=== PATIENT | male | born 1935 | race Hispanic/Latino ===

== ENCOUNTER 2024-07-11 14:23 | Emergency (ER) | payer OTHER ==
--- OUTSIDE RECORDS SUMMARY | 2024-07-11 14:28 | XMS REPORT | Continuity of Care Document ---
Author Name Unknown Address [address] [facility] [address] [place] [address] Organization [facility] [place] Address [address] [facility] [address] [place] [address] Care Team Providers Care Manager Testing Name Role Phone Jefe Dixon Attending Clinician Unavailable Garett Maynard Attending Clinician Abdulkadir Beltran Attending Clinician Unavailable Michel Steve Attending Clinician Unavailable Garett Maynard Admitting Clinician Abdulkadir Beltran Admitting Clinician Unavailable Miguel Brown APN Admitting Clinician Kane llanos Payers Payer Name Policy Type Policy Number Effective Date Expirati on Date Source [facility] MCR Dual Complete (HMO-POS D-SNP) 111 [id number] 2023 00:00:00 [facility] Problems Condition Name Condition Details Condition Category Status Onset Date Resolution Date Last Treatment Date Treating Clinician Comments Source Essential hypertensi on Essential (primary) hypertensi on Problem [facility] [id number] Chronic GERD Problem [facility] 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 Type 2 diabetes mellitus with hyperglyce olesya, without long-term current use of insulin Problem [facility] [id number] Hearing difficulty of both ears Problem [facility] [id number] Mild episode of recurrent major depressive disorder Problem [facility] [id number] Primary insomnia Problem [facility] [id number] Urinary incontinen ce, unspecifie d type Problem [facility] [id number] 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, unspecifie d pathologic al fracture presence Problem [facility] [id number] Other chronic pain Problem [facility] Allergies, Adverse Reactions, Alerts Allergy Name Allergy Type Status Severity Reaction(s) Onset Date Inactive Date Treating Clinician Comments Source penicill in DA Active RASH 2021-05 00:00: 00 [facility] Active 10-25 00:00: 00 [facility] pen[facility] in DA Active RASH 10-25 00:00: 00 [facility] [id number] Drug allergy Active Unknown [facility] Social History Social Habit Start Date Stop Date Quantity Comments Source History of Tobacco Use [facility] Sex Assigned At [facility] Smoking Status Start Date Stop Date Source Never Smoker [facility] Former Smoker 2024-04-10 00:00:00 2024-04-10 00:00:00 [facility] Medications Ordered Medication Name Filled Medication Name Start Date Stop Date Current Medication? Ordering Clinician Indication Dosage Frequency Signature (SIG) Comments Components Source Ketoconazol e 2 % Ketoconazol e 2 % 2023-05 00:00: 00 No 1{appli cation} QD Ketoconazo le 2 % Ciprofloxac in HCl 500 MG Ciprofloxac in HCl 500 MG 2023-05 00:00: 00 No 1{table t} QD Ciprofloxa jillian HCl 500 MG DULoxetine HCl 30 MG DULoxetine HCl 30 MG 2023-05 1 00:00: 00 No 1{capsu le} QD DULoxetine HCl 30 MG traZODone HCl 150 MG traZODone HCl 150 MG 01-16 00:00: 00 No 1{table t_at_be dtime} QD traZODone HCl 150 MG Triamcinolo ne Acetonide Triamcinolo ne Acetonide No Triamcinol one Acetonide Alendronate Sodium 70 MG Alendronate Sodium 70 MG No Alendronat e Sodium 70 MG Aspirin 81 81 MG Aspirin 81 81 MG No 1{table t} QD Aspirin 81 81 MG Tamsulosin HCl 0.4 MG Tamsulosin HCl 0.4 MG No 1{capsu le} QD Tamsulosin HCl 0.4 MG Losartan Potassium 25 MG Losartan Potassium 25 MG No 1{table t} QD Losartan Potassium 25 MG Famotidine 20 MG Famotidine 20 MG No 1{table t_at_be dtime_a s_neede d} QD Famotidine 20 MG Farxiga 10mg Farxiga 10mg No 1{table t} QD Farxiga 10mg Atorvastati n Calcium 80 MG Atorvastati n Calcium 80 MG No 1{table t} QD Atorvastat in Calcium 80 MG Vital Signs Vital Name Observation Time Observation Value Comments S ource height 2024-06-26 15:15:00 61 [in_i] Commo n [facility] weight 2024-06-26 15:15:00 157.0 [lb_av] Co mmon [facility] temperature 2024-06-26 15:15:00 98.6 [degF] Com mon [facility] bmi 2024-06-26 15:15:00 29.66 kg/m2 Comm on [facility] oximetry 2024-06-26 15:15:00 95 % Commo n [facility] respiratory rate 2024-06-26 15:15:00 16 /min Common [facility] blood pressure systolic 2024-06-26 15:15:00 113 mm[Hg] Common [facility] blood pressure diastolic 2024-06-26 15:15:00 75 mm[Hg] [facility] height 2024-04-10 14:40:00 61 [in_i] Commo n [facility] weight 2024-04-10 14:40:00 155.2 [lb_av] Co mmon [facility] temperature 2024-04-10 14:40:00 97.3 [degF] Com [facility] bmi 2024-04-10 14:40:00 29.32 kg/m2 Comm on [facility] oximetry 2024-04-10 14:40:00 95 % Commo n [facility] respiratory rate 2024-04-10 14:40:00 16 /min [facility] blood pressure systolic 2024-04-10 14:40:00 118 mm[Hg] Common [facility] blood pressure diastolic 2024-04-10 14:40:00 75 mm[Hg] Common [facility] height 2024-03-15 16:00:00 61 [in_i] Commo n [facility] weight 2024-03-15 16:00:00 158.6 [lb_av] Co on [facility] temperature 2024-03-15 16:00:00 98.1 [degF] Com [facility] bmi 2024-03-15 16:00:00 29.96 kg/m2 Comm on [facility] oximetry 2024-03-15 16:00:00 97 % Commo n [facility] respiratory rate 2024-03-15 16:00:00 16 /min Common [facility] blood pressure systolic 2024-03-15 16:00:00 116 mm[Hg] [facility] blood pressure diastolic 2024-03-15 16:00:00 62 mm[Hg] Common [facility] height 2024-03-06 13:00:00 61 [in_i] Commo n [facility] weight 2024-03-06 13:00:00 159.2 [lb_av] Co mmon [facility] temperature 2024-03-06 13:00:00 97.7 [degF] Com [facility] bmi 2024-03-06 13:00:00 30.08 kg/m2 Comm on [facility] oximetry 2024-03-06 13:00:00 97 % Commo n [facility] respiratory rate 2024-03-06 13:00:00 16 /min Common [facility] blood pressure systolic 2024-03-06 13:00:00 136 mm[Hg] Common [facility] blood pressure diastolic 2024-03-06 13:00:00 80 mm[Hg] Common [facility] height 2024-02-20 08:40:00 61 [in_i] Commo n [facility] weight 2024-02-20 08:40:00 154.8 [lb_av] Co mmon [facility] temperature 2024-02-20 08:40:00 97.2 [degF] Com [facility] bmi 2024-02-20 08:40:00 29.25 kg/m2 Comm on [facility] oximetry 2024-02-20 08:40:00 94 % Commo n [facility] respiratory rate 2024-02-20 08:40:00 16 /min Common [facility] blood pressure systolic 2024-02-20 08:40:00 137 mm[Hg] Common [facility] blood pressure diastolic 2024-02-20 08:40:00 85 mm[Hg] [facility] height 2024-02-02 14:40:00 61 [in_i] Commo n [facility] weight 2024-02-02 14:40:00 154.0 [lb_av] Co mmon [facility] temperature 2024-02-02 14:40:00 98.2 [degF] Com [facility] bmi 2024-02-02 14:40:00 29.09 kg/m2 Comm on [facility] oximetry 2024-02-02 14:40:00 96 % Commo n [facility] respiratory rate 2024-02-02 14:40:00 16 /min Common [facility] blood pressure systolic 2024-02-02 14:40:00 87 mm[Hg] Common [facility]iri [facility] blood pressure diastolic 2024-02-02 14:40:00 64 mm[Hg] Common [facility] height 2024-01-17 08:20:00 61 [in_i] Commo n [facility] weight 2024-01-17 08:20:00 156.6 [facility]24-[facility]-17 08:20:00 98.0 [degF] Com [facility] bmi 2024-01-17 08:20:00 29.59 kg/m2 Comm on [facility] oximetry 2024-01-17 08:20:00 96 % Commo n [facility] respiratory rate 2024-01-17 08:20:00 16 /min [facility] blood pressure systolic 2024-01-17 08:20:00 132 mm[Hg] [facility] blood pressure diastolic 2024-01-17 08:20:00 70 mm[Hg] Common [facility] height 2023-12-26 15:40:00 61 [in_i] Commo n [facility] weight 2023-12-26 15:40:00 153.4 [lb_av] Co [facility] temperature 2023-12-26 15:40:00 98.2 [degF] Com [facility] bmi 2023-12-26 15:40:00 28.98 kg/m2 Comm on [facility] oximetry 2023-12-26 15:40:00 96 % Commo n [facility] respiratory rate 2023-12-26 15:40:00 16 /min Common [facility] blood pressure systolic 2023-12-26 15:40:00 114 mm[Hg] Common [facility] blood pressure diastolic 2023-12-26 15:40:00 75 mm[Hg] Common [facility] height 2023-12-01 15:00:00 61 [in_i] Commo n [facility] weight 2023-12-01 15:00:00 185.4 [lb_av] Co mmon [facility] temperature 2023-12-01 15:00:00 97.7 [degF] Com mon [facility] bmi 2023-12-01 15:00:00 35.03 kg/m2 Comm on [facility] oximetry 2023-12-01 15:00:00 98 % Commo n [facility] respiratory rate 2023-12-01 15:00:00 16 /min [facility] blood pressure systolic 2023-12-01 15:00:00 118 mm[Hg] [facility] blood pressure diastolic 2023-12-01 15:00:00 64 mm[Hg] [facility] Procedures Procedure Date / Time Performed Performing Clinicia n Source [id number] 2022-04-20 00:00:00 [facility] [id number] 2022-04-20 00:00:00 [facility] Encounters Start Date/Time End Date/Time Encounter Type Admission Type Attending Clinicians Care Facility Care Department Encounter ID Source 2024-06-26 15:10:01 Outpatient Jefe Dixon [facility] [id number] [facility] 2024-06-22 11:46:01 Outpatient Jefe Dixon [facility] [id number] [facility] 2024-04-10 15:11:00 Outpatient Jefe Dixon [facility] [id number] [facility] 2024-02-01 07:18:00 Outpatient Jefe Dixon [facility] [id number] [facility] 2024-01-30 09:14:01 Outpatient Jefe Dixon [facility] [id number] [facility] 2023-12-22 09:18:01 Outpatient Jefe Dixon [facility] [id number] [facility] 2023-12-01 14:18:01 Outpatient Jefe Dixon [facility] [id number] [facility] 2024-06-26 00:00:00 2024-06-26 00:00:00 OFFICE VISIT ESTAB PT LEVEL 4 [facility] ST[facility] [id number] [facility] 2024-06-18 00:00:00 2024-06-18 00:00:00 (TEL) STLMLC STLMLC [id number] [facility] 2024-06-01 00:00:00 2024-06-01 00:00:00 (TEL) [facility]LMLC STLMLC [id number] [facility] 2024-04-24 00:00:00 2024-04-24 00:00:00 (TEL) [facility]LMLC STLMLC [id number] [facility] 2024-04-17 00:00:00 2024-04-17 00:00:00 (TEL) STLMLC STLMLC [id number] [facility] 2024-04-17 00:00:00 2024-04-17 00:00:00 (TEL) STLMLC STLMLC [id number] [facility] 2024-04-10 00:00:00 2024-04-10 00:00:00 OFFICE VISIT ESTAB PT LEVEL 4 [facility]MLC STLMLC [id number] [facility] 2024-03-15 00:00:00 2024-03-15 00:00:00 OFFICE VISIT ESTAB PT LEVEL 3 [facility]ML[facility] STLMLC [id number] [facility] 2024-03-13 00:00:00 2024-03-13 00:00:00 (TEL) STLMLC STLMLC [id number] [facility] 2024-03-13 00:00:00 2024-03-13 00:00:00 (TEL) STLMLC STLMLC [id number] [facility] 2024-03-13 00:00:00 2024-03-13 00:00:00 (TEL) STLMLC STLMLC [id number] [facility] 2024-03-06 00:00:00 2024-03-06 00:00:00 OFFICE VISIT ESTAB PT LEVEL 4 [facility]MLC STLMLC [id number] [facility] 2024-03-06 00:00:00 2024-03-06 00:00:00 (TEL) STLMLC STLMLC [id number] [facility] 2024-02-29 00:00:00 2024-02-29 00:00:00 (TEL) STLMLC STLMLC [id number] [facility] 2024-02-20 00:00:00 2024-02-20 00:00:00 OFFICE VISIT ESTAB PT LEVEL 3 [facility]C STLMLC [id number] [facility] 2024-02-17 00:00:00 2024-02-17 00:00:00 (TEL) STLMLC STLMLC [id number] [facility] 2024-02-02 00:00:00 2024-02-02 00:00:00 OFFICE VISIT ESTAB PT LEVEL 4 [facility] STL[facility]C [id number] [facility] 2024-01-30 00:00:00 2024-01-30 00:00:00 (TEL) STLMLC STLMLC [id number] [facility] 2024-01-17 00:00:00 2024-01-17 00:00:00 OFFICE VISIT ESTAB PT LEVEL 3 [facility]C STLMLC [id number] [facility] 2024-01-04 00:00:00 2024-01-04 00:00:00 (TEL) STLMLC STLMLC [id number] [facility] 2023-12-26 00:00:00 2023-12-26 00:00:00 OFFICE VISIT ESTAB PT LEVEL 4 [facility]C STLMLC [id number] [facility] 2023-12-26 00:00:00 2023-12-26 00:00:00 (TEL) STLMLC STLMLC [id number] [facility] 2023-12-12 00:00:00 2023-12-12 00:00:00 (TEL) STLMLC STLMLC [id number] [facility] 2023-12-01 00:00:00 2023-12-01 00:00:00 OFFICE VISIT NEW PT LEVEL 4 [facility]LMLC STLMLC [id number] [facility] 2022-04-19 20:31:00 2022-04-30 13:00:00 Inpatient Garett Calderón HC[facility] REHA [id number] [facility] 2022-04-18 01:52:00 2022-04-19 18:27:00 Inpatient EM Abdulkadir Gamboa HC[facility] INTM.01 [id number] [facility] 2022-03-28 21:39:00 2022-03-29 00:29:00 Emergency EM Michel Steve [facility] ER [id number] [facility] Results Test Description Test Time Test Comments Results Result Co mments Source URINALYSIS AUTO W/O SCOPE ([id number])2024-03-15 00:00:00* Test Item Value Reference Range Interpretation Comme nts CULTURE, URINE (test code = 630-4) SPECIMEN NUMBER: [id number] - US ABDOMEN [id number] 09:51:00 [facility] : 1935 Sex: MFAX: Miguel Brown [phone] [place]: [facility] St: [facility] FAX: Quincy Davey DO FAX: Garett Maynard [facility] [place] [facility] 1935 Age/S: 87/M [address] [facility] Unit #: [id number] Loc: [address] [address] Phys: Garett Maynard DO Acct: [id number] Dis Date: Status: ADM IN PHONE #: [phone] Exam Date: 04/30/2022 08 FAX #: [phone] Reason: RIGHT UPPER QUADRANT PAIN EXAMS: CPT CODE: [id number] US ABDOMEN COMPLETE 50707 Location H 31 ABDOMINAL ULTRASOUND COMPLETE : HISTORY: RIGHT UPPER QUADRANT PAIN COMPARISON:CT abdomen and pelvis dated 03/02/2019 TECHNIQUE: Static, grayscale and color Doppler images of the solid abdominal organs were obtained. FINDINGS: The liver demonstrates minimally coarse echotexture. It measures approximately 12.3 cm in length. There appears to be a circumscribed mass in the mid right lobe measuring 2.4 x 1.8 x 2.3 cm. Minimal prominence at the intrahepatic biliary dilatation. Portal vein demonstrates hepatopedal flow.Patient is status post cholecystectomy. No gross biliary dilatation. CBD measures 4 mm diameter. The pancreas is obscured due to bowel gas. The spleen measures 7.8 cm. The right kidney measures 9.8 x 5.5 x 5.7 cm and the left kidney measures 10.1 x 5.3 x 4.3 cm. Kidneys are mildly echogenic Cortical thickness is within normal limits and approximately 1.5 cm bilaterally. No hydronephrosis bilaterally. Exophytic left renal inferior pole cyst measures 2 x 1.5 x 1.4 cm, corresponding to prior CT findings, no follow-up needed. The visible portions of the aorta and inferior vena cava appear unremarkable. IMPRESSION: 1. There appears focal circumscribed mass in the mid right lobe of liver, 2.4 cm. Dedicated liver protocol CT with/without contrast (or contrast MRI) is recommended. 2. Status post cholecystectomy. Mild intrahepatic biliary dilatation is nonspecific. CBD is nondilated at 4 mm. Correlate for normal PAGE 1 Signed Report (CONTINUED) FAX: Miguel Brown [phone] [place]: [facility] St: ADM FAX: Quincy Davey DO FAX: Garett Maynard [facility] 1935 Age/S: 87/M [address] [facility] Unit #: [id number] Loc: [place] [address] Phys: Garett Maynard DO Acct: [id number] Dis Date: Status: ADM IN PHONE #: [phone] Exam Date: 04/30/2022815 FAX #: [phone] Reason: RIGHT UPPER QUADRANT PAIN EXAMS: CPT CODE: [id number] US ABDOMEN COMPLETE 12448 (Continued) bilirubin levels. at 0951 Reported and signed by: Ling Paz M.D. CC: Miguel Brown; Quincy Davey DO; Garett Saini Technologist: Cristy Rivas RDMS Trnscrd Date/Time/By: 04/30/2022 (82) : By: [email or web address] Orig Print D/T: S: 04/30/2022 (0926) PAGE 2 Signed [id number] 06:53:00* Test Item Value Reference Range Interpretation Comme nts GLUBED (test code = GLUBED) 97 mg/dL 70-105 N Performed by cer 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 [facility]2022-12-29 21:05:00* Test Item Value Reference Range Interpretation Comme nts GLUBED (test code = GLUBED) 114 mg/dL 70-105 H Performed by cer 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 [facility]2022-12-29 15:50:00* Test Item Value Reference Range Interpretation Comme nts GLUBED (test code = GLUBED) 115 mg/dL 70-105 H Performed by cer 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 [facility]2022-12-29 11:13:00* Test Item Value Reference Range Interpretation Comme nts GLUBED (test code = GLUBED) 109 mg/dL 70-105 H Performed by cer 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 [facility]2022-12-29 06:08:00* Test Item Value Reference Range Interpretation Comme nts GLUBED (test code = GLUBED) 94 mg/dL 70-105 N Performed by cer 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 [facility]2022-12-28 21:35:00* Test Item Value Reference Range Interpretation Comme nts GLUBED (test code = GLUBED) 100 mg/dL 70-105 N Performed by cer 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 [facility]2022-12-28 17:00:00* Test Item Value Reference Range Interpretation Comme nts GLUBED (test code = GLUBED) 133 mg/dL 70-105 H Performed by cer 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 [facility]2022-12-28 11:00:00* Test Item Value Reference Range Interpretation Comme nts GLUBED (test code = GLUBED) 124 mg/dL 70-105 H Performed by cer 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 [facility]2022-12-28 07:31:00* Test Item Value Reference Range Interpretation Comme nts GLUBED (test code = GLUBED) 112 mg/dL 70-105 H Performed by cer 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 [facility]2022-12-27 21:28:00* Test Item Value Reference Range Interpretation Comme nts GLUBED (test code = GLUBED) 108 mg/dL 70-105 H Performed by cer 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 [facility]2022-12-27 16:47:00* Test Item Value Reference Range Interpretation Comme nts GLUBED (test code = GLUBED) 136 mg/dL 70-105 H Performed by cer 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 [facility]2022-12-27 11:00:00* Test Item Value Reference Range Interpretation Comme nts GLUBED (test code = GLUBED) 135 mg/dL 70-105 H Performed by cer 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 [facility]2022-12-27 06:06:00* Test Item Value Reference Range Interpretation Comme nts GLUBED (test code = GLUBED) 112 mg/dL 70-105 H Performed by cer 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 [facility]2022-12-26 21:12:00* Test Item Value Reference Range Interpretation Comme nts GLUBED (test code = GLUBED) 174 mg/dL 70-105 H Performed by cer 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 [facility]2022-12-26 16:55:00* Test Item Value Reference Range Interpretation Comme nts GLUBED (test code = GLUBED) 149 mg/dL 70-105 H Performed by cer 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 [facility]2022-12-26 12:31:00* Test Item Value Reference Range Interpretation Comme nts GLUBED (test code = GLUBED) 170 mg/dL 70-105 H Performed by cer 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 [facility] CBC W/AUTO [id number] 08:03:00* Test Item Value Reference Range Interpretation Comme nts WHITE BLOOD CELL (test code = WBC) 7.5 X10(3) 4.5-11.0 N RED BLOOD CELL (test code = RBC) 3.63 X10(6) 4.3-5.9 L HEMOGLOBIN (test code = HGB) 11.1 g/dL 13.5-18.0 L HEMATOCRIT (test code = HCT) 33.4 % 42.0-52.0 L MEAN CELL VOLUME (test code = MCV) 92.0 fl 78-100 N MEAN CELL HGB (test code = MCH) 30.6 pg 26.0-34.0 N MEAN CELL HGB CONCETRATION (test code = MCHC) 33.2 g/dl 30.0-37.0 N RED CELL DISTRIBUTION WIDTH (test code = RDW) 14.0 % 11.5-14.5 N PLATELET COUNT (test code = PLT) 225 X10(3) 150-350 N MEAN PLATELET VOLUME (test c ode = MPV) 9.2 fl 8.7-11.4 N NEUTROPHIL % (test code = NT%) 64.9 % 36.0-66.0 N IMMATURE GRANULOCYTE % (test code = IG%) 0.4 % 0.0-2.0 N LYMPHOCYTE % (test code = LY%) 15.0 % 16.0-50.0 L MONOCYTE % (test code = MO%) 15.0 % 0.0-13.0 H EOSINOPHIL % (test code = EO%) 4.2 % 0.0-4.5 N BASOPHIL % (test code = BA%) 0.5 % 0.0-1.5 N NUCLEATED RBC % (test code = NRBC%) 0.0 % 0-0.2 N NEUTROPHIL # (test code = NT#) 4.88 X10(3) 1.70-7.70 N IMMATURE GRANULOCYTE # (test code = IG#) 0.03 X10(3)uL 0.00-0.03 N LYMPHOCYTE # (test code = LY#) 1.13 X10(3) 0.70-4.00 N MONOCYTE # (test code = MO#) 1.13 X10(3) 0.00-0.89 H EOSINOPHIL # (test code = EO#) 0.32 X10(3) 0.00-0.60 N BASOPHIL # (test code = BA#) 0.04 X10(3) 0.00-0.20 N NUCLEATED RBC # (test code = NRBC#) 0.00 K/mm3 0.0-0.1 N BASIC METABOLIC [id number] 07:40:00* Test Item Value Reference Range Interpretation Comme nts SODIUM (test code = NA) 134 mmol/L 136-145 L POTASSIUM (test code = K) 4.0 mmol/L 3.5-5.1 N CHLORIDE (test code = CL) 103 mmol/L 98-107 N CARBON DIOXIDE (test code = CO2) 26 mmol/L 21-32 N GLUCOSE (test code = GLU) 111 mg/dL 70-100 H BLOOD UREA NITROGEN (test code = BUN) 36 mg/dL 7-18 H GLOMERULAR FILTRATION RATE (test code = GFR) > 60.00 See_Comment Reporting unit s: mL/min/1.73m\S\2 (Modified MDRD formula)REFERENCE RANGE: > or = 60 ml/min/1.73M2IF PATIENT IS -NOR[place]GI[place], MULTIPLY REPORTED RESULT BY1.21.The Glomerular Filtration Rate is a calculated parameterbased on serum Creatinine, patient age and sex. GFR valuesless than 60 mL/min/1.73 square meters are indicative ofChronic Kidney Disease. Values less than 15 mL/min/1.73square meters indicate Kidney failure. The calculation forGFR is based on the CKD-EPI (2020) calculation. This formulais race indifferent and is the recommended formula for GFRby the National Kidney Foundation for Adults.The GFR will not calculate if the sex is unknown or if thepatient's age is <18 years. [Automated message] The system which generated this result transmitted reference range: >=60. The reference range was not used to interpret this result as normal/abnormal. CREATININE (test code = CREAT) 0.97 mg/dL 0.67-1.17 N CALCIUM (test code = CA) 8.9 mg/dL 8.5-10.1 N [id number] 06:44:00* Test Item Value Reference Range Interpretation Comme nts GLUBED (test code = GLUBED) 102 mg/dL 70-105 N Performed by cer 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 [facility] [id number] 20:59:00* Test Item Value Reference Range Interpretation Comme nts GLUBED (test code = GLUBED) 108 mg/dL 70-105 H Performed by cer 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 [facility] [id number] 16:56:00* Test Item Value Reference Range Interpretation Comme nts GLUBED (test code = GLUBED) 101 mg/dL 70-105 N Performed by cer 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 [facility] [id number] 11:13:00* Test Item Value Reference Range Interpretation Comme nts GLUBED (test code = GLUBED) 134 mg/dL 70-105 H Performed by cer 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 [facility] COVID 19 Asymptomatic IH [id number] 11:06:00* Test Item Value Reference Range Interpretation Comments COVID 19 Asymptomatic IH AG (test code = COVNONPUIAG) Presumed Negative NEGATIVE NINA COVID-19 Results are for the identification of VPKH-SiL-7lesafublsfff protein antigen. Antigen is generallydetectable in upper respiratory specimens during the acutephase of infection. Positive results indicate the presenceof viral antigens, but clinical correlation with patienthistory and other diagnostic information is necessary todetermine infection status. Negative results should be treated as presumptive andconfirmed with a molecular assay, if necessary for patientmanagement. Negative results do not rule out COVID-19 andshould not be used as the sole basis for treatment orpatient management decisions, including infection controldecisions. Negative results should be considered in thecontext of a patient's recent exposures, history and thepresence of clinical signs and symptoms consistent withCOVID-19. The Nina SARS Antigen ELISE is only for use under the Foodand Drug Administration's Emergency Use Authorization. [id number] 06:17:00* Test Item Value Reference Range Interpretation Comme nts GLUBED (test code = GLUBED) 119 mg/dL 70-105 H Performed by cer 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 [facility] [id number] 20:23:00* Test Item Value Reference Range Interpretation Comme nts GLUBED (test code = GLUBED) 143 mg/dL 70-105 H Performed by cer 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 [facility] [id number] 16:40:00* Test Item Value Reference Range Interpretation Comme nts GLUBED (test code = GLUBED) 84 mg/dL 70-105 N Performed by cer 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 [facility]2022-12-24 11:15:00* Test Item Value Reference Range Interpretation Comme nts GLUBED (test code = GLUBED) 162 mg/dL 70-105 H Performed by cer 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 [facility]2022-12-24 06:19:00* Test Item Value Reference Range Interpretation Comme nts GLUBED (test code = GLUBED) 104 mg/dL 70-105 N Performed by cer 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 [facility]2022-12-23 20:42:00* Test Item Value Reference Range Interpretation Comme nts GLUBED (test code = GLUBED) 128 mg/dL 70-105 H Performed by cer 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 [facility]2022-12-23 16:43:00* Test Item Value Reference Range Interpretation Comme nts GLUBED (test code = GLUBED) 137 mg/dL 70-105 H Performed by cer 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 [facility]2022-12-23 12:02:00* Test Item Value Reference Range Interpretation Comme nts GLUBED (test code = GLUBED) 99 mg/dL 70-105 N Performed by cer 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 [facility] BASIC METABOLIC [id number] 06:18:00* Test Item Value Reference Range Interpretation Comme nts SODIUM (test code = NA) 131 mmol/L 136-145 L POTASSIUM (test code = K) 4.1 mmol/L 3.5-5.1 N CHLORIDE (test code = CL) 100 mmol/L 98-107 N CARBON DIOXIDE (test code = CO2) 25 mmol/L 21-32 N GLUCOSE (test code = GLU) 91 mg/dL 70-100 N BLOOD UREA NITROGEN (test code = BUN) 9 mg/dL 7-18 N GLOMERULAR FILTRATION RATE (test code = GFR) > 60.00 See_Comment Reporting unit s: mL/min/1.73m\S\2 (Modified MDRD formula)REFERENCE RANGE: > or = 60 ml/min/1.73M2IF PATIENT IS -NORWEGI[place], MULTIPLY REPORTED RESULT BY1.21.The Glomerular Filtration Rate is a calculated parameterbased on serum Creatinine, patient age and sex. GFR valuesless than 60 mL/min/1.73 square meters are indicative ofChronic Kidney Disease. Values less than 15 mL/min/1.73square meters indicate Kidney failure. The calculation forGFR is based on the CKD-EPI (2021) calculation. This formulais race indifferent and is the recommended formula for GFRby the National Kidney Foundation for Adults.The GFR will not calculate if the sex is unknown or if thepatient's age is <18 years. [Automated message] The system which generated this result transmitted reference range: >=60. The reference range was not used to interpret this result as normal/abnormal. CREATININE (test code = CREAT) 0.79 mg/dL 0.67-1.17 N CALCIUM (test code = CA) 8.6 mg/dL 8.5-10.1 N COMPREHENSIVE METABOLIC [id number] 06:59:00* Test Item Value Reference Range Interpretation Comme nts SODIUM (test code = NA) 128 mmol/L 136-145 L POTASSIUM (test code = K) 3.8 mmol/L 3.5-5.1 N CHLORIDE (test code = CL) 96 mmol/L 98-107 L CARBON DIOXIDE (test code = CO2) 25 mmol/L 21-32 N GLUCOSE (test code = GLU) 91 mg/dL 70-100 N BLOOD UREA NITROGEN (test code = BUN) 9 mg/dL 7-18 N GLOMERULAR FILTRATION RATE (test code = GFR) > 60.00 See_Comment Reporting unit s: mL/min/1.73m\S\2 (Modified MDRD formula)REFERENCE RANGE: > or = 60 ml/min/1.73M2IF PATIENT IS -NOR[place]GI[place], MULTIPLY REPORTED RESULT BY1.21.The Glomerular Filtration Rate is a calculated parameterbased on serum Creatinine, patient age and sex. GFR valuesless than 60 mL/min/1.73 square meters are indicative ofChronic Kidney Disease. Values less than 15 mL/min/1.73square meters indicate Kidney failure. The calculation forGFR is based on the CKD-EPI (2021) calculation. This formulais race indifferent and is the recommended formula for GFRby the National Kidney Foundation for Adults.The GFR will not calculate if the sex is unknown or if thepatient's age is <18 years. [Automated message] The system which generated this result transmitted reference range: >=60. The reference range was not used to interpret this result as normal/abnormal. CREATININE (test code = CREAT) 0.77 mg/dL 0.67-1.17 TOTAL PROTEIN (test code = PROT) 6.4 g/dl 6.4-8.2 N ALBUMIN (test code = ALB) 3.2 g/dl 3.4-5.0 L CALCIUM (test code = CA) 8.4 mg/dL 8.5-10.1 L BILIRUBIN TOTAL (test code = BILT) 0.8 mg/dl 0.2-1.0 N SGOT/AST (test code = AST) 24 U/L 15-37 N SGPT/ALT (test code = ALT) 25 U/L 12-78 N ALKALINE PHOSPHATASE TOTAL (test code = ALKP) 51 U/L 50-136 N CBC W/AUTO [id number] 06:19:00* Test Item Value Reference Range Interpretation Comme nts WHITE BLOOD CELL (test code = WBC) 6.5 X10(3) 4.5-11.0 N RED BLOOD CELL (test code = RBC) 4.06 X10(6) 4.3-5.9 L HEMOGLOBIN (test code = HGB) 12.5 g/dL 13.5-18.0 L HEMATOCRIT (test code = HCT) 36.5 % 42.0-52.0 L MEAN CELL VOLUME (test code = MCV) 89.9 fl 78-100 N MEAN CELL HGB (test code = MCH) 30.8 pg 26.0-34.0 N MEAN CELL HGB CONCETRATION (test code = MCHC) 34.2 g/dl 30.0-37.0 N RED CELL DISTRIBUTION WIDTH (test code = RDW) 13.2 % 11.5-14.5 N PLATELET COUNT (test code = PLT) 226 X10(3) 150-350 N MEAN PLATELET VOLUME (test c ode = MPV) 9.1 fl 8.7-11.4 N NEUTROPHIL % (test code = NT%) 64.2 % 36.0-66.0 N IMMATURE GRANULOCYTE % (test code = IG%) 0.3 % 0.0-2.0 N LYMPHOCYTE % (test code = LY%) 17.8 % 16.0-50.0 N MONOCYTE % (test code = MO%) 14.3 % 0.0-13.0 H EOSINOPHIL % (test code = EO%) 2.9 % 0.0-4.5 N BASOPHIL % (test code = BA%) 0.5 % 0.0-1.5 N NUCLEATED RBC % (test code = NRBC%) 0.0 % 0-0.2 N NEUTROPHIL # (test code = NT#) 4.14 X10(3) 1.70-7.70 N IMMATURE GRANULOCYTE # (test code = IG#) 0.02 X10(3)uL 0.00-0.03 N LYMPHOCYTE # (test code = LY#) 1.15 X10(3) 0.70-4.00 N MONOCYTE # (test code = MO#) 0.92 X10(3) 0.00-0.89 H EOSINOPHIL # (test code = EO#) 0.19 X10(3) 0.00-0.60 N BASOPHIL # (test code = BA#) 0.03 X10(3) 0.00-0.20 N NUCLEATED RBC # (test code = NRBC#) 0.00 K/mm3 0.0-0.1 N [id number] 16:36:00* Test Item Value Reference Range Interpretation Comme nts GLUBED (test code = GLUBED) 122 mg/dL 70-105 H Performed by cer 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 [facility] BASIC METABOLIC [id number] 13:34:00* Test Item Value Reference Range Interpretation Comme nts SODIUM (test code = NA) 128 mmol/L 136-145 L POTASSIUM (test code = K) 3.9 mmol/L 3.5-5.1 N CHLORIDE (test code = CL) 97 mmol/L 98-107 L CARBON DIOXIDE (test code = CO2) 25 mmol/L 21-32 N GLUCOSE (test code = GLU) 121 mg/dL 70-100 H BLOOD UREA NITROGEN (test code = BUN) 7 mg/dL 7-18 N GLOMERULAR FILTRATION RATE (test code = GFR) > 60.00 See_Comment Reporting unit s: mL/min/1.73m\S\2 (Modified MDRD formula)REFERENCE RANGE: > or = 60 ml/min/1.73M2IF PATIENT IS -NOR[place]GI[place], MULTIPLY REPORTED RESULT BY1.21.The Glomerular Filtration Rate is a calculated parameterbased on serum Creatinine, patient age and sex. GFR valuesless than 60 mL/min/1.73 square meters are indicative ofChronic Kidney Disease. Values less than 15 mL/min/1.73square meters indicate Kidney failure. The calculation forGFR is based on the CKD-EPI (202) calculation. This formulais race indifferent and is the recommended formula for GFRby the National Kidney Foundation for Adults.The GFR will not calculate if the sex is unknown or if thepatient's age is <18 years. [Automated message] The system which generated this result transmitted reference range: >=60. The reference range was not used to interpret this result as normal/abnormal. CREATININE (test code = CREAT) 1.02 mg/dL 0.67-1.17 CALCIUM (test code = CA) 7.9 mg/dL 8.5-10.1 L [id number] 13:34:00* Test Item Value Reference Range Interpretation Comme nts MAGNESIUM (test code = MAG) 1.3 mg/dL 1.8-2.4 L CBC W/AUTO [id number] 13:15:00* Test Item Value Reference Range Interpretation Comme nts WHITE BLOOD CELL (test code = WBC) 5.2 X10(3) 4.5-11.0 N RED BLOOD CELL (test code = RBC) 3.79 X10(6) 4.3-5.9 L HEMOGLOBIN (test code = HGB) 11.4 g/dL 13.5-18.0 L HEMATOCRIT (test code = HCT) 34.8 % 42.0-52.0 L MEAN CELL VOLUME (test code = MCV) 91.8 fl 78-100 N MEAN CELL HGB (test code = MCH) 30.1 pg 26.0-34.0 N MEAN CELL HGB CONCETRATION (test code = MCHC) 32.8 g/dl 30.0-37.0 N RED CELL DISTRIBUTION WIDTH (test code = RDW) 13.4 % 11.5-14.5 N PLATELET COUNT (test code = PLT) 187 X10(3) 150-350 N MEAN PLATELET VOLUME (test c ode = MPV) 8.9 fl 8.7-11.4 N NEUTROPHIL % (test code = NT%) 75.1 % 36.0-66.0 H IMMATURE GRANULOCYTE % (test code = IG%) 0.2 % 0.0-2.0 N LYMPHOCYTE % (test code = LY%) 13.5 % 16.0-50.0 L MONOCYTE % (test code = MO%) 8.9 % 0.0-13.0 N EOSINOPHIL % (test code = EO%) 1.9 % 0.0-4.5 N BASOPHIL % (test code = BA%) 0.4 % 0.0-1.5 N NUCLEATED RBC % (test code = NRBC%) 0.0 % 0-0.2 N NEUTROPHIL # (test code = NT#) 3.89 X10(3) 1.70-7.70 N IMMATURE GRANULOCYTE # (test code = IG#) 0.01 X10(3)uL 0.00-0.03 N LYMPHOCYTE # (test code = LY#) 0.70 X10(3) 0.70-4.00 N MONOCYTE # (test code = MO#) 0.46 X10(3) 0.00-0.89 N EOSINOPHIL # (test code = EO#) 0.10 X10(3) 0.00-0.60 N BASOPHIL # (test code = BA#) 0.02 X10(3) 0.00-0.20 N NUCLEATED RBC # (test code = NRBC#) 0.00 K/mm3 0.0-0.1 N [id number] 12:16:00* Test Item Value Reference Range Interpretation Comme nts GLUBED (test code = GLUBED) 123 mg/dL 70-105 H Performed by cer 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 [facility] [id number] 06:20:00* Test Item Value Reference Range Interpretation Comme nts GLUBED (test code = GLUBED) 83 mg/dL 70-105 N Performed by cer 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 [facility] UR SODIUM [id number] 21:03:00* Test Item Value Reference Range Interpretation Comme nts UR SODIUM RANDOM (test code = JULIANA) 73 meq/L UR OSMOLALITY [id number] 21:03:00* Test Item Value Reference Range Interpretation Comme nts UR OSMOLALITY RANDOM (test c ode = OSMOU) 362 MOS/KG 500-800 L [id number] 20:12:00* Test Item Value Reference Range Interpretation Comme nts GLUBED (test code = GLUBED) 93 mg/dL 70-105 N Performed by cer 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 [facility] [id number] 19:07:00* Test Item Value Reference Range Interpretation Comme nts SODIUM (test code = NA) 126 mmol/L 136-145 L [id number] 16:09:00* Test Item Value Reference Range Interpretation Comme nts GLUBED (test code = GLUBED) 127 mg/dL 70-105 H Performed by cer 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 [facility] [id number] 15:14:00* Test Item Value Reference Range Interpretation Comme nts SODIUM (test code = NA) 124 mmol/L 136-145 L [id number] 12:18:00* Test Item Value Reference Range Interpretation Comme nts SODIUM (test code = NA) 125 mmol/L 136-145 L [id number] 11:32:00* Test Item Value Reference Range Interpretation Comme nts GLUBED (test code = GLUBED) 116 mg/dL 70-105 H Performed by cer 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 [facility] OSMOLALITY [id number] 09:53:00* Test Item Value Reference Range Interpretation Comme nts OSMOLALITY SERUM (test code = OSMO) 259 MOS/KG 275-295 L [id number] 06:21:00* Test Item Value Reference Range Interpretation Comme nts GLUBED (test code = GLUBED) 125 mg/dL 70-105 H Performed by cer 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 [facility] BASIC METABOLIC [id number] 05:48:00* Test Item Value Reference Range Interpretation Comme nts SODIUM (test code = NA) 123 mmol/L 136-145 L POTASSIUM (test code = K) 4.0 mmol/L 3.5-5.1 N CHLORIDE (test code = CL) 90 mmol/L 98-107 L CARBON DIOXIDE (test code = CO2) 24 mmol/L 21-32 N GLUCOSE (test code = GLU) 112 mg/dL 70-100 H BLOOD UREA NITROGEN (test code = BUN) 9 mg/dL 7-18 N GLOMERULAR FILTRATION RATE (test code = GFR) > 60.00 See_Comment Reporting unit s: mL/min/1.73m\S\2 (Modified MDRD formula)REFERENCE RANGE: > or = 60 ml/min/1.73M2IF PATIENT IS -NORWEGI[place], MULTIPLY REPORTED RESULT BY1.21.The Glomerular Filtration Rate is a calculated parameterbased on serum Creatinine, patient age and sex. GFR valuesless than 60 mL/min/1.73 square meters are indicative ofChronic Kidney Disease. Values less than 15 mL/min/1.73square meters indicate Kidney failure. The calculation forGFR is based on the CKD-EPI (2020) calculation. This formulais race indifferent and is the recommended formula for GFRby the National Kidney Foundation for Adults.The GFR will not calculate if the sex is unknown or if thepatient's age is <18 years. [Automated message] The system which generated this result transmitted reference range: >=60. The reference range was not used to interpret this result as normal/abnormal. CREATININE (test code = CREAT) 0.81 mg/dL 0.67-1.17 N CALCIUM (test code = CA) 8.9 mg/dL 8.5-10.1 N COMPREHENSIVE METABOLIC [id number] 05:48:00* Test Item Value Reference Range Interpretation Comme nts TOTAL PROTEIN (test code = PROT) 7.0 g/dl 6.4-8.2 N ALBUMIN (test code = ALB) 3.7 g/dl 3.4-5.0 N BILIRUBIN TOTAL (test code = BILT) 1.8 mg/dl 0.2-1.0 H SGOT/AST (test code = AST) 26 U/L 15-37 N SGPT/ALT (test code = ALT) 26 U/L 12-78 N ALKALINE PHOSPHATASE TOTAL ( test code = ALKP) 55 U/L 50-136 N URINALYSIS W REFLEX [id number] 02:38:00* Test Item Value Reference Range Interpretation Comme nts UA COLOR (test code = COLU) LT YELLOW YELLOW UA APPEARANCE (test code = APPU) CLEAR CLEAR UA GLUCOSE DIPSTICK (test co de = DGLUU) NORMAL mg/dl NORMAL UA BILIRUBIN DIPSTICK (test code = BILU) NEGATIVE mg/dl NEGATIVE UA KETONE DIPSTICK (test cod e = KETU) NEGATIVE mg/dl NEGATIVE UA SPECIFIC GRAVITY (test co de = SGU) 1.008 1.001-1.035 N UA BLOOD DIPSTICK (test code = MELISA) NEGATIVE /UL NEGATIVE UA PH DIPSTICK (test code = TRENT) 7.0 4.6-8.0 UA PROTEIN DIPSTICK (test co de = PROU) NEGATIVE mg/dl NEGATIVE UA UROBILINIOGEN DIPSTICK (test code = URO) NORMAL mg/dl NORMAL UA NITRITE DIPSTICK (test co de = KATIE) NEGATIVE NEGATIVE UA LEUKOCYTE ESTERASE DIPSTI CK (test code = LEUU) NEGATIVE /UL NEGATIVE UA COMMENT (test code = COMU) CLN CATCH UA WBC (test code = WBCU) 0-2 #/hpf 0-5 UA RBC (test code = RBCU) 3-5 #/hpf 0-5 BASIC METABOLIC [id number] 01:23:00* Test Item Value Reference Range Interpretation Comme nts SODIUM (test code = NA) 122 mmol/L 136-145 L POTASSIUM (test code = K) 3.8 mmol/L 3.5-5.1 N CHLORIDE (test code = CL) 89 mmol/L 98-107 L CARBON DIOXIDE (test code = CO2) 24 mmol/L 21-32 N GLUCOSE (test code = GLU) 106 mg/dL 70-100 H BLOOD UREA NITROGEN (test code = BUN) 10 mg/dL 7-18 N GLOMERULAR FILTRATION RATE (test code = GFR) > 60.00 See_Comment Reporting unit s: mL/min/1.73m\S\2 (Modified MDRD formula)REFERENCE RANGE: > or = 60 ml/min/1.73M2IF PATIENT IS -NORWEGI[place], MULTIPLY REPORTED RESULT BY1.21.The Glomerular Filtration Rate is a calculated parameterbased on serum Creatinine, patient age and sex. GFR valuesless than 60 mL/min/1.73 square meters are indicative ofChronic Kidney Disease. Values less than 15 mL/min/1.73square meters indicate Kidney failure. The calculation forGFR is based on the CKD-EPI (2020) calculation. This formulais race indifferent and is the recommended formula for GFRby the National Kidney Foundation for Adults.The GFR will not calculate if the sex is unknown or if thepatient's age is <18 years. [Automated message] The system which generated this result transmitted reference range: >=60. The reference range was not used to interpret this result as normal/abnormal. CREATININE (test code = CREAT) 0.85 mg/dL 0.67-1.17 N CALCIUM (test code = CA) 8.2 mg/dL 8.5-10.1 L - CT HEAD/BRAIN W/O [id number] 01:16:00 [facility] : 1935 Sex: [facility] 1935 Age/S: 87 / M [address] Unit #: [id number] Loc: [place], [place] [address] Phys: Bertrand Rick DO Acct: [id number] Dis Date: Status: REG ER PHONE #: [phone] Exam Date: 04/18/202257 FAX #: [phone] Reason: headache, hypertension EXAMS: CPT CODE: [id number] CT HEAD/BRAIN W/O CONT [id number] Exam: CT head without contrast. Location: H 12 History: headache, hypertension Technique: Unenhanced spiral slices were taken from the base of the skull, through the vertex. One or more of the following dose reduction techniques were used: Automated exposure control, adjustment of the mA and/or kV according to patient size, and/or utilization of iterative reconstruction technique. Findings: No acute intracranial abnormality is identified. Prominence of the gyri and sulci is consistent with mild, diffuse cerebral atrophy. Periventricular ischemic white matter changes are present along with scattered microinfarcts in the periventricular and subcortical deep white matter. The brain parenchyma and the CSF spaces are otherwise unremarkable. No mass, midline shift, hemorrhage, edema or hydrocephalus is seen. The visualized paranasal sinuses are clear. The mastoid air cells are well pneumatized. The bony calvariumis intact. Impression: 1. No acute intracranial abnormality. 2. Atrophy. 3. Atherosclerotic microva scular disease. 4. Otherwise unremarkable exam. at 0116 Reported and signed by: TOMMY DAUGHERTY M.D. CC: Bertrand Brown Technologist:Senthil Martin RT(R) CT CTDI: 36.96 DLP: 715.42 Trnscb Date/Time: 04/18/2022 (0116) [email or web address] Orig Print D/T: S: 04/18/2022 (011) PAGE 1 Signed ReportCBC W/AUTO [id number] 00:54:00* Test Item Value Reference Range Interpretation Comme nts WHITE BLOOD CELL (test code = WBC) 4.7 X10(3) 4.5-11.0 N RED BLOOD CELL (test code = RBC) 3.59 X10(6) 4.3-5.9 L HEMOGLOBIN (test code = HGB) 10.9 g/dL 13.5-18.0 L HEMATOCRIT (test code = HCT) 32.4 % 42.0-52.0 L MEAN CELL VOLUME (test code = MCV) 90.3 fl 78-100 N MEAN CELL HGB (test code = MCH) 30.4 pg 26.0-34.0 N MEAN CELL HGB CONCETRATION (test code = MCHC) 33.6 g/dl 30.0-37.0 N RED CELL DISTRIBUTION WIDTH (test code = RDW) 12.8 % 11.5-14.5 N PLATELET COUNT (test code = PLT) 183 X10(3) 150-350 N MEAN PLATELET VOLUME (test c ode = MPV) 8.6 fl 8.7-11.4 L NEUTROPHIL % (test code = NT%) 68.8 % 36.0-66.0 H IMMATURE GRANULOCYTE % (test code = IG%) 0.2 % 0.0-2.0 N LYMPHOCYTE % (test code = LY%) 17.1 % 16.0-50.0 N MONOCYTE % (test code = MO%) 11.8 % 0.0-13.0 N EOSINOPHIL % (test code = EO%) 1.7 % 0.0-4.5 N BASOPHIL % (test code = BA%) 0.4 % 0.0-1.5 N NUCLEATED RBC % (test code = NRBC%) 0.0 % 0-0.2 N NEUTROPHIL # (test code = NT#) 3.26 X10(3) 1.70-7.70 N IMMATURE GRANULOCYTE # (test code = IG#) 0.01 X10(3)uL 0.00-0.03 N LYMPHOCYTE # (test code = LY#) 0.81 X10(3) 0.70-4.00 N MONOCYTE # (test code = MO#) 0.56 X10(3) 0.00-0.89 N EOSINOPHIL # (test code = EO#) 0.08 X10(3) 0.00-0.60 N BASOPHIL # (test code = BA#) 0.02 X10(3) 0.00-0.20 N NUCLEATED RBC # (test code = NRBC#) 0.00 K/mm3 0.0-0.1 N COMPREHENSIVE METABOLIC [id number] 22:44:00* Test Item Value Reference Range Interpretation Comme nts SODIUM (test code = NA) 122 mmol/L 136-145 L POTASSIUM (test code = K) 4.2 mmol/L 3.5-5.1 N CHLORIDE (test code = CL) 90 mmol/L 98-107 L CARBON DIOXIDE (test code = CO2) 24 mmol/L 21-32 N GLUCOSE (test code = GLU) 153 mg/dL 70-100 H BLOOD UREA NITROGEN (test code = BUN) 17 mg/dL 7-18 N GLOMERULAR FILTRATION RATE (test code = GFR) 49.25 See_Comment L Reporting unit s: mL/min/1.73m\S\2 (Modified MDRD formula)REFERENCE RANGE: > or = 60 ml/min/1.73M2IF PATIENT IS -NOR[place]GI[place], MULTIPLY REPORTED RESULT BY1.21.The Glomerular Filtration Rate is a calculated parameterbased on serum Creatinine, patient age and sex. GFR valuesless than 60 mL/min/1.73 square meters are indicative ofChronic Kidney Disease. Values less than 15 mL/min/1.73square meters indicate Kidney failure. The calculation forGFR is based on the CKD-EPI (2020) calculation. This formulais race indifferent and is the recommended formula for GFRby the National Kidney Foundation for Adults.The GFR will not calculate if the sex is unknown or if thepatient's age is <18 years. [Automated message] The system which generated this result transmitted reference range: >=60. The reference range was not used to interpret this result as normal/abnormal. CREATININE (test code = CREAT) 1.40 mg/dL 0.67-1.17 H TOTAL PROTEIN (test code = PROT) 6.9 g/dl 6.4-8.2 N ALBUMIN (test code = ALB) 3.6 g/dl 3.4-5.0 N CALCIUM (test code = CA) 8.6 mg/dL 8.5-10.1 N BILIRUBIN TOTAL (test code = BILT) 1.9 mg/dl 0.2-1.0 H SGOT/AST (test code = AST) 30 U/L 15-37 N SGPT/ALT (test code = ALT) 27 U/L 12-78 N ALKALINE PHOSPHATASE TOTAL (test code = ALKP) 68 U/L 50-136 N CBC W/AUTO [id number] 22:22:00* Test Item Value Reference Range Interpretation Comme nts WHITE BLOOD CELL (test code = WBC) 6.5 X10(3) 4.5-11.0 N RED BLOOD CELL (test code = RBC) 3.96 X10(6) 4.3-5.9 L HEMOGLOBIN (test code = HGB) 11.6 g/dL 13.5-18.0 L HEMATOCRIT (test code = HCT) 35.1 % 42.0-52.0 L MEAN CELL VOLUME (test code = MCV) 88.6 fl 78-100 N MEAN CELL HGB (test code = MCH) 29.3 pg 26.0-34.0 N MEAN CELL HGB CONCETRATION (test code = MCHC) 33.0 g/dl 30.0-37.0 N RED CELL DISTRIBUTION WIDTH (test code = RDW) 13.1 % 11.5-14.5 N PLATELET COUNT (test code = PLT) 176 X10(3) 150-350 N MEAN PLATELET VOLUME (test c ode = MPV) 9.4 fl 8.7-11.4 N NEUTROPHIL % (test code = NT%) 72.9 % 36.0-66.0 H IMMATURE GRANULOCYTE % (test code = IG%) 0.3 % 0.0-2.0 N LYMPHOCYTE % (test code = LY%) 13.3 % 16.0-50.0 L MONOCYTE % (test code = MO%) 12.1 % 0.0-13.0 N EOSINOPHIL % (test code = EO%) 0.9 % 0.0-4.5 N BASOPHIL % (test code = BA%) 0.5 % 0.0-1.5 N NUCLEATED RBC % (test code = NRBC%) 0.0 % 0-0.2 N NEUTROPHIL # (test code = NT#) 4.75 X10(3) 1.70-7.70 N IMMATURE GRANULOCYTE # (test code = IG#) 0.02 X10(3)uL 0.00-0.03 N LYMPHOCYTE # (test code = LY#) 0.87 X10(3) 0.70-4.00 N MONOCYTE # (test code = MO#) 0.79 X10(3) 0.00-0.89 N EOSINOPHIL # (test code = EO#) 0.06 X10(3) 0.00-0.60 N BASOPHIL # (test code = BA#) 0.03 X10(3) 0.00-0.20 N NUCLEATED RBC # (test code = NRBC#) 0.00 K/mm3 0.0-0.1 N - CT CHEST [id number] 18:55:00Name: ADRYAN MCWILLIAMS [facility] : 1935 Age/S: 83 / M [address] [facility] Unit #: [id number] Loc: [place], [place] [address] Phys: Juan David Suh MD Acct: [id number] Dis Date: Status: REG ER PHONE #: [phone] Exam Date: 03/02/2019 1831 FAX #: [phone] Reason:FALL EXAMS: CPT CODE: [id number] CT CHEST W/CONTRAST 17725 Site ID: [id number] EXAMINATION: - CT ABD PELVIS W/CONT, - CT CHEST W/CONTRAST. Technique: Axial images with coronal and sagittal reconstructions are performed of the chest, abdomen and pelvis with intravenous contrast. 100 ml of Isovue-300 was administered intravenously. One or more of the following radiation dose reduction techniques was used:automated exposure control, adjustment of mA and/or KV according to patient size, and/or utilization of iterative reconstruction technique. HISTORY: FALL. COMPARISON: None. FINDINGS: CT chest: The thoracic aorta is normal in caliber and enhancement. There is no mediastinal hematoma. No mediastinal mass or lymphadenopathy. The heart size is of the upper limits of normal. Coronary artery prominent calcifications are seen. No pericardial or pleural effusion. No hilar, mediastinal or axillary lymphadenopathy. The lungs demonstrate no significant consolidation or contusion. No pneumothorax. Minimal groundglass opacities in the dependent areas, probably represents mild atelectasis. The osseous structures appear grossly unremarkable. CT abdomen and pelvis: The liver demonstrates lobulated contour suggestive of chronic liver disease or cirrhosis. There is no ascites. Cholecystectomy clips are seen. The spleen is not enlarged. The pancreas and adrenal glands appear unremarkable. The kidneys demonstrate symmetric enhancement. There is no hydronephrosis. Hypodense lesion in the lower pole of the right kidney measuring 1.6 cm is favored to be a cyst. When compared to study from 2017, althoughdifficult to see without contrast this lesion appears PAGE 1 Signed Report (CONTINUED) [facility] 1935 Age/S: 83 / M [address] [facility] Unit #: [id number] Loc: [place] [address] Phys: Juan David Suh MD Acct: [id number] Dis Date: Status: REG ER PHONE #: [phone] Exam Date: 03/02/2019 1831 FAX #: [phone] Reason: FALL EXAMS: CPT CODE: [id number] CT CHEST W/CONTRAST 22742 (Continued) to be present at that time. There is an exo phytic cyst from the lower pole of the left kidney stable from the previous exam, measuring 2 cm. The abdominal aorta is normal in caliber. No para-aortic significantly enlarged lymph node is seen. The appendix is normal. There is diverticulosis. No diverticulitis. No bowel obstruction. No significant free fluid or fluid collection in the abdomen or pelvis is seen. No hemorrhage. The urinary bladder appears unremarkable. The osseous structures appears grossly unremarkable. IMPRESSION: CT chest:No intrathoracic injury. CT has pelvis: 1. Suggestion of chronic liver disease or cirrhosis. 2. Nosolid organ injury or hematoma in the abdomen or pelvis. Electronically Signed by Adan Narvaez 03/02/2019 at 1855 Reported and signed by: Adan Chen MD CC: Juan David Suh MD; Miguel Brown Technologist:Saul Acuna RT (R) CT (R) CTDI: 9.33 DLP: 671.16 Trnscb Date/Time: 03/02/2019 (1854) tMARYLIN Orig Print D/T: S: 03/02/2019 (1858) PAGE 2 Signed Report- CT ABD PELVIS [id number] 18:55:00[facility] 1935 Age/S: 83 / M [address] Unit #: [id number] Loc: [place] [address] Phys: Juan David Suh MD Acct: [id number] DisDate: Status: REG ER PHONE #: [phone] Exam Date: 03/02/2019 183 FAX #: [phone] Reason: FALL EXAMS: CPT CODE: [id number] CT ABD PELVIS W/CONT 25434 Site ID: [id number] EXAMINATION: - CT ABD PELVIS W/CONT, - CT CHEST W/CONTRAST. Technique: Axial images with coronal and sagittal reconstructions are performed of the chest, abdomen and pelvis with intravenous contrast. 100 ml of Isovue-300 was administered intravenously. One or more of the following radiation dose reduction techniques was used:automated exposure control, adjustment of mA and/or KV according to patient size, and/or utilization of iterative reconstruction technique. HISTORY: FALL. COMPARISON: None. FINDINGS: CT chest: The thoracic aorta is normal in caliber and enhancement. There is no mediastinal hematoma. No mediastinalmass or lymphadenopathy. The heart size is of the upper limits of normal. Coronary artery prominentcalcifications are seen. No pericardial or pleural effusion. No hilar, mediastinal or axillary lymphadenopathy. The lungs demonstrate no significant consolidation or contusion. No pneumothorax. Minimal groundglass opacities in the dependent areas, probably represents mild atelectasis. The osseous structures appear grossly unremarkable. CT abdomen and pelvis: The liver demonstrates lobulated contour suggestive of chronic liver disease or cirrhosis. There is no ascites. Cholecystectomy clips are seen. The spleen is not enlarged. The pancreas and adrenal glands appear unremarkable. The kidneys demonstrate symmetric enhancement. There is no hydronephrosis. Hypodense lesion in the lower pole of the right kidney measuring 1.6 cm is favored to be a cyst. When compared to study from 2017, although difficult to see without contrast this lesion appears PAGE 1 Signed Report (CONTINUED) [facility] 1935 Age/S: 83 / M [address] [facility] Unit #: [id number] Loc: [place], [place] [address] Phys: Juan David uSh MD Acct: [id number] Dis Date: Status: REG ER PHONE #: [phone] Exam Date: 03/02/2019 183 FAX #: [phone] Reason: FALL EXAMS:CPT CODE: [id number] CT ABD PELVIS W/CONT 53790 (Continued) to be present at that time. There is an e xophytic cyst from the lower pole of the left kidney stable from the previous exam, measuring 2 cm. The abdominal aorta is normal in caliber. No para-aortic significantly enlarged lymph node is seen. The appendix is normal. There is diverticulosis. No diverticulitis. No bowel obstruction. No significant free fluid or fluid collection in the abdomen or pelvis is seen. No hemorrhage. The urinary bladder appears unremarkable. The osseous structures appears grossly unremarkable. IMPRESSION: CT chest: No intrathoracic injury. CT has pelvis: 1. Suggestion of chronic liver disease or cirrhosis. 2.No solid organ injury or hematoma in the abdomen or pelvis. at 1855 Reported and signed by: Adan Chen MD CC: Juan David Suh MD; Miguel Brown Technologist:Saul Acuna RT (R) CT (R) CTDI: 9.33 DLP: 671.16 Trnscb Date/Time: 03/02/2019 (1854) t.[email or web address] Orig Print D/T: S: 03/02/2019 (1858) PAGE 2 Signed Report- CT C-SPINE W/O [id number] 18:43:00[facility] 1935 Age/S: 83 / M [address] Unit #: [id number] Loc: [place] [address] Phys: Juan David Suh MD Acct: [id number] Dis Date: Status: REG ER PHONE #: [phone] Exam Date: 03/02/2019 183 FAX #: [phone] Reason:FALL EXAMS: CPT CODE: [id number] CT C-SPINE W/O CONT 00513 Site ID: [id number] EXAMINATION: - CT HEAD/BRAIN W/O CONT, - CT C-SPINE W/O CONT. TECHNIQUE: Noncontrast axial images of the brain and cervical spine with coronal and sagittal reconstructions were obtained. One or more of the following radiation dose reduction techniques was used: automated exposure control, adjustment of mA and/or KV according to patient size, and/or utilization of iterative reconstruction technique. HISTORY: headache. FINDINGS: CT HEAD: There is no intracranial hemorrhage, edema or mass effect. The brain parenchyma demonstrates periventricular and deep white matter hypodensities compatible with chronic microvascular ischemic changes. In the scalp, there is a dnxul-zv-hamamkcu sized right parietal hematoma with maximum t hickness of 1 cm.. No hydrocephalus. There is opacification of the right mastoid air cells. The right middle air cavity is clear. 1.5 cm mucous retention cyst in the left maxillary sinus is seen. CT cervical spine: The alignment of the posterior spinal line satisfactory. The vertebral body heights are preserved. There is significant disc height loss at C5/6 and C6/7 level. There are prominent degenerative changes and multiple levels of the facet joints. The alignment of the lateral masses of C1 and C2 and atlantooccipital joints is satisfactory. No fracture is identified. IMPRESSION: CT HEAD: 1. No intracranial hemorrhage. PAGE 1 Signed Report (CONTINUED) Name: [facility] : 1935 Age/S: 83 / M [address] [place] [address] Road Unit #: [id number] Loc: [place], [place] [address] Phys: Juan David Suh MD Acct: [id number] Dis Date: Status: REG ER PHONE #: [phone] Exam Date: 03/02/2019 183 FAX #: [phone] Reason: FALL EXAMS: CPT CODE: [id number] CT C-SPINE W/O CONT 18418 (Continued) 2. Small to moderate right parietal scalp hematoma. 3. Opacification of the right mastoid air cells may relate to mastoiditis.. CT cervical spine: Advanced degenerative changes. No fracture seen. at 1843 R eported and signed by: Adan Chen MD CC: Juan David Suh MD; Miguel Brown Technologist:Saul Acuna RT (R) CT (R) CTDI: 8.10 DLP: 187.80 Trnscb Date/Time: 03/02/2019 (184) [email or web address] Orig Print D/T: S: 03/02/2019 (1845) PAGE 2 Signed Report- CT HEAD/BRAIN W/O [id number] 18:43:00Name: ADRYAN MCWILLIAMS [facility] : 1935 Age/S: 83 / M [address] [place] [address] Unit #: [id number] Loc: [place], [place] [address] Phys: Juan David Suh MD Acct: [id number] DisDate: Status: REG ER PHONE #: [phone] Exam Date: 03/02/2019 183 FAX #: [phone] Reason: headache EXAMS: CPT CODE: [id number] CT HEAD/BRAIN W/O CONT 48624 Site ID: [id number] EXAMINATION: - CT HEAD/BRAIN W/O CONT, - CT C-SPINE W/O CONT. TECHNIQUE: Noncontrast axial images of the brain and cervical spine with coronal and sagittal reconstructions were obtained. One or more of the following radiation dose reduction techniques was used: automated exposure control, adjustment of mA and/or KV according to patient size, and/or utilization of iterative reconstruction technique. HISTORY: headache.FINDINGS: CT HEAD: There is no intracranial hemorrhage, edema or mass effect. The brain parenchyma demonstrates periventricular and deep white matter hypodensities compatible with chronic microvascular ischemic changes. In the scalp, there is a ighaa-vh-cetxpmku sized right parietal hematoma with ma ximum thickness of 1 cm.. No hydrocephalus. There is opacification of the right mastoid air cells. The right middle air cavity is clear. 1.5 cm mucous retention cyst in the left maxillary sinus is seen. CT cervical spine: The alignment of the posterior spinal line satisfactory. The vertebral body heights are preserved. There is significant disc height loss at C5/6 and C6/7 level. There are prominent degenerative changes and multiple levels of the facet joints. The alignment of the lateral masses of C1 and C2 and atlantooccipital joints is satisfactory. No fracture is identified. IMPRESSION: CT HEAD: 1. No intracranial hemorrhage. PAGE 1 Signed Report (CONTINUED) [facility] 1935 Age/S: 83 / M [address] [facility] Unit #: [id number] Loc: [place] [address] Phys: Juan David Suh MD Acct: [id number] Dis Date: Status: REG ER PHONE #: [phone] Exam Date: 03/02/2019 1831 FAX #: [phone] Reason: headache EXAMS: CPT CODE: [id number] CT HEAD/BRAIN W/O CONT 56715 (Continued) 2. Small to moderate right parietal scalp hematoma. 3. Opacification of the right mastoid air cells may relate to mastoiditis.. CT cervical spine: Advanced degenerative changes. No fracture seen. at 1843 Reported and signed by: Adan Chen MD CC: Juan David Suh MD; Miguel Brown Technologist:Saul Acuna RT (R) CT (R) CTDI: 37.69 DLP: 603.09 Trnalb Date/Time: 03/02/2019 (1843) Radha Orig Print D/T: S: 03/02/2019 (3592) PAGE 2 Signed ReportBASI METABOLIC [id number] 18:31:00* Test Item Value Reference Range Interpretation Comme nts SODIUM (test code = NA) 132 mmol/L 136-145 L POTASSIUM (test code = K) 4.6 mmol/L 3.5-5.1 N CHLORIDE (test code = CL) 97 mmol/L 98-107 L CARBON DIOXIDE (test code = CO2) 27 mmol/L 21-32 N GLUCOSE (test code = GLU) 170 mg/dL 70-100 H BLOOD UREA NITROGEN (test code = BUN) 22 mg/dL 7-18 H GLOMERULAR FILTRATION RATE (test code = GFR) > 60.00 >=60 Reporting units: mL/min/1.73m\S\2 (Modified MDRD formula)REFERENCE RANGE: > or = 60 ml/min/1.73M2IF PATIENT IS -NORWEGI[place], MULTIPLY REPORTED RESULT BY1.21. CREATININE (test code = CREAT) 1.10 mg/dL 0.67-1.17 N CALCIUM (test code = CA) 9.1 mg/dL 8.5-10.1 N LIVER [id number] 18:31:00* Test Item Value Reference Range Interpretation Comme nts TOTAL PROTEIN (test code = PROT) 6.7 g/dl 6.4-8.2 N ALBUMIN (test code = ALB) 3.4 g/dl 3.4-5.0 N BILIRUBIN TOTAL (test code = BILT) 1.0 mg/dl 0.2-1.0 N BILIRUBIN DIRECT (test code = BILD) 0.40 mg/dl 0.0-0.4 N SGOT/AST (test code = AST) 19 U/L 15-37 N SGPT/ALT (test code = ALT) 19 U/L 12-78 N ALKALINE PHOSPHATASE TOTAL ( test code = ALKP) 84 U/L 50-136 N [id number] 18:31:00* Test Item Value Reference Range Interpretation Comme nts TROPONIN-I (test code = TROPI) <0.015 ng/ml 0.00-0.045 N GUIDELINES: 0.08 - 0.09 Indeterminate0.10 Risk Stratification Limit: Suggest sequential testing0.60 - 1.50 AMI cutoff: Myocardial Injury by WHO criteria BASIC METABOLIC [id number] 18:30:00* Test Item Value Reference Range Interpretation Comme nts SODIUM (test code = NA) 132 mmol/L 136-145 L POTASSIUM (test code = K) 4.6 mmol/L 3.5-5.1 N CHLORIDE (test code = CL) 97 mmol/L 98-107 L CARBON DIOXIDE (test code = CO2) 27 mmol/L 21-32 N GLUCOSE (test code = GLU) 170 mg/dL 70-100 H BLOOD UREA NITROGEN (test code = BUN) 22 mg/dL 7-18 H GLOMERULAR FILTRATION RATE (test code = GFR) > 60.00 >=60 Reporting units: mL/min/1.73m\S\2 (Modified MDRD formula)REFERENCE RANGE: > or = 60 ml/min/1.73M2IF PATIENT IS -NORWEGI[place], MULTIPLY REPORTED RESULT BY1.21. CREATININE (test code = CREAT) 1.10 mg/dL 0.67-1.17 N CALCIUM (test code = CA) 9.1 mg/dL 8.5-10.1 N LIVER [id number] 18:30:00* Test Item Value Reference Range Interpretation Comme nts TOTAL PROTEIN (test code = PROT) 6.7 g/dl 6.4-8.2 N ALBUMIN (test code = ALB) 3.4 g/dl 3.4-5.0 N BILIRUBIN TOTAL (test code = BILT) 1.0 mg/dl 0.2-1.0 N BILIRUBIN DIRECT (test code = BILD) 0.40 mg/dl 0.0-0.4 N SGOT/AST (test code = AST) 19 U/L 15-37 N SGPT/ALT (test code = ALT) 19 U/L 12-78 N ALKALINE PHOSPHATASE TOTAL ( test code = ALKP) 84 U/L 50-136 N [id number] 18:30:00* Test Item Value Reference Range Interpretation Comme nts TROPONIN-I (test code = TROPI) ng/ml 0.00-0.045 BASIC METABOLIC [id number] 18:25:00* Test Item Value Reference Range Interpretation Comme nts SODIUM (test code = NA) 132 mmol/L 136-145 L POTASSIUM (test code = K) 4.6 mmol/L 3.5-5.1 N CHLORIDE (test code = CL) 97 mmol/L 98-107 L CARBON DIOXIDE (test code = CO2) 27 mmol/L 21-32 N GLUCOSE (test code = GLU) 170 mg/dL 70-100 H BLOOD UREA NITROGEN (test co de = BUN) 22 mg/dL 7-18 H GLOMERULAR FILTRATION RATE ( test code = GFR) >=60 CREATININE (test code = CREAT) mg/dL 0.67-1.17 CALCIUM (test code = CA) 9.1 mg/dL 8.5-10.1 N LIVER [id number] 18:25:00* Test Item Value Reference Range Interpretation Comme nts TOTAL PROTEIN (test code = PROT) g/dl 6.4-8.2 ALBUMIN (test code = ALB) 3.4 g/dl 3.4-5.0 N BILIRUBIN TOTAL (test code = BILT) mg/dl 0.2-1.0 BILIRUBIN DIRECT (test code = BILD) mg/dl 0.0-0.4 SGOT/AST (test code = AST) U/L 15-37 SGPT/ALT (test code = ALT) U/L 12-78 ALKALINE PHOSPHATASE TOTAL ( test code = ALKP) U/L 50-136 [id number] 18:25:00* Test Item Value Reference Range Interpretation Comme nts TROPONIN-I (test code = TROPI) ng/ml 0.00-0.045 PROTHROMBIN [id number] 18:25:00* Test Item Value Reference Range Interpretation Comments PROTHROMBIN TIME PATIENT (test code = PTP) 11.5 SECONDS 8.7-12.1 N THERAPEUTIC LEVE L: 1.5 TO 1.9 TIMES NORMAL RANGE INTERNATIONAL NORMAL RATIO (test code = INR) 1.1 Recommended Ther apeutic PT Ratios For Oral AnticoagulantTherapy. CONDITION INT'L NORMALIZED PT RATIO Prophylaxis of venous thrombosis 2.0 - 3.0in high risk medical or surgicalpatients, treatment of venousthrombosis, prevention of embolism. Prevention of recurrent embolism, 2.5 - 3.5or treatment of patients with mechanicalprosthetic heart valves. THROMBOPLASTIN TIME [id number] 18:25:00* Test Item Value Reference Range Interpretation Comme nts THROMBOPLASTIN TIME PARTIAL (test code = PTT) 28.2 seconds 22.8-34.4 N CBC W/AUTO [id number] 18:14:00* Test Item Value Reference Range Interpretation Comme nts WHITE BLOOD CELL (test code = WBC) 7.9 X10(3) 4.5-11.0 N RED BLOOD CELL (test code = RBC) 3.64 X10(6) 4.3-5.9 L HEMOGLOBIN (test code = HGB) 10.9 g/dL 13.5-18.0 L HEMATOCRIT (test code = HCT) 33.6 % 42.0-52.0 L MEAN CELL VOLUME (test code = MCV) 92.3 fl 78-100 N MEAN CELL HGB (test code = MCH) 29.9 pg 26.0-34.0 N MEAN CELL HGB CONCETRATION (test code = MCHC) 32.4 g/dl 30.0-37.0 N RED CELL DISTRIBUTION WIDTH (test code = RDW) 14.0 % 11.5-14.5 N PLATELET COUNT (test code = PLT) 196 X10(3) 150-350 N MEAN PLATELET VOLUME (test c ode = MPV) 9.1 fl 8.7-11.4 N NEUTROPHIL % (test code = NT%) 76.8 % 36.0-66.0 H IMMATURE GRANULOCYTE % (test code = IG%) 0.4 % 0.0-2.0 N LYMPHOCYTE % (test code = LY%) 10.5 % 16-50 L MONOCYTE % (test code = MO%) 9.6 % 0.0-13.0 N EOSINOPHIL % (test code = EO%) 2.4 % 0.0-4.5 N BASOPHIL % (test code = BA%) 0.3 % 0.0-1.5 N NUCLEATED RBC % (test code = NRBC%) 0.0 % 0-0.2 N NEUTROPHIL # (test code = NT#) 6.1 X10(3) 1.7-7.7 N IMMATURE GRANULOCYTE # (test code = IG#) 0.03 X10(3)uL 0.00-0.03 N LYMPHOCYTE # (test code = LY#) 0.8 X10(3) 0.7-4.0 N MONOCYTE # (test code = MO#) 0.8 X10(3) 0.0-0.89 N EOSINOPHIL # (test code = EO#) 0.2 X10(3) 0.0-0.6 N BASOPHIL # (test code = BA#) 0.0 X10(3) 0.0-0.2 N NUCLEATED RBC # (test code = NRBC#) 0.00 K/mm3 0.0-0.1 N Notes Date/Time Note Provider Source 2022-04-30 13:37:00 [facility] ([facility]) Hospitalist Discharge Summary REPORT#:[id number] REPORT STATUS: Signed DATE:04/30/22 TIME: 1336 PATIENT: ADRYAN MCWILLIAMS UNIT #: [id number] ROOM/BED: [address] : [birth year] AGE: 87 SEX: M ATTEND: Garett Maynard DO ADM AUTHOR: Garett Maynard DO * ALL edits or amendments must be made on the electronic/computer document * General Information Date of admission: Observation Start Date: Date of admission: 04/19/22 Discharge date: 04/30/22 Admission diagnosis: -Debility age-related -Hypertension essential -Chronic hypovolemic hyponatremia -progressive muscle weakness -H/o CAD -BPH -insomnia -Depression -Abnormal LFTs. Discharge diagnosis: -Debility age-related -Hypertension essential -Chronic hypovolemic hyponatremia -Progressive muscle weakness -H/o CAD -BPH -Insomnia -Depression -Abnormal LFTs. -Cough could be related to JERAMY inhibitor -History of gastritis Hospital course: Patient is an 87-year-old male patient past medical history of CAD with stents, hypertension, hyperlipidemia, BPH, insomnia, depression recently admitted to [facility] for failure to thrive and headache. Patient was found to have hypertensive urgency chronic hyponatremia he was treated with IV hydration with moderate improvement. Patient discharged to inpatient rehab for physical therapy and further rehab. Patient has done well with physical therapy and rehab treatment. Patient does suffer from chronic insomnia but has improved on hydroxyzine and Ambien at night. Patient has been complaining of right upper quadrant abdominal pain and ultrasound imaging was done showing liver mass. Findings were discussed with the patient and recommended CT imaging to further evaluate. Patient states if CT can be done today prior to his discharge he will will agree however if this will not be done then patient would like to follow-up with his primary care physician for further evaluation of liver mass. All questions answered at bedside. Patient states he understands and agrees with the plan. Patient will be discharged home with home health. Consultants: physiatry Pt. condition on discharge: improved Allergies: Allergies: penicillin (Coded, Severe, RASH, 03/28/22) Free Text DxA P Notes Free text DxA P notes: Assessment -Debility age-related -Hypertension essential -Chronic hypovolemic hyponatremia -Progressive muscle weakness -H/o CAD -BPH -Insomnia -Depression -Abnormal LFTs. -Cough could be related to JERAMY inhibitor -History of gastritis Plan: -Continue physical therapy per rehab recommendations -Continue amlodipine 10 mg, and losartan 50 mg. -tamsulosin 0.4 mg p.o. daily -Insulin sliding scale and Accu-Cheks -Continue po Protonix daily -Increase Ambien back up to 10 mg as needed at bedtime. Continue hydroxyzine at bedtime. -Continue appropriate home medications -Cardiac diet -Monitor vital signs -Tylenol p.o. as needed, Zofran IV as needed, labetalol IV as needed -Monitor labs as needed -Per nursing patient has been complaining of right upper quadrant abdominal pain. I will order abdominal ultrasound to further evaluate. Med Rec Med Rec Discharge meds: Stop taking the following medications: CETIRIZINE (CETIRIZINE) 10 MG TAB 10 MILLIGRAM ORAL DAILY. ENOXAPARIN (LOVENOX) 40 MG/0.4 ML DISP.SYRIN 40 MILLIGRAM DAILY. hydrOXYzine HCL (ATARAX) 25 MG TAB 25 MILLIGRAM ORAL BEDTIME. as needed for INDICATION:INSOMNIA HALOPERIDOL (HALDOL) 5 MG TAB 5 MILLIGRAM ORAL BEDTIME. as needed for INDICATION:AGITATION DEXTROSE 50%-WATER (DEXTROSE 50%-WATER) 50 % SYRINGE 25 MILLILITERS INTRAVENOUS DIRECTED. as needed for HYPOGLYCEMIA PROTOCOL INSULIN LISPRO (HumaLOG) 100 UNIT/ML VIAL SUBCUTANEOUS hydrOXYzine HCL (ATARAX) 10 MG TAB 10 MILLIGRAM ORAL EVERY FOUR HOURS. Continue taking these medications: hydrOXYzine HCL (ATARAX) 25 MG TAB 25 MILLIGRAM ORAL AT BEDTIME NEEDED. as needed for INSOMNIA ATORVASTATIN (LIPITOR) 40 MG TAB 40 MILLIGRAM ORAL BEDTIME. CLOPIDOGREL (PLAVIX) 75 MG TAB 75 MILLIGRAM ORAL DAILY. LOSARTAN (COZAAR) 50 MG TAB 50 MILLIGRAM ORAL DAILY. ISOSORBIDE MONONITRATE SR (IMDUR) 30 MG TAB.SR.24H 30 MILLIGRAM ORAL DAILY. CETIRIZINE (CETIRIZINE) 10 MG TAB 10 MILLIGRAM ORAL DAILY. diphenhydrAMINE (BENADRYL) 25 MG CAP 25 MILLIGRAM ORAL AT BEDTIME NEEDED. as needed for INSOMNIA TAMSULOSIN ER (FLOMAX) 0.4 MG CAP.SR.24H 0.4 MILLIGRAM ORAL DAILY. metFORMIN (GLUCOPHAGE) 1,000 MG TAB 1,000 MILLIGRAM ORAL TWICE DAILY. Instructions: TAKE WITH MEALS ACETAMINOPHEN (TYLENOL) 325 MG TAB 650 MILLIGRAM ORAL EVERY 8 HR NEEDED. as needed for PAIN SCALE 1-3 MIRTAZAPINE (REMERON) 15 MG TAB 15 MILLIGRAM ORAL BEDTIME. Start taking the following new medications: ZOLPIDEM (AMBIEN) 5 MG TAB 10 MILLIGRAM ORAL AT BEDTIME NEEDED. as needed for INSOMNIA Qty = [address] (PROTONIX) 40 MG TAB.DR 40 MILLIGRAM ORAL BEDTIME. Qty = 30 No Refills Objective VS/I O Last Documented: Result Date Time Pulse Ox 95 04/30 930 B/P 123/71 04/30 930 B/P Mean 88.3 04/30 930 Pulse 92 04/30 930 Resp 12 04/30 930 Temp 97.9 04/30 521 FiO2 21 04/27 0558 O2 Delivery Room air 04/27 05 O2 Flow Rate 2 04/23 1114 24 hour I O ending at 0700: 04/30 0700 04/29 1900 Intake Total 200 Output Total Balance 200 Intake, Oral 200 Number 0 Incontinent Voids Number Voids 2 General appearance: alert, awake, no acute distress, conversational, no respiratory distress Cardiovascular: normal capillary refill, normal heart sounds, regular rate rhythm Respiratory: decreased breath sounds, aerating well, symmetric expansion Abdomen: non-tender, normal bowel sounds Extremities: moves all, no clubbing, no cyanosis, no edema Musculoskeletal: normal inspection Neuro/PHLEBOTOMY COORDINATOR: alert, oriented X 3, normal speech Skin: intact Psychiatry: normal affect, normal mood Results Findings/Data: Laboratory Tests: 04/30 04/29 04/29 0652 2103 1548 Chemistry POC Glucose (70 - 105 mg/dL) 97 114 H 115 H Radiology data: Recent Impressions: ULTRASOUND - US ABDOMEN COMPLETE 04/30 0816 Report Impression - Status: SIGNED Entered: 04/30/2022 0970 IMPRESSION: 1. There appears focal circumscribed mass in the mid right lobe of liver, 2.[address] liver protocol CT with/without contrast (or contrast MRI) is recommended. 2. Status post cholecystectomy. Mild intrahepatic biliary dilatation is nonspecific. CBD is nondilated at 4 mm. Correlate for normal bilirubin levels. Impression By: Rick Paz M.D. Discharge Instructions PCP PCP follow-up: PCP: Miguel Brown APN Discharge to: Home Health [facility] Additional Discharge Routines: PCP Follow-Up Diet: Diabetic Activity: As Tolerated Follow-up Appointments PCP follow-up: PCP: Miguel Brown APN PCP follow up timeframe: In 5 days Quality: Discharge Current Medications Current medication review: I attest that the foregoing medication list in the medical record is true, accurate, and complete to the best of my knowledge. at 1342 RPT #:[id number] END OF REPORT [facility] 2022-04-29 13:05:00 [facility] ([facility]) Hospitalist Progress Note REPORT#:[id number] REPORT STATUS: Signed DATE:04/29/22 TIME: 1305 PATIENT: ADRYAN MCWILLIAMS UNIT #: [id number] ROOM/BED: [address] : [birth year] AGE: 87 SEX: M ATTEND: Garett Maynard DO ADM AUTHOR: Garett Maynard DO * ALL edits or amendments must be made on the electronic/computer document * Subjective Chief complaint: Follow-up in patient with generalized weakness and debility Free Text Subj Notes Free Text Subj Notes: Seen and examined at bedside. Patient complains of his Ambien being changed to a lower dose. Patient requesting to continue with his dose of 10 mg at bedtime of Ambien. He denies of any other new complaints. Objective General VS/I O: Vital Signs: Date Time Temp Pulse Resp B/P B/P Pulse O2 O2 Flow FiO2 Mean Ox Delivery Rate 04/29 1120 98.2 75 17 127/71 89.3 95 04/29 0612 97.9 70 18 128/78 94.8 94 04/28 2111 97.3 76 18 123/70 87.7 94 04/28 1522 97.9 82 18 105/65 78.3 95 24 hour I O ending at 0700: 04/29 0700 04/28 1900 Intake Total 1200 Output Total 400 Balance -400 1200 Intake, Oral 1200 Number 0 1 Bowel Movements Number 0 0 Incontinent Voids Number Voids 2 3 Output, Urine 400 PATIENT WEIGHT: Weight (lb): 165 Weight (oz): 5.55 Weight (kg): 75.000 Medications: Active Meds + DC'd Last 24 Hrs Zolpidem Tartrate (AMBIEN) 10 MG BEDTIME PRN PRN PO Zolpidem Tartrate (AMBIEN) 5 MG BEDTIME PRN PRN PO (DC) Pantoprazole (PROTONIX) 40 MG BEDTIME PO Losartan Potassium (COZAAR) 50 MG DAILY PO Zolpidem Tartrate (AMBIEN) 10 MG BEDTIME PRN PRN PO (DC) Metformin HCl (GLUCOPHAGE) 500 MG BID MEALS PO Insulin Human Lispro (Humalog) SLIDING SCALE AC HS SUBQ Tamsulosin HCl (FLOMAX) 0.4 MG DAILY PO Dextrose/Water (DEXTROSE 50% SYRINGE) 25 ML ASDIR PRN IV (CKD) Glucagon (GLUCAGON) 1 MG ASDIR PRN IM Amlodipine Besylate (NORVASC) 10 MG DAILY PO Acetaminophen (TYLENOL ES) 500 MG Q6H PRN PRN PO Hydralazine HCl (APRESOLINE) 10 MG Q4H PRN PRN IV Atorvastatin Calcium (LIPITOR) 40 MG BEDTIME PO Hydroxyzine HCl (ATARAX) 25 MG BEDTIME PO Clopidogrel Bisulfate (CLOPIDOGREL BISULFATE) 75 MG DAILY PO Isosorbide Mononitrate (IMDUR) 30 MG DAILY PO Loratadine (CLARITIN) 10 MG DAILY PO Physical Exam General appearance: alert, awake Cardiovascular: normal capillary refill, normal heart sounds, regular rate rhythm Respiratory: decreased breath sounds, aerating well, symmetric expansion Abdomen: non-tender, normal bowel sounds Extremities: moves all, no clubbing, no cyanosis, no edema Musculoskeletal: normal inspection Neuro/PHLEBOTOMY COORDINATOR: alert, oriented X 3, normal speech Skin: intact Psychiatry: normal affect, normal mood Results Findings/Data: Laboratory Tests 04/29 04/29 04/28 04/28 1111 0607 2133 0189 Chemistry POC Glucose (70 - 105 mg/dL) 109 H 94 100 133 H Diagnosis, Assessment Plan Free Text DxA P Notes Free text DxA P notes: Assessment -Debility age-related -Hypertension essential -Chronic hypovolemic hyponatremia -Progressive muscle weakness -H/o CAD -BPH -Insomnia -Depression -Abnormal LFTs. -Cough could be related to JERAMY inhibitor -History of gastritis Plan: -Continue physical therapy per rehab recommendations -Continue amlodipine 10 mg, and losartan 50 mg. -tamsulosin 0.4 mg p.o. daily -Insulin sliding scale and Accu-Cheks -Continue po Protonix daily -Increase Ambien back up to 10 mg as needed at bedtime. Continue hydroxyzine at bedtime. -Continue appropriate home medications -Cardiac diet -Monitor vital signs -Tylenol p.o. as needed, Zofran IV as needed, labetalol IV as needed -Monitor labs as needed -Per nursing patient has been complaining of right upper quadrant abdominal pain. I will order abdominal ultrasound to further evaluate. at 1311 [facility] #:[id number] END OF REPORT [facility] 2022-04-28 15:24:00 [facility] ([facility]) Rehab Team Conference REPORT#:[id number] REPORT STATUS: Signed DATE:04/28/22 TIME: 1524 PATIENT: ADRYAN MCWILLIAMS UNIT #: [id number] ROOM/BED: [address] : [birth year] AGE: 87 SEX: M ATTEND: Garett Maynard DO ADM AUTHOR: Sveta Womack MD * ALL edits or amendments must be made on the electronic/computer document * Rehabilitation Team Conference Weekly Team Conference Team conf information: Date of conference: 04/28/22 Conference type: Interim Conference scribe: Jamie Durán, PT INTERDISCIPLINARY TEAM MEETING PARTICIPANTS: TITLE NAME MD EMANUEL Dietz RN PT Jamie Durán, PT OT Miguel Brown, OT CM/SW Chayito Gutierrez CM [facility]EN[facility] Margaret Leonardo, OT Staff (8) Russel Brown REHDR Staff (9) Lela Sevilla RN OTHER NAME CREDENTIALS 1 2 FUNCTIONAL CHANGE: TYPE ADMISSION TOTAL INTERIM TOTAL CHANGE Self care 24 41 17 Transfer 19 37 18 Mobility 14 33 19 Wheelchair distance: 150FT Mobility description: PATIENT AMBULATING 150FT AT SV C USE OF FWW. PATIENT WITH GOOD DOTTIE NOTED. PATIENT IS ALSO AMBULATING SHORT DISTANCES WITHOUT USE OF AD. PATIENT INDEPENDENT FOR SHORT DISTANCES WTIH USE OF FWW. PATIENT WAS ABLE TO ASCEND/DESCEND 6-STEPS AT SV C USE OF B RAILS. GOOD SEQUENCING NOTED THROUGHOUT ST. BOWEL AND BLADDER STATUS: Bowel continence admission rating: Bladder continence admission rating: Always continent Bowel and bladder team conference update: PATIENT IS BOWEL AND BLADDER CONTINENT. INTERDISCIPLINARY TEAM UPDATES: JAHAIRA team conference update: PATIENT IS CURRENTLY INDEPENDENT AND REQUIRES FOR STANDBY ASSIST. PATIENT USES WALKER WHEN AMBULATING AND IS ABLE TO DO THINGS ON HIS OWN LIKE CHANGE HIS DIAPER AND PUT ON HIS PANTS WITH MINIMAL TO NO ASSISTANCE. PT team conference update: PATIENT IS CURRENTLY MOD I FOR BED MOBILITY AND TRANSFERS WITH USE OF FWW. PATIENT ABLE TO AMBULATE 50FT AT MOD I AND 150 FT AT SV. PATIENT PROPELLING W/C 150FT AT SV HE REQUIRES VC FOR TURNING. PATIENT ABLE TO ASCEND/DESCEND 6-STEPS AT SV C USE OF B RAILS. NO VC REQUIRED FOR ST. OT team conference update: Patient improved overall and has MET 5/6 of his OT goals with the exception of bathing. Patient is performing his transfers independently using his RW and shower chair. Pt will require a bedside commode for home for safety post discharge. Bathing task requires setup A to retrieving bathing items. Pt will have a caregiver to assist him with bathing task. Barriers include: decreased endurance and lives alone. Plan is to have patient return home alone, but will have provider care assistance. ST team conference update: Patient was evaluated for ST services on this date. Speech, language, cognitive, and swallowing skills were all judged to be WFL. ST services not warranted at this time. CM or SW team conference update: New admit, being assessed for home needs post discharge. In process of getting together with nephstacy Banda to discuss where patient will be going post Rehab Other discipline update 1: Other discipline update 2: Other discipline update 3: REHAB DC GOALS: Patient's identified discharge goal: 1 Patient would like to be able to walk again and return to dancing. Eating discharge goal: Independent (6) Shower/bathe self discharge goal: Independent (6) Upper body dressing discharge goal: Independent (6) Lower body dressing discharge goal: Independent (6) Chair/bed to chair transfer discharge goal: Independent (6) Transfer on/off toilet or commode discharge goal: Supervise/touch asst (4) Walking 50 feet with two turns discharge goal: Supervise/touch asst (4) Walking 150 feet discharge goal: Supervise/touch asst (4) Four steps discharge goal: Supervise/touch asst (4) Twelve steps discharge goal: Med cond/safety concern [place] 150 feet discharge goal: Independent (6) Goal 1 - Bowel function: CONTINENT OF BOWEL FUNCTION CONTINENT OF BOWEL FUNCTION CONTINENT OF BOWEL FUNCTION Goal 2 - Bladder function: CONTINENT OF BLADDER FUNCTION Nursing goal 3: PT WILL REMAIN FALL FREE. Nursing goal 4: PT WILL VERBALIZE INCREASED SAFETY AWARNESS. Nursing goal 5: DISCHARGE PLANNING: Barriers to discharge: Fall risk, Endurance, HYPONATREMIA/MALNUTRITION Strategies for D/C barriers: Fall recovery training, Home evaluation, DIETARY CONSULT, Generate script for BSC Estimated length of stay in days: 18 Anticipated discharge date: 04/30/22 Discharge date adjustment comment: IDT DISCUSSED D/C DATE AND PATIENT HAS MET ALL OF HIS GOALS. PATIENT BEING D/C 04/30/22. Identified financial and/or community resource needs: Family/Caregiver training days: Patient and family will be educated on the use of the gait belt to lower the patient to the floor in the event of LOB to prevent fall or injury. [place] day (DATE): 04/29/22 Expected discharge destination: Home Anticipated services upon discharge: Anticipated discharge equipment: Glasses, RW/Front wheeled walker, MANUAL W/C, Bedside commode Impairment group: debility NOTE Document ONLY ONE Impairment Group Etiologic diagnosis: Impairment group: Debility Etiologic diagnosis: Progressive muscle weakness Review of comorbidities: Reviewed MD Review/Recommendations Attestation: This interdisciplinary team conference was led by me and I concur with all decisions made during the team conference and revisions to the individualized overall plan of care. IRF cont stay criteria Patient continues to require occupational therapy, and physical therapy and any additional therapy services mentioned in team conference note with 24-hour nursing care and internal medicine management for multiple comorbidities and remains a good candidate for rehabilitation. at 1524 RPT #:[id number] END OF REPORT [facility] 2022-04-28 14:16:00 [facility] ([facility]) Hospitalist Progress Note REPORT#:[id number] REPORT STATUS: Signed DATE:04/28/22 TIME: 1416 PATIENT: ADRYAN MCWILLIAMS UNIT #: [id number] ROOM/BED: [address] : [birth year] AGE: 87 SEX: M ATTEND: Garett Maynard DO ADM AUTHOR: Garett Maynard DO * ALL edits or amendments must be made on the electronic/computer document * Subjective Chief complaint: Follow-up in patient with generalized weakness and debility Free Text Subj Notes Free Text Subj Notes: Seen and examined at bedside. Patient denies any new complaints. As per nursing, patient was drowsy throughout most of the morning after taking hydroxyzine and Ambien last night. No other acute events. Objective General VS/I O: Vital Signs: Date Time Temp Pulse Resp B/P B/P Pulse O2 O2 Flow FiO2 Mean Ox Delivery Rate 04/28 1036 70 126/76 92.2 97 04/28 1014 97.5 69 18 107/70 82.6 95 04/28 0603 98.1 73 16 110/69 82.4 92 04/27 2153 97.9 71 16 111/69 82.7 96 04/27 1800 98.4 18 116/68 84 95 24 hour I O ending at 0700: 04/28 0700 04/27 1900 Intake Total 250 Output Total Balance 250 Intake, Oral 250 Number 2 Bowel Movements Number 0 Incontinent Voids Number Voids 3 PATIENT WEIGHT: Weight (lb): 165 Weight (oz): 5.55 Weight (kg): 75.000 Medications: Active Meds + DC'd Last 24 Hrs Zolpidem Tartrate (AMBIEN) 5 MG BEDTIME PRN PRN PO (UNV) Pantoprazole (PROTONIX) 40 MG BEDTIME PO Losartan Potassium (COZAAR) 50 MG DAILY PO Zolpidem Tartrate (AMBIEN) 10 MG BEDTIME PRN PRN PO (DCr) Metformin HCl (GLUCOPHAGE) 500 MG BID MEALS PO Insulin Human Lispro (Humalog) SLIDING SCALE AC HS SUBQ Tamsulosin HCl (FLOMAX) 0.4 MG DAILY PO Dextrose/Water (DEXTROSE 50% SYRINGE) 25 ML ASDIR PRN IV (CKD) Glucagon (GLUCAGON) 1 MG ASDIR PRN IM Amlodipine Besylate (NORVASC) 10 MG DAILY PO Acetaminophen (TYLENOL ES) 500 MG Q6H PRN PRN PO Hydralazine HCl (APRESOLINE) 10 MG Q4H PRN PRN IV Atorvastatin Calcium (LIPITOR) 40 MG BEDTIME PO Hydroxyzine HCl (ATARAX) 25 MG BEDTIME PO Clopidogrel Bisulfate (CLOPIDOGREL BISULFATE) 75 MG DAILY PO Isosorbide Mononitrate (IMDUR) 30 MG DAILY PO Loratadine (CLARITIN) 10 MG DAILY PO Sodium Chloride (SODIUM CHLORIDE 0.9% 1000ml) 1,000 ML .[id number] IV (DC) Physical Exam General appearance: alert, awake, no acute distress, conversational, no respiratory distress Cardiovascular: normal capillary refill, normal heart sounds, regular rate rhythm Respiratory: decreased breath sounds, aerating well, symmetric expansion Abdomen: non-tender, normal bowel sounds Extremities: moves all, no clubbing, no cyanosis, no edema Musculoskeletal: normal inspection Neuro/PHLEBOTOMY COORDINATOR: alert, oriented X 3, normal speech Skin: intact Psychiatry: normal affect, normal mood Results Findings/Data: Laboratory Tests 04/28 04/28 04/27 04/27 1058 0730 2126 1646 Chemistry POC Glucose (70 - 105 mg/dL) 124 H 112 H 108 H 136 H Diagnosis, Assessment Plan Free Text DxA P Notes Free text DxA P notes: Assessment -Debility age-related -Hypertension essential -Chronic hypovolemic hyponatremia -progressive muscle weakness -H/o CAD -BPH -insomnia -Depression -Abnormal LFTs. -Cough could be related to JERAMY inhibitor -History of gastritis Plan: -Continue physical therapy per rehab recommendations -Continue amlodipine 10 mg, and losartan 50 mg. -tamsulosin 0.4 mg p.o. daily -Insulin sliding scale and Accu-Cheks -Continue po Protonix daily -Decrease Ambien to 5 mg as needed at bedtime. Continue hydroxyzine at bedtime -Continue appropriate home medications -Cardiac diet -Monitor vital signs -Tylenol p.o. as needed, Zofran IV as needed, labetalol IV as needed -Monitor labs as needed at 1418 RPT #:[id number] END OF REPORT [facility] 2022-04-28 13:15:00 [facility] ([facility]) Rehab Progress Note REPORT#:[id number] REPORT STATUS: Signed DATE:04/28/22 TIME: 1315 PATIENT: ADRYAN MCWILLIAMS UNIT #: [id number] ROOM/BED: [address] : [birth year] AGE: 87 SEX: M ATTEND: Garett Maynard DO ADM AUTHOR: Sveta Womack MD * ALL edits or amendments must be made on the electronic/computer document * Subjective Chief complaint: Difficulty with ambulation and decreased p.o. intake History of present illness: 87-year-old gentleman who is [place]raini-speaking status post acute hospitalization for malnutrition and failure to thrive and headache and hypertensive urgency with chronic hyponatremia. Has also had depression in the past and uncontrolled blood pressure and decreased p.o. intake and required IV fluids during hospitalization of normal saline at 75 cc an hour and was being monitored regularly for hyponatremia. He had no episodes of confusion but and is willing to participate in rehabilitation therapy. Patient reports: Yes: able to ambulate, ambulate with assistance, ambulate with therapy, comfortable. No: complaints (smiling today in his chair), mild pain. Nursing reports: Yes: tolerating diet. No: complaints, new events overnight, confusion, pain, shortness of breath. Review of Systems Free Text ROS Notes Free Text ROS Notes: ROS Constitutional: Reports: fatigue, generalized weakness, malaise. Denies: chills, fever, lethargy, recent wt loss. Skin: Denies: abrasion, bruising, contusion, diaphoresis, ecchymosis, itching, laceration, rash, swelling. Allergy/Immun: Denies: allergic reaction, anaphylaxis, hives, itching, rhinorrhea, sneezing. Eyes: Denies: redness, discharge, visual loss/blurred, itching, diplopia, eye pain, photophobia, swelling. ENT: Denies: ear drainage, ear ringing, earache, hearing loss, mouth pain, nasal congestion, nose bleeding, sinus problem, throat swelling, tongue pain, tongue swelling, toothache, voice change. Reported sore throat previously since last being. Currently feeling well. Respiratory: Reports: DUMONT, pneumonia-much improved no dyspnea and exertion in the last 24- hours. Denies: hemoptysis, non productive cough, parox nocturnal dyspnea, pleurisy, pleuritic pain, wheezing. Per HPI. Has some shortness of air with ambulation but uses oxygen currently. Cardiovascular: Reports: edema (lower extremities). Denies: chest pain, DUMONT (dyspnea on exertion), orthopnea, palpitations, parox nocturnal dyspnea. GI: Denies: abdominal pain, anorexia, constipation, diarrhea, dysphagia, GERD, hematemesis, hematochezia, hiatal hernia, melena, nausea, rectal pain, vomiting. Reported some gastric reflux -feleing of stomach feeling not good occassionally but no pain-says he has hisory of gastritis. : Denies: dysuria. Musculoskeletal: Reports: extremity swelling (lower extremities). Denies: arthritis, extremity pain, joint pain, joint swelling, lumbar pain, myalgias, neck pain, thoracic pain. Heme: Denies: adenopathy, bleeding, bruising, petechiae. Neuro: Reports: gait problem, weakness. Denies: bladder dysfunction, bowel dysfunction , change in LOC, confusion, dizziness, focal weakness, headache, lightheaded, numbness, seizure, slurred speech, syncope. Psych: Denies: agitation, anxiety, auditory hallucination, change in mental status, confusion, delusional, depression, homicidal ideation, hostile, insomnia, stress , suicidal ideation, visual hallucination. All systems rev neg: except as marked Bahraini translation used. Objective General VS: Vital Signs: Date Time Temp Pulse Resp B/P B/P Pulse O2 O2 Flow FiO2 Mean Ox Delivery Rate 04/28 1036 70 126/76 92.2 97 04/28 1014 36.4 69 18 107/70 82.6 95 04/28 0603 36.7 73 16 110/69 82.4 92 04/27 2153 36.6 71 16 111/69 82.7 96 04/27 1800 36.9 18 116/68 84 95 PATIENT WEIGHT: Weight (lb): 165 Weight (oz): 5.55 Weight (kg): 75.000 Medications: Active Meds + DC'd Last 24 Hrs Pantoprazole (PROTONIX) 40 MG BEDTIME PO Losartan Potassium (COZAAR) 50 MG DAILY PO Zolpidem Tartrate (AMBIEN) 10 MG BEDTIME PRN PRN PO Metformin HCl (GLUCOPHAGE) 500 MG BID MEALS PO Insulin Human Lispro (Humalog) SLIDING SCALE AC HS SUBQ Tamsulosin HCl (FLOMAX) 0.4 MG DAILY PO Dextrose/Water (DEXTROSE 50% SYRINGE) 25 ML ASDIR PRN IV (CKD) Glucagon (GLUCAGON) 1 MG ASDIR PRN IM Amlodipine Besylate (NORVASC) 10 MG DAILY PO Acetaminophen (TYLENOL ES) 500 MG Q6H PRN PRN PO Hydralazine HCl (APRESOLINE) 10 MG Q4H PRN PRN IV Atorvastatin Calcium (LIPITOR) 40 MG BEDTIME PO Hydroxyzine HCl (ATARAX) 25 MG BEDTIME PO Clopidogrel Bisulfate (CLOPIDOGREL BISULFATE) 75 MG DAILY PO Isosorbide Mononitrate (IMDUR) 30 MG DAILY PO Loratadine (CLARITIN) 10 MG DAILY PO Sodium Chloride (SODIUM CHLORIDE 0.9% 1000ml) 1,000 ML .[id number] IV (DC) Dietitian nutrition assessment The data set between the solid lines has been imported from the dietitian's assessment. BMI Calculated: 26.7 Nutrition related diagnosis: Nutrition diagnosis details: Nutrition problem: Decreased oral intake Nutrition etiology: related to decreased ability, to consume adequate nutrition Nutrition signs and symptoms: wt loss 2-13 lbs, MST 2,, PO intake 50-75%. Nutrition prescription: Recs: 1.) Provide 1 Glucerna Shake - BID w/ meals each provides 220 kcals, 10 gm protein Dietitian name: Joanie Castorena, DIET Assessment completed: 04/27/22 Nutrition provider diagnosis: mild malnutrition Review of dietitian's assessment: reviewed and agree Functional Progress Functional progress: The data set between the solid lines has been imported from multidisciplinary team documentation. __ FUNCTIONAL ACTIVITY ADMISSION STATUS INTERIM STATUS Toilet hygiene Partial/moderate (3) Independent (6) Toilet transfer Partial/moderate (3) Independent (6) Eating Setup or cleanup (5) Independent (6) Shower/bathing Partial/moderate (3) Setup or cleanup (5) Dressing upper body Supervision/touch (4) Independent (6) Dressing lower body Partial/moderate (3) Independent (6) Transfer to/from bed to chair Partial/moderate (3) Independent (6) Wheel 50ft w/ 2 turns Partial/moderate (3) Supervision/touch (4) Wheel 150 ft Not attempted (88) Supervision/touch (4) Walk 50 ft w/ 2 turns Partial/moderate (3) Independent (6) Walk 150 ft Not attempted (88) Supervision/touch (4) Four steps Supervision/touch (4) __ Functional Assessment/Exam Mental Status: Normal: Affect:, Attention Span:, Concentration:. Speech: normal Sensory: Normal: Light Touch:. Gait: stable with a walker. ambualtes without assistance. Physical Exam General appearance: alert, awake, oriented (person,place and day), no acute distress, pleasant, conversational, no respiratory distress Psych: alert Neck: no JVD Cardiovascular: S1/S2 Respiratory: aerating well Abdomen: bowel sounds present, non-distended, non-tender to palpation, normal bowel sounds, soft, non-tender Skin: dry, intact Musculoskeletal - general: Musculoskeletal - general: LLE strength (4/5), LUE strength (4/5), RLE strength (4/5), RUE strength (4/5) Neuro/PHLEBOTOMY COORDINATOR: alert, normal speech, no sensory deficits Results Findings/Data: Laboratory Tests: 04/28 04/28 04/27 04/27 1058 0730 2126 1646 Chemistry POC Glucose (70 - 105 mg/dL) 124 H 112 H 108 H 136 H Results: labs reviewed, vital signs reviewed Diagnosis, Assessment Plan Problem List/A P: 1. Anemia 2. Hypertensive urgency 3. Generalized weakness 4. Hyponatremia 5. Malnutrition 6. Abnormality of gait and mobility Free Text A P: 87-year-old gentleman who is Bahraini-speaking status post acute hospitalization for malnutrition and failure to thrive and headache and hypertensive urgency with chronic hyponatremia. Now achieving blood pressure control but still has hyponatremia and receiving normal saline IV intravenously per medicine's care. Smiling today and speaking in [place]raini and verbalize he is interested in continuing rehabilitation therapy. With the goal of achieving independence in ambulation and we discussed the need to use a walker and fall risk and to call for help at all times. He is on nasal cannula 2 L and says he uses oxygen at home occasionally. Has continued to increase p.o. intake and now is no longer malnourished. Continues to do well in rehabilitation and feel he has achieved his independence in ambulation and self-care and has home care at home. Problem list: 1 failure to thrive and malnutrition: Resolved Plan for intensive physical and occupational therapy to achieve gait and mobility initial plan will be with assistance and will assess ability to transfer by herself or with assistance. May be at increased risk for hypotension since he has been so debilitated so we will monitor closely during therapy for hypotension and lightheadedness. Appreciate nutritional input: Recs: 1.) Provide 1 Glucerna Shake - BID w/ meals each provides 220 kcals, 10 gm protein Diet modified with nursing and admitting physician's permission. 2. Gait instability: Stable gait Will focus on helping achieve gait stability using a walker during daily physical therapy and Occupational Therapy sessions to achieve as much independence as possible. Continue to improve gait 3. Hyponatremia: Resolved Currently under medical management and status posttreatment and this should not affect rehabilitation. Plan to follow-up outpatient with primary care . Currently receiving normal saline intravenously and medicine monitoring sodium level appropriately and this is a continuation of inpatient. Continue to be able to participate in physical therapy and Appreciate medicine's following and normal saline was discontinued secondary to sodium level being at acceptable level per medicine. Continues to participate in therapy and ambulating in the hallway with a walker with minimal supervision. Educated to call nursing when needing to walk or get out of bed in [place]i. 4. Generalized weakness: Resolved Needing intensive gradual physical therapy and Occupational Therapy to achieve as much independence as possible. Now able to ambulate independently with a walker and stable. 5. Hypertension without fluctuation: Will monitor hypertension but able to participate in physical and occupational therapy. Medicine to follow and adjust antihypertensives as needed. Blood pressure no longer uncontrolled but will monitor during therapy. 6. Intractable headaches Currently well controlled with medicine. Currently has no headache is receiving infusion therapy with normal saline and increasing p.o. intake of food. Continues to be able to participate in rehabilitative therapy. Has no headaches. 7. Decreased p.o. intake: Resolved Followed by medicine and will encourage hydration. Able to ambulate and this should not affect patient rehabilitative care. Continues to increase p.o. intake now that he is eating in the dining room and therapy continues to encourage p.o. intake and nursing continues to encourage p.o.. Fall risk: Discussed fall prevention with nursing staff and patient and discussed always needing help when ambulation in acute rehab and to always call for help and discussed with nurse not to leave unattended in the wheelchair. And to set bed alarm as needed. And call ma within. #8 depression: No symptoms No sadness and no feelings of harming himself and appreciate medicine management. #9 Coronary artery disease: No chest pain Appreciate medicine's management and currently has no chest pain and able to participate in therapy. #10 Sore thorat and cough:pharyngitis: Covid testing negative. No cough noted today or sore thorat complaints. Appreciate Medical Management. Able to ambualte with PT/OT and stable with a walker. No longer has sore throat. #11 gastritis: Resolved Appreciate medicine's management and starting Protonix. Patient is participating physical therapy and Occupational Therapy and able to tolerate p.o. intake and has improved gait and strength. Gastritis is not affecting his ability to participate in therapy. No complaints and feeling better. DVT prophylaxis per medicine. CODE STATUS full code. Estimated discharge date 04.30.2022 once medically cleared. Plan discussed with: patient, admitting physician, interdisc care team Time spent: Time spent on patient care (minutes): 45 Rehab attestation: Face to face exam completed. Treatment plan discussed with patient. Meets continued stay criteria. Agree with interdisciplinary treatment plan. at 1524 RPT #:[id number] END OF REPORT [facility] 2022-04-27 15:18:00 [facility] ([facility]) Rehab Progress Note REPORT#:[id number] REPORT STATUS: Signed DATE:04/27/22 TIME: 1518 PATIENT: ADRYAN MCWILLIAMS UNIT #: [id number] ROOM/BED: [address] : [birth year] AGE: 87 SEX: M ATTEND: Garett Maynard DO ADM AUTHOR: Sveta Womack MD * ALL edits or amendments must be made on the electronic/computer document * Subjective Chief complaint: Difficulty with ambulation and decreased p.o. intake History of present illness: 87-year-old gentleman who is [place]raini-speaking status post acute hospitalization for malnutrition and failure to thrive and headache and hypertensive urgency with chronic hyponatremia. Has also had depression in the past and uncontrolled blood pressure and decreased p.o. intake and required IV fluids during hospitalization of normal saline at 75 cc an hour and was being monitored regularly for hyponatremia. He had no episodes of confusion but and is willing to participate in rehabilitation therapy. Patient reports: Yes: able to ambulate, ambulate with assistance, ambulate with therapy, comfortable. No: mild pain. Nursing reports: Yes: shortness of breath. No: complaints, new events overnight, confusion, constipation, pain, tolerating diet. Comments: Reports some gastric discomfort and a history of gastritis in the past but no chest pain or weakness or loss of consciousness or vomiting or nausea. Review of Systems Free Text ROS Notes Free Text ROS Notes: ROS Constitutional: Reports: fatigue, generalized weakness, malaise. Denies: chills, fever, lethargy, recent wt loss. Skin: Denies: abrasion, bruising, contusion, diaphoresis, ecchymosis, itching, laceration, rash, swelling. Allergy/Immun: Denies: allergic reaction, anaphylaxis, hives, itching, rhinorrhea, sneezing. Eyes: Denies: redness, discharge, visual loss/blurred, itching, diplopia, eye pain, photophobia, swelling. ENT: Denies: ear drainage, ear ringing, earache, hearing loss, mouth pain, nasal congestion, nose bleeding, sinus problem, throat swelling, tongue pain, tongue swelling, toothache, voice change. Reported sore throat previously since last being. Currently feeling well. Respiratory: Reports: DUMONT, pneumonia-much improved no dyspnea and exertion in the last 24- hours. Denies: hemoptysis, non productive cough, parox nocturnal dyspnea, pleurisy, pleuritic pain, wheezing. Per HPI. Has some shortness of air with ambulation but uses oxygen currently. Cardiovascular: Reports: edema (lower extremities). Denies: chest pain, DUMONT (dyspnea on exertion), orthopnea, palpitations, parox nocturnal dyspnea. GI: Denies: abdominal pain, anorexia, constipation, diarrhea, dysphagia, GERD, hematemesis, hematochezia, hiatal hernia, melena, nausea, rectal pain, vomiting. Reported some gastric reflux -feleing of stomach feeling not good occassionally but no pain-says he has hisory of gastritis. : Denies: dysuria. Musculoskeletal: Reports: extremity swelling (lower extremities). Denies: arthritis, extremity pain, joint pain, joint swelling, lumbar pain, myalgias, neck pain, thoracic pain. Heme: Denies: adenopathy, bleeding, bruising, petechiae. Neuro: Reports: gait problem, weakness. Denies: bladder dysfunction, bowel dysfunction , change in LOC, confusion, dizziness, focal weakness, headache, lightheaded, numbness, seizure, slurred speech, syncope. Psych: Denies: agitation, anxiety, auditory hallucination, change in mental status, confusion, delusional, depression, homicidal ideation, hostile, insomnia, stress , suicidal ideation, visual hallucination. All systems rev neg: except as marked [place]raini translation used. Objective General VS: Vital Signs: Date Time Temp Pulse Resp B/P B/P Pulse O2 O2 Flow FiO2 Mean Ox Delivery Rate 04/27 0922 36.8 72 17 114/67 82.7 95 04/27 0558 36.6 84 16 112/70 84 95 Room air 21 04/26 1940 36.7 89 22 113/66 81.7 96 04/26 1715 36.5 76 18 118/70 86.1 94 PATIENT WEIGHT: Weight (lb): 165 Weight (oz): 5.55 Weight (kg): 75.000 Medications: Active Meds + DC'd Last 24 Hrs Pantoprazole (PROTONIX) 40 MG BEDTIME PO Losartan Potassium (COZAAR) 50 MG DAILY PO Zolpidem Tartrate (AMBIEN) 10 MG BEDTIME PRN PRN PO Metformin HCl (GLUCOPHAGE) 500 MG BID MEALS PO Insulin Human Lispro (Humalog) SLIDING SCALE AC HS SUBQ Tamsulosin HCl (FLOMAX) 0.4 MG DAILY PO Dextrose/Water (DEXTROSE 50% SYRINGE) 25 ML ASDIR PRN IV (CKD) Glucagon (GLUCAGON) 1 MG ASDIR PRN IM Zolpidem Tartrate (AMBIEN) 10 MG BEDTIME PRN PRN PO (DC) Amlodipine Besylate (NORVASC) 10 MG DAILY PO Acetaminophen (TYLENOL ES) 500 MG Q6H PRN PRN PO Hydralazine HCl (APRESOLINE) 10 MG Q4H PRN PRN IV Atorvastatin Calcium (LIPITOR) 40 MG BEDTIME PO Hydroxyzine HCl (ATARAX) 25 MG BEDTIME PO Clopidogrel Bisulfate (CLOPIDOGREL BISULFATE) 75 MG DAILY PO Isosorbide Mononitrate (IMDUR) 30 MG DAILY PO Loratadine (CLARITIN) 10 MG DAILY PO Sodium Chloride (SODIUM CHLORIDE 0.9% 1000ml) 1,000 ML .[id number] IV Dietitian nutrition assessment The data set between the solid lines has been imported from the dietitian's assessment. BMI Calculated: 26.7 Nutrition related diagnosis: Nutrition diagnosis details: Nutrition problem: Decreased oral intake Nutrition etiology: related to decreased ability, to consume adequate nutrition Nutrition signs and symptoms: wt loss 2-13 lbs, MST 2,, PO intake 50-75%. Nutrition prescription: Recs: 1.) Provide 1 Glucerna Shake - BID w/ meals each provides 220 kcals, 10 gm protein Dietitian name: Joanie Castorena, DIET Assessment completed: 04/27/22 Nutrition provider diagnosis: decrease PO intake. Review of dietitian's assessment: reviewed and agree Functional Progress Functional progress: The data set between the solid lines has been imported from multidisciplinary team documentation. __ FUNCTIONAL ACTIVITY ADMISSION STATUS INTERIM STATUS Toilet hygiene Partial/moderate (3) Supervision/touch (4) Toilet transfer Partial/moderate (3) Supervision/touch (4) Eating Setup or cleanup (5) Independent (6) Shower/bathing Partial/moderate (3) Setup or cleanup (5) Dressing upper body Supervision/touch (4) Independent (6) Dressing lower body Partial/moderate (3) Independent (6) Transfer to/from bed to chair Partial/moderate (3) Partial/moderate (3) Wheel 50ft w/ 2 turns Partial/moderate (3) Partial/moderate (3) Wheel 150 ft Not attempted (88) Not attempted (88) Walk 50 ft w/ 2 turns Partial/moderate (3) Partial/moderate (3) Walk 150 ft Not attempted (88) Not attempted (88) Four steps Pt refused (7) __ Functional Assessment/Exam Mental Status: Normal: Affect:, Attention Span:, Concentration:. Speech: normal Sensory: Normal: Light Touch:. Gait: stable with walker. Physical Exam General appearance: alert, awake, oriented (person,place and day) Psych: alert Neck: no JVD Cardiovascular: S1/S2 Respiratory: aerating well Abdomen: bowel sounds present, non-distended, non-tender to palpation, normal bowel sounds, soft, non-tender Skin: dry, intact Musculoskeletal - general: Musculoskeletal - general: LLE strength (4/5), LUE strength (4/5), RLE strength (4/5), RUE strength (4/5) Neuro/PHLEBOTOMY COORDINATOR: alert, normal speech, no sensory deficits Results Findings/Data: Laboratory Tests: 04/27 04/27 04/26 04/26 1059 0604 2111 1653 Chemistry POC Glucose (70 - 105 mg/dL) 135 H 112 H 174 H 149 H Results: labs reviewed, vital signs reviewed Diagnosis, Assessment Plan Problem List/A P: 1. Anemia 2. Hypertensive urgency 3. Generalized weakness 4. Hyponatremia 5. Malnutrition 6. Abnormality of gait and mobility Free Text A P: 87-year-old gentleman who is Bahraini-speaking status post acute hospitalization for malnutrition and failure to thrive and headache and hypertensive urgency with chronic hyponatremia. Now achieving blood pressure control but still has hyponatremia and receiving normal saline IV intravenously per medicine's care. Smiling today and speaking in [place]i and verbalize he is interested in continuing rehabilitation therapy. With the goal of achieving independence in ambulation and we discussed the need to use a walker and fall risk and to call for help at all times. He is on nasal cannula 2 L and says he uses oxygen at home occasionally. He is also interested in education from nutritional therapy as he is severely malnourished. Problem list: 1 failure to thrive and malnutrition Plan for intensive physical and occupational therapy to achieve gait and mobility initial plan will be with assistance and will assess ability to transfer by herself or with assistance. May be at increased risk for hypotension since he has been so debilitated so we will monitor closely during therapy for hypotension and lightheadedness. Appreciate nutritional input: Recs: 1.) Provide 1 Glucerna Shake - BID w/ meals each provides 220 kcals, 10 gm protein Diet modified with nursing and admitting physician's permission. 2. Gait instability Will focus on helping achieve gait stability using a walker during daily physical therapy and Occupational Therapy sessions to achieve as much independence as possible. Continue to improve gait 3. Hyponatremia Currently under medical management and status posttreatment and this should not affect rehabilitation. Plan to follow-up outpatient with primary care . Currently receiving normal saline intravenously and medicine monitoring sodium level appropriately and this is a continuation of inpatient. Continue to be able to participate in physical therapy and Appreciate medicine's following and normal saline was discontinued secondary to sodium level being at acceptable level per medicine. Continues to participate in therapy and ambulating in the hallway with a walker with minimal supervision. Educated to call nursing when needing to walk or get out of bed in [place]i. 4. Generalized weakness: Needing intensive gradual physical therapy and Occupational Therapy to achieve as much independence as possible. 5. Hypertension without fluctuation: Will monitor hypertension but able to participate in physical and occupational therapy. Medicine to follow and adjust antihypertensives as needed. Blood pressure no longer uncontrolled but will monitor during therapy. 6. Intractable headaches Currently well controlled with medicine. Currently has no headache is receiving infusion therapy with normal saline and increasing p.o. intake of food. Continues to be able to participate in rehabilitative therapy. 7. Decreased p.o. intake: Followed by medicine and will encourage hydration. Able to ambulate and this should not affect patient rehabilitative care. Continues to increase p.o. intake now that he is eating in the dining room and therapy continues to encourage p.o. intake and nursing continues to encourage p.o.. Fall risk: Discussed fall prevention with nursing staff and patient and discussed always needing help when ambulation in acute rehab and to always call for help and discussed with nurse not to leave unattended in the wheelchair. And to set bed alarm as needed. And call ma within. #8 depression: No sadness and no feelings of harming himself and appreciate medicine management. #9 Coronary artery disease: Appreciate medicine's management and currently has no chest pain and able to participate in therapy. #10 Sore thorat and cough:pharyngitis: Covid testing negative. No cough noted today or sore thorat complaints. Appreciate Medical Management. Able to ambualte with PT/OT and stable with a walker. No longer has sore throat. #11 gastritis: Appreciate medicine's management and starting Protonix. Patient is participating physical therapy and Occupational Therapy and able to tolerate p.o. intake and has improved gait and strength. Gastritis is not affecting his ability to participate in therapy. DVT prophylaxis per medicine. CODE STATUS full code. Estimated discharge date 05/07/2022 once medically cleared. Code status: full code Plan discussed with: spouse/partner, admitting physician, nurse, interdisc care team Time spent: Time spent on patient care (minutes): 45 Rehab attestation: Face to face exam completed. Treatment plan discussed with patient. Meets continued stay criteria. Agree with interdisciplinary treatment plan. at 1526 RPT #:[id number] END OF REPORT [facility] 2022-04-27 13:35:00 [facility] ([facility]) Hospitalist Progress Note REPORT#:[id number] REPORT STATUS: Signed DATE:04/27/22 TIME: 1335 PATIENT: ADRYAN MCWILLIAMS UNIT #: [id number] ROOM/BED: [address] : [birth year] AGE: 87 SEX: M ATTEND: Garett Maynard DO ADM AUTHOR: Garett Maynard DO * ALL edits or amendments must be made on the electronic/computer document * Subjective Chief complaint: DEBILITY Free Text Subj Notes Free Text Subj Notes: Seen and examinedin PT gym. Patient complains of epigastric discomfort and acid reflux. Patient states this is chronic due to his gastritis and history of ulcers. He takes something at home but could not recall name of medication. He denies any other new complaints. No acute events over night. Objective General VS/I O: Vital Signs: Date Time Temp Pulse Resp B/P B/P Pulse O2 O2 Flow FiO2 Mean Ox Delivery Rate 04/27 0922 98.2 72 17 114/67 82.7 95 04/27 0558 97.9 84 16 112/70 84 95 Room air 21 04/26 1940 98.1 89 22 113/66 81.7 96 04/26 1715 97.7 76 18 118/70 86.1 94 24 hour I O ending at 0700: 04/27 0700 04/26 1900 Intake Total 350 650 Output Total Balance 350 650 Intake, Oral 350 650 Number 1 Bowel Movements Number 0 0 Incontinent Voids Number Voids 2 1 PATIENT WEIGHT: Weight (lb): 165 Weight (oz): 5.55 Weight (kg): 75.000 Medications: Active Meds + DC'd Last 24 Hrs Pantoprazole (PROTONIX) 40 MG BEDTIME PO (UNV) Losartan Potassium (COZAAR) 50 MG DAILY PO Zolpidem Tartrate (AMBIEN) 10 MG BEDTIME PRN PRN PO Metformin HCl (GLUCOPHAGE) 500 MG BID MEALS PO Insulin Human Lispro (Humalog) SLIDING SCALE AC HS SUBQ Tamsulosin HCl (FLOMAX) 0.4 MG DAILY PO Dextrose/Water (DEXTROSE 50% SYRINGE) 25 ML ASDIR PRN IV (CKD) Glucagon (GLUCAGON) 1 MG ASDIR PRN IM Zolpidem Tartrate (AMBIEN) 10 MG BEDTIME PRN PRN PO (DC) Amlodipine Besylate (NORVASC) 10 MG DAILY PO Acetaminophen (TYLENOL ES) 500 MG Q6H PRN PRN PO Hydralazine HCl (APRESOLINE) 10 MG Q4H PRN PRN IV Atorvastatin Calcium (LIPITOR) 40 MG BEDTIME PO Hydroxyzine HCl (ATARAX) 25 MG BEDTIME PO Clopidogrel Bisulfate (CLOPIDOGREL BISULFATE) 75 MG DAILY PO Isosorbide Mononitrate (IMDUR) 30 MG DAILY PO Loratadine (CLARITIN) 10 MG DAILY PO Sodium Chloride (SODIUM CHLORIDE 0.9% 1000ml) 1,000 ML .[id number] IV Physical Exam General appearance: alert, awake, oriented Cardiovascular: normal capillary refill, normal heart sounds, regular rate rhythm Respiratory: decreased breath sounds, aerating well, symmetric expansion Abdomen: non-tender, normal bowel sounds Extremities: moves all, no clubbing, no cyanosis, no edema Musculoskeletal: normal inspection Neuro/PHLEBOTOMY COORDINATOR: alert, oriented X 3, normal speech Skin: intact Psychiatry: normal affect, normal mood Results Findings/Data: Laboratory Tests 04/27 04/27 04/26 04/26 1059 0604 2111 1653 Chemistry POC Glucose (70 - 105 mg/dL) 135 H 112 H 174 H 149 H Diagnosis, Assessment Plan Free Text DxA P Notes Free text DxA P notes: Assessment -Debility age-related -Hypertension essential -Chronic hypovolemic hyponatremia -progressive muscle weakness -H/o CAD -BPH -insomnia -Depression -Abnormal LFTs. -Cough could be related to JERAMY inhibitor -History of gastritis Plan: -Physical therapy per rehab recommendations -Continue amlodipine 10 mg, and losartan 50 mg. -tamsulosin 0.4 mg p.o. daily -Insulin sliding scale and Accu-Cheks -start po Protonix daily -Continue ambien and hydroxyzine at bedtime -Continue appropriate home medications -Cardiac diet -Monitor vital signs -Tylenol p.o. as needed, Zofran IV as needed, labetalol IV as needed -Monitor labs as needed at 1340 RPT #:[id number] END OF REPORT [facility] 2022-04-26 11:20:00 [facility] ([facility]) Hospitalist Progress Note REPORT#:[id number] REPORT STATUS: Signed DATE:04/26/22 TIME: 1120 PATIENT: ADRYAN MCWILLIAMS UNIT #: [id number] [facility] [birth year][facility][birth year] AGE: 87 SEX: M ATTEND: Raad Murray MD ADM AUTHOR: Raad Murray MD * ALL edits or amendments must be made on the electronic/computer document * Subjective Chief complaint: DEBILITY Free Text Subj Notes Free Text Subj Notes: Patient continue with cough denies shortness of breath, nausea or vomiting. He also mentioned that sore throat has improved. COVID-19 negative Objective General VS/I O: Vital Signs: Date Time Temp Pulse Resp B/P B/P Pulse O2 O2 Flow FiO2 Mean Ox Delivery Rate 04/26 0550 36.6 69 18 121/71 87.4 95 04/25 2117 36.7 73 16 104/63 76.6 95 04/25 1558 36.7 71 17 113/68 82.7 96 24 hour I O ending at 0700: 04/26 0700 04/25 1900 Intake Total 1150 Output Total 300 Balance -300 1150 Intake, Oral 1150 Number 1 Bowel Movements Number 0 0 Incontinent Voids Number Voids 2 2 Output, Urine 300 PATIENT WEIGHT: Weight (lb): 165 Weight (oz): 5.55 Weight (kg): 75.000 Medications: Active Meds + DC'd Last 24 Hrs Metformin HCl (GLUCOPHAGE) 500 MG BID MEALS PO Insulin Human Lispro (Humalog) SLIDING SCALE AC HS SUBQ Tamsulosin HCl (FLOMAX) 0.4 MG DAILY PO Dextrose/Water (DEXTROSE 50% SYRINGE) 25 ML ASDIR PRN IV (CKD) Glucagon (GLUCAGON) 1 MG ASDIR PRN IM Zolpidem Tartrate (AMBIEN) 10 MG BEDTIME PRN PRN PO Lisinopril (PRINIVIL) 20 MG DAILY PO Amlodipine Besylate (NORVASC) 10 MG DAILY PO Acetaminophen (TYLENOL ES) 500 MG Q6H PRN PRN PO Hydralazine HCl (APRESOLINE) 10 MG Q4H PRN PRN IV Atorvastatin Calcium (LIPITOR) 40 MG BEDTIME PO Hydroxyzine HCl (ATARAX) 25 MG BEDTIME PO Clopidogrel Bisulfate (CLOPIDOGREL BISULFATE) 75 MG DAILY PO Isosorbide Mononitrate (IMDUR) 30 MG DAILY PO Loratadine (CLARITIN) 10 MG DAILY PO Sodium Chloride (SODIUM CHLORIDE 0.9% 1000ml) 1,000 ML .[id number] IV Physical Exam General appearance: alert, awake, no acute distress Cardiovascular: normal capillary refill, normal heart sounds, regular rate rhythm Respiratory: decreased breath sounds, aerating well, symmetric expansion Abdomen: non-tender, normal bowel sounds Extremities: moves all, no clubbing, no cyanosis, no edema Musculoskeletal: normal inspection Neuro/PHLEBOTOMY COORDINATOR: alert, oriented X 3, normal speech Skin: intact Results Findings/Data: Laboratory Tests 04/26 04/26 04/25 04/25 0642 0641 2057 1654 Chemistry Sodium (136 - 145 mmol/L) 134 L Potassium (3.5 - 5.1 mmol/L) 4.0 Chloride (98 - 107 mmol/L) 103 Carbon Dioxide (21 - 32 mmol/L) 26 BUN (7 - 18 mg/dL) 36 H Creatinine (0.67 - 1.17 mg/dL) 0.97 Estimated GFR (MDRD) (>=60) > 60.00 Glucose (70 - 100 mg/dL) 111 H POC Glucose (70 - 105 mg/dL) 102 108 H 101 Calcium (8.5 - 10.1 mg/dL) 8.9 Laboratory Tests 04/26 0641 Hematology WBC (4.5 - 11.0 X10(3)) 7.5 RBC (4.3 - 5.9 X10(6)) 3.63 L Hgb (13.5 - 18.0 g/dL) 11.1 L Hct (42.0 - 52.0 %) 33.4 L MCV (78 - 100 fl) 92.0 MCH (26.0 - 34.0 pg) 30.6 MCHC (30.0 - 37.0 g/dl) 33.2 RDW (11.5 - 14.5 %) 14.0 Plt Count (150 - 350 X10(3)) 225 MPV (8.7 - 11.4 fl) 9.2 Neut % (Auto) (36.0 - 66.0 %) 64.9 Lymph % (Auto) (16.0 - 50.0 %) 15.0 L [place] % (Auto) (0.0 - 13.0 %) 15.0 H Eos % (Auto) (0.0 - 4.5 %) 4.2 Baso % (Auto) (0.0 - 1.5 %) 0.5 Immature Gran # (Auto) (0.00 - 0.03 X10(3)uL) 0.03 Absolute Neuts (auto) (1.70 - 7.70 X10(3)) 4.88 Absolute Lymphs (auto) (0.70 - 4.00 X10(3)) 1.13 Absolute Monos (auto) (0.00 - 0.89 X10(3)) 1.13 H Absolute Eos (auto) (0.00 - 0.60 X10(3)) 0.32 Absolute Basos (auto) (0.00 - 0.20 X10(3)) 0.04 Absolute Nucleated RBC (0.0 - 0.1 K/mm3) 0.00 Immature Gran % (0.0 - 2.0 %) 0.4 Nucleated RBC % (0 - 0.2 %) 0.0 Diagnosis, Assessment Plan Free Text DxA P Notes Free text DxA P notes: Assessment -Debility age-related -Hypertension essential -Chronic hypovolemic hyponatremia -progressive muscle weakness -H/o CAD -BPH -insomnia -Depression -Abnormal LFTs. -Cough could be related to JERAMY inhibitor. Switch to losartan Plan: -Physical therapy per rehab recommendations -amlodipine 10 mg, dc lisinopril, start losartan. -tamsulosin 0.4 mg p.o. daily -Insulin sliding scale and Accu-Cheks -Continue appropriate home medications -Cardiac diet -Monitor vital signs -Tylenol p.o. as needed, Zofran IV as needed, labetalol IV as needed at 1122 RPT #:[id number] END OF REPORT [facility] 2022-04-26 08:36:00 [facility] ([facility]) Rehab Progress Note REPORT#:[id number] REPORT STATUS: Signed DATE:04/26/22 TIME: 835 PATIENT: ADRYAN MCWILLIAMS UNIT #: [id number] ROOM/BED: [address] : [birth year] AGE: 87 SEX: M ATTEND: Raad Murray MD ADM AUTHOR: Sveta Womack MD * ALL edits or amendments must be made on the electronic/computer document * Subjective Chief complaint: Difficulty with ambulation and decreased p.o. intake History of present illness: 87-year-old gentleman who is [place]i-speaking status post acute hospitalization for malnutrition and failure to thrive and headache and hypertensive urgency with chronic hyponatremia. Has also had depression in the past and uncontrolled blood pressure and decreased p.o. intake and required IV fluids during hospitalization of normal saline at 75 cc an hour and was being monitored regularly for hyponatremia. He had no episodes of confusion but and is willing to participate in rehabilitation therapy. He states that he does not oxygen at home. Patient reports: Yes: able to ambulate, ambulate with assistance, ambulate with therapy, comfortable. No: complaints, mild pain, shortness of breath. Nursing reports: No: complaints, new events overnight, confusion, pain, shortness of breath. Comments: Has no cough this morning and does not verbalize any pain. Review of Systems Free Text ROS Notes Free Text ROS Notes: Free Text ROS Notes: ROS Constitutional: Reports: fatigue, generalized weakness, malaise. Denies: chills, fever, lethargy, recent wt loss. Skin: Denies: abrasion, bruising, contusion, diaphoresis, ecchymosis, itching, laceration, rash, swelling. Allergy/Immun: Denies: allergic reaction, anaphylaxis, hives, itching, rhinorrhea, sneezing. Eyes: Denies: redness, discharge, visual loss/blurred, itching, diplopia, eye pain, photophobia, swelling. ENT: Denies: ear drainage, ear ringing, earache, hearing loss, mouth pain, nasal congestion, nose bleeding, sinus problem, throat swelling, tongue pain, tongue swelling, toothache, voice change. Reported sore throat previously since last being. Currently feeling well. Respiratory: Reports: DUMONT, pneumonia-much improved no dyspnea and exertion in the last 24- hours. Denies: hemoptysis, non productive cough, parox nocturnal dyspnea, pleurisy, pleuritic pain, wheezing. Per HPI. Has some shortness of air with ambulation but uses oxygen currently. Cardiovascular: Reports: edema (lower extremities). Denies: chest pain, DUMONT (dyspnea on exertion), orthopnea, palpitations, parox nocturnal dyspnea. GI: Denies: abdominal pain, anorexia, constipation, diarrhea, dysphagia, GERD, hematemesis, hematochezia, hiatal hernia, melena, nausea, rectal pain, vomiting. : Denies: dysuria. Musculoskeletal: Reports: extremity swelling (lower extremities). Denies: arthritis, extremity pain, joint pain, joint swelling, lumbar pain, myalgias, neck pain, thoracic pain. Heme: Denies: adenopathy, bleeding, bruising, petechiae. Neuro: Reports: gait problem, weakness. Denies: bladder dysfunction, bowel dysfunction , change in LOC, confusion, dizziness, focal weakness, headache, lightheaded, numbness, seizure, slurred speech, syncope. Psych: Denies: agitation, anxiety, auditory hallucination, change in mental status, confusion, delusional, depression, homicidal ideation, hostile, insomnia, stress , suicidal ideation, visual hallucination. All systems rev neg: except as marked [place]i translation used. Objective General VS: Vital Signs: Date Time Temp Pulse Resp B/P B/P Pulse O2 O2 Flow FiO2 Mean Ox Delivery Rate 04/26 0550 36.6 69 18 121/71 87.4 95 04/25 2117 36.7 73 16 104/63 76.6 95 04/25 1558 36.7 71 17 113/68 82.7 96 04/25 1047 36.8 68 17 134/77 95.8 97 04/25 0905 37.1 81 17 127/76 92.9 96 PATIENT WEIGHT: Weight (lb): 165 Weight (oz): 5.55 Weight (kg): 75.000 Medications: Active Meds + DC'd Last 24 Hrs Metformin HCl (GLUCOPHAGE) 500 MG BID MEALS PO Insulin Human Lispro (Humalog) SLIDING SCALE AC HS SUBQ Tamsulosin HCl (FLOMAX) 0.4 MG DAILY PO Dextrose/Water (DEXTROSE 50% SYRINGE) 25 ML ASDIR PRN IV (CKD) Glucagon (GLUCAGON) 1 MG ASDIR PRN IM Zolpidem Tartrate (AMBIEN) 10 MG BEDTIME PRN PRN PO Lisinopril (PRINIVIL) 20 MG DAILY PO Amlodipine Besylate (NORVASC) 10 MG DAILY PO Acetaminophen (TYLENOL ES) 500 MG Q6H PRN PRN PO Hydralazine HCl (APRESOLINE) 10 MG Q4H PRN PRN IV Atorvastatin Calcium (LIPITOR) 40 MG BEDTIME PO Hydroxyzine HCl (ATARAX) 25 MG BEDTIME PO Clopidogrel Bisulfate (CLOPIDOGREL BISULFATE) 75 MG DAILY PO Isosorbide Mononitrate (IMDUR) 30 MG DAILY PO Loratadine (CLARITIN) 10 MG DAILY PO Sodium Chloride (SODIUM CHLORIDE 0.9% 1000ml) 1,000 ML .[id number] IV Dietitian nutrition assessment The data set between the solid lines has been imported from the dietitian's assessment. BMI Calculated: 26.7 Nutrition related diagnosis: Nutrition diagnosis details: Nutrition problem: Decreased oral intake Nutrition etiology: related to decreased ability, to consume adequate nutrition Nutrition signs and symptoms: wt loss 2-13 lbs, MST 2,, PO intake 50-75%. Nutrition prescription: Recs: 1.) Provide 1 Glucerna Shake - BID w/ meals each provides 220 kcals, 10 gm protein Dietitian name: John Bassett, DIET Assessment completed: 04/20/22 Nutrition provider diagnosis: mild malnutrition Review of dietitian's assessment: reviewed and agree Functional Progress Functional progress: The data set between the solid lines has been imported from multidisciplinary team documentation. __ FUNCTIONAL ACTIVITY ADMISSION STATUS INTERIM STATUS Toilet hygiene Partial/moderate (3) Supervision/touch (4) Toilet transfer Partial/moderate (3) Supervision/touch (4) Eating Setup or cleanup (5) Independent (6) Shower/bathing Partial/moderate (3) Dressing upper body Supervision/touch (4) Partial/moderate (3) Dressing lower body Partial/moderate (3) Supervision/touch (4) Transfer to/from bed to chair Partial/moderate (3) Partial/moderate (3) Wheel 50ft w/ 2 turns Partial/moderate (3) Partial/moderate (3) Wheel 150 ft Not attempted (88) Not attempted (88) Walk 50 ft w/ 2 turns Partial/moderate (3) Partial/moderate (3) Walk 150 ft Not attempted (88) Not attempted (88) Four steps Pt refused (7) __ Functional Assessment/Exam Mental Status: Normal: Affect:, Attention Span:, Concentration:. Physical Exam General appearance: alert, awake, oriented (place and name and staff), no acute distress, pleasant, conversational, no respiratory distress Psych: alert Neck: no JVD Skin: dry, intact Musculoskeletal - general: Musculoskeletal - general: LLE strength (4/5), LUE strength (4/5), RLE strength (4/5), RUE strength (4/5) Neuro/PHLEBOTOMY COORDINATOR: alert, normal speech, no sensory deficits Results Findings/Data: Laboratory Tests: 04/26 04/26 04/25 04/25 04/25 0642 0641 2057 1654 1111 Chemistry Sodium (136 - 145 mmol/L) 134 L Potassium (3.5 - 5.1 mmol/L) 4.0 Chloride (98 - 107 mmol/L) 103 Carbon Dioxide (21 - 32 mmol/L) 26 BUN (7 - 18 mg/dL) 36 H Creatinine (0.67 - 1.17 mg/dL) 0.97 Estimated GFR (MDRD) (>=60) > 60.00 Glucose (70 - 100 mg/dL) 111 H POC Glucose (70 - 105 mg/dL) 102 108 H 101 134 H Calcium (8.5 - 10.1 mg/dL) 8.9 Hematology WBC (4.5 - 11.0 X10(3)) 7.5 RBC (4.3 - 5.9 X10(6)) 3.63 L Hgb (13.5 - 18.0 g/dL) 11.1 L Hct (42.0 - 52.0 %) 33.4 L MCV (78 - 100 fl) 92.0 MCH (26.0 - 34.0 pg) 30.6 MCHC (30.0 - 37.0 g/dl) 33.2 RDW (11.5 - 14.5 %) 14.0 Plt Count (150 - 350 X10(3)) 225 MPV (8.7 - 11.4 fl) 9.2 Neut % (Auto) (36.0 - 66.0 %) 64.9 Lymph % (Auto) (16.0 - 50.0 %) 15.0 L [place] % (Auto) (0.0 - 13.0 %) 15.0 H Eos % (Auto) (0.0 - 4.5 %) 4.2 Baso % (Auto) (0.0 - 1.5 %) 0.5 Immature Gran # (Auto) (0.00 - 0.03 0.03 X10(3)uL) Absolute Neuts (auto) (1.70 - 7.70 4.88 X10(3)) Absolute Lymphs (auto) (0.70 - 4.00 1.13 X10(3)) Absolute Monos (auto) (0.00 - 0.89 1.13 H X10(3)) Absolute Eos (auto) (0.00 - 0.60 X10(3)) 0.32 Absolute Basos (auto) (0.00 - 0.20 0.04 X10(3)) Absolute Nucleated RBC (0.0 - 0.1 K/mm3) 0.00 Immature Gran % (0.0 - 2.0 %) 0.4 Nucleated RBC % (0 - 0.2 %) 0.0 04/25 0925 Serology SARS-CoV-2 Ag (Rapid) (NEGATIVE) Presumed Negative Results: labs reviewed, vital signs reviewed Objective Comments Objective comments: SARS COVID-19 test negative. Diagnosis, Assessment Plan Problem List/A P: 1. Anemia 2. Hypertensive urgency 3. Generalized weakness 4. Hyponatremia 5. Malnutrition 6. Abnormality of gait and mobility Free Text A P: 87-year-old gentleman who is Bahraini-speaking status post acute hospitalization for malnutrition and failure to thrive and headache and hypertensive urgency with chronic hyponatremia. Now achieving blood pressure control but still has hyponatremia and receiving normal saline IV intravenously per medicine's care. Smiling today and speaking in [place]i and verbalize he is interested in continuing rehabilitation therapy. With the goal of achieving independence in ambulation and we discussed the need to use a walker and fall risk and to call for help at all times. He is on nasal cannula 2 L and says he uses oxygen at home occasionally. He is also interested in education from nutritional therapy as he is severely malnourished. Problem list: 1 failure to thrive and malnutrition Plan for intensive physical and occupational therapy to achieve gait and mobility initial plan will be with assistance and will assess ability to transfer by herself or with assistance. May be at increased risk for hypotension since he has been so debilitated so we will monitor closely during therapy for hypotension and lightheadedness. Appreciate nutritional input: Recs: 1.) Provide 1 Glucerna Shake - BID w/ meals each provides 220 kcals, 10 gm protein Diet modified with nursing and admitting physician's permission. 2. Gait instability Will focus on helping achieve gait stability using a walker during daily physical therapy and Occupational Therapy sessions to achieve as much independence as possible. Continue to improve gait 3. Hyponatremia Currently under medical management and status posttreatment and this should not affect rehabilitation. Plan to follow-up outpatient with primary care . Currently receiving normal saline intravenously and medicine monitoring sodium level appropriately and this is a continuation of inpatient. Continue to be able to participate in physical therapy and Appreciate medicine's following and normal saline was discontinued secondary to sodium level being at acceptable level per medicine. Continues to participate in therapy and ambulating in the hallway with a walker with minimal supervision. Educated to call nursing when needing to walk or get out of bed in [place]i. 4. Generalized weakness: Needing intensive gradual physical therapy and Occupational Therapy to achieve as much independence as possible. 5. Hypertension without fluctuation: Will monitor hypertension but able to participate in physical and occupational therapy. Medicine to follow and adjust antihypertensives as needed. Blood pressure no longer uncontrolled but will monitor during therapy. 6. Intractable headaches Currently well controlled with medicine. Currently has no headache is receiving infusion therapy with normal saline and increasing p.o. intake of food. Continues to be able to participate in rehabilitative therapy. 7. Decreased p.o. intake: Followed by medicine and will encourage hydration. Able to ambulate and this should not affect patient rehabilitative care. Continues to increase p.o. intake now that he is eating in the dining room and therapy continues to encourage p.o. intake and nursing continues to encourage p.o.. Fall risk: Discussed fall prevention with nursing staff and patient and discussed always needing help when ambulation in acute rehab and to always call for help and discussed with nurse not to leave unattended in the wheelchair. And to set bed alarm as needed. And call ma within. #8 depression: No sadness and no feelings of harming himself and appreciate medicine management. #9 Coronary artery disease: Appreciate medicine's management and currently has no chest pain and able to participate in therapy. #10 Sore thorat and cough:pharyngitis: Covid testing negative. No cough noted today or sore thorat complaints. Appreciate Medical Management. Able to ambualte with PT/OT and stable with a walker. DVT prophylaxis per medicine. CODE STATUS full code. Estimated discharge date 05/07/2022 once medically cleared. Code status: full code Plan discussed with: patient, admitting physician, nurse, interdisc care team Time spent: Time spent on patient care (minutes): 40 Rehab attestation: Face to face exam completed. Treatment plan discussed with patient. Meets continued stay criteria. Agree with interdisciplinary treatment plan. at 0859 RPT #:[id number] END OF REPORT [facility] 2022-04-25 08:48:00 [facility] ([facility]) Hospitalist Progress Note REPORT#:[id number] REPORT STATUS: Signed DATE:04/25/22 TIME: 0848 PATIENT: ADRYAN MCWILLIAMS UNIT #: [id number] ROOM/BED: [address] : [birth year] AGE: 87 SEX: M ATTEND: Raad Murray MD ADM AUTHOR: Raad Murray MD * ALL edits or amendments must be made on the electronic/computer document * Subjective Chief complaint: DEBILITY Free Text Subj Notes Free Text Subj Notes: Patient complaining of sore throat and nonproductive cough. Objective General VS/I O: Vital Signs: Date Time Temp Pulse Resp B/P B/P Pulse O2 O2 Flow FiO2 Mean Ox Delivery Rate 04/25 0616 36.7 65 18 129/73 91.4 95 04/24 2142 36.7 77 18 120/71 87.6 96 04/24 0947 36.6 78 17 131/76 94.5 97 24 hour I O ending at 0700: 04/25 0700 04/24 1900 Intake Total 630 Output Total 500 Balance 630 -500 Intake, Oral 530 Intake, Oral 100 Supplement Number 1 Bowel Movements Number 0 0 Incontinent Voids Number Voids 4 2 Output, Urine 500 PATIENT WEIGHT: Weight (lb): 165 Weight (oz): 5.55 Weight (kg): 75.000 Medications: Active Meds + DC'd Last 24 Hrs Metformin HCl (GLUCOPHAGE) 500 MG BID MEALS PO Insulin Human Lispro (Humalog) SLIDING SCALE AC HS SUBQ Tamsulosin HCl (FLOMAX) 0.4 MG DAILY PO Dextrose/Water (DEXTROSE 50% SYRINGE) 25 ML ASDIR PRN IV (CKD) Glucagon (GLUCAGON) 1 MG ASDIR PRN IM Zolpidem Tartrate (AMBIEN) 10 MG BEDTIME PRN PRN PO Lisinopril (PRINIVIL) 20 MG DAILY PO Amlodipine Besylate (NORVASC) 10 MG DAILY PO Acetaminophen (TYLENOL ES) 500 MG Q6H PRN PRN PO Hydralazine HCl (APRESOLINE) 10 MG Q4H PRN PRN IV Atorvastatin Calcium (LIPITOR) 40 MG BEDTIME PO Hydroxyzine HCl (ATARAX) 25 MG BEDTIME PO Clopidogrel Bisulfate (CLOPIDOGREL BISULFATE) 75 MG DAILY PO Isosorbide Mononitrate (IMDUR) 30 MG DAILY PO Loratadine (CLARITIN) 10 MG DAILY PO Sodium Chloride (SODIUM CHLORIDE 0.9% 1000ml) 1,000 ML .[id number] IV Physical Exam General appearance: alert, awake, oriented Cardiovascular: normal capillary refill, normal heart sounds, regular rate rhythm Respiratory: decreased breath sounds, aerating well, symmetric expansion Abdomen: non-tender, normal bowel sounds Extremities: moves all, no clubbing, no cyanosis, no edema Musculoskeletal: normal inspection Neuro/PHLEBOTOMY COORDINATOR: alert, oriented X 3, normal speech Skin: intact Results Findings/Data: Laboratory Tests 04/2516 2020 1638 1113 Chemistry POC Glucose (70 - 105 mg/dL) 119 H 143 H 84 162 H Diagnosis, Assessment Plan Free Text DxA P Notes Free text DxA P notes: Assessment -Debility age-related -Hypertension essential -Chronic hypovolemic hyponatremia -progressive muscle weakness -H/o CAD -BPH -insomnia -Depression -Abnormal LFTs. Plan: -Check for COVID-19, low likelihood -Physical therapy per rehab recommendations -amlodipine 10 mg and lisinopril 20 mg daily. -tamsulosin 0.4 mg p.o. daily -Insulin sliding scale and Accu-Cheks -Continue appropriate home medications -Cardiac diet -Monitor vital signs -Tylenol p.o. as needed, Zofran IV as needed, labetalol IV as needed at 0849 RPT #:[id number] END OF REPORT [facility] 2022-04-24 08:23:00 [facility] ([facility]) Hospitalist Progress Note REPORT#:[id number] REPORT STATUS: Signed DATE:04/24/22 TIME: 822 PATIENT: ADRYAN MCWILLIAMS UNIT #: [id number] ROOM/BED: [address] : [birth year] AGE: 87 SEX: M ATTEND: Raad Murray MD ADM AUTHOR: Raad Murray MD * ALL edits or amendments must be made on the electronic/computer document * Subjective Chief complaint: DEBILITY Free Text Subj Notes Free Text Subj Notes: No new events overnight, patient in good spirits. Objective General VS/I O: Vital Signs: Date Time Temp Pulse Resp B/P B/P Pulse O2 O2 Flow FiO2 Mean Ox Delivery Rate 04/24 0613 36.6 67 18 129/70 89.5 96 04/23 2058 36.8 65 18 111/65 80.3 96 04/23 1750 36.8 86 17 109/71 83.7 96 04/23 1114 Nasal 2 cannula 04/23 1016 36.7 68 17 146/77 100.0 99 24 hour I O ending at 0700: 04/24 0700 04/23 1900 Intake Total 950 Output Total 500 Balance 450 Intake, Oral 950 Number 0 Incontinent Voids Number Voids 4 Output, Urine 500 PATIENT WEIGHT: Weight (lb): 165 Weight (oz): 5.55 Weight (kg): 75.000 Medications: Active Meds + DC'd Last 24 Hrs Insulin Human Lispro (Humalog) SLIDING SCALE AC HS SUBQ Tamsulosin HCl (FLOMAX) 0.4 MG DAILY PO Dextrose/Water (DEXTROSE 50% SYRINGE) 25 ML ASDIR PRN IV (CKD) Glucagon (GLUCAGON) 1 MG ASDIR PRN IM Zolpidem Tartrate (AMBIEN) 10 MG BEDTIME PRN PRN PO Lisinopril (PRINIVIL) 20 MG DAILY PO Amlodipine Besylate (NORVASC) 10 MG DAILY PO Acetaminophen (TYLENOL ES) 500 MG Q6H PRN PRN PO Hydralazine HCl (APRESOLINE) 10 MG Q4H PRN PRN IV Atorvastatin Calcium (LIPITOR) 40 MG BEDTIME PO Hydroxyzine HCl (ATARAX) 25 MG BEDTIME PO Clopidogrel Bisulfate (CLOPIDOGREL BISULFATE) 75 MG DAILY PO Isosorbide Mononitrate (IMDUR) 30 MG DAILY PO Loratadine (CLARITIN) 10 MG DAILY PO Sodium Chloride (SODIUM CHLORIDE 0.9% 1000ml) 1,000 ML .[id number] IV Physical Exam Cardiovascular: normal capillary refill, normal heart sounds, regular rate rhythm Respiratory: decreased breath sounds, aerating well, symmetric expansion Abdomen: non-tender, normal bowel sounds Extremities: moves all, no clubbing, no cyanosis, no edema Musculoskeletal: normal inspection Neuro/PHLEBOTOMY COORDINATOR: alert, oriented X 3, normal speech Skin: intact Diagnosis, Assessment Plan Free Text DxA P Notes Free text DxA P notes: Assessment -Debility age-related -Hypertension essential -Chronic hypovolemic hyponatremia -progressive muscle weakness -H/o CAD -BPH -insomnia -Depression -Abnormal LFTs. Plan: -Physical therapy per rehab recommendations -amlodipine 10 mg and lisinopril 20 mg daily. -tamsulosin 0.4 mg p.o. daily -Insulin sliding scale and Accu-Cheks -Continue appropriate home medications -Cardiac diet -Monitor vital signs -Tylenol p.o. as needed, Zofran IV as needed, labetalol IV as needed at 0823 RPT #:[id number] END OF REPORT [facility] 2022-04-23 12:50:00 [facility] ([facility]) Rehab Progress Note REPORT#:[id number] REPORT STATUS: Signed DATE:04/23/22 TIME: 1250 PATIENT: ADRYAN MCWILLIAMS UNIT #: [id number] ROOM/BED: [address] : [birth year] AGE: 87 SEX: M ATTEND: Raad Murray MD ADM AUTHOR: Sveta Womack MD * ALL edits or amendments must be made on the electronic/computer document * Subjective Chief complaint: Difficulty with ambulation and decreased p.o. intake History of present illness: 87-year-old gentleman who is [place]raini-speaking status post acute hospitalization for malnutrition and failure to thrive and headache and hypertensive urgency with chronic hyponatremia. Has also had depression in the past and uncontrolled blood pressure and decreased p.o. intake and required IV fluids during hospitalization of normal saline at 75 cc an hour and was being monitored regularly for hyponatremia. He had no episodes of confusion but and is willing to participate in rehabilitation therapy. He states that he does not oxygen at home. Patient reports: Yes: able to ambulate, ambulate with assistance, ambulate with therapy, comfortable. No: complaints, mild pain, shortness of breath. Nursing reports: No: complaints, new events overnight, confusion, pain, shortness of breath. Review of Systems Free Text ROS Notes Free Text ROS Notes: Free Text ROS Notes: ROS Constitutional: Reports: fatigue, generalized weakness, malaise. Denies: chills, fever, lethargy, recent wt loss. Skin: Denies: abrasion, bruising, contusion, diaphoresis, ecchymosis, itching, laceration, rash, swelling. Allergy/Immun: Denies: allergic reaction, anaphylaxis, hives, itching, rhinorrhea, sneezing. Eyes: Denies: redness, discharge, visual loss/blurred, itching, diplopia, eye pain, photophobia, swelling. ENT: Denies: ear drainage, ear ringing, earache, hearing loss, mouth pain, nasal congestion, nose bleeding, sinus problem, sore throat, throat pain, throat swelling, tongue pain, tongue swelling, toothache, voice change. Respiratory: Reports: DUMONT, pneumonia. Denies: hemoptysis, non productive cough, parox nocturnal dyspnea, pleurisy, pleuritic pain, wheezing. Per HPI. Has some shortness of air with ambulation but uses oxygen currently. Cardiovascular: Reports: edema (lower extremities). Denies: chest pain, DUMONT (dyspnea on exertion), orthopnea, palpitations, parox nocturnal dyspnea. GI: Denies: abdominal pain, anorexia, constipation, diarrhea, dysphagia, GERD, hematemesis, hematochezia, hiatal hernia, melena, nausea, rectal pain, vomiting. : Denies: dysuria. Musculoskeletal: Reports: extremity swelling (lower extremities). Denies: arthritis, extremity pain, joint pain, joint swelling, lumbar pain, myalgias, neck pain, thoracic pain. Heme: Denies: adenopathy, bleeding, bruising, petechiae. Neuro: Reports: gait problem, weakness. Denies: bladder dysfunction, bowel dysfunction , change in LOC, confusion, dizziness, focal weakness, headache, lightheaded, numbness, seizure, slurred speech, syncope. Psych: Denies: agitation, anxiety, auditory hallucination, change in mental status, confusion, delusional, depression, homicidal ideation, hostile, insomnia, stress , suicidal ideation, visual hallucination. All systems rev neg: except as marked Objective General VS: Vital Signs: Date Time Temp Pulse Resp B/P B/P Pulse O2 O2 Flow FiO2 Mean Ox Delivery Rate 04/23 1114 Nasal 2 cannula 04/23 1016 36.7 68 17 146/77 100.0 99 04/23 0426 36.6 60 18 159/77 104 95 Room air 04/22 1925 36.9 61 18 122/73 89.7 96 PATIENT WEIGHT: Weight (lb): 165 Weight (oz): 5.55 Weight (kg): 75.000 Medications: Active Meds + DC'd Last 24 Hrs Insulin Human Lispro (Humalog) SLIDING SCALE AC HS SUBQ Tamsulosin HCl (FLOMAX) 0.4 MG DAILY PO Dextrose/Water (DEXTROSE 50% SYRINGE) 25 ML ASDIR PRN IV (CKD) Glucagon (GLUCAGON) 1 MG ASDIR PRN IM Zolpidem Tartrate (AMBIEN) 10 MG BEDTIME PRN PRN PO Lisinopril (PRINIVIL) 20 MG DAILY PO Amlodipine Besylate (NORVASC) 10 MG DAILY PO Acetaminophen (TYLENOL ES) 500 MG Q6H PRN PRN PO Hydralazine HCl (APRESOLINE) 10 MG Q4H PRN PRN IV Atorvastatin Calcium (LIPITOR) 40 MG BEDTIME PO Hydroxyzine HCl (ATARAX) 25 MG BEDTIME PO Clopidogrel Bisulfate (CLOPIDOGREL BISULFATE) 75 MG DAILY PO Isosorbide Mononitrate (IMDUR) 30 MG DAILY PO Loratadine (CLARITIN) 10 MG DAILY PO Sodium Chloride (SODIUM CHLORIDE 0.9% 1000ml) 1,000 ML .[id number] IV Dietitian nutrition assessment The data set between the solid lines has been imported from the dietitian's assessment. BMI Calculated: 26.7 Nutrition related diagnosis: Nutrition diagnosis details: Nutrition problem: Decreased oral intake Nutrition etiology: related to decreased ability, to consume adequate nutrition Nutrition signs and symptoms: wt loss 2-13 lbs, MST 2,, PO intake 50-75%. Nutrition prescription: Recs: 1.) Provide 1 Glucerna Shake - BID w/ meals each provides 220 kcals, 10 gm protein Dietitian name: John Bassett, DIET Assessment completed: 04/20/22 Nutrition provider diagnosis: mild malnutrition Review of dietitian's assessment: reviewed and agree Functional Progress Functional progress: The data set between the solid lines has been imported from multidisciplinary team documentation. __ FUNCTIONAL ACTIVITY ADMISSION STATUS INTERIM STATUS Toilet hygiene Partial/moderate (3) Toilet transfer Partial/moderate (3) Eating Setup or cleanup (5) Shower/bathing Partial/moderate (3) Dressing upper body Supervision/touch (4) Partial/moderate (3) Dressing lower body Partial/moderate (3) Supervision/touch (4) Transfer to/from bed to chair Partial/moderate (3) Partial/moderate (3) Wheel 50ft w/ 2 turns Partial/moderate (3) Partial/moderate (3) Wheel 150 ft Not attempted (88) Not attempted (88) Walk 50 ft w/ 2 turns Partial/moderate (3) Partial/moderate (3) Walk 150 ft Not attempted (88) Not attempted (88) Four steps Pt refused (7) __ Functional Assessment/Exam Mental Status: Normal: Affect:, Attention Span:, Concentration:. Physical Exam General appearance: alert, awake, no acute distress, pleasant, conversational, no respiratory distress Psych: alert Neck: no JVD Skin: dry, intact Musculoskeletal - general: Musculoskeletal - general: LLE strength (4/5), LUE strength (4/5), RLE strength (4/5), RUE strength (4/5) Neuro/PHLEBOTOMY COORDINATOR: alert, normal speech, no sensory deficits Diagnosis, Assessment Plan Problem List/A P: 1. Anemia 2. Hypertensive urgency 3. Generalized weakness 4. Hyponatremia 5. Malnutrition 6. Abnormality of gait and mobility Free Text A P: 87-year-old gentleman who is [place]raini-speaking status post acute hospitalization for malnutrition and failure to thrive and headache and hypertensive urgency with chronic hyponatremia. Now achieving blood pressure control but still has hyponatremia and receiving normal saline IV intravenously per medicine's care. Smiling today and speaking in [place] and verbalize he is interested in continuing rehabilitation therapy. With the goal of achieving independence in ambulation and we discussed the need to use a walker and fall risk and to call for help at all times. He is on nasal cannula 2 L and says he uses oxygen at home occasionally. He is also interested in education from nutritional therapy as he is severely malnourished. Problem list: 1 failure to thrive and malnutrition Plan for intensive physical and occupational therapy to achieve gait and mobility initial plan will be with assistance and will assess ability to transfer by herself or with assistance. May be at increased risk for hypotension since he has been so debilitated so we will monitor closely during therapy for hypotension and lightheadedness. Appreciate nutritional input: Recs: 1.) Provide 1 Glucerna Shake - BID w/ meals each provides 220 kcals, 10 gm protein Diet modified with nursing and admitting physician's permission. 2. Gait instability Will focus on helping achieve gait stability using a walker during daily physical therapy and Occupational Therapy sessions to achieve as much independence as possible. Continue to improve gait 3. Hyponatremia Currently under medical management and status posttreatment and this should not affect rehabilitation. Plan to follow-up outpatient with primary care . Currently receiving normal saline intravenously and medicine monitoring sodium level appropriately and this is a continuation of inpatient. Continue to be able to participate in physical therapy and Appreciate medicine's following and normal saline was discontinued secondary to sodium level being at acceptable level per medicine. Continues to participate in therapy and ambulating in the hallway with a walker with minimal supervision. Educated to call nursing when needing to walk or get out of bed in [place]. 4. Generalized weakness: Needing intensive gradual physical therapy and Occupational Therapy to achieve as much independence as possible. 5. Hypertension without fluctuation: Will monitor hypertension but able to participate in physical and occupational therapy. Medicine to follow and adjust antihypertensives as needed. Blood pressure no longer uncontrolled but will monitor during therapy. 6. Intractable headaches Currently well controlled with medicine. Currently has no headache is receiving infusion therapy with normal saline and increasing p.o. intake of food. Continues to be able to participate in rehabilitative therapy. 7. Decreased p.o. intake: Followed by medicine and will encourage hydration. Able to ambulate and this should not affect patient rehabilitative care. Continues to increase p.o. intake now that he is eating in the dining room and therapy continues to encourage p.o. intake and nursing continues to encourage p.o.. Fall risk: Discussed fall prevention with nursing staff and patient and discussed always needing help when ambulation in acute rehab and to always call for help and discussed with nurse not to leave unattended in the wheelchair. And to set bed alarm as needed. And call ma within. Depression: No sadness and no feelings of harming himself and appreciate medicine management. Coronary artery disease: Appreciate medicine's management and currently has no chest pain and able to participate in therapy. 8. DVT prophylaxis per medicine. 9. CODE STATUS full code. Estimated discharge date 05/07/2022 once medically cleared. Code status: full code Plan discussed with: patient, admitting physician, nurse, interdisc care team Time spent: Time spent on patient care (minutes): 35 Rehab attestation: Face to face exam completed. Treatment plan discussed with patient. Meets continued stay criteria. Agree with interdisciplinary treatment plan. at 1253 RPT #:[id number] END OF REPORT [facility] 2022-04-23 09:02:00 [facility] ([facility]) Hospitalist Progress Note REPORT#:[id number] REPORT STATUS: Signed DATE:04/23/22 TIME: 901 PATIENT: ADRYAN MCWILLIAMS UNIT #: [id number] [facility] [birth year][facility][birth year][facility][birth year] AGE: 87 SEX: M ATTEND: Raad Murray MD ADM AUTHOR: Raad Murray MD * ALL edits or amendments must be made on the electronic/computer document * Subjective Chief complaint: DEBILITY Free Text Subj Notes Free Text Subj Notes: Afebrile, denies chest pain, dyspnea, lightheaded Objective General VS/I O: Vital Signs: Date Time Temp Pulse Resp B/P B/P Pulse O2 O2 Flow FiO2 Mean Ox Delivery Rate 04/23 0426 36.6 60 18 159/77 104 95 Room air 04/22 1925 36.9 61 18 122/73 89.7 96 04/22 1055 36.7 75 17 120/74 89.6 97 24 hour I O ending at 0700: 04/23 0700 04/22 1900 Intake Total 150 Output Total 1150 Balance -1150 150 Intake, Oral 150 Number 0 Incontinent Voids Number Voids 3 Output, Urine 1150 PATIENT WEIGHT: Weight (lb): 165 Weight (oz): 5.55 Weight (kg): 75.000 Medications: Active Meds + DC'd Last 24 Hrs Insulin Human Lispro (Humalog) SLIDING SCALE AC HS SUBQ (UNV) Tamsulosin HCl (FLOMAX) 0.4 MG DAILY PO (UNV) Dextrose/Water (DEXTROSE 50% SYRINGE) 25 ML ASDIR PRN IV (UNVr) Glucagon (GLUCAGON) 1 MG ASDIR PRN IM (UNV) Zolpidem Tartrate (AMBIEN) 10 MG BEDTIME PRN PRN PO Lisinopril (PRINIVIL) 20 MG DAILY PO Amlodipine Besylate (NORVASC) 10 MG DAILY PO Acetaminophen (TYLENOL ES) 500 MG Q6H PRN PRN PO Hydralazine HCl (APRESOLINE) 10 MG Q4H PRN PRN IV Atorvastatin Calcium (LIPITOR) 40 MG BEDTIME PO Hydroxyzine HCl (ATARAX) 25 MG BEDTIME PO Clopidogrel Bisulfate (CLOPIDOGREL BISULFATE) 75 MG DAILY PO Isosorbide Mononitrate (IMDUR) 30 MG DAILY PO Loratadine (CLARITIN) 10 MG DAILY PO Sodium Chloride (SODIUM CHLORIDE 0.9% 1000ml) 1,000 ML .[id number] IV Physical Exam General appearance: alert, awake, oriented Cardiovascular: normal capillary refill, normal heart sounds, regular rate rhythm Respiratory: decreased breath sounds, aerating well, symmetric expansion Abdomen: non-tender, normal bowel sounds Extremities: moves all, no clubbing, no cyanosis, no edema Musculoskeletal: normal inspection Neuro/PHLEBOTOMY COORDINATOR: alert, oriented X 3, normal speech Skin: intact Diagnosis, Assessment Plan Free Text DxA P Notes Free text DxA P notes: Assessment -Debility age-related -Hypertension essential -Chronic hypovolemic hyponatremia -progressive muscle weakness -H/o CAD -BPH -insomnia -Depression -Abnormal LFTs. Plan: -Physical therapy per rehab recommendations -amlodipine 10 mg and lisinopril 20 mg daily. -Discontinue NS -tamsulosin 0.4 mg p.o. daily -Insulin sliding scale and Accu-Cheks -Continue appropriate home medications -Cardiac diet -Monitor vital signs -Tylenol p.o. as needed, Zofran IV as needed, labetalol IV as needed at 0905 RPT #:[id number] END OF REPORT [facility] 2022-04-22 14:27:00 [facility] ([facility]) Rehab Progress Note REPORT#:[id number] REPORT STATUS: Signed DATE:04/22/22 TIME: 1427 PATIENT: ADRYAN MCWILLIAMS UNIT #: [id number] ROOM/BED: [address] : [birth year] AGE: 87 SEX: M ATTEND: Raad Murray MD ADM AUTHOR: Sveta Womack MD * ALL edits or amendments must be made on the electronic/computer document * Subjective Chief complaint: Difficulty with ambulation and decreased p.o. intake History of present illness: 87-year-old gentleman who is [place]i-speaking status post acute hospitalization for malnutrition and failure to thrive and headache and hypertensive urgency with chronic hyponatremia. Has also had depression in the past and uncontrolled blood pressure and decreased p.o. intake and required IV fluids during hospitalization of normal saline at 75 cc an hour and was being monitored regularly for hyponatremia. He had no episodes of confusion but and is willing to participate in rehabilitation therapy. He states that he does not oxygen at home. Patient reports: Yes: ambulate with assistance, ambulate with therapy, comfortable. No: complaints, able to ambulate, mild pain. Nursing reports: No: complaints, new events overnight, confusion. Comments: No new events and continues to participate in physical therapy and Occupational Therapy. Review of Systems Free Text ROS Notes Free Text ROS Notes: Free Text ROS Notes: ROS Constitutional: Reports: fatigue, generalized weakness, recent wt loss. Denies: chills, fever, lethargy, malaise. Skin: Denies: abrasion, bruising, contusion, diaphoresis, ecchymosis, itching, laceration, rash, swelling. Allergy/Immun: Denies: allergic reaction, anaphylaxis, hives, itching, rhinorrhea, sneezing. Eyes: Denies: redness, discharge, visual loss/blurred, itching, diplopia, eye pain, photophobia, swelling. ENT: Denies: ear drainage, ear ringing, earache, hearing loss, mouth pain, nasal congestion, nose bleeding, sinus problem, sore throat, throat pain, throat swelling, tongue pain, tongue swelling, toothache, voice change. Respiratory: Denies: DUMONT, hemoptysis, non productive cough, parox nocturnal dyspnea, pleurisy , pleuritic pain, pneumonia, productive cough (sputum), SOB, wheezing. Cardiovascular: Denies: chest pain, DUMONT (dyspnea on exertion), edema, orthopnea, palpitations, parox nocturnal dyspnea. GI: Reports: anorexia. Denies: abdominal pain, constipation, diarrhea, dysphagia, GERD, hematemesis, hematochezia, hiatal hernia, melena, nausea, rectal pain, vomiting. : Denies: dysuria, flank pain, frequency, hematuria, nocturia, penile discharge, penile lesion, testicular pain, testicular swelling, urgency, urinary retention. Musculoskeletal: Denies: extremity pain, extremity swelling, joint pain, joint swelling, lumbar pain, myalgias, neck pain, thoracic pain. Heme: Denies: adenopathy, bleeding, bruising, petechiae. Lymphatics: no complaints Endocrine: Reports: weight loss. Denies: cold intolerance, heat intolerance, polydipsia, polyphagia, polyuria, weight gain. Neuro: Reports: gait problem, weakness. Psych: Denies: agitation, anxiety, auditory hallucination, change in mental status, confusion, delusional, depression, homicidal ideation, hostile, insomnia, stress , suicidal ideation, visual hallucination. All systems rev neg: except as marked Objective General VS: Vital Signs: Date Time Temp Pulse Resp B/P B/P Pulse O2 O2 Flow FiO2 Mean Ox Delivery Rate 04/22 1055 36.7 75 17 120/74 89.6 97 04/22 0417 36.6 60 18 158/79 105.1 96 Room air 04/21 2026 36.7 60 18 113/68 83.2 97 Room air 04/21 1526 36.6 62 17 124/71 88.3 95 PATIENT WEIGHT: Weight (lb): 165 Weight (oz): 5.55 Weight (kg): 75.000 Medications: Active Meds + DC'd Last 24 Hrs Zolpidem Tartrate (AMBIEN) 10 MG BEDTIME PRN PRN PO Lisinopril (PRINIVIL) 20 MG DAILY PO Amlodipine Besylate (NORVASC) 10 MG DAILY PO Acetaminophen (TYLENOL ES) 500 MG Q6H PRN PRN PO Hydralazine HCl (APRESOLINE) 10 MG Q4H PRN PRN IV Atorvastatin Calcium (LIPITOR) 40 MG BEDTIME PO Hydroxyzine HCl (ATARAX) 25 MG BEDTIME PO Clopidogrel Bisulfate (CLOPIDOGREL BISULFATE) 75 MG DAILY PO Isosorbide Mononitrate (IMDUR) 30 MG DAILY PO Loratadine (CLARITIN) 10 MG DAILY PO Sodium Chloride (SODIUM CHLORIDE 0.9% 1000ml) 1,000 ML .[id number] IV Dietitian nutrition assessment The data set between the solid lines has been imported from the dietitian's assessment. BMI Calculated: 26.7 Nutrition related diagnosis: Nutrition diagnosis details: Nutrition problem: Decreased oral intake Nutrition etiology: related to decreased ability, to consume adequate nutrition Nutrition signs and symptoms: wt loss 2-13 lbs, MST 2,, PO intake 50-75%. Nutrition prescription: Recs: 1.) Provide 1 Glucerna Shake - BID w/ meals each provides 220 kcals, 10 gm protein Dietitian name: John Bassett, DIET Assessment completed: 04/20/22 Nutrition provider diagnosis: decrease po intake Review of dietitian's assessment: reviewed and agree Functional Progress Functional progress: The data set between the solid lines has been imported from multidisciplinary team documentation. __ FUNCTIONAL ACTIVITY ADMISSION STATUS INTERIM STATUS Toilet hygiene Partial/moderate (3) Toilet transfer Partial/moderate (3) Eating Setup or cleanup (5) Shower/bathing Partial/moderate (3) Dressing upper body Supervision/touch (4) Partial/moderate (3) Dressing lower body Partial/moderate (3) Supervision/touch (4) Transfer to/from bed to chair Partial/moderate (3) Partial/moderate (3) Wheel 50ft w/ 2 turns Partial/moderate (3) Partial/moderate (3) Wheel 150 ft Not attempted (88) Not attempted (88) Walk 50 ft w/ 2 turns Partial/moderate (3) Partial/moderate (3) Walk 150 ft Not attempted (88) Not attempted (88) Four steps Pt refused (7) __ Functional Assessment/Exam Mental Status: Normal: Affect:, Attention Span:, Concentration:. Sensory: Normal: Light Touch:. Physical Exam General appearance: alert, awake, oriented (place and time), pleasant, conversational, no respiratory distress Psych: alert Neck: no JVD Skin: dry, intact Musculoskeletal - general: Musculoskeletal - general: LLE strength (4/5), LUE strength (4/5), RLE strength (4/5), RUE strength (4/5) Neuro/PHLEBOTOMY COORDINATOR: alert, normal speech, no sensory deficits Diagnosis, Assessment Plan Problem List/A P: 1. Anemia 2. Hypertensive urgency 3. Generalized weakness 4. Hyponatremia 5. Malnutrition 6. Abnormality of gait and mobility Free Text A P: 87-year-old gentleman who is [place]i-speaking status post acute hospitalization for malnutrition and failure to thrive and headache and hypertensive urgency with chronic hyponatremia. Now achieving blood pressure control but still has hyponatremia and receiving normal saline IV intravenously per medicine's care. Smiling today and speaking in [place] and verbalize he is interested in continuing rehabilitation therapy. With the goal of achieving independence in ambulation and we discussed the need to use a walker and fall risk and to call for help at all times. He is on nasal cannula 2 L and says he uses oxygen at home occasionally. He is also interested in education from nutritional therapy as he is severely malnourished. Problem list: 1 failure to thrive and malnutrition Plan for intensive physical and occupational therapy to achieve gait and mobility initial plan will be with assistance and will assess ability to transfer by herself or with assistance. May be at increased risk for hypotension since he has been so debilitated so we will monitor closely during therapy for hypotension and lightheadedness. Appreciate nutritional input: Recs: 1.) Provide 1 Glucerna Shake - BID w/ meals each provides 220 kcals, 10 gm protein Diet modified with nursing and admitting physician's permission. 2. Gait instability Will focus on helping achieve gait stability using a walker during daily physical therapy and Occupational Therapy sessions to achieve as much independence as possible. Continue to improve gait 3. Hyponatremia Currently under medical management and status posttreatment and this should not affect rehabilitation. Plan to follow-up outpatient with primary care . Currently receiving normal saline intravenously and medicine monitoring sodium level appropriately and this is a continuation of inpatient. Continue to be able to participate in physical therapy and Continue to replace sodium daily and with sodium replacement and also improve nutritional status would expect better participation in therapy and increase muscle strength. 4. Generalized weakness: Needing intensive gradual physical therapy and Occupational Therapy to achieve as much independence as possible. 5. Hypertension without fluctuation: Will monitor hypertension but able to participate in physical and occupational therapy. Medicine to follow and adjust antihypertensives as needed. Blood pressure no longer uncontrolled but will monitor during therapy. 6. Intractable headaches Currently well controlled with medicine. Currently has no headache is receiving infusion therapy with normal saline and increasing p.o. intake of food. Continues to be able to participate in rehabilitative therapy. 7. Decreased p.o. intake: Followed by medicine and will encourage hydration. Able to ambulate and this should not affect patient rehabilitative care. Continues to increase p.o. intake now that he is eating in the dining room and therapy continues to encourage p.o. intake and nursing continues to encourage p.o.. Fall risk: Discussed fall prevention with nursing staff and patient and discussed always needing help when ambulation in acute rehab and to always call for help and discussed with nurse not to leave unattended in the wheelchair. And to set bed alarm as needed. And call ma within. Depression: No sadness and no feelings of harming himself and appreciate medicine management. Coronary artery disease: Appreciate medicine's management and currently has no chest pain and able to participate in therapy. 8. DVT prophylaxis per medicine. 9. CODE STATUS full code. Estimated discharge date 05/07/2022 once medically cleared. Code status: full code Plan discussed with: patient, admitting physician, nurse, interdisc care team Time spent: Time spent on patient care (minutes): 60 Rehab attestation: Face to face exam completed. Treatment plan discussed with patient. Meets continued stay criteria. Agree with interdisciplinary treatment plan. at 1434 RPT #:[id number] END OF REPORT [facility] 2022-04-22 08:54:00 [facility] ([facility]) Hospitalist Progress Note REPORT#:[id number] REPORT STATUS: Signed DATE:04/22/22 TIME: 08 PATIENT: ADRYAN MCWILLIAMS UNIT #: [id number] ROOM/BED: [address] : [birth year] AGE: 87 SEX: M ATTEND: Raad Murray MD ADM AUTHOR: Raad Murray MD * ALL edits or amendments must be made on the electronic/computer document * Subjective Chief complaint: DEBILITY Free Text Subj Notes Free Text Subj Notes: Patient sleeping comfortably, sodium improving. Objective General VS/I O: Vital Signs: Date Time Temp Pulse Resp B/P B/P Pulse O2 O2 Flow FiO2 Mean Ox Delivery Rate 04/22 0417 36.6 60 18 158/79 105.1 96 Room air 04/21 2026 36.7 60 18 113/68 83.2 97 Room air 04/21 1526 36.6 62 17 124/71 88.3 95 04/21 1113 Room air 2 04/21 1005 36.6 69 17 123/69 87.0 97 24 hour I O ending at 0700: 04/22 0700 04/21 1900 Intake Total 675.00 600 Output Total 600 500 Balance 75.00 100 Intake, IV 675.00 Intake, Oral 600 Number 1 1 Bowel Movements Number 0 0 Incontinent Voids Number Voids 4 4 Output, Urine 600 500 PATIENT WEIGHT: Weight (lb): 165 Weight (oz): 5.55 Weight (kg): 75.000 Medications: Active Meds + DC'd Last 24 Hrs Zolpidem Tartrate (AMBIEN) 10 MG BEDTIME PRN PRN PO Lisinopril (PRINIVIL) 20 MG DAILY PO Amlodipine Besylate (NORVASC) 10 MG DAILY PO Acetaminophen (TYLENOL ES) 500 MG Q6H PRN PRN PO Hydralazine HCl (APRESOLINE) 10 MG Q4H PRN PRN IV Atorvastatin Calcium (LIPITOR) 40 MG BEDTIME PO Hydroxyzine HCl (ATARAX) 25 MG BEDTIME PO Clopidogrel Bisulfate (CLOPIDOGREL BISULFATE) 75 MG DAILY PO Isosorbide Mononitrate (IMDUR) 30 MG DAILY PO Loratadine (CLARITIN) 10 MG DAILY PO Sodium Chloride (SODIUM CHLORIDE 0.9% 1000ml) 1,000 ML .[id number] IV Physical Exam General appearance: sleeping comfortably Cardiovascular: normal capillary refill, normal heart sounds, regular rate rhythm Respiratory: decreased breath sounds, aerating well, symmetric expansion Abdomen: non-tender, normal bowel sounds Extremities: moves all, no clubbing, no cyanosis, no edema Musculoskeletal: normal inspection Neuro/PHLEBOTOMY COORDINATOR: alert, oriented X 3, normal speech Skin: intact Results Findings/Data: Laboratory Tests 04/22 0549 Chemistry Sodium (136 - 145 mmol/L) 131 L Potassium (3.5 - 5.1 mmol/L) 4.1 Chloride (98 - 107 mmol/L) 100 Carbon Dioxide (21 - 32 mmol/L) 25 BUN (7 - 18 mg/dL) 9 Creatinine (0.67 - 1.17 mg/dL) 0.79 Estimated GFR (MDRD) (>=60) > 60.00 Glucose (70 - 100 mg/dL) 91 Calcium (8.5 - 10.1 mg/dL) 8.6 Diagnosis, Assessment Plan Free Text DxA P Notes Free text DxA P notes: Assessment -Debility age-related -Hypertension essential -Chronic hypovolemic hyponatremia -progressive muscle weakness -H/o CAD -BPH -insomnia -Depression -Abnormal LFTs. Plan: -Physical therapy per rehab recommendations -amlodipine 10 mg and lisinopril 20 mg daily. -Continue NS 75 cc/h -Continue appropriate home medications -Cardiac diet -Monitor vital signs -Tylenol p.o. as needed, Zofran IV as needed, labetalol IV as needed at 0855 RPT #:[id number] END OF REPORT [facility] 2022-04-21 17:42:00 [facility] ([facility]) Rehab Team Conference REPORT#:[id number] REPORT STATUS: Signed DATE:04/21/22 TIME: 1741 PATIENT: ADRYAN MCWILLIAMS UNIT #: [id number] ROOM/BED: [address] : [birth year] AGE: 87 SEX: M ATTEND: Raad Murray MD ADM AUTHOR: Sveta Womack MD * ALL edits or amendments must be made on the electronic/computer document * Rehabilitation Team Conference Weekly Team Conference Team conf information: Date of conference: 04/21/22 Conference type: Initial Conference scribe: Jamie Durán PT INTERDISCIPLINARY TEAM MEETING PARTICIPANTS: TITLE NAME MD EMANUEL Dietz RN PT Jamie Durán, PT OT Miguel Brown OT CM/MARITZA Gutierrez CM [facility] Margaret Leonardo OT Staff (8) Russel Brown REHDR Staff (9) Lela Sevilla RN OTHER NAME CREDENTIALS 1 2 FUNCTIONAL CHANGE: TYPE ADMISSION TOTAL INTERIM TOTAL CHANGE Self care 24 24 0 Transfer 19 19 0 Mobility 14 12 -2 Wheelchair distance: Mobility description: BOWEL AND BLADDER STATUS: Bowel continence admission rating: Bladder continence admission rating: Bowel and bladder team conference update: PATIENT CONTINENT OF BOWEL AND BLADDER ; PATIENT USES URINAL AT BEDSIDE. INTERDISCIPLINARY TEAM UPDATES: JAHAIRA team conference update: PATIENT CONTINUES TO PROGRESS WELL WITH THERAPY; VITALS HAVE BEEN WITHIN NORMAL LIMITS; PATIENT IS CONTINENT OF BOWEL AND BLADDER ; CONTINUES TO NEED MODERATE ASSISTANCE FOR TOILETING AND TRANSFERS; PATIENT PRESENTS WITH COGNITIVE DEFICITS PT team conference update: PATIENT IS REQUIRING PARTIAL/MODERATE A FOR BED MOBILITY. PATIENT IS REQUIRING PARTIAL/MODERATE A FOR TRANSFERS AND GT FOR UP TO 115 FT C USE OF FWW. PATIENT REFUSED TO PERFORM STAIRS. PATIENT PROPELLING W/C 80 FT AT PARTIAL/MODERATE C USE OF B UE. PATIENT NEEDS MAXIMAL ENCOURAGEMENT HE PRESENTS WITH DECREASED MOTIVATION. OT team conference update: Patient is a recent admit. Evaluated on 04/20/2022. As per evaluation results patient currently requires from Total assistance to set-up assistance to complete his ADL's. Barriers include decrease endurance, decrease balance, HUSLIA, and overall strength. Plans is to have patient return home with family (possibly to move-in with daughters). Focus therapy on family training, home safety assessment, and use of his assistance devices. ST team conference update: Patient was evaluated for ST services on this date. Speech, language, cognitive, and swallowing skills were all judged to be WFL. ST services not warranted at this time. CM or SW team conference update: New admit, being assessed for home needs post discharge Other discipline update 1: Other discipline update 2: Other discipline update 3: REHAB DC GOALS: Patient's identified discharge goal: Patient would like to be able to walk again and return to dancing. Eating discharge goal: Independent (6) Shower/bathe self discharge goal: Independent (6) Upper body dressing discharge goal: Independent (6) Lower body dressing discharge goal: Independent (6) Chair/bed to chair transfer discharge goal: Independent (6) Transfer on/off toilet or commode discharge goal: Supervise/touch asst (4) Walking 50 feet with two turns discharge goal: Supervise/touch asst (4) Walking 150 feet discharge goal: Supervise/touch asst (4) Four steps discharge goal: Supervise/touch asst (4) Twelve steps discharge goal: Med cond/safety concern [place] 150 feet discharge goal: Independent (6) Goal 1 - Bowel function: CONTINENT OF BOWEL FUNCTION Goal 2 - Bladder function: CONTINENT OF BLADDER FUNCTION Nursing goal 3: Nursing goal 4: Nursing goal 5: DISCHARGE PLANNING: Barriers to discharge: Fall risk, Endurance, HYPONATREMIA/MALNUTRITION Strategies for D/C barriers: Fall recovery training, Home evaluation, DIETARY CONSULT Estimated length of stay in days: 18 Anticipated discharge date: 05/07/22 Discharge date adjustment comment: Identified financial and/or community resource needs: Family/Caregiver training days: Patient and family will be educated on the use of the gait belt to lower the patient to the floor in the event of LOB to prevent fall or injury. [place] day (DATE): 05/06/22 Expected discharge destination: Home Anticipated services upon discharge: Anticipated discharge equipment: Glasses, RW/Front wheeled walker, MANUAL W/C Impairment group: debility NOTE Document ONLY ONE Impairment Group Etiologic diagnosis: Impairment group: Debility Etiologic diagnosis: Progressive muscle weakness Review of comorbidities: Reviewed MD Review/Recommendations Attestation: This interdisciplinary team conference was led by me and I concur with all decisions made during the team conference and revisions to the individualized overall plan of care. IRF cont stay criteria Patient continues to require occupational therapy, and physical therapy and any additional therapy services mentioned in team conference note with 24-hour nursing care and internal medicine management for multiple comorbidities and remains a good candidate for rehabilitation. at 1742 RPT #:[id number] END OF REPORT [facility] 2022-04-21 16:51:00 [facility] ([facility]) Rehab Indiv Overall POC REPORT#:[id number] REPORT STATUS: Signed DATE:04/21/22 TIME: 1651 PATIENT: ADRYAN MCWILLIAMS UNIT #: [id number] ROOM/BED: [address] : [birth year] AGE: 87 SEX: M ATTEND: Raad Murray MD ADM AUTHOR: Sveta Womack MD * ALL edits or amendments must be made on the electronic/computer document * Individualized Overall POC HPI Impairment group: debility NOTE Document ONLY ONE Impairment Group Etiologic diagnosis: Impairment group: Debility Etiologic diagnosis: Progressive muscle weakness Medical Expected Course Expected DC destination: Expected DC destination: Home Problem List/A P: 1. Anemia 2. Hypertensive urgency 3. Generalized weakness 4. Hyponatremia 5. Malnutrition 6. Abnormality of gait and mobility Medical prognosis: good Medical prognosis details: pt motivation, endurance, cognition, D/C plan Expected course of Tx: Expected to participate in rehabilitation therapy physical therapy and Occupational Therapy and continue to do well to the point of being independent in ambulation using a walker initially and stability of transfer and reduction of fall risk. Functional Expected Course Functional expected course: The data set between the solid lines has been imported from multidisciplinary team documentation: __ ANTICIPATED SERVICES IN ACUTE INPATIENT REHAB: DISCIPLINE Physical Therapy Occupational Therapy Speech Therapy INTENSITY (minutes/day) 90 90 FREQUENCY (days/week) 5 5 DURATION (# of days) 18 18 EXPECTED FUNCTIONAL OUTCOMES: CARE Rolling left and Independent (6) right discharge goal: CARE Sitting to Independent (6) lying discharge goal: CARE Lying to sitting Independent (6) on side of bed discharge goal: CARE Sitting to Independent (6) standing discharge goal: CARE Chair/bed to Independent (6) chair transfer discharge goal: CARE Car transfer Supervise/touch asst (4) discharge goal: CARE Walking 10 Supervise/touch asst (4) feet discharge goal: CARE Walking 50 feet Supervise/touch asst (4) with two turns discharge goal: CARE Walking 150 Supervise/touch asst (4) feet discharge goal: CARE Walking 10 feet on Supervise/touch asst (4) uneven surface discharge goal: CARE 1 step (curb) Supervise/touch asst (4) discharge goal: CARE 4 steps Supervise/touch asst (4) discharge goal: CARE 12 steps Med cond/safety concern discharge goal: CARE Picking up Supervise/touch asst (4) object discharge goal: CARE [place] 50 feet Independent (6) with two turns discharge goal: CARE [place] 150 Independent (6) feet discharge goal: CARE Toileting hygiene Supervise/touch asst (4) discharge goal: CARE Transfer on/off toilet Supervise/touch asst (4) or commode discharge goal: CARE Eating discharge goal: Independent (6) CARE Oral hygiene Independent (6) discharge goal: CARE Shower/bathe Independent (6) self discharge goal: CARE Upper body Independent (6) dressing discharge goal: CARE Lower body Independent (6) dressing discharge goal: CARE Putting on/taking Independent (6) off footwear discharge goal: Bowel function goal: CONTINENT OF BOWEL FUNCTION Bladder function goal: CONTINENT OF BLADDER FUNCTION _ ELOS Attestation: Based upon the review of clinical staff recommendations of frequency, duration and intensity and individual assessment of this patient, I estimate the followin Estimated length of stay: 18 MD Review/Recommendation Attestation: Based upon my physical evaluation of the patient and input from the interdisciplinary team members I have developed this interdisciplinary overall plan of care and determined the admission to the IRF is reasonable and necessary.The IOPOC will be updated weekly and modified under my direction. Patient can be expected to actively participate in, and benefit from, an intensive rehab therapy program whose intensity is not provided in lower levels of care. Complex acute rehab needs: Custom therapy tx plan, Mgt of complex Co-morb, Med adjustment/mgmt., New medical diagnosis, New medical complication, Live alone/ prev independ, Nutritional compromise, Hospitalist consult at 1652 RPT #:[id number] END OF REPORT [facility] 2022-04-21 16:44:00 [facility] ([facility]) Rehab Progress Note REPORT#:[id number] REPORT STATUS: Signed DATE:04/21/22 TIME: 1644 PATIENT: ADRYAN MCWILLIAMS UNIT #: [id number] ROOM[facility]BED: [facility] : [birth year] AGE: 87 SEX: M ATTEND: Raad Murray MD ADM AUTHOR: Sveta Womack MD * ALL edits or amendments must be made on the electronic/computer document * Subjective Chief complaint: Difficulty with ambulation and decreased p.o. intake History of present illness: 87-year-old gentleman who is Bahraini-speaking status post acute hospitalization for malnutrition and failure to thrive and headache and hypertensive urgency with chronic hyponatremia. Has also had depression in the past and uncontrolled blood pressure and decreased p.o. intake and required IV fluids during hospitalization of normal saline at 75 cc an hour and was being monitored regularly for hyponatremia. He had no episodes of confusion but and is willing to participate in rehabilitation therapy. He states that he does not oxygen at home. Today he clarified he does not use oxygen at home. Patient reports: Yes: able to ambulate, ambulate with assistance, ambulate with therapy, comfortable. No: complaints, mild pain. Nursing reports: No: complaints, new events overnight, confusion. Comments: Able to ambulate without use of oxygen in therapy and has had no shortness of air. Review of Systems Free Text ROS Notes Free Text ROS Notes: ROS Constitutional: Reports: fatigue, generalized weakness, recent wt loss. Denies: chills, fever, lethargy, malaise. Skin: Denies: abrasion, bruising, contusion, diaphoresis, ecchymosis, itching, laceration, rash, swelling. Allergy/Immun: Denies: allergic reaction, anaphylaxis, hives, itching, rhinorrhea, sneezing. Eyes: Denies: redness, discharge, visual loss/blurred, itching, diplopia, eye pain, photophobia, swelling. ENT: Denies: ear drainage, ear ringing, earache, hearing loss, mouth pain, nasal congestion, nose bleeding, sinus problem, sore throat, throat pain, throat swelling, tongue pain, tongue swelling, toothache, voice change. Respiratory: Denies: DUMONT, hemoptysis, non productive cough, parox nocturnal dyspnea, pleurisy , pleuritic pain, pneumonia, productive cough (sputum), SOB, wheezing. Cardiovascular: Denies: chest pain, DUMONT (dyspnea on exertion), edema, orthopnea, palpitations, parox nocturnal dyspnea. GI: Reports: anorexia. Denies: abdominal pain, constipation, diarrhea, dysphagia, GERD, hematemesis, hematochezia, hiatal hernia, melena, nausea, rectal pain, vomiting. : Denies: dysuria, flank pain, frequency, hematuria, nocturia, penile discharge, penile lesion, testicular pain, testicular swelling, urgency, urinary retention. Musculoskeletal: Denies: extremity pain, extremity swelling, joint pain, joint swelling, lumbar pain, myalgias, neck pain, thoracic pain. Heme: Denies: adenopathy, bleeding, bruising, petechiae. Lymphatics: no complaints Endocrine: Reports: weight loss. Denies: cold intolerance, heat intolerance, polydipsia, polyphagia, polyuria, weight gain. Neuro: Reports: gait problem, weakness. Psych: Denies: agitation, anxiety, auditory hallucination, change in mental status, confusion, delusional, depression, homicidal ideation, hostile, insomnia, stress , suicidal ideation, visual hallucination. All systems rev neg: except as marked Objective General VS: Vital Signs: Date Time Temp Pulse Resp B/P B/P Pulse O2 O2 Flow FiO2 Mean Ox Delivery Rate 04/21 1526 36.6 62 17 124/71 88.3 95 04/21 1113 Room air 2 04/21 1005 36.6 69 17 123/69 87.0 97 04/21 0833 36.7 82 17 129/74 92.6 97 04/21 0555 36.5 61 16 169/80 109.4 97 04/20 2353 67 147/65 92.2 97 04/20 2156 36.7 62 18 174/80 111.1 97 PATIENT WEIGHT: Weight (lb): 165 Weight (oz): 5.55 Weight (kg): 75.000 Medications: Active Meds + DC'd Last 24 Hrs Lisinopril (PRINIVIL) 20 MG DAILY PO Amlodipine Besylate (NORVASC) 10 MG DAILY PO Acetaminophen (TYLENOL ES) 500 MG Q6H PRN PRN PO Hydralazine HCl (APRESOLINE) 10 MG Q4H PRN PRN IV Atorvastatin Calcium (LIPITOR) 40 MG BEDTIME PO Hydroxyzine HCl (ATARAX) 25 MG BEDTIME PO Clopidogrel Bisulfate (CLOPIDOGREL BISULFATE) 75 MG DAILY PO Isosorbide Mononitrate (IMDUR) 30 MG DAILY PO Loratadine (CLARITIN) 10 MG DAILY PO Sodium Chloride (SODIUM CHLORIDE 0.9% 1000ml) 1,000 ML .[id number] IV Dietitian nutrition assessment The data set between the solid lines has been imported from the dietitian's assessment. BMI Calculated: 26.7 Nutrition related diagnosis: Nutrition diagnosis details: Nutrition problem: Decreased oral intake Nutrition etiology: related to decreased ability, to consume adequate nutrition Nutrition signs and symptoms: wt loss 2-13 lbs, MST 2,, PO intake 50-75%. Nutrition prescription: Recs: 1.) Provide 1 Glucerna Shake - BID w/ meals each provides 220 kcals, 10 gm protein Dietitian name: John Bassett, DIET Assessment completed: 04/20/22 Nutrition provider diagnosis: mild malnutrition Review of dietitian's assessment: reviewed and agree Functional Progress Functional progress: The data set between the solid lines has been imported from multidisciplinary team documentation. __ FUNCTIONAL ACTIVITY ADMISSION STATUS INTERIM STATUS Toilet hygiene Partial/moderate (3) Toilet transfer Partial/moderate (3) Eating Setup or cleanup (5) Shower/bathing Partial/moderate (3) Dressing upper body Supervision/touch (4) Dressing lower body Partial/moderate (3) Transfer to/from bed to chair Partial/moderate (3) Partial/moderate (3) Wheel 50ft w/ 2 turns Partial/moderate (3) Partial/moderate (3) Wheel 150 ft Not attempted (88) Not attempted (88) Walk 50 ft w/ 2 turns Partial/moderate (3) Partial/moderate (3) Walk 150 ft Not attempted (88) Not attempted (88) Four steps Pt refused (7) __ Functional Assessment/Exam Mental Status: Normal: Affect:, Attention Span:. Physical Exam General appearance: alert, awake, oriented (person and place), no acute distress , pleasant, conversational, no respiratory distress Psych: alert Neck: no JVD Skin: dry, intact Musculoskeletal - general: Musculoskeletal - general: LLE strength (4/5), LUE strength (4/5), RLE strength (4/5), RUE strength (4/5) Neuro/PHLEBOTOMY COORDINATOR: alert, normal speech, no sensory deficits Results Findings/Data: Laboratory Tests: 04/21 0544 Chemistry Sodium (136 - 145 mmol/L) 128 L Potassium (3.5 - 5.1 mmol/L) 3.8 Chloride (98 - 107 mmol/L) 96 L Carbon Dioxide (21 - 32 mmol/L) 25 BUN (7 - 18 mg/dL) 9 Creatinine (0.67 - 1.17 mg/dL) 0.77 Estimated GFR (MDRD) (>=60) > 60.00 Glucose (70 - 100 mg/dL) 91 Calcium (8.5 - 10.1 mg/dL) 8.4 L Total Bilirubin (0.2 - 1.0 mg/dl) 0.8 AST (15 - 37 U/L) 24 ALT (12 - 78 U/L) 25 Alkaline Phosphatase (50 - 136 U/L) 51 Total Protein (6.4 - 8.2 g/dl) 6.4 Albumin (3.4 - 5.0 g/dl) 3.2 L Hematology WBC (4.5 - 11.0 X10(3)) 6.5 RBC (4.3 - 5.9 X10(6)) 4.06 L Hgb (13.5 - 18.0 g/dL) 12.5 L Hct (42.0 - 52.0 %) 36.5 L MCV (78 - 100 fl) 89.9 MCH (26.0 - 34.0 pg) 30.8 MCHC (30.0 - 37.0 g/dl) 34.2 RDW (11.5 - 14.5 %) 13.2 Plt Count (150 - 350 X10(3)) 226 MPV (8.7 - 11.4 fl) 9.1 Neut % (Auto) (36.0 - 66.0 %) 64.2 Lymph % (Auto) (16.0 - 50.0 %) 17.8 [place] % (Auto) (0.0 - 13.0 %) 14.3 H Eos % (Auto) (0.0 - 4.5 %) 2.9 Baso % (Auto) (0.0 - 1.5 %) 0.5 Immature Gran # (Auto) (0.00 - 0.03 X10(3)uL) 0.02 Absolute Neuts (auto) (1.70 - 7.70 X10(3)) 4.14 Absolute Lymphs (auto) (0.70 - 4.00 X10(3)) 1.15 Absolute Monos (auto) (0.00 - 0.89 X10(3)) 0.92 H Absolute Eos (auto) (0.00 - 0.60 X10(3)) 0.19 Absolute Basos (auto) (0.00 - 0.20 X10(3)) 0.03 Absolute Nucleated RBC (0.0 - 0.1 K/mm3) 0.00 Immature Gran % (0.0 - 2.0 %) 0.3 Nucleated RBC % (0 - 0.2 %) 0.0 Results: vital signs reviewed Diagnosis, Assessment Plan Problem List/A P: 1. Anemia 2. Hypertensive urgency 3. Generalized weakness 4. Hyponatremia 5. Malnutrition 6. Abnormality of gait and mobility Free Text A P: 87-year-old gentleman who is Bahraini-speaking status post acute hospitalization for malnutrition and failure to thrive and headache and hypertensive urgency with chronic hyponatremia. Now achieving blood pressure control but still has hyponatremia and receiving normal saline IV intravenously per medicine's care. Smiling today and speaking in [place]i and verbalize he is interested in continuing rehabilitation therapy. With the goal of achieving independence in ambulation and we discussed the need to use a walker and fall risk and to call for help at all times. He is on nasal cannula 2 L and says he uses oxygen at home occasionally. He is also interested in education from nutritional therapy as he is severely malnourished. Problem list: 1 failure to thrive and malnutrition Plan for intensive physical and occupational therapy to achieve gait and mobility initial plan will be with assistance and will assess ability to transfer by herself or with assistance. May be at increased risk for hypotension since he has been so debilitated so we will monitor closely during therapy for hypotension and lightheadedness. Appreciate nutritional input: Recs: 1.) Provide 1 Glucerna Shake - BID w/ meals each provides 220 kcals, 10 gm protein Diet modified with nursing and admitting physician's permission. 2. Gait instability Will focus on helping achieve gait stability using a walker during daily physical therapy and Occupational Therapy sessions to achieve as much independence as possible. Continue to improve gait 3. Hyponatremia Currently under medical management and status posttreatment and this should not affect rehabilitation. Plan to follow-up outpatient with primary care . Currently receiving normal saline intravenously and medicine monitoring sodium level appropriately and this is a continuation of inpatient. Continue to be able to participate in physical therapy and Continue to replace sodium daily and with sodium replacement and also improve nutritional status would expect better participation in therapy and increase muscle strength. 4. Generalized weakness: Needing intensive gradual physical therapy and Occupational Therapy to achieve as much independence as possible. 5. Hypertension without fluctuation: Will monitor hypertension but able to participate in physical and occupational therapy. Medicine to follow and adjust antihypertensives as needed. Blood pressure no longer uncontrolled but will monitor during therapy. 6. Intractable headaches Currently well controlled with medicine. Currently has no headache is receiving infusion therapy with normal saline and increasing p.o. intake of food. Continues to be able to participate in rehabilitative therapy. 7. Decreased p.o. intake: Followed by medicine and will encourage hydration. Able to ambulate and this should not affect patient rehabilitative care. Fall risk: Discussed fall prevention with nursing staff and patient and discussed always needing help when ambulation in acute rehab and to always call for help and discussed with nurse not to leave unattended in the wheelchair. And to set bed alarm as needed. And call ma within. Depression: No sadness and no feelings of harming himself and appreciate medicine management. Coronary artery disease: Appreciate medicine's management and currently has no chest pain and able to participate in therapy. 8. DVT prophylaxis per medicine. 9. CODE STATUS full code. Estimated discharge date 05/07/2022 once medically cleared. Code status: full code Plan discussed with: patient, admitting physician, nurse, interdisc care team Time spent: Time spent on patient care (minutes): 60 Rehab attestation: Face to face exam completed. Treatment plan discussed with patient. Meets continued stay criteria. Agree with interdisciplinary treatment plan. at 1651 RPT #:[id number] END OF REPORT [facility] 2022-04-21 08:22:00 [facility] ([facility]) Hospitalist Progress Note REPORT#:[id number] REPORT STATUS: Signed DATE:04/21/22 TIME: 821 PATIENT: ADRYAN MCWILLIAMS UNIT #: [id number] ROOM/BED: [address] : [birth year] AGE: 87 SEX: M ATTEND: Raad Murray MD ADM AUTHOR: Raad Murray MD * ALL edits or amendments must be made on the electronic/computer document * Subjective Chief complaint: DEBILITY Free Text Subj Notes Free Text Subj Notes: Patient denies chest pain, lightheadedness, shortness of breath. Blood pressure has been uncontrolled since last night Objective General VS/I O: Vital Signs: Date Time Temp Pulse Resp B/P B/P Pulse O2 O2 Flow FiO2 Mean Ox Delivery Rate 04/21 0555 36.5 61 16 169/80 109.4 97 04/20 2353 67 147/65 92.2 97 04/20 2156 36.7 62 18 174/80 111.1 97 24 hour I O ending at 0700: 04/21 0700 04/20 1900 Intake Total 900.00 750.00 Output Total 1600 Balance -700.00 750.00 Intake, IV 900.00 750.00 Number 1 Bowel Movements Number 0 0 Incontinent Voids Number Voids 6 1 Output, Urine 1600 PATIENT WEIGHT: Weight (lb): 165 Weight (oz): 5.55 Weight (kg): 75.000 Medications: Active Meds + DC'd Last 24 Hrs Lisinopril (PRINIVIL) 20 MG DAILY PO Amlodipine Besylate (NORVASC) 10 MG DAILY PO Acetaminophen (TYLENOL ES) 500 MG Q6H PRN PRN PO Hydralazine HCl (APRESOLINE) 10 MG Q4H PRN PRN IV Atorvastatin Calcium (LIPITOR) 40 MG BEDTIME PO Hydroxyzine HCl (ATARAX) 25 MG BEDTIME PO Clopidogrel Bisulfate (CLOPIDOGREL BISULFATE) 75 MG DAILY PO Isosorbide Mononitrate (IMDUR) 30 MG DAILY PO Loratadine (CLARITIN) 10 MG DAILY PO Sodium Chloride (SODIUM CHLORIDE 0.9% 1000ml) 1,000 ML .[id number] IV Physical Exam General appearance: alert, awake, oriented Cardiovascular: normal capillary refill, normal heart sounds, regular rate rhythm Respiratory: decreased breath sounds, aerating well, symmetric expansion Abdomen: non-tender, normal bowel sounds Extremities: moves all, no clubbing, no cyanosis, no edema Musculoskeletal: normal inspection Neuro/PHLEBOTOMY COORDINATOR: alert, oriented X 3, normal speech Skin: intact Results Findings/Data: Laboratory Tests 04/21 0544 Chemistry Sodium (136 - 145 mmol/L) 128 L Potassium (3.5 - 5.1 mmol/L) 3.8 Chloride (98 - 107 mmol/L) 96 L Carbon Dioxide (21 - 32 mmol/L) 25 BUN (7 - 18 mg/dL) 9 Creatinine (0.67 - 1.17 mg/dL) 0.77 Estimated GFR (MDRD) (>=60) > 60.00 Glucose (70 - 100 mg/dL) 91 Calcium (8.5 - 10.1 mg/dL) 8.4 L Total Bilirubin (0.2 - 1.0 mg/dl) 0.8 AST (15 - 37 U/L) 24 ALT (12 - 78 U/L) 25 Alkaline Phosphatase (50 - 136 U/L) 51 Total Protein (6.4 - 8.2 g/dl) 6.4 Albumin (3.4 - 5.0 g/dl) 3.2 L Laboratory Tests 04/21 0544 Hematology WBC (4.5 - 11.0 X10(3)) 6.5 RBC (4.3 - 5.9 X10(6)) 4.06 L Hgb (13.5 - 18.0 g/dL) 12.5 L Hct (42.0 - 52.0 %) 36.5 L MCV (78 - 100 fl) 89.9 MCH (26.0 - 34.0 pg) 30.8 MCHC (30.0 - 37.0 g/dl) 34.2 RDW (11.5 - 14.5 %) 13.2 Plt Count (150 - 350 X10(3)) 226 MPV (8.7 - 11.4 fl) 9.1 Neut % (Auto) (36.0 - 66.0 %) 64.2 Lymph % (Auto) (16.0 - 50.0 %) 17.8 [place] % (Auto) (0.0 - 13.0 %) 14.3 H Eos % (Auto) (0.0 - 4.5 %) 2.9 Baso % (Auto) (0.0 - 1.5 %) 0.5 Immature Gran # (Auto) (0.00 - 0.03 X10(3)uL) 0.02 Absolute Neuts (auto) (1.70 - 7.70 X10(3)) 4.14 Absolute Lymphs (auto) (0.70 - 4.00 X10(3)) 1.15 Absolute Monos (auto) (0.00 - 0.89 X10(3)) 0.92 H Absolute Eos (auto) (0.00 - 0.60 X10(3)) 0.19 Absolute Basos (auto) (0.00 - 0.20 X10(3)) 0.03 Absolute Nucleated RBC (0.0 - 0.1 K/mm3) 0.00 Immature Gran % (0.0 - 2.0 %) 0.3 Nucleated RBC % (0 - 0.2 %) 0.0 Diagnosis, Assessment Plan Free Text DxA P Notes Free text DxA P notes: Assessment -Debility age-related -Hypertension essential -Chronic hypovolemic hyponatremia -progressive muscle weakness -H/o CAD -BPH -insomnia -Depression -Abnormal LFTs. Plan: -Physical therapy per rehab recommendations -Start amlodipine 10 mg and lisinopril 20 mg daily. -Continue NS 75 cc/h, BMP in the morning. -Continue appropriate home medications -Cardiac diet -Monitor vital signs -We will get a.m. labs -Tylenol p.o. as needed, Zofran IV as needed, labetalol IV as needed at 0823 RPT #:[id number] END OF REPORT [facility] 2022-04-20 15:58:00 [facility] ([facility]) Acute Rehab Consult REPORT#:[id number] REPORT STATUS: Signed DATE:04/20/22 TIME: 1558 PATIENT: ADRYAN MCWILLIAMS UNIT #: [id number] ROOM/BED: [address] : [birth year] AGE: 87 SEX: M ATTEND: Raad Murray MD ADM AUTHOR: Sveta Womack MD * ALL edits or amendments must be made on the electronic/computer document * History of Present Illness HPI Reason for consult: evaluation of Rehab needs Chief complaint: Difficulty ambulating PCP: PCP: Miguel Brown APN Requesting clinician: admititng physician Etiologic diagnosis: Impairment group: Debility Etiologic diagnosis: Progressive muscle weakness HPI: 87-year-old gentleman who is Bahraini-speaking status post acute hospitalization for malnutrition and failure to thrive and headache and hypertensive urgency with chronic hyponatremia. Has also had depression in the past and uncontrolled blood pressure and decreased p.o. intake and required IV fluids during hospitalization of normal saline at 75 cc an hour and was being monitored regularly for hyponatremia. He had no episodes of confusion but and is willing to participate in rehabilitation therapy. He states that he has use oxygen at home. Functional Status PT evaluation: Pending OT evaluation: Pending Free Text Functional Hx (CLINICAL DIETITIAN) Functional Hx: ambulate at home with assistive devices and had home care. Precautions Weight bearing status: wt bearing as tolerated History Past medical history: Reports: Diabetes mellitus, Hypertension, Dyslipidemia. Additional medical history: CAD with stents, HTN, hyperlipidemia, BPH, insomnia, depression Additional surgical history: LHC with 2 stents Ibrahima inguinal hernia repair. Alcohol use: Denies EtOH use Drug use: Denies recreational drugs Smoking status for patients 13 years old or older: Former Smoker Date last smoked: 04/01/95 Packs per day: 1 Years smoked: 40 Pack years: 40 Allergies: Coded Allergies: penicillin (Severe, RASH 03/28/22) Review of Symptoms ROS Constitutional: Reports: fatigue, generalized weakness, recent wt loss. Denies: chills, fever, lethargy, malaise. Skin: Denies: abrasion, bruising, contusion, diaphoresis, ecchymosis, itching, laceration, rash, swelling. Allergy/Immun: Denies: allergic reaction, anaphylaxis, hives, itching, rhinorrhea, sneezing. Eyes: Denies: redness, discharge, visual loss/blurred, itching, diplopia, eye pain, photophobia, swelling. ENT: Denies: ear drainage, ear ringing, earache, hearing loss, mouth pain, nasal congestion, nose bleeding, sinus problem, sore throat, throat pain, throat swelling, tongue pain, tongue swelling, toothache, voice change. Respiratory: Denies: DUMONT, hemoptysis, non productive cough, parox nocturnal dyspnea, pleurisy , pleuritic pain, pneumonia, productive cough (sputum), SOB, wheezing. Cardiovascular: Denies: chest pain, DUMONT (dyspnea on exertion), edema, orthopnea, palpitations, parox nocturnal dyspnea. GI: Reports: anorexia. Denies: abdominal pain, constipation, diarrhea, dysphagia, GERD, hematemesis, hematochezia, hiatal hernia, melena, nausea, rectal pain, vomiting. : Denies: dysuria, flank pain, frequency, hematuria, nocturia, penile discharge, penile lesion, testicular pain, testicular swelling, urgency, urinary retention. Musculoskeletal: Denies: extremity pain, extremity swelling, joint pain, joint swelling, lumbar pain, myalgias, neck pain, thoracic pain. Heme: Denies: adenopathy, bleeding, bruising, petechiae. Lymphatics: no complaints Endocrine: Reports: weight loss. Denies: cold intolerance, heat intolerance, polydipsia, polyphagia, polyuria, weight gain. Neuro: Reports: gait problem, weakness. Psych: Denies: agitation, anxiety, auditory hallucination, change in mental status, confusion, delusional, depression, homicidal ideation, hostile, insomnia, stress , suicidal ideation, visual hallucination. All systems rev neg: except as marked Objective Functional Assessment/Exam Mental Status: Normal: Affect:, Memory-recent:, Attention Span:, Concentration:. Speech: normal Sensory: Normal: Light Touch:. Gait: ambulate with assistance Physical Exam VS: Last Documented: Result Date Time Pulse Ox 96 04/20 626 B/P 164/76 04/20 626 B/P Mean 105.5 04/20 626 Temp 36.7 04/20 626 Pulse 62 04/20 626 Resp 18 04/20 626 PATIENT WEIGHT: Weight (lb): 165 Weight (oz): 5.55 Weight (kg): 75.000 General appearance: alert, awake, oriented (person,place and self) Psych: alert Neck: no JVD Skin: dry, intact Musculoskeletal - general: Musculoskeletal - general: LLE strength (4/5), LUE strength (4/5), RLE strength (4/5), RUE strength (4/5) Neuro/PHLEBOTOMY COORDINATOR: alert, normal speech, no sensory deficits Results Results: vital signs reviewed Rehab Plan Rehab Plan Final decision for Inpt Rehab: Yes Diagnosis, Assessment Plan Problem List/A P: 1. Anemia 2. Hypertensive urgency 3. Generalized weakness 4. Hyponatremia 5. Malnutrition 6. Abnormality of gait and mobility Free Text A P: 87-year-old gentleman who is Bahraini-speaking status post acute hospitalization for malnutrition and failure to thrive and headache and hypertensive urgency with chronic hyponatremia. Now achieving blood pressure control but still has hyponatremia and receiving normal saline IV intravenously per medicine's care. Smiling today and speaking in Bahraini and verbalize he is interested in continuing rehabilitation therapy. With the goal of achieving independence in ambulation and we discussed the need to use a walker and fall risk and to call for help at all times. He is on nasal cannula 2 L and says he uses oxygen at home occasionally. He is also interested in education from nutritional therapy as he is severely malnourished. Problem list: 1 failure to thrive and malnutrition Plan for intensive physical and occupational therapy to achieve gait and mobility initial plan will be with assistance and will assess ability to transfer by herself or with assistance. May be at increased risk for hypotension since he has been so debilitated so we will monitor closely during therapy for hypotension and lightheadedness. Nutrition also consulted and recommend nutrition input. 2. Gait instability Will focus on helping achieve gait stability using a walker during daily physical therapy and Occupational Therapy sessions to achieve as much independence as possible. 3. Hyponatremia Currently under medical management and status posttreatment and this should not affect rehabilitation. Plan to follow-up outpatient with primary care . Currently receiving normal saline intravenously and medicine monitoring sodium level appropriately and this is a continuation of inpatient. Continue to be able to participate in physical therapy and 4. Generalized weakness: Needing intensive gradual physical therapy and Occupational Therapy to achieve as much independence as possible. 5. Hypertension without fluctuation: Will monitor hypertension but able to participate in physical and occupational therapy. Medicine to follow and adjust antihypertensives as needed. Blood pressure no longer uncontrolled but will monitor during therapy. 6. Intractable headaches Currently well controlled with medicine. Currently has no headache is receiving infusion therapy with normal saline and increasing p.o. intake of food. Continues to be able to participate in rehabilitative therapy. 7. Decreased p.o. intake: Followed by medicine and will encourage hydration. Able to ambulate and this should not affect patient rehabilitative care. Fall risk: Discussed fall prevention with nursing staff and patient and discussed always needing help when ambulation in acute rehab and to always call for help and discussed with nurse not to leave unattended in the wheelchair. And to set bed alarm as needed. And call ma within. Depression: No sadness and no feelings of harming himself and appreciate medicine management. Coronary artery disease: Appreciate medicine's management and currently has no chest pain and able to participate in therapy. 8. DVT prophylaxis per medicine. 9. CODE STATUS full code. Post Admission Physician Evaluation Assessment: Comparison of findings with the preadmission assessment are compatible with the post admission physician evaluation. Review of the patient's prior and current medical and functional conditions has been extensively reviewed and documented in this initial consult note, and discussed with the referring physicians, patient and family. At this time, there has been no change in the patient's current medical or functional conditions and plans to go ahead with rehab are to begin today. Patient and family verbalized understanding of the treatment plan. Patient is enthusiastic and ready to start rehabilitative therapy. Rounded with nursing staff and communicated in Bahraini. 80 minutes spent on plan of care and includes counseling and review of medical history and exam. at 1614 RPT #:[id number] [facility]38[facility]00 [facility] ([facility]) Hospitalist History Physical REPORT#:[id number] REPORT STATUS: Signed DATE:04/20/22 TIME: 937 PATIENT: ADRYAN MCWILLIAMS UNIT #: [id number] ROOM/BED: [address] : [birth year] AGE: 87 SEX: M ATTEND: Raad Murray MD ADM AUTHOR: Raad Murray MD * ALL edits or amendments must be made on the electronic/computer document * See Addendum History of Present Illness HPI Chief complaint: DEBILITY HPI: 87-year-old male patient with past medical history of CAD with stents, HTN, hyperlipidemia, BPH, insomnia, depression who was recently admitted to [facility] for failure to thrive and headache. Patient found to have hypertensive urgency with chronic hyponatremia. Patient was treated with IV hydration with moderate improvement of hyponatremia and symptoms. Patient was discharged admitted to inpatient rehab for physical therapy. Today patient mentioned that headache has resolved, denies nausea or vomiting. History Past Medical Surgical Hx Additional medical history: CAD with stents, HTN, hyperlipidemia, BPH, insomnia, depression Additional surgical history: [facility] with 2 stents Ibrahima inguinal hernia repair. Social History Alcohol use: Denies EtOH use Drug use: Denies recreational drugs Smoking status for patients 13 years old or older: Former Smoker Date last smoked: 04/01/95 Packs per day: 1 Years smoked: 40 Pack years: 40 Medication/Allergy-Vaccine Hx Allergies: Coded Allergies: penicillin (Severe, RASH 03/28/22) Review of Systems Constitutional: Denies: chills, fatigue, fever. Respiratory: Denies: DUMONT (dyspnea on exertion), SOB, wheezing. Cardiovascular: Denies: chest pain, edema, orthopnea, parox nocturnal dyspnea. GI: Denies: abdominal pain, nausea, vomiting. Musculoskeletal: Denies: myalgias. Neuro: Denies: dizziness, focal weakness, gait problem. Physical Exam VS/I O: Vital Signs Date Temp Pulse Resp B/P B/P Mean Pulse Ox FiO2 04/20 36.7-36.8 60-62 16-18 141-164/71-76 94-105.5 96-97 Last Documented: Result Date Time Pulse Ox 96 04/20 626 B/P 164/76 04/20 626 B/P Mean 105.5 04/20 626 Temp 36.7 04/20 626 Pulse 62 04/20 626 Resp 18 04/20 626 24 hour I O ending at 0700: 04/20 0700 04/19 1900 Intake Total Output Total Balance Number 0 Incontinent Voids Number Voids 5 Patient 75 kg Weight Weight Not applicable Measurement Method Patient Weight and BMI Weight (kg): 75.000 BMI: 26.7 General appearance: alert, awake, oriented Cardiovascular: normal capillary refill, normal heart sounds, regular rate rhythm Respiratory: decreased breath sounds, aerating well, symmetric expansion Abdomen: non-tender, normal bowel sounds Extremities: moves all, no clubbing, no cyanosis, no edema Musculoskeletal: normal inspection Neuro/PHLEBOTOMY COORDINATOR: alert, oriented X 3, normal speech Skin: intact Diagnosis, Assessment Plan Free Text A P: Assessment -Debility age-related -Hypertension essential -Chronic hypovolemic hyponatremia -progressive muscle weakness -H/o CAD -BPH -insomnia -Depression -Abnormal LFTs. Plan: -Physical therapy per rehab recommendations -Continue appropriate home medications -Cardiac diet -Monitor vital signs -We will get a.m. labs -Tylenol p.o. as needed, Zofran IV as needed, labetalol IV as needed at 0943 Addendum 1: 04/20/22 0943 by Raad Murray MD NS IV 75 cc/h at 0944 RPT #:[id number] END OF RE[facility] 2022-04-19 16:24:00 [facility] ([facility]) Discharge Summary REPORT#:[id number] REPORT STATUS: Signed DATE:04/19/22 TIME: 162 PATIENT: ADRYAN MCWILLIAMS UNIT #: [id number] ROOM/BED: 259-A : [birth year] AGE: 87 SEX: M ATTEND: Abdulkadir Gamboa MD ADM AUTHOR: Nidhi Choe APN * ALL edits or amendments must be made on the electronic/computer document * PCP PCP PCP: PCP: Miguel Brown APN Discharge to: rehab General Information Date of admission: Observation Start Date: Date of admission: 04/18/22 Discharge date: 04/19/22 Admission diagnosis: Hypertension urgency, HTN hx intractable headaches. hyponatremia progressive muscle weakness CM@ CAD BPH insomnia Depression severe malnutrition Discharge diagnosis: Hypertension urgency, on admit, improved HTN intractable headaches, improved hyponatremia, improved progressive muscle weakness CAD BPH insomnia Depression severe malnutrition Hospital course: This is an 87 y/o male who was brought to the ED with a CC of headaches , high blood pressure and increased weakness. states that over the past week he has noted his blood pressure slowly increasing, he has lost his appetite, is not drinking water, and he is becoming less active. he was worried when he could not get around his home without almost falling several times, he developed a severe headache and for that reason came to the ED. initial BP was 165/78, highest bp 191/79. verb 02/08 pain to head, CT head was negative for acute pathology. noted with hyponatremia, na level 122. pt admitted for further workup. patient also tells me he lives alone and is does not want to go home, he is asking to be transferred to a rehab unit so he can get more therapy. pt recieved IVF for gentle hydration. his sodium levels have improved. he hasnt had any vomiting or diarrhea. eating well. worked w/PT during hospital stay and CM consulted for acute rehab eval. pt has graciela ccepted to [facility] acute rehab and will be tx today. pt in agreement. Pt. condition on discharge: improved, stable Med Rec PCP PCP: PCP: Miguel Brown APN Objective VS/I O Last Documented: Result Date Time Pulse Ox 96 04/19 1519 B/P 121/65 04/19 1519 B/P Mean 84.0 04/19 1519 O2 Delivery Room air 04/19 151 Temp 98.8 04/19 1519 Pulse 63 04/19 1519 Resp 18 04/19 1519 O2 Flow Rate 2 04/18 0037 24 hour I O ending at 0700: 04/19 0700 04/18 1900 Intake Total Output Total 1200 600 Balance -1200 -600 Number 0 Bowel Movements Output, Urine 1200 600 PATIENT WEIGHT: Weight (lb): 165 Weight (oz): Weight (kg): 74.843 Results Findings/Data: Laboratory Tests: 04/19 04/19 04/19 04/19 04/18 1634 1305 1214 0618 2030 Chemistry Sodium (136 - 145 mmol/L) 128 L Potassium (3.5 - 5.1 mmol/L) 3.9 Chloride (98 - 107 mmol/L) 97 L Carbon Dioxide (21 - 32 mmol/L) 25 BUN (7 - 18 mg/dL) 7 Creatinine (0.67 - 1.17 mg/dL) 1.02 Estimated GFR (MDRD) (>=60) > 60.00 Glucose (70 - 100 mg/dL) 121 H POC Glucose (70 - 105 mg/dL) 122 H 123 H 83 Calcium (8.5 - 10.1 mg/dL) 7.9 L Magnesium (1.8 - 2.4 mg/dL) 1.3 L Hematology WBC (4.5 - 11.0 X10(3)) 5.2 RBC (4.3 - 5.9 X10(6)) 3.79 L Hgb (13.5 - 18.0 g/dL) 11.4 L Hct (42.0 - 52.0 %) 34.8 L MCV (78 - 100 fl) 91.8 MCH (26.0 - 34.0 pg) 30.1 MCHC (30.0 - 37.0 g/dl) 32.8 RDW (11.5 - 14.5 %) 13.4 Plt Count (150 - 350 X10(3)) 187 MPV (8.7 - 11.4 fl) 8.9 Neut % (Auto) (36.0 - 66.0 %) 75.1 H Lymph % (Auto) (16.0 - 50.0 %) 13.5 L [place] % (Auto) (0.0 - 13.0 %) 8.9 Eos % (Auto) (0.0 - 4.5 %) 1.9 Baso % (Auto) (0.0 - 1.5 %) 0.4 Immature Gran # (Auto) (0.00 - 0.03 0.01 X10(3)uL) Absolute Neuts (auto) (1.70 - 7.70 3.89 X10(3)) Absolute Lymphs (auto) (0.70 - 4.00 0.70 X10(3)) Absolute Monos (auto) (0.00 - 0.89 0.46 X10(3)) Absolute Eos (auto) (0.00 - 0.60 X10(3)) 0.10 Absolute Basos (auto) (0.00 - 0.20 0.02 X10(3)) Absolute Nucleated RBC (0.0 - 0.1 K/mm3) 0.00 Immature Gran % (0.0 - 2.0 %) 0.2 Nucleated RBC % (0 - 0.2 %) 0.0 Urines Urine Osmolality (500 - 800 MOS/KG) 362 L Ur Random Sodium (meq/L) 73 04/18 2010 Chemistry POC Glucose (70 - 105 mg/dL) 93 Results: labs reviewed, vital signs reviewed, vital signs stable, current med profile rev'd Free Text Obj Notes Free Text Obj Notes: General appearance: alert, awake, oriented, no acute distress, pleasant, conversational, mental status normal, no respiratory distress Head/Eyes: atraumatic, normal conjunctiva/sclera, normocephalic, PERRL ENT: moist mucosal membranes, normal dentition, normal ear left, normal ear right, normal nose Neck: full range of motion, supple/no meningismus, no JVD Cardiovascular: normal heart sounds, regular rate rhythm Respiratory: aerating well, clear to auscultation, symmetric expansion, no distress Abdomen: non-tender, normal bowel sounds, soft, no distention Genitourinary: no flank pain Extremities: moves all, normal range of motion, no cyanosis, no edema Musculoskeletal: normal inspection, no muscle spasm Neuro/PHLEBOTOMY COORDINATOR: alert, oriented X 3, normal speech Skin: dry, intact, normal color Psychiatry: normal affect, normal judgment/insight, normal mood Treatments Procedures Lab: Chemistry last 24 hrs: 04/19 1305 Chemistry Sodium (136 - 145 mmol/L) 128 L Potassium (3.5 - 5.1 mmol/L) 3.9 Chloride (98 - 107 mmol/L) 97 L BUN (7 - 18 mg/dL) 7 Creatinine (0.67 - 1.17 mg/dL) 1.02 Glucose (70 - 100 mg/dL) 121 H Hematology last 24 hrs: 04/19 1305 Hematology WBC (4.5 - 11.0 X10(3)) 5.2 Hgb (13.5 - 18.0 g/dL) 11.4 L Hct (42.0 - 52.0 %) 34.8 L Plt Count (150 - 350 X10(3)) 187 Neut % (Auto) (36.0 - 66.0 %) 75.1 H Imaging: Recent Impressions: CAT SCAN - CT HEAD/BRAIN W/O CONT 04/18 0058 Report Impression - Status: SIGNED Entered: 04/18/2022 0119 Impression: 1. No acute intracranial abnormality. 2. Atrophy. 3. Atherosclerotic microvascular disease. 4. Otherwise unremarkable exam. Impression By: Claribel DAUGHERTY M.D. Discharge Instructions PCP PCP: PCP: Miguel Brown APN )( Discharge to: Inpatient Rehab Facility Discharge Instructions Additional Discharge Routines: Attending Follow-Up Discharge management: greater than 30 mins at 2342 at 0933 RPT #:[id number] END OF REPORT [facility] 2022-04-19 15:59:00 [facility] ([facility]) Rehab Preadmission Screen REPORT#: REPORT STATUS: DATE:04/19/22 TIME: 1558 PATIENT: ADRYAN MCWILLIAMS UNIT #: ROOM: BED: : [birth year] AGE: 87 SEX: M ATTEND: Sveta Womack MD PROJECTED ADM AUTHOR: Sveta Womack MD REP SRV REP SRV TM: 1559 * ALL edits or amendments must be made on the electronic/computer document * IRF Preadmission Screen Information From [facility] CRS PAS documentation: The data set between the solid lines has been imported from [facility] documentation. PREADMISSION INFORMATION: DEMOGRAPHICS: Assessment date: 04/19/22 Assessment time: 1448 Patient has an Advanced Directive: No Content of advance directive/living will/plan of care: Copy of advance directive on chart: Referring physician: Shyanne GamboaHospitalist Primary care provider: Miguel Brown Consulting physician(s): Referral contact name: Peyton Santillan Referral contact number: Referring setting: [facility] Room number: 259 IMPAIRMENT GROUP: Impairment group: Debility Etiologic diagnosis: Progressive muscle weakness REVIEW OF MED CONDITIONS: Date of onset: 04/18/22 Current surgery date and type: N/A Active comorbid conditions: Hypertension urgency, Intractable headaches, Hyponatremia, Progressive muscle weakness, CAD, BPH, Insomnia, Depression, Severe malnutrition Past medical and surgical history: CAD with stents, HTN, HLD, BPH, insomnia, depression, bilateral inguinal hernia repair Had major surgery within 100 days of admission: No Risk for medical/clinical complications: Blood sugar fluctuation, BP fluctuation , Constipation, DVT, Depression, Electrolyte imbalance, Injury d/t falls, Nutritional compromise, Pain, Skin breakdown, Respiratory insufficiency Acute hospital stay summary: 87 y/o M presented to [facility] ER on with headaches, high blood pressure and increased weakness. Pt's blood pressue in ER was 165/78 and highest BP was 191/79. Pt was also found to have hyponatremia. Head CT was completed and did not demonstrate acute intracranial abnormality. Pt continues on NS at 75cc/hr and NA being monitored regularly for hyponatremia. PRN IV hydralazine for uncontrolled BP and Cozar for HTN. Lipitor for HLD. Glucophage for DM. PO fioricit for headaches. Ararax for anxiety and zoloft for depression. PLOF: Independent with ADLs and ambulating with 4PC CLOF : Mod A for bed mobility, transfers and gait DC plan: Pt plans to return home with provider assisting daily. Lives in a [facility], no steps, [place] shower with shower chair and GB. Patient is willing, motivated, and able to participate in 3 hours therapy/5 days per week PREADMIT VITALS: Date/Time 04/19/22 1519 Temp F Temp C 37.1 Pulse 63 RR 18 BP 121/65 SPO2% 96 Ht ft 5 Ht in 6 Wt lbs 165.555 BMI 26.7 SUPPORTING DIAGNOSTICS/LABS/RADIOLOGY/CARDIOLOGY: Date: 04/19/22 WBC: 5.2 HGB: 11.4 HCT: 34.8 Ca: 7.9 Na: 128 K+: 3.9 Glu: 121 M.3 BUN: 7 Creat: 1.02 Tot protein: Alb: 3.7 03/19 PTT: PT: INR: PLT: 187 Additional labs: N/A Cultures: N/A Imaging: Head CT 04/18: 1. No acute intracranial abnormality. 2. Atrophy. 3. Atherosclerotic microvascular disease. 4. Otherwise unremarkable exam. Other supporting diagnostics: N/A RESPIRATORY STATUS: Respiratory treatments: N/A O2 liters per minute: Respiratory status: Pt on room air NEUROLOGIC STATUS: Neurologic status: Alert, Oriented to person, Oriented to place, Oriented to time, Oriented to situation, Follows simple commands Patient's mood and behavior: Appropriate Hand dominance: Right BOWEL/BLADDER: Continent of bladder for developmental age: Yes Number of bladder accidents in last 48 hours: Catheter type: Insertion date: Bladder aids: Bladder comment: Continent of bowel for developmental age: Yes Number of bowel accidents in last 48 hours: Date of last BM: 04/17/22 Colostomy: Ileostomy: Bowel aids: Bowel comment: SKIN: Skin alteration: None SKIN ALTERATION 1: Type: Location: Stage: Description: SKIN ALTERATION 2: Type: Location: Stage: Description: SKIN ALTERATION 3: Type: Location: Stage: Description: SKIN ALTERATION 4: Type: Location: Stage: Description: EATING/NUTRITIONAL: Nutritional intake: PO regular food Eating compensatory strategies: Medication administration: IV, Medications whole, Subcutaneous REHAB NEEDS: Special rehabilitation needs: Hearing impaired, Preferred language Special rehabilitation precautions: Safety/fall, Diet Rehabilitation precaution detail: 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 Preferred language: tongan Diabetic diet FUNCTIONAL ASSESSMENT: FUNC. TASK PRIOR LOF CURRENT LOF EXPECTED LOF Bathing Independent Partial/moderate asst Independent U.B. Dressing Independent Supervise/touch asst Independent L.B. Dressing Independent Partial/moderate asst Independent Bed/Ch Transf. Independent Partial/moderate asst Independent Toilet Transfer Independent Partial/moderate asst Independent Stairs Independent Substantial/max asst Independent Locomotion Independent Partial/moderate asst Independent Locomotion prior device use: SBQ cane Description of prior level of locomotion: Independent with ambulation Locomotion current device: RW/FWW Locomotion current distance traveled without a rest break: 15 Description of current level of locomotion: Decreased dottie. Decreased endurance Description of expected level of locomotion: Improved gait Language and Cognition: A Ox4; followed commands. Hard of hearing Add'l functional comment: Requires encouragment. Fatigues easily. Mod A for bed mobility, transfers and gait. Prior device use: Shower chair, Grab bars Prior device use additional information: PRE-HOSPITAL: Pre-hospital services utilized: Nursing care on Mondays, Provider services Tuesday-Tue Occupation/Profession: Retired Education history: Return to work/school plan: Marital status: Hobbies/leisure activities: Enjoys watching TV Prior living situation: Home Living with: Alone Living with comment: Pt lives alone in a [place], [place] shower with shower chair. Pt has a provider 4-5 hrs Tuesday-Tuesday that assist with IADLs. ANTICIPATED DC PLAN/POST IRF: Primary support contact: Roopa Mcwilliams Relationship to patient: Son Phone number 1: [phone] Phone number 2: [phone] Caregiver availability: Days only Caregiver can provide: Supervision only Patient/caregiver goals/preferences: Pt would like to walk again and return home Expected discharge destination: Home Expected discharge physical layout: One story, Shower only, Grab bars Number of external stairs: Number of internal stairs: Railing details: Grab bars location: Grab bars in shower Barriers to discharge: Caregiver support, Cognition, Endurance, Requires encouragement Options discussed with patient: Yes Options discussed with caregiver: Patient agrees with program requirements: Yes ACTIVITY TOLERANCE: Current treatment interventions: Occupational therapy, Physical therapy Patient able to tolerate 3 hours of therapy a day: Yes Patient able to tolerate 15 hours of therapy a week: Altered therapy schedule comment: ACUTE INPATIENT REHAB PLAN: Estimated length of stay in days: 18 Anticipated services in acute inpatient rehab: Rehab nursing 22/11, evs manager, Occupational therapy, Physical therapy, Dietitian Acute hospital documents reviewed prior to admission decision: Acute History/ Physical, Consult notes, Progress notes, Lab/diagnostics, Therapy notes, Vital signs, Other ancillary notes CRS ELECTRONIC SIGNATURE: CRS #1 electronic signature: Zabrina Meléndez CRS credentials: OT Date: 04/19/22 Time: 1542 CRS #2 electronic signature: CRS credentials: Date: Time: CRS #3 electronic signature: CRS credentials: Date: Time: Provider Pre-Admit Summary Acute IP rehab admit: criteria met MD determination Based upon my evaluation and review of the supporting assessment documentation and consultation with the preadmission want ad receiver, I have determined, prior to admitting this patient, that there is reasonable expectation that at the time of admission to the IRF, the patient's medical management and rehabilitation needs require an inpatient stay and close physician involvement. Patient can be expected to actively participate in, and benefit from, and intensive rehab therapy program whose intensity is not provided in lower levels of care. Significant barriers that can only be addressed in an acute inpatient rehab program, including, but not limited to: Complex acute rehab needs: Custom therapy tx plan, Mgt of complex Co-morb, Med adjustment/mgmt., New medical diagnosis, New medical complication, Live alone/ prev independ, Nutritional compromise, Hospitalist consult at 1602 RPT #:[id number] END OF REPORT [facility] 2022-04-18 13:51:00 [facility] ([facility]) Hospitalist History Physical REPORT#:[id number] REPORT STATUS: Signed DATE:04/18/22 TIME: 1351 PATIENT: ADRYAN MCWILLIAMS UNIT #: [id number] ROOM/BED: [address] : [birth year] AGE: 87 SEX: M ATTEND: Abdulkadir Gamboa MD ADM AUTHOR: Carlyle Carter APN * ALL edits or amendments must be made on the electronic/computer document * History of Present Illness HPI Chief complaint: headachces and high blood pressure along with increased weakness PCP: PCP: Miguel Brown APN HPI: This is a87 y/o male who was brought to the ED with a CC of headaches, high blood pressure and increased weakness. states that over the past week he has noted his blood pressure slowly increasing, he has lost his appetite, is not drinking water, and he is becoming less active. he was worried when he could not get around his home without almost falling several times, he deveoped a severe headache and for that reason came to the ED. initial BP was 165/78, highest bp 191/79. verb 02/08 pain to head, CT head was negative for acute pathology. noted with hyponatremia, na level 122. pt admitted for further workup. patient also tells me he lives alone and is does not want to go home, he is asking to be transferred to a rehab unit so he can get more therapy. Informant/historian: patient History Past Medical Surgical Hx Additional medical history: CAD with stents, HTN, hyperlipidemia, BPH, insomnia, depression Additional surgical history: [facility] with 2 stents Ibrahima inguinal hernia repair. Social History Alcohol use: Denies EtOH use Drug use: Denies recreational drugs Smoking status for patients 13 years old or older: Never Smoker Medication/Allergy-Vaccine Hx Allergies: Coded Allergies: penicillin (Severe, RASH 03/28/22) Review of Systems Constitutional: Reports: fatigue, generalized weakness, recent wt loss. Denies: chills, fever. Respiratory: Reports: DUMONT (dyspnea on exertion). Denies: SOB, wheezing. Cardiovascular: Reports: UDMONT (dyspnea on exertion). Denies: chest pain, edema, orthopnea, palpitations, parox nocturnal dyspnea. GI: Reports: anorexia, dysphagia, nausea, vomiting. Neuro: Reports: gait problem, headache, weakness. Denies: change in LOC, confusion, dizziness, focal weakness, lightheaded, numbness, seizure, slurred speech, spinning sensation, syncope, unable to speak, vision change. All systems rev neg: except as noted Physical Exam VS/I O: Vital Signs Date Temp Pulse Resp B/P B/P Mean Pulse Ox FiO2 04/18 97.7-98.4 59-89 16-18 113-191/64-82 80.4-116 96-99 Last Documented: Result Date Time Pulse Ox 98 04/18 1336 B/P 113/65 04/18 1336 B/P Mean 80.7 04/18 1336 Pulse 81 04/18 1336 Resp 16 04/18 1336 Temp 98.4 04/18 1105 O2 Delivery Room air 04/18 0724 O2 Flow Rate 2 04/18 0037 24 hour I O ending at 0700: 04/18 0700 04/17 1900 Intake Total 302.50 Output Total Balance 302.50 Intake, IV 302.50 Number Voids 1 Patient 75 kg Weight Weight Standing scale Measurement Method Patient Weight and BMI Weight (kg): 75.000 BMI: 26.7 General appearance: chronically ill appearing, frail, alert, awake, oriented, no acute distress, conversational, no respiratory distress Head/Eyes: atraumatic, EOMI, normal conjunctiva/sclera, PERRL ENT: moist mucosal membranes, normal dentition Cardiovascular: normal capillary refill, normal heart sounds, regular rate rhythm Respiratory: aerating well, clear to auscultation, symmetric expansion, no distress Abdomen: non-tender, soft, no distention Extremities: decreased range of motion, moves all, normal capillary refill, Strength 3/5 Ibrahima LE's Musculoskeletal: decreased ROM, muscle wasting Neuro/PHLEBOTOMY COORDINATOR: alert, oriented X 3 Results Findings/Data: Laboratory Tests: 04/18 04/18 04/18 04/18 04/18 1151 1130 0834 0619 0453 Chemistry Sodium (136 - 145 mmol/L) 125 L 123 L Potassium (3.5 - 5.1 mmol/L) 4.0 Chloride (98 - 107 mmol/L) 90 L Carbon Dioxide (21 - 32 mmol/L) 24 BUN (7 - 18 mg/dL) 9 Creatinine (0.67 - 1.17 mg/dL) 0.81 Estimated GFR (MDRD) (>=60) > 60.00 Glucose (70 - 100 mg/dL) 112 H POC Glucose (70 - 105 mg/dL) 116 H 125 H Serum Osmolality (275 - 295 MOS/KG) 259 L Calcium (8.5 - 10.1 mg/dL) 8.9 Total Bilirubin (0.2 - 1.0 mg/dl) 1.8 H AST (15 - 37 U/L) 26 ALT (12 - 78 U/L) 26 Alkaline Phosphatase (50 - 136 U/L) 55 Total Protein (6.4 - 8.2 g/dl) 7.0 Albumin (3.4 - 5.0 g/dl) 3.7 04/18 0048 Chemistry Sodium (136 - 145 mmol/L) 122 L Potassium (3.5 - 5.1 mmol/L) 3.8 Chloride (98 - 107 mmol/L) 89 L Carbon Dioxide (21 - 32 mmol/L) 24 BUN (7 - 18 mg/dL) 10 Creatinine (0.67 - 1.17 mg/dL) 0.85 Estimated GFR (MDRD) (>=60) > 60.00 Glucose (70 - 100 mg/dL) 106 H Calcium (8.5 - 10.1 mg/dL) 8.2 L Hematology WBC (4.5 - 11.0 X10(3)) 4.7 RBC (4.3 - 5.9 X10(6)) 3.59 L Hgb (13.5 - 18.0 g/dL) 10.9 L Hct (42.0 - 52.0 %) 32.4 L MCV (78 - 100 fl) 90.3 MCH (26.0 - 34.0 pg) 30.4 MCHC (30.0 - 37.0 g/dl) 33.6 RDW (11.5 - 14.5 %) 12.8 Plt Count (150 - 350 X10(3)) 183 MPV (8.7 - 11.4 fl) 8.6 L Neut % (Auto) (36.0 - 66.0 %) 68.8 H Lymph % (Auto) (16.0 - 50.0 %) 17.1 [place] % (Auto) (0.0 - 13.0 %) 11.8 Eos % (Auto) (0.0 - 4.5 %) 1.7 Baso % (Auto) (0.0 - 1.5 %) 0.4 Immature Gran # (Auto) (0.00 - 0.03 X10(3)uL) 0.01 Absolute Neuts (auto) (1.70 - 7.70 X10(3)) 3.26 Absolute Lymphs (auto) (0.70 - 4.00 X10(3)) 0.81 Absolute Monos (auto) (0.00 - 0.89 X10(3)) 0.56 Absolute Eos (auto) (0.00 - 0.60 X10(3)) 0.08 Absolute Basos (auto) (0.00 - 0.20 X10(3)) 0.02 Absolute Nucleated RBC (0.0 - 0.1 K/mm3) 0.00 Immature Gran % (0.0 - 2.0 %) 0.2 Nucleated RBC % (0 - 0.2 %) 0.0 Toxicology Ketones (NEGATIVE mg/dl) NEGATIVE Urines Urine Color (YELLOW) LT YELLOW Urine Appearance (CLEAR) CLEAR Urine pH (4.6 - 8.0) 7.0 Ur Specific [place] (1.001 - 1.035) 1.008 Urine Protein (NEGATIVE mg/dl) NEGATIVE Urine Glucose (UA) (NORMAL mg/dl) NORMAL Urine Blood (NEGATIVE /UL) NEGATIVE Urine Nitrite (NEGATIVE) NEGATIVE Urine Bilirubin (NEGATIVE mg/dl) NEGATIVE Urine Urobilinogen (NORMAL mg/dl) NORMAL Ur Leukocyte Esterase (NEGATIVE /UL) NEGATIVE Urine RBC (0 - 5 #/hpf) 3-5 Urine WBC (0 - 5 #/hpf) 0-2 Urine Comment CLN CATCH Laboratory Tests 04/18/22 1151: [Embedded Image Not Available] 04/18/22 0453: [Embedded Image Not Available] 04/18/22 0048: [Embedded Image Not Available] Radiology data: Recent Impressions: CAT SCAN - CT HEAD/BRAIN W/O CONT 04/18 0058 Report Impression - Status: SIGNED Entered: 04/18/2022 0119 Impression: 1. No acute intracranial abnormality. 2. Atrophy. 3. Atherosclerotic microvascular disease. 4. Otherwise unremarkable exam. Impression By: Claribel DAUGHERTY M.D. Diagnosis, Assessment Plan Free Text A P: Assessment; Hypertension urgency, HTN hx intractable headaches. 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 PRN iv hydralazine for unc BP resume home BP meds, adjust asneeded rx fioricit po for headaches. pt does not want to return home, asking to go to alf for rehab. continue DM meds, monitor achs and cover with ssi PT/OT to eval Dr. Kiser, physiatry to eval. further ordres per clinical course pt seen and supervised with Dr. Gamboa at 1412 at 1728 RPT #:[id number] END OF REPORT [facility] 2022-04-18 00:51:00 [facility] ([facility]) EMERGENCY PROVIDER REPORT REPORT#:[id number] REPORT STATUS: Signed DATE:04/18/22 TIME: 005 PATIENT: ADRYAN MCWILLIAMS UNIT #: [id number] ROOM/BED: AGE: 87 SEX: M PCP PHYS: Miguel Brown APN SERVICE AUTHOR: Bertrand Rick DO * ALL edits or amendments must be made on the electronic/computer document * HPI-General Illness Free Text HPI Notes Free Text HPI Notes Patient presents to the emergency room, brought in by EMS for evaluation of headache and high blood pressure. Patient has a history of hypertension, reports being compliant with medications. He reports headache for 1 day. Reports mild nausea. No vomiting or diarrhea. No fevers or chills. No chest pain or shortness of breath. No back pain or neck pain. No numbness or tingling sensation. Ambulatory without any distress. Story by parent Never had this before/seen a doctor for this Reports history of hypertension, compliant with medication Complain of elevated blood pressure and headache for 1 day Reports nausea, no diarrhea/vomiting Denies any dizziness, numbness or tingling sensation No chest pain/palpitation No shortness of breath/dyspnea on exertion Denies domestic violence/trauma No sick contact, no travel history/known Covid exposure No neck pain or meningeal symptoms. no rash All other systems reviewed and otherwise negative PCP: None Quality: Sharp Frequency: Constant Radiation: Nonradiating Pain is 5/10 Associated symptoms: See above Onset: 1 day Worse with: none Better with: none Tried plyb-zka-xambenx meds: None Past history: Past medical history: Hypertension, dyslipidemia Past surgical history: None Review of system otherwise negative Social history:None Family history: None Drug allergies: None Physical exam: General/constant: Awake and alert, no acute distress, cooperative. MS head: Head normocephalic. No signs of basilar skull fracture. No signs of trauma. Eyes: Normal conjunctiva, anicteric, no signs of periorbital or orbital edema. No proptosis. No photophobia. Normal visual acuity. Ears/nose/throat: Moist mucous membrane. No pooling of secretions. No mastoid tenderness. No drainage from the ear. No signs of Germania's angina. Bilateral normal-appearing tympanic membrane. MS Neck: Neck is supple. No JVD. No goiter. No cervical adenopathy. no midline c- spine tenderness. Respiratory/chest: No rales, no wheezing, no rhonchi. No respiratory distress. Normal breath sounds bilaterally. Cardiovascular: Heart rate within normal limit. Regular rhythm. Good distal pulses. Good capillary refill. Abdomen/GI: Nontender with no guarding. Abdomen is soft. Not distended. No rebound, no peritoneal signs. No CVA tenderness. No palpable hernia or masses. No pulsatile masses. MS back: Normal back inspection. No CVA tenderness. No signs of trauma. No rash. No midline thoracic or lumbar spine tenderness. Extremity: Full range of motion of all extremities. Gait within normal limits. No pedal edema. Good distal pulses of all extremities. No obvious deformity. Skin: Normal skin color. No rash. Warm, dry, intact, normal turgor. No swelling. Anicteric. No bruising. Genitourinary: Exam deferred. Rectum: Exam deferred. Neurologic and mental status: AOx4. Cranial nerves II through XII intact. No focal deficit. General Confirmed Patient Yes Initial Greet Date/Time 04/18/22 0023 Presentation Chief Complaint __ Past Medical History - Adult Stated Complaint HYPERTENSION Allergies Coded Allergies: penicillin (Severe, RASH 03/28/22) Home Medications Reported Medications CARVEDILOL (COREG) 3.125 MG PO Q12H ATORVASTATIN (LIPITOR) 40 MG PO BEDTIME VALSARTAN (DIOVAN) 160 MG PO DAILY ESOMEPRAZOLE MAG DR (NexIUM) 40 MG PO DAILY amLODIPine (NORVASC) 10 MG PO BEDTIME TEMAZEPAM (RESTORIL) 30 MG PO BEDTIME PRN PRN SLEEPING PILL diphenhydrAMINE (BENADRYL) 25 MG PO BEDTIME PRN PRN ALLERGY LOPERAMIDE (IMODIUM) 2 MG PO ASDIR traZODone (DESYREL) 100 MG PO BEDTIME FUROSEMIDE (LASIX) 20 MG PO DAILY OMEGA-3 ACID ETHYL ESTERS (LOVAZA) 2 GM PO DAILY metFORMIN (GLUCOPHAGE) 1,000 MG PO BID Calculated Suicide Risk (nurs) No risk Past Medical History: Reports: Diabetes mellitus, Hypertension, Dyslipidemia. Smoking status for patients 13 years old or older: Never Smoker Physical Exam Vital Signs Vital Signs First Documented: Result Date Time Pulse Ox 99 04/18 0024 B/P 165/78 04/18 0024 B/P Mean 107 04/18 0024 O2 Delivery Room air 04/18 002 Temp 36.8 04/18 002 Pulse 64 04/18 0024 Resp 18 04/18 0024 O2 Flow Rate 2 04/187 Last Documented: Result Date Time O2 Delivery Nasal cannula 04/18 37 O2 Flow Rate 2 04/18 37 Pulse Ox 99 04/18 0024 B/P 165/78 04/18 0024 B/P Mean 107 04/18 0024 Temp 36.8 04/18 0024 Pulse 64 04/18 0024 Resp 18 04/18 0024 Review of Vital Signs Reviewed Interpretation Diagnostics Lab Results Interpretation Results Laboratory Tests 04/18/2247: [Embedded Image Not Available] Laboratory Tests: 04/18 48 Chemistry Sodium (136 - 145 mmol/L) 122 L Potassium (3.5 - 5.1 mmol/L) 3.8 Chloride (98 - 107 mmol/L) 89 L Carbon Dioxide (21 - 32 mmol/L) 24 BUN (7 - 18 mg/dL) 10 Creatinine (0.67 - 1.17 mg/dL) 0.85 Estimated GFR (MDRD) (>=60) > 60.00 Glucose (70 - 100 mg/dL) 106 H Calcium (8.5 - 10.1 mg/dL) 8.2 L Hematology WBC (4.5 - 11.0 X10(3)) 4.7 RBC (4.3 - 5.9 X10(6)) 3.59 L Hgb (13.5 - 18.0 g/dL) 10.9 L Hct (42.0 - 52.0 %) 32.4 L MCV (78 - 100 fl) 90.3 MCH (26.0 - 34.0 pg) 30.4 MCHC (30.0 - 37.0 g/dl) 33.6 RDW (11.5 - 14.5 %) 12.8 Plt Count (150 - 350 X10(3)) 183 MPV (8.7 - 11.4 fl) 8.6 L Neut % (Auto) (36.0 - 66.0 %) 68.8 H Lymph % (Auto) (16.0 - 50.0 %) 17.1 [place] % (Auto) (0.0 - 13.0 %) 11.8 Eos % (Auto) (0.0 - 4.5 %) 1.7 Baso % (Auto) (0.0 - 1.5 %) 0.4 Immature Gran # (Auto) (0.00 - 0.03 X10(3)uL) 0.01 Absolute Neuts (auto) (1.70 - 7.70 X10(3)) 3.26 Absolute Lymphs (auto) (0.70 - 4.00 X10(3)) 0.81 Absolute Monos (auto) (0.00 - 0.89 X10(3)) 0.56 Absolute Eos (auto) (0.00 - 0.60 X10(3)) 0.08 Absolute Basos (auto) (0.00 - 0.20 X10(3)) 0.02 Absolute Nucleated RBC (0.0 - 0.1 K/mm3) 0.00 Immature Gran % (0.0 - 2.0 %) 0.2 Nucleated RBC % (0 - 0.2 %) 0.0 Recent Impressions: CAT SCAN - CT HEAD/BRAIN W/O CONT 04/18 58 Report Impression - Status: SIGNED Entered: 04/18/2022 0119 Impression: 1. No acute intracranial abnormality. 2. Atrophy. 3. Atherosclerotic microvascular disease. 4. Otherwise unremarkable exam. Impression By: Claribel DAUGHERTY M.D. Lab Imaging Statement Laboratory radiographic studies reviewed and considered in the medical decision-making. ECG #1 Interpretation ECG Documented in MUSE Yes Date 04/18/22 Time 0044 Interpreted by ED physician NL ECG Interpretation Normal sinus rhythm, No acute ischemic changes, No STEMI, Normal QRS, Normal ST waves, Normal axis, Adequate tracing Rate 58 Rhythm Bradycardia Conduction/[place] AV block 1st degree Re-Evaluation MDM Re-Evaluation/Progress #1 Text/Dict Note Diagnostic studies reviewed, findings are consistent with hyponatremia. Blood pressure is improving. Patient be admitted for further evaluation and treatment. Admitting physician notified. Time of Re-Eval 0153 Re-Eval Status Improved ED Course Medication(s) Ordered Medication(s) Ordered: Cardiovascular Drugs Sig/Shin Start time Last Medication Dose Route Stop Time Status Admin Hydralazine HCl 5 MG X1ED STA 04/18 0052 DC / IV 04/18 0053 0123 Electrolytic, Caloric, And Mariangel Sig/Shin Start time Last Medication Dose Route Stop Time Status Admin Sodium Chloride 1,000 ML X1ED STA 04/18 0150 AC IV 04/18 1509 Patient Discharge Departure Vital Signs/Condition Vital Signs First Documented: Result Date Time Pulse Ox 99 04/18 0024 B/P 165/78 / 0024 B/P Mean 107 / 0024 O2 Delivery Room air 04/18 0024 Temp 36.8 04/18 0024 Pulse 64 / 0024 Resp 18 04/18 0024 O2 Flow Rate 2 04/18 0037 Last Documented: Result Date Time O2 Delivery Nasal cannula 04/18 0037 O2 Flow Rate 2 04/18 0037 Pulse Ox 99 04/18 0024 B/P 165/78 / 0024 B/P Mean 107 / 0024 Temp 36.8 / 0024 Pulse 64 / 0024 Resp 18 04/18 0024 All vital signs available at the time of this entry have been reviewed. Condition Stable, Improved Clinical Impression Clinical Impression Primary Impression: Hyponatremia Secondary Impressions: Hypertensive urgency Disposition Decision Admit Admit Physician Name Ita Espinoza MD Admit Physician Hospitalist Request Time 0153 Request Date 04/18/22 )( Admission Accepts Yes )( Accepted Time 0153 )( Accepted Date 04/18/22 Call Information will see patient, agrees with eval, agrees with plan Discharge/Care Plan Counseled Regarding Diagnosis, Lab results, Imaging studies, Need for admission Admit Note I have spoken with the patient and/or caregivers. I have explained the patient's condition, diagnoses and treatment plan based on the information available to me at this time. I have answered the patient's and/or caregiver's questions and addressed any concerns. The patient and/or caregivers have as good an understanding of the patient's diagnosis, condition and treatment plan as can be expected at this point. The patient has been stabilized within the capability of the emergency department. The patient will be transported for further care and management or will be moved to an observation or inpatient service. I have communicated with the staff or medical practitioner taking over this patient's care. at 0154 RPT #:[id number] END OF REPORT [facility] 2022-03-28 23:48:00 [facility] ([facility]) EMERGENCY PROVIDER REPORT REPORT#:[id number] REPORT STATUS: Signed DATE:03/28/22 TIME: 2347 PATIENT: ADRYAN MCWILLIAMS UNIT #: [id number] ROOM/BED: AGE: 86 SEX: M PCP PHYS: Miguel Brown APN SERVICE AUTHOR: Michel Steve Jr, MD * ALL edits or amendments must be made on the electronic/computer document * HPI-General Illness Free Text HPI Notes Free Text HPI Notes Patient has a history of hypertension hyperlipidemia presents with concern for generalized weakness intermittent for months. He declines any acute symptoms. Denies falls trauma syncope lightheadedness palpitations nausea vomiting diarrhea chest pain abdominal pain, headache, numbness, weakness, changes in vision or any other symptoms. Patient states he thought maybe his sugar was high or low but was not sure. EMS reports normal glucose. Review of Systems Constitutional Denies: Chills, Fatigue, Fever. Ears/Nose/Throat Denies: Nasal congestion, Sore throat, Throat pain. Respiratory Denies: Cough, non-productive, Cough, productive, Shortness of breath. Cardiovascular Denies: Chest pain, Dyspnea on exertion, Edema, Palpitations. GI Denies: Abdominal pain, Diarrhea, Nausea, Vomiting. Male Denies: Dysuria, Flank pain, Hematuria. Musculoskeletal Denies: Back pain, Extremity pain, Joint pain, Myalgia. Hematologic Denies: Bleeding, Bruising, Petechiae. Skin Denies: Abrasion, Diaphoresis, Itching, Jaundice, Rash. Neurologic Denies: Change LOC, Confusion, Dizziness, Focal weakness, Generalized weakness. Physical Exam General/Const General/Const Awake, Alert, No acute distress, Well appearing, Well developed , Cooperative, Not toxic appearing MS Head Head Atraumatic, Normocephalic Eyes Eyes Atraumatic, PERRL, EOMI Ears/Nose/Throat Ears/Nose/Throat Atraumatic, Airway patent, Mucous membranes moist MS Neck Neck Atraumatic, Supple, No meningismus Resp/Chest Respiratory/Chest Atraumatic, No respiratory distress, No retractions Cardiovascular Cardiovascular Heart rate NL, Cap refill not delayed, Peripheral circulation NL Abdomen/GI Abdomen/GI Atraumatic, Soft, Non-tender MS Back Back Atraumatic, Inspection NL, Full range of motion Skin Skin Atraumatic, Color NL, No rash Neurologic Neurologic Oriented X3, Speech NL, No motor deficits General Initial Greet Date/Time 03/28/222141 Presentation Chief Complaint Weakness Past Medical History - Adult Stated Complaint HEADACHE Allergies Coded Allergies: penicillin (Severe, RASH 03/28/22) Home Medications Reported Medications CARVEDILOL (COREG) 3.125 MG PO Q12H ATORVASTATIN (LIPITOR) 40 MG PO BEDTIME VALSARTAN (DIOVAN) 160 MG PO DAILY ESOMEPRAZOLE MAG DR (NexIUM) 40 MG PO DAILY amLODIPine (NORVASC) 10 MG PO BEDTIME TEMAZEPAM (RESTORIL) 30 MG PO BEDTIME PRN PRN SLEEPING PILL diphenhydrAMINE (BENADRYL) 25 MG PO BEDTIME PRN PRN ALLERGY LOPERAMIDE (IMODIUM) 2 MG PO ASDIR traZODone (DESYREL) 100 MG PO BEDTIME FUROSEMIDE (LASIX) 20 MG PO DAILY OMEGA-3 ACID ETHYL ESTERS (LOVAZA) 2 GM PO DAILY metFORMIN (GLUCOPHAGE) 1,000 MG PO BID Calculated Suicide Risk (nurs) No risk Past Medical History: Reports: Diabetes mellitus, Hypertension, Dyslipidemia. Smoking status for patients 13 years old or older: Never Smoker Physical Exam Vital Signs Vital Signs First Documented: Result Date Time Pulse Ox 100 03/28 2141 B/P 122/60 03/28 2141 B/P Mean 80 03/28 2141 O2 Delivery Room air 03/28 2141 Temp 36.7 03/28 2141 Pulse 74 03/28 2141 Resp 18 03/28 2141 Last Documented: Result Date Time Pulse Ox 100 03/29 15 B/P 121/61 03/29 15 B/P Mean 81 03/29 15 O2 Delivery Room air 03/29 15 Temp 36.9 03/29 15 Pulse 69 03/29 15 Resp 18 03/29 15 Review of Vital Signs Reviewed, Vital signs normal Interpretation Diagnostics Lab Results Interpretation Results Laboratory Tests 03/28/222201: [Embedded Image Not Available] Laboratory Tests: 03/28 2202 Chemistry Sodium (136 - 145 mmol/L) 122 L Potassium (3.5 - 5.1 mmol/L) 4.2 Chloride (98 - 107 mmol/L) 90 L Carbon Dioxide (21 - 32 mmol/L) 24 BUN (7 - 18 mg/dL) 17 Creatinine (0.67 - 1.17 mg/dL) 1.40 H Estimated GFR (MDRD) (>=60) 49.25 L Glucose (70 - 100 mg/dL) 153 H Calcium (8.5 - 10.1 mg/dL) 8.6 Total Bilirubin (0.2 - 1.0 mg/dl) 1.9 H AST (15 - 37 U/L) 30 ALT (12 - 78 U/L) 27 Alkaline Phosphatase (50 - 136 U/L) 68 Total Protein (6.4 - 8.2 g/dl) 6.9 Albumin (3.4 - 5.0 g/dl) 3.6 Hematology WBC (4.5 - 11.0 X10(3)) 6.5 RBC (4.3 - 5.9 X10(6)) 3.96 L Hgb (13.5 - 18.0 g/dL) 11.6 L Hct (42.0 - 52.0 %) 35.1 L MCV (78 - 100 fl) 88.6 MCH (26.0 - 34.0 pg) 29.3 MCHC (30.0 - 37.0 g/dl) 33.0 RDW (11.5 - 14.5 %) 13.1 Plt Count (150 - 350 X10(3)) 176 MPV (8.7 - 11.4 fl) 9.4 Neut % (Auto) (36.0 - 66.0 %) 72.9 H Lymph % (Auto) (16.0 - 50.0 %) 13.3 L [place] % (Auto) (0.0 - 13.0 %) 12.1 Eos % (Auto) (0.0 - 4.5 %) 0.9 Baso % (Auto) (0.0 - 1.5 %) 0.5 Immature Gran # (Auto) (0.00 - 0.03 X10(3)uL) 0.02 Absolute Neuts (auto) (1.70 - 7.70 X10(3)) 4.75 Absolute Lymphs (auto) (0.70 - 4.00 X10(3)) 0.87 Absolute Monos (auto) (0.00 - 0.89 X10(3)) 0.79 Absolute Eos (auto) (0.00 - 0.60 X10(3)) 0.06 Absolute Basos (auto) (0.00 - 0.20 X10(3)) 0.03 Absolute Nucleated RBC (0.0 - 0.1 K/mm3) 0.00 Immature Gran % (0.0 - 2.0 %) 0.3 Nucleated RBC % (0 - 0.2 %) 0.0 ECG #1 Interpretation ECG Documented in MUSE Yes Date 03/28/22 Time 2153 Interpreted by and reviewed by me, ED physician NL ECG Interpretation Normal rate, Normal sinus rhythm, No acute ischemic changes, No STEMI Rate 75 ECG Q-T-ST - RI Non-specific ST changes Re-Evaluation MDM Free Text MDM Notes Free Text MDM Notes Considered electrolyte disturbance versus anemia versus arrhythmia versus PELON. On arrival patient nontoxic-appearing but on exam patient has no acute cardiopulmonary normalities. Patient states he has no specific symptoms today, he states his symptoms have been present for months just feels generally weak. No focal deficits. EKG without evidence of STEMI ischemia or arrhythmia. Labs without significant disturbances. Patient provided with IV fluids. Patient is stable for discharge understands return cautions. ED Course Medication(s) Ordered Medication(s) Ordered: Electrolytic, Caloric, And Mariangel Sig/Shin Start time Last Medication Dose Route Stop Time Status Admin Sodium Chloride 1,000 ML X1ED STA 03/28 2244 DC 03/28 IV 03/28 492 2252 Patient Discharge Departure Vital Signs/Condition Vital Signs First Documented: Result Date Time Pulse Ox 100 03/28 2141 B/P 122/60 03/28 2141 B/P Mean 80 03/28 2141 O2 Delivery Room air 03/28 2141 Temp 36.7 03/28 2141 Pulse 74 03/28 2141 Resp 18 03/28 2141 Last Documented: Result Date Time Pulse Ox 100 03/29 15 B/P 121/61 03/29 15 B/P Mean 81 03/29 15 O2 Delivery Room air 03/29 15 Temp 36.9 03/29 15 Pulse 69 03/29 15 Resp 18 03/29 15 All vital signs available at the time of this entry have been reviewed. Clinical Impression Clinical Impression Primary Impression: Weakness Disposition Decision Discharge )( Discharged to Home Yes )( Time 234 )( Date 03/28/22 Discharge/Care Plan Counseled Regarding Diagnosis, Lab results, Need for follow-up, When to return to ED Additional Instructions FOLLOW UP WITH YOUR PRIMARY CARE PROVIDER, RETURN IF SYMPTOMS WORSEN. Discharge Note I have spoken with the patient and/or caregivers. I have explained the patient's condition, diagnoses and treatment plan based on the information available to me at this time. I have answered the patient's and/or caregiver's questions and addressed any concerns. The patient and/or caregivers have as good an understanding of the patient's diagnosis, condition and treatment plan as can be expected at this point. The vital signs have been stable. The patient's condition is stable and appropriate for discharge from the emergency department. The patient will pursue further outpatient evaluation with the primary care physician or other designated or consulting physician as outlined in the discharge instructions. The patient and/or caregivers are agreeable to this plan of care and follow-up instructions have been explained in detail. The patient and/or caregivers have received these instructions in written format and have expressed an understanding of the discharge instructions. The patient and/or caregivers are aware that any significant change in condition or worsening of symptoms should prompt an immediate return to this or the closest emergency department or a call to 911. at [phone] [facility] #:[id number] END OF REPORT [facility] 2019-03-02 18:04:00 [id number] [place] [id number] PATIENT NAME: ADRYAN MCWILLIAMS ADMIT DATE: 03/02/19 ACCOUNT NO: [id number] ROOM NO: AGE: 83 REPORT TYPE: ELECTROCARDIOGRAM SEX: M : [birth year] ADMITTING PHYSICIAN: ATTENDING PHYSICIAN:Jaskaran Pierre II, MD Order: [id number] Test Reason : FALL LOC Test Date/Time Stamp: TueMar 02 2019 18:04:33 Blood Pressure : / mmHG Vent. Rate : 070 BPM Atrial Rate : 070 BPM P-R Int : 180 ms QRS Dur : 090 ms QT Int : 380 ms P-R-T Axes : 048 024 048 degrees QTc Int : 410 ms Normal sinus rhythm Low voltage QRS Borderline ECG When compared with ECG of 25-OCT-2016 15:28, No significant change was found Confirmed by MD SUH ROLANDO ([id number]) on 03/04/2019 12:43:20 PM Referred By: Self Referred Confirmed by:JUAN DAVID SUH MD at 1243 PATIENT NAME: ADRYAN MCWILLIAMS [facility] 2019-03-02 17:59:00 [facility] ([facility]) EMERGENCY PROVIDER REPORT REPORT#:[id number] REPORT STATUS: Signed DATE:03/02/19 TIME: 1758 PATIENT: ADRYAN MCWILLIAMS UNIT #: [id number] ROOM/BED: AGE: 83 SEX: M PCP PHYS: Miguel Brown TECHNICIAN TELECOMM[employer]ICATION [employer]S SERVICE AUTHOR: Juan David Suh MD * ALL edits or amendments must be made on the electronic/computer document * Juan David Suh 03/02/19 1759: HPI-Trauma Minor/Fall General Confirmed Patient Yes Patient Type New patient Initial Greet Date/Time 03/02/191757 PCP Miguel Brown MD Presentation Chief Complaint Fall, Head injury, Loss of consciousness Hx Obtained From Patient Onset Occurred Sudden, Today (1000) Symptom Duration Since onset Progression since Onset Constant Caused by Fall on ground Context: Occurred at Home injury Location Head Quality Painful Severity: Onset Moderate Severity: Current Moderate Associated with Reports: Loss of consciousness. Denies: Fever, Nausea, Vomiting. Associated Other Reports left rib pain Exacerbated by Nothing Relieved by Nothing Context Immunization Status General Unknown Recent Healthcare No recent hospitalization Free Text HPI Notes Free Text HPI Notes 83 y/o male with PMHx of HTN and DM, presents to the ED via EMS d/t head injury and LOC onset today at 1000. Pt reports he fell on the ground hitting the back of his head. Pt did ASA this morning and visited PCP s/p fall and was prescribed Plavix. No other symptoms reported at this time. Portions of this section were scribed by Judi Plummer on 03/02/19 at 1857 Review of Systems ROS Statements All systems rev neg except as marked. Focused Review of Systems Constitutional Denies: Chills, Fever, Lethargy. Ears/Nose/Throat Denies: Earache bilat, Nasal congestion, Sore throat. Respiratory Denies: Cough, non-productive, Cough, productive, Shortness of breath. Musculoskeletal Denies: Back pain, Extremity pain. Skin Denies: Laceration, Rash. Neurologic Reports: Change LOC, Headache (trauma). Additional Review of Systems Cardiovascular Denies: Chest pain, Syncope. GI Denies: Abdominal pain, Diarrhea, Nausea, Vomiting. Male Denies: Dysuria, Flank pain. Hematologic Denies: Bleeding, Bruising. Free Text ROS Notes Free Text ROS Notes Reports left rib pain Portions of this section were scribed by Judi Plummer on 03/02/19 at 1759 Past Medical History - Adult Stated Complaint FALL, TRAUMA ALERT Allergies Coded Allergies: penicillin (Severe, RASH 10/25/16) Home Medications Reported Medications CARVEDILOL (COREG) 3.125 MG PO Q12H ATORVASTATIN (LIPITOR) 40 MG PO BEDTIME VALSARTAN (DIOVAN) 160 MG PO DAILY ESOMEPRAZOLE MAG DR (NexIUM) 40 MG PO DAILY amLODIPine (NORVASC) 10 MG PO BEDTIME TEMAZEPAM (RESTORIL) 30 MG PO BEDTIME PRN PRN SLEEPING PILL diphenhydrAMINE (BENADRYL) 25 MG PO BEDTIME PRN PRN ALLERGY LOPERAMIDE (IMODIUM) 2 MG PO ASDIR traZODone (DESYREL) 100 MG PO BEDTIME FUROSEMIDE (LASIX) 20 MG PO DAILY OMEGA-3 ACID ETHYL ESTERS (LOVAZA) 2 GM PO DAILY metFORMIN (GLUCOPHAGE) 1,000 MG PO BID Review of Nursing Notes Rev avail, and agree Pt reports no significant: Past surgical history, Family history, Social history Past Medical History: Reports: Diabetes mellitus, Hypertension, Dyslipidemia. Portions of this section were scribed by Judi Plummer on 03/02/19 at 1759 Physical Exam Vital Signs Review of Vital Signs Reviewed Focused PE General/Const General/Const Awake, Alert MS Head Head Normocephalic Text/Dict Notes 2 contusions to the bilateral aspect of the scalp with small abrasions Eyes Eyes Atraumatic, PERRL, EOMI Ears/Nose/Throat Ears/Nose/Throat Atraumatic, Airway patent, Mucous membranes moist, Pharynx NL MS Neck Neck Atraumatic, Supple, No meningismus, Full range of motion Resp/Chest Respiratory/Chest Breath sounds NL, Breath sounds = bilat, No respiratory distress Chest Wall/Ribs Chest tender lower L. Cardiovascular Cardiovascular Heart rate NL, Regular rhythm, Heart sounds NL, Cap refill not delayed, Peripheral circulation NL Abdomen/GI Abdomen/GI Atraumatic, Soft, Non-tender, No guarding, No rebound MS Back Back Atraumatic, Inspection NL, Non-tender Skin Skin Atraumatic, Color NL, No rash, Warm, Dry Neurologic Neurologic Oriented X3, Speech NL, No motor deficits, No sensory deficits Portions of this section were scribed by Judi Plummer on 03/02/19 at 1857 Interpretation Diagnostics Lab Results Interpretation Lab Imaging Statement Laboratory radiographic studies reviewed and considered in the medical decision-making. ECG #1 Interpretation Text/Dict Note low voltage QRS ECG Documented in MUSE Yes Date 03/02/19 Time 1804 Interpreted by ED physician NL ECG Interpretation Normal rate, Normal sinus rhythm, No acute ischemic changes, No STEMI Rate 70 Portions of this section were scribed by Judi Plummer on 03/02/19 at 1857 Re-Evaluation MDM ED Course Medication(s) Ordered Medication(s) Ordered: Diagnostic Agents Sig/Shin Start time Last Medication Dose Route Stop Time Status Admin Iopamidol 0 .STK-MED ONE 03/02 1813 DC .ROUTE Serums, Toxoids, And Vaccines Sig/Shin Start time Last Medication Dose Route Stop Time Status Admin Diphtheria/Tetanus/ 0.5 ML X1ED STA 03/02 1758 DC 03/02 Acell Pertussis IM 03/02 1759 1835 Portions of this section were scribed by Judi Plummer on 03/02/19 at 1857 Patient Discharge Departure Pt/Provider Handoff Shift Change Note This patient's care has been transferred to the incoming physician. We discussed : the patient's chief complaint; labs and imaging that have been completed and those that are still pending; procedures that have been completed and those remaining to be done; any treatment provided and the patient's response to treatment; input from consultants (if any); the remaining treatment plan. The incoming physician will follow up on all pending labs and imaging, make any necessary changes to the current impression and/or treatment plan and provide a final disposition. Handoff Note This patient's care has been transferred to and accepted by [Jaskaran Pierre MD]. We discussed: the patient's chief complaint; labs and imaging that have been completed and those that are still pending; procedures that have been completed and those remaining to be done; any treatment provided and the patient's response to treatment; any significant change in condition; input from consultants if any; the treatment plan prior to the transfer of care. The accepting physician will follow up on all pending labs and imaging and make any necessary changes to the current impression and/or treatment plan. The accepting physician is now responsible for the patient's care and final disposition. Care Transferred to Jaskaran Pierre MD Care Transferred at 1900 Discussed Complaint(s) Yes Laboratory Evaluation Done, results pending Imaging Studies Ordered, not yet done Supervising Physician Note Scribe Statement Judi Plummer, 03/02/191801, scribing for and in the presence of [Juan David Suh MD]. Signed By: Judi Plummer, 03/02/191801 Provider Scribed Statement I personally performed the services described in this documentation and reviewed the documentation that was dictated to the scribe(s) in my presence, and it accurately records my words and actions. Juan David Suh MD, 03/02/19 Portions of this section were scribed by Judi Plummer on 03/02/19 at 1857 Jaskaran Pierre 03/02/19 1932: Physical Exam Vital Signs Vital Signs First Documented: Result Date Time Pulse Ox 99 11/01 1754 B/P 124/61 03/02 1754 B/P Mean 82 03/02 1754 O2 Delivery Room air 03/02 1754 Temp 36.8 03/02 1754 Pulse 67 03/02 1754 Resp 18 03/02 1754 Last Documented: Result Date Time Pulse Ox 100 03/02 1945 B/P 133/61 03/02 1945 B/P Mean 85 03/02 1945 O2 Delivery Room air 03/02 1945 Pulse 58 03/02 1945 Resp 19 03/02 1945 Temp 36.8 03/02 1754 Interpretation Diagnostics Lab Results Interpretation Results Laboratory Tests 03/02/191804: [Embedded Image Not Available] Laboratory Tests: 03/02 1805 Chemistry Sodium (136 - 145 mmol/L) 132 L Potassium (3.5 - 5.1 mmol/L) 4.6 Chloride (98 - 107 mmol/L) 97 L Carbon Dioxide (21 - 32 mmol/L) 27 BUN (7 - 18 mg/dL) 22 H Creatinine (0.67 - 1.17 mg/dL) 1.10 Estimated GFR (MDRD) (>=60) > 60.00 Glucose (70 - 100 mg/dL) 170 H Calcium (8.5 - 10.1 mg/dL) 9.1 Total Bilirubin (0.2 - 1.0 mg/dl) 1.0 Direct Bilirubin (0.0 - 0.4 mg/dl) 0.40 AST (15 - 37 U/L) 19 ALT (12 - 78 U/L) 19 Alkaline Phosphatase (50 - 136 U/L) 84 Troponin I (0.00 - 0.045 ng/ml) <0.015 Total Protein (6.4 - 8.2 g/dl) 6.7 Albumin (3.4 - 5.0 g/dl) 3.4 Coagulation PT (8.7 - 12.1 SECONDS) 11.5 INR 1.1 APTT (22.8 - 34.4 seconds) 28.2 Hematology WBC (4.5 - 11.0 X10(3)) 7.9 RBC (4.3 - 5.9 X10(6)) 3.64 L Hgb (13.5 - 18.0 g/dL) 10.9 L Hct (42.0 - 52.0 %) 33.6 L MCV (78 - 100 fl) 92.3 MCH (26.0 - 34.0 pg) 29.9 MCHC (30.0 - 37.0 g/dl) 32.4 RDW (11.5 - 14.5 %) 14.0 Plt Count (150 - 350 X10(3)) 196 MPV (8.7 - 11.4 fl) 9.1 Neut % (Auto) (36.0 - 66.0 %) 76.8 H Lymph % (Auto) (16 - 50 %) 10.5 L [place] % (Auto) (0.0 - 13.0 %) 9.6 Eos % (Auto) (0.0 - 4.5 %) 2.4 Baso % (Auto) (0.0 - 1.5 %) 0.3 Immature Gran # (Auto) (0.00 - 0.03 X10(3)uL) 0.03 Absolute Neuts (auto) (1.7 - 7.7 X10(3)) 6.1 Absolute Lymphs (auto) (0.7 - 4.0 X10(3)) 0.8 Absolute Monos (auto) (0.0 - 0.89 X10(3)) 0.8 Absolute Eos (auto) (0.0 - 0.6 X10(3)) 0.2 Absolute Basos (auto) (0.0 - 0.2 X10(3)) 0.0 Absolute Nucleated RBC (0.0 - 0.1 K/mm3) 0.00 Immature Gran % (0.0 - 2.0 %) 0.4 Nucleated RBC % (0 - 0.2 %) 0.0 Recent Impressions: CAT SCAN - CT ABD PELVIS W/CONT 03/02 1831 Report Impression - Status: SIGNED Entered: 03/02/20191858 IMPRESSION: CT chest: No intrathoracic injury. CT has pelvis: 1. Suggestion of chronic liver disease or cirrhosis. 2. No solid organ injury or hematoma in the abdomen or pelvis. Impression By: Radha Chen MD CAT SCAN - CT CHEST W/CONTRAST 03/02 1831 Report Impression - Status: SIGNED Entered: 03/02/20191858 IMPRESSION: CT chest: No intrathoracic injury. CT has pelvis: 1. Suggestion of chronic liver disease or cirrhosis. 2. No solid organ injury or hematoma in the abdomen or pelvis. Impression By: Radha Chen MD CAT SCAN - CT C-SPINE W/O CONT 03/02 1831 Report Impression - Status: SIGNED Entered: 03/02/20191845 IMPRESSION: CT HEAD: 1. No intracranial hemorrhage. 2. Small to moderate right parietal scalp hematoma. 3. Opacification of the right mastoid air cells may relate to mastoiditis.. CT cervical spine: Advanced degenerative changes. No fracture seen. Impression By: Radha Chen MD CAT SCAN - CT HEAD/BRAIN W/O CONT 03/02 1831 Report Impression - Status: SIGNED Entered: 03/02/20191845 IMPRESSION: CT HEAD: 1. No intracranial hemorrhage. 2. Small to moderate right parietal scalp hematoma. 3. Opacification of the right mastoid air cells may relate to mastoiditis.. CT cervical spine: Advanced degenerative changes. No fracture seen. Impression By: Radha Chen MD Re-Evaluation [facility] Re-Evaluation/Progress #1 Time of Re-Eval 1931 Re-Eval Status Improved Eval Following Treatment Pt. feels better Pain Re-Evaluation Pain improved Exam Post Tx - General Alert, Appears non-toxic, Appears well, Capillary refill normal, Hydration normal Exam Post Tx - Sys Review Lungs clear, Abdomen soft, Abdomen nontender, Neurologic nonfocal, Mental status baseline Plan Post Re-Eval Plan discharge Fall/Minor Trauma MDM Note The patient presented with a complaint of a fall or minor trauma. The patient is now resting comfortably and feels better, is alert and in no distress. The patient has a normal mental status and is neurologically intact. The history, exam, diagnostic testing (if any) and current condition do not demonstrate signs of clinically significant intra-cranial, intra-thoracic, intra-abdominal, or musculoskeletal trauma. The vital signs have been stable. The patient's condition is stable and appropriate for discharge. The patient will pursue further outpatient evaluation with the primary care physician or other designated or consulting physician as indicated in the discharge instructions. Patient Discharge Departure Vital Signs/Condition Vital Signs First Documented: Result Date Time Pulse Ox 99 03/024 B/P 124/61 03/02 1754 B/P Mean 82 03/02 1754 O2 Delivery Room air 03/02 1754 Temp 36.8 03/02 1754 Pulse 67 03/02 1754 Resp 18 03/02 1754 Last Documented: Result Date Time Pulse Ox 100 03/02 1945 B/P 133/61 03/02 1945 B/P Mean 85 03/02 1945 O2 Delivery Room air 03/02 1945 Pulse 58 03/02 1945 Resp 19 03/02 1945 Temp 36.8 03/02 1754 All vital signs available at the time of this entry have been reviewed. Condition Improved, Stable Clinical Impression Clinical Impression Primary Impression: Fall Secondary Impressions: Head injury Disposition Decision Discharge )( Discharged to Home Yes )( Time 1932 )( Date 03/02/19 Discharge/Care Plan Counseled Regarding Diagnosis, Lab results, Imaging studies, Need for follow-up, When to return to ED Prescriptions Rest at home. Fall precautions. Follow-up with PCP regarding the use of temazepam to gradually lower the dose and eventually discontinue this medication as it can potentiate the risk of falls, dizziness and memory loss in the elderly. Return to this emergency department if problems arise. Discharge Note I have spoken with the patient and/or caregivers. I have explained the patient's condition, diagnoses and treatment plan based on the information available to me at this time. I have answered the patient's and/or caregiver's questions and addressed any concerns. The patient and/or caregivers have as good an understanding of the patient's diagnosis, condition and treatment plan as can be expected at this point. The vital signs have been stable. The patient's condition is stable and appropriate for discharge from the emergency department. The patient will pursue further outpatient evaluation with the primary care physician or other designated or consulting physician as outlined in the discharge instructions. The patient and/or caregivers are agreeable to this plan of care and follow-up instructions have been explained in detail. The patient and/or caregivers have received these instructions in written format and have expressed an understanding of the discharge instructions. The patient and/or caregivers are aware that any significant change in condition or worsening of symptoms should prompt an immediate return to this or the closest emergency department or a call to 911. 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 AUTHOR: Juan David Suh MD * ALL edits or amendments must be made on the electronic/computer document * Juan David Suh 03/02/191758: HPI-Trauma Minor/Fall General Confirmed Patient Yes Patient Type New patient PCP Miguel Brown MD Presentation Chief Complaint Fall, Head injury, Loss of consciousness Hx Obtained From Patient Onset Occurred Sudden, Today (1000) Symptom Duration Since onset Progression since Onset Constant Caused by Fall on ground Context: Occurred at Home injury Location Head Quality Painful Severity: Onset Moderate Severity: Current Moderate Associated with Reports: Loss of consciousness. Denies: Fever, Nausea, Vomiting. Associated Other Reports left rib pain Exacerbated by Nothing Relieved by Nothing Context Immunization Status General Unknown Recent Healthcare No recent hospitalization Free Text HPI Notes Free Text HPI Notes 83 y/o male with PMHx of HTN and DM, presents to the ED via EMS d/t head injury and LOC onset today at 1000. Pt reports he fell on the ground hitting the back of his head. Pt did ASA this morning and visited PCP s/p fall and was prescribed Plavix. No other symptoms reported at this time. Portions of this section were scribed by Judi Plummer on 03/02/19 at 1857 Review of Systems ROS Statements All systems rev neg except as marked. Focused Review of Systems Constitutional Denies: Chills, Fever, Lethargy. Ears/Nose/Throat Denies: Earache bilat, Nasal congestion, Sore throat. Respiratory Denies: Cough, non-productive, Cough, productive, Shortness of breath. Musculoskeletal Denies: Back pain, Extremity pain. Skin Denies: Laceration, Rash. Neurologic Reports: Change LOC, Headache (trauma). Additional Review of Systems Cardiovascular Denies: Chest pain, Syncope. GI Denies: Abdominal pain, Diarrhea, Nausea, Vomiting. Male Denies: Dysuria, Flank pain. Hematologic Denies: Bleeding, Bruising. Free Text ROS Notes Free Text ROS Notes Reports left rib pain Portions of this section were scribed by Judi Plummer on 03/02/19 at 1759 Past Medical History - Adult Stated Complaint FALL, TRAUMA ALERT Allergies Coded Allergies: penicillin (Severe, RASH 10/25/16) Home Medications Reported Medications CARVEDILOL (COREG) 3.125 MG PO Q12H ATORVASTATIN (LIPITOR) 40 MG PO BEDTIME VALSARTAN (DIOVAN) 160 MG PO DAILY ESOMEPRAZOLE MAG DR (NexIUM) 40 MG PO DAILY amLODIPine (NORVASC) 10 MG PO BEDTIME TEMAZEPAM (RESTORIL) 30 MG PO BEDTIME PRN PRN SLEEPING PILL diphenhydrAMINE (BENADRYL) 25 MG PO BEDTIME PRN PRN ALLERGY LOPERAMIDE (IMODIUM) 2 MG PO ASDIR traZODone (DESYREL) 100 MG PO BEDTIME FUROSEMIDE (LASIX) 20 MG PO DAILY OMEGA-3 ACID ETHYL ESTERS (LOVAZA) 2 GM PO DAILY metFORMIN (GLUCOPHAGE) 1,000 MG PO BID Review of Nursing Notes Rev avail, and agree Pt reports no significant: Past surgical history, Family history, Social history Past Medical History: Reports: Diabetes mellitus, Hypertension, Dyslipidemia. Portions of this section were scribed by Judi Plummer on 03/02/19 at 1759 Physical Exam Vital Signs Vital Signs First Documented: Result Date Time Pulse Ox 99 03/02 1754 B/P 124/61 03/02 1754 B/P Mean 82 03/02 1754 O2 Delivery Room air 03/02 1754 Temp 36.8 03/02 1754 Pulse 67 03/02 1754 Resp 18 03/02 1754 Last Documented: Result Date Time Pulse Ox 100 03/02 1945 B/P 133/61 03/02 1945 B/P Mean 85 03/02 1945 O2 Delivery Room air 03/02 1945 Pulse 58 03/02 1945 Resp 19 03/02 1945 Temp 36.8 03/02 1754 Review of Vital Signs Reviewed Focused PE General/Const General/Const Awake, Alert MS Head Head Normocephalic Text/Dict Notes 2 contusions to the bilateral aspect of the scalp with small abrasions Eyes Eyes Atraumatic, PERRL, EOMI Ears/Nose/Throat Ears/Nose/Throat Atraumatic, Airway patent, Mucous membranes moist, Pharynx NL MS Neck Neck Atraumatic, Supple, No meningismus, Full range of motion Resp/Chest Respiratory/Chest Breath sounds NL, Breath sounds = bilat, No respiratory distress Chest Wall/Ribs Chest tender lower L. Cardiovascular Cardiovascular Heart rate NL, Regular rhythm, Heart sounds NL, Cap refill not delayed, Peripheral circulation NL Abdomen/GI Abdomen/GI Atraumatic, Soft, Non-tender, No guarding, No rebound MS Back Back Atraumatic, Inspection NL, Non-tender Skin Skin Atraumatic, Color NL, No rash, Warm, Dry Neurologic Neurologic Oriented X3, Speech NL, No motor deficits, No sensory deficits Portions of this section were scribed by Judi Plummer on 03/02/19 at 1857 Interpretation Diagnostics Lab Results Interpretation Lab Imaging Statement Laboratory radiographic studies reviewed and considered in the medical decision-making. ECG #1 Interpretation Text/Dict Note low voltage QRS ECG Documented in MUSE Yes Date 03/02/19 Time 1804 Interpreted by ED physician NL ECG Interpretation Normal rate, Normal sinus rhythm, No acute ischemic changes, No STEMI Rate 70 Portions of this section were scribed by Judi Plummer on 03/02/19 at 1857 Re-Evaluation MDM ED Course Medication(s) Ordered Medication(s) Ordered: Diagnostic Agents Sig/Shin Start time Last Medication Dose Route Stop Time Status Admin Iopamidol 0 .STK-MED ONE 03/02 1813 DC .ROUTE Serums, Toxoids, And Vaccines Sig/Shin Start time Last Medication Dose Route Stop Time Status Admin Diphtheria/Tetanus/ 0.5 ML X1ED STA 03/02 1758 DC 03/02 Acell Pertussis IM 03/02 1759 1835 Portions of this section were scribed by Judi Plummer on 03/02/19 at 1857 Patient Discharge Departure Vital Signs/Condition Vital Signs First Documented: Result Date Time Pulse Ox 99 03/02 1754 B/P 124/61 03/02 1754 B/P Mean 82 03/02 1754 O2 Delivery Room air 03/02 1754 Temp 36.8 03/02 1754 Pulse 67 03/02 1754 Resp 18 03/02 1754 Last Documented: Result Date Time Pulse Ox 100 03/02 1945 B/P 133/61 03/02 1945 B/P Mean 85 03/02 1945 O2 Delivery Room air 03/02 1945 Pulse 58 03/02 1945 Resp 19 03/02 1945 Temp 36.8 03/02 1754 All vital signs available at the time of this entry have been reviewed. Pt/Provider Handoff Shift Change Note This patient's care has been transferred to the incoming physician. We discussed : the patient's chief complaint; labs and imaging that have been completed and those that are still pending; procedures that have been completed and those remaining to be done; any treatment provided and the patient's response to treatment; input from consultants (if any); the remaining treatment plan. The incoming physician will follow up on all pending labs and imaging, make any necessary changes to the current impression and/or treatment plan and provide a final disposition. Handoff Note This patient's care has been transferred to and accepted by [Jaskaran Pierre MD]. We discussed: the patient's chief complaint; labs and imaging that have been completed and those that are still pending; procedures that have been completed and those remaining to be done; any treatment provided and the patient's response to treatment; any significant change in condition; input from consultants if any; the treatment plan prior to the transfer of care. The accepting physician will follow up on all pending labs and imaging and make any necessary changes to the current impression and/or treatment plan. The accepting physician is now responsible for the patient's care and final disposition. Care Transferred to Jaskaran Pierre MD Care Transferred at 1900 Discussed Complaint(s) Yes Laboratory Evaluation Done, results pending Imaging Studies Ordered, not yet done Supervising Physician Note Scribe Statement Judi Plummer, 03/02/191801, scribing for and in the presence of [Juan David Suh MD]. Signed By: Judi Plummer, 03/02/191801 Provider Scribed Statement I personally performed the services described in this documentation and reviewed the documentation that was dictated to the scribe(s) in my presence, and it accurately records my words and actions. Juan David Suh MD, 03/02/19 Portions of this section were scribed by Judi Plummer on 03/02/19 at 1857 PierreJaskaran 03/02/19 1932: HPI-Trauma Minor/Fall General Initial Greet Date/Time 03/02/19 1758 Interpretation Diagnostics Lab Results Interpretation Results Laboratory Tests 03/02/191804: [Embedded Image Not Available] Laboratory Tests: 03/02 1805 Chemistry Sodium (136 - 145 mmol/L) 132 L Potassium (3.5 - 5.1 mmol/L) 4.6 Chloride (98 - 107 mmol/L) 97 L Carbon Dioxide (21 - 32 mmol/L) 27 BUN (7 - 18 mg/dL) 22 H Creatinine (0.67 - 1.17 mg/dL) 1.10 Estimated GFR (MDRD) (>=60) > 60.00 Glucose (70 - 100 mg/dL) 170 H Calcium (8.5 - 10.1 mg/dL) 9.1 Total Bilirubin (0.2 - 1.0 mg/dl) 1.0 Direct Bilirubin (0.0 - 0.4 mg/dl) 0.40 AST (15 - 37 U/L) 19 ALT (12 - 78 U/L) 19 Alkaline Phosphatase (50 - 136 U/L) 84 Troponin I (0.00 - 0.045 ng/ml) <0.015 Total Protein (6.4 - 8.2 g/dl) 6.7 Albumin (3.4 - 5.0 g/dl) 3.4 Coagulation PT (8.7 - 12.1 SECONDS) 11.5 INR 1.1 APTT (22.8 - 34.4 seconds) 28.2 Hematology WBC (4.5 - 11.0 X10(3)) 7.9 RBC (4.3 - 5.9 X10(6)) 3.64 L Hgb (13.5 - 18.0 g/dL) 10.9 L Hct (42.0 - 52.0 %) 33.6 L MCV (78 - 100 fl) 92.3 MCH (26.0 - 34.0 pg) 29.9 MCHC (30.0 - 37.0 g/dl) 32.4 RDW (11.5 - 14.5 %) 14.0 Plt Count (150 - 350 X10(3)) 196 MPV (8.7 - 11.4 fl) 9.1 Neut % (Auto) (36.0 - 66.0 %) 76.8 H Lymph % (Auto) (16 - 50 %) 10.5 L [place] % (Auto) (0.0 - 13.0 %) 9.6 Eos % (Auto) (0.0 - 4.5 %) 2.4 Baso % (Auto) (0.0 - 1.5 %) 0.3 Immature Gran # (Auto) (0.00 - 0.03 X10(3)uL) 0.03 Absolute Neuts (auto) (1.7 - 7.7 X10(3)) 6.1 Absolute Lymphs (auto) (0.7 - 4.0 X10(3)) 0.8 Absolute Monos (auto) (0.0 - 0.89 X10(3)) 0.8 Absolute Eos (auto) (0.0 - 0.6 X10(3)) 0.2 Absolute Basos (auto) (0.0 - 0.2 X10(3)) 0.0 Absolute Nucleated RBC (0.0 - 0.1 K/mm3) 0.00 Immature Gran % (0.0 - 2.0 %) 0.4 Nucleated RBC % (0 - 0.2 %) 0.0 Recent Impressions: CAT SCAN - CT ABD PELVIS W/CONT 03/02 1831 Report Impression - Status: SIGNED Entered: 03/02/20191858 IMPRESSION: CT chest: No intrathoracic injury. CT has pelvis: 1. Suggestion of chronic liver disease or cirrhosis. 2. No solid organ injury or hematoma in the abdomen or pelvis. Impression By: Radha Chen MD CAT SCAN - CT CHEST W/CONTRAST 03/02 1831 Report Impression - Status: SIGNED Entered: 03/02/20191858 IMPRESSION: CT chest: No intrathoracic injury. CT has pelvis: 1. Suggestion of chronic liver disease or cirrhosis. 2. No solid organ injury or hematoma in the abdomen or pelvis. Impression By: Radha Chen MD CAT SCAN - CT C-SPINE W/O CONT 03/02 1831 Report Impression - Status: SIGNED Entered: 03/02/20191845 IMPRESSION: CT HEAD: 1. No intracranial hemorrhage. 2. Small to moderate right parietal scalp hematoma. 3. Opacification of the right mastoid air cells may relate to mastoiditis.. CT cervical spine: Advanced degenerative changes. No fracture seen. Impression By: Radha Chen MD CAT SCAN - CT HEAD/BRAIN W/O CONT 03/02 1831 Report Impression - Status: SIGNED Entered: 03/02/20191845 IMPRESSION: CT HEAD: 1. No intracranial hemorrhage. 2. Small to moderate right parietal scalp hematoma. 3. Opacification of the right mastoid air cells may relate to mastoiditis.. CT cervical spine: Advanced degenerative changes. No fracture seen. Impression By: Radha Chen MD Re-Evaluation MDM Re-Evaluation/Progress #1 Text/Dict Note As per patient, he has been having episodes of dizziness on and off and has a bottle of meclizine from his PCP to take prn. He takes Temazepam at bedtime daily for insomnia. I explained to him and his relative in the room, that he will need to discussed gradually lowering the dose and eventual discontinuation with his PCP as it may cause and potentiate dizziness, falls and memory loss in the elderly. Time of Re-Eval 1931 Re-Eval Status Improved Eval Following Treatment Pt. feels better Pain Re-Evaluation Pain improved Exam Post Tx - General Alert, Appears non-toxic, Appears well, Capillary refill normal, Hydration normal Exam Post Tx - Sys Review Lungs clear, Abdomen soft, Abdomen nontender, Neurologic nonfocal, Mental status baseline Plan Post Re-Eval Plan discharge Fall/Minor Trauma MDM Note The patient presented with a complaint of a fall or minor trauma. The patient is now resting comfortably and feels better, is alert and in no distress. The patient has a normal mental status and is neurologically intact. The history, exam, diagnostic testing (if any) and current condition do not demonstrate signs of clinically significant intra-cranial, intra-thoracic, intra-abdominal, or musculoskeletal trauma. The vital signs have been stable. The patient's condition is stable and appropriate for discharge. The patient will pursue further outpatient evaluation with the primary care physician or other designated or consulting physician as indicated in the discharge instructions. Patient Discharge Departure Vital Signs/Condition Condition Improved, Stable Clinical Impression Clinical Impression Primary Impression: Fall Secondary Impressions: Dizziness, Head injury, Multiple contusions Disposition Decision Discharge )( Discharged to Home Yes )( Time 1933 )( Date 03/02/19 Discharge/Care Plan Counseled Regarding Diagnosis, Lab results, Imaging studies, Need for follow-up, When to return to ED Prescriptions Rest at home. Fall precautions. Follow-up with PCP in 48 hrs, regarding the use of temazepam to gradually lower the dose and eventually discontinue this medication as it can potentiate the risk of falls, dizziness and memory loss in the elderly. Return to this emergency department if problems arise. Discharge Note I have spoken with the patient and/or caregivers. I have explained the patient's condition, diagnoses and treatment plan based on the information available to me at this time. I have answered the patient's and/or caregiver's questions and addressed any concerns. The patient and/or caregivers have as good an understanding of the patient's diagnosis, condition and treatment plan as can be expected at this point. The vital signs have been stable. The patient's condition is stable and appropriate for discharge from the emergency department. The patient will pursue further outpatient evaluation with the primary care physician or other designated or consulting physician as outlined in the discharge instructions. The patient and/or caregivers are agreeable to this plan of care and follow-up instructions have been explained in detail. The patient and/or caregivers have received these instructions in written format and have expressed an understanding of the discharge instructions. The patient and/or caregivers are aware that any significant change in condition or worsening of symptoms should prompt an immediate return to this or the closest emergency department or a call to 911. Quality Measures BP F/U for HTN F/u with PCP/other doc, Pre-existing HTN at 2017 at [facility] #:[id number] END OF REPORT [facility]
[2024-07-11 15:11] LABS: Absolute Eosinophils 0.1 K/uL (0-0.5); Absolute Lymphocytes (CBC) 1.4 K/uL (0.7-4.9); Absolute Monocytes 0.8 K/uL (0.1-1.3); Absolute Neutrophil 4.1 K/uL (1.8-8.0); Basophils % 0.5 % (0-1.3); Eosinophils % 2.1 % (0-4.4); Hematocrit 43.7 % (39.6-49.0); Hemoglobin 14.5 g/dL (13.6-17.9); Lymphocytes % 21.8 % (15.3-44.8); MCH 30.5 pg (27.0-35.0); MCHC 33.2 g/dL (32.0-36.0); MCV 91.9 fL (80-100); MPV 7.3 fL (7.6-11.3); Monocytes % 12.2 % (3.3-12.3); Neutrophils % 63.4 % (41.7-73.7); Nucleated Red Blood Cells % 0.1 % (0-0); Platelets 195 thou/uL (152-406); RBC Red Blood Cell Count 4.76 M/uL (4.33-5.43); Red Cell Distribution Width 13.8 % (12.1-15.2)
[2024-07-11 15:28] LABS: Anion Gap 6.6 mEq/L (5.0-15.0); Potassium 4.6 mEq/L (3.5-5.1); Troponin High Sensitivity 5.5 pg/mL (<58.9)
--- NOTE | 2024-07-11 16:40 | EDPHYS ---
Physician Documentation [facility] Name: Adryan Reis Age: 89 yrs Sex: Male : 1935 Arrival Date: 07/11/2024 Time: 14:23 Bed 2 Private MD: ED Physician Mario Quiroz HPI: 07/11 15:05 This 89 yrs old Male presents to ER via Ambulatory with complaints of Chest rn Pain. 15:05 The patient or guardian reports chest pain that is located primarily in the substernal rn area. Onset: 1 week(s) ago. The pain does not radiate. Associated signs and symptoms: Pertinent positives: shortness of breath, Pertinent negatives: cough, syncope, vomiting. The chest pain is described as aching, a heaviness. Duration: The patient or guardian reports multiple episodes, that are intermittent. Modifying factors: The symptoms are alleviated by nothing. the symptoms are aggravated by nothing. Severity of pain: At its worst the pain was moderate in the emergency department the pain has improved. The patient has experienced similar episodes in the past. The patient has not recently seen a physician. Patient reports intermittent chest pain with shortness of breath for 1 week. Reports yesterday had an episode that lasted 3 hours and at rest. Has cardiac stents that was placed years ago. No fever or chills. No cough. No hemoptysis. No history of DVT or PE.. Historical: - Allergies: 14:34 PENICILLINS; ph - PSHx: 14:34 cardiac stents; ph - Immunization history:: Adult Immunizations unknown. - Infectious Disease History:: Denies. - Social history:: Smoking status: Patient denies any tobacco usage or history of. - Family history:: not pertinent. - Hospitalizations: : No recent hospitalization is reported. ROS: 15:05 Constitutional: Negative for fever, chills, and weight loss, Cardiovascular: Positive rn for chest pain Respiratory: Positive for shortness of breath Abdomen/GI: Negative for abdominal pain, nausea, vomiting, diarrhea, and constipation, MS/Extremity: Negative for injury and deformity, Skin: Negative for injury, rash, and discoloration, Neuro: Negative for headache, weakness, numbness, tingling, and seizure, Exam: 15:05 Constitutional: This is a well developed, well nourished patient who is awake, alert, rn and in no acute distress. Cardiovascular: Regular rate and rhythm. No pulse deficits. Respiratory: No increased work of breathing, no retractions or nasal flaring. Abdomen/GI: Soft, non-tender MS/ Extremity: Pulses equal, no cyanosis. Neuro: Awake and alert, GCS 15 15:27 ECG was reviewed by the Attending Physician. rn Vital Signs: 14:32 BP 130 / 81; Pulse 78; Resp 18; Temp 98; Pulse Ox 97% on R/A; ph 14:36 Weight 71.67 kg; Height 5 ft. 4 in. ; ph 15:27 BP 118 / 77; Pulse 73; Resp 18; Pulse Ox 95% on R/A; Pain 7/10; ld1 14:36 Body Mass Index 27.12 (71.67 kg, 162.56 cm) ph 15:27 Pain Scale: Adult ld1 MDM: 14:27 Medical Screening Exam initiated rn 16:38 Differential diagnosis: acute myocardial infarction, coronary artery disease rn pneumothorax, stable angina, unstable angina. HEART Score: History: Moderately Suspicious (1), ECG: Normal (0), Age: > or = 65 years (2), Risk Factors: > or = 3 Risk factors for atherosclerotic disease (2), Troponin: < or = 1 x Normal Limit (0), Total Score = 5. Data reviewed: vital signs, nurses notes, lab test result(s), EKG, radiologic studies, plain films, and as a result, I will admit patient. Consideration of Admission/Observation Patient was admitted/placed on observation. Escalation of care including admission/observation considered. Counseling: I had a detailed discussion with the patient and/or guardian regarding the historical points, exam findings, and any diagnostic results supporting the discharge/admit diagnosis, lab results, radiology results, the need for further work-up and treatment in the hospital. Refusal of service: The patient/guardian displays adequate decision making capability and despite a detailed discussion of alternatives, benefits, risks, and consequences refuses: Admission to the hospital for further work-up and treatment. ED course: Patient initially declined admission, I convinced him to stay after speaking to him and his family members on the phone. Shortly after agreeing to stay patient changed his mind, plans on going home, refuses admission and understands risk of leaving without further cardiology evaluation. Understands that we have almost ruled out acute myocardial infarction but have not completely ruled out ACS or cardiac blockages that could require intervention. 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 Return precautions given and understood.. 07/11 14:34 Order name: Basic Metabolic Panel; Complete Time: 15:33 rn 07/11 14:34 Order name: CBC with Diff; Complete Time: 15:33 rn 07/11 14:34 Order name: NT PRO-BNP; Complete Time: 15:33 rn 07/11 14:34 Order name: Troponin HS; Complete Time: 15:33 rn 07/11 14:34 Order name: XRAY Chest (1 view) rn 07/11 14:34 Order name: EKG; Complete Time: 14:35 rn 07/11 14:34 Order name: Cardiac monitoring; Complete Time: 15:18 rn 07/11 14:34 Order name: EKG - Nurse/Tech; Complete Time: 14:36 rn 07/11 14:34 Order name: IV Saline Lock; Complete Time: 15:18 rn 07/11 14:34 Order name: Labs collected and sent; Complete Time: 15:18 rn 07/11 14:34 Order name: O2 Per Protocol; Complete Time: 14:40 rn 07/11 14:34 Order name: O2 Sat Monitoring; Complete Time: 14:40 rn EC:27 Rate is 80 beats/min. Rhythm is regular. QRS is positive in lead I and negative in lead rn aVF. HI interval is prolonged. QRS interval is normal. QT interval is normal. No Q waves. T waves are Normal. No ST changes noted. Clinical impression: 1st degree heart block. Interpreted by me. Reviewed by me. Administered Medications: No medications were administered Disposition Summary: 07/11/24 16:40 Left Against Medical Advice Notes: Location: Home rn Problem: an ongoing problem rn Symptoms: have improved rn Condition: Stable rn Diagnosis - Chest pain, unspecified rn Followup: rn - With: Private Physician - When: As needed - Reason: Recheck today's complaints, Re-evaluation by your physician Discharge Instructions: - Discharge Summary Sheet rn - Nonspecific Chest Pain, Adult rn Signatures: Dispatcher [employer] Mario Pedersen MD MD rn Hall, Patricia, RN RN ph
--- NOTE | 2024-07-11 16:40 | ER ---
Nurse's Notes [facility] Name: Adryan Reis Age: 89 yrs Sex: Male : 1935 Arrival Date: 07/11/2024 Time: 14:23 Bed 2 Private MD: Diagnosis: Chest pain, unspecified Presentation: 07/11 14:32 Chief complaint: Patient states: Chest pain x 2-3 days that is intermittent, also ph reports SOB, denies cough or fever. Coronavirus screen: Vaccine status: Patient reports being unvaccinated. Ebola Screen: No symptoms or risks identified at this time. Initial Sepsis Screen: Does the patient meet any 2 criteria? No. Patient's initial sepsis screen is negative. Does the patient have a suspected source of infection? No. Patient's initial sepsis screen is negative. Risk Assessment: Do you want to hurt yourself or someone else? Patient reports no desire to harm self or others. Onset of symptoms was July 11, 2024. 14:32 Method Of Arrival: Ambulatory ph 14:32 Acuity: JUAN J 2 ph Triage Assessment: 14:35 General: Appears in no apparent distress. Behavior is calm, cooperative. Pain: ph Complains of pain in anterior aspect of left upper chest Pain radiates to anterior aspect of right upper chest. Neuro: Level of Consciousness is awake, alert, obeys commands, Oriented to person, place, time, situation. Cardiovascular: Reports chest pain, shortness of breath. Historical: - Allergies: 14:34 PENICILLINS; ph - PSHx: 14:34 cardiac stents; ph - Immunization history:: Adult Immunizations unknown. - Infectious Disease History:: Denies. - Social history:: Smoking status: Patient denies any tobacco usage or history of. - Family history:: not pertinent. - Hospitalizations: : No recent hospitalization is reported. Screenin:27 [facility] ED Fall Risk Assessment (Adult) History of falling in the last 3 months, ld1 including since admission No falls in past 3 months (0 pts) Confusion or Disorientation No (0 pts) Intoxicated or Sedated No (0 pts) Impaired Gait No (0 pts) Mobility Assist Device Used No (0 pt) Altered Elimination No (0 pt) Score/Fall Risk Level 0 - 2 = Low Risk Oriented to surroundings, Hourly rounding (assess needs \T\ fall precautionary measures) done. Abuse screen: Denies threats or abuse. Denies injuries from another. Nutritional screening: No deficits noted. Tuberculosis screening: No symptoms or risk factors identified. Assessment: 15:27 General: Appears in no apparent distress. comfortable, Behavior is calm, cooperative, ld1 appropriate for age. Pain: Complains of pain in chest Pain does not radiate. Pain currently is 8 out of 10 on a pain scale. Quality of pain is described as throbbing, Pain began 1 day ago. Is intermittent. Neuro: Level of Consciousness is awake, alert, obeys commands, Oriented to person, place, time, situation. Cardiovascular: Capillary refill < 3 seconds Patient's skin is warm and dry. Rhythm is sinus rhythm. Respiratory: Airway is patent Respiratory effort is even, unlabored. GI: Abdomen is round non-distended. : No signs and/or symptoms were reported regarding the genitourinary system. EENT: No signs and/or symptoms were reported regarding the EENT system. Derm: No signs and/or symptoms reported regarding the dermatologic system. Musculoskeletal: No signs and/or symptoms reported regarding the musculoskeletal system. Vital Signs: 14:32 BP 130 / 81; Pulse 78; Resp 18; Temp 98; Pulse Ox 97% on R/A; ph 14:36 Weight 71.67 kg; Height 5 ft. 4 in. ; ph 15:27 BP 118 / 77; Pulse 73; Resp 18; Pulse Ox 95% on R/A; Pain 7/10; ld1 14:36 Body Mass Index 27.12 (71.67 kg, 162.56 cm) ph 15:27 Pain Scale: Adult ld1 ED Course: 14:25 Patient arrived in ED. mr 14:27 Mario Quiroz MD is Attending Physician. rn 14:33 Triage completed. ph 14:34 Arm band placed on. ph 14:36 EKG done, by ED staff, reviewed by Mario Quiroz MD. ph 14:42 Ciara Sam, EMANUEL is Primary Nurse. ld1 15:07 XRAY Chest (1 view) In Process Unspecified. EDMS 15:27 Patient has correct armband on for positive identification. Placed in gown. Bed in low ld1 position. Call light in reach. Side rails up X2. equipment monitor phototypesetting on. Pulse ox on. NIBP on. Door closed. Noise minimized. Warm blanket given. 15:27 No provider procedures requiring assistance completed. Patient maintains SpO2 ld1 saturation greater than 95% on room air. 15:36 Inserted saline lock: 18 gauge forearm, using aseptic technique. Blood collected. id Flushed with 10 mL NS. Administered Medications: No medications were administered Medication: 15:27 VIS not applicable for this client. ld1 Outcome: 16:40 Patient left the ED. ld1 Signatures: Dispatcher [employer] EDMS Ava Miller, Ede Reg mr Mario Quiroz MD MD rn Enid Cerda RN RN Ciara Sam RN RN ld1 Jocy Calderon RN RN id
[2024-07-11 16:53] VITALS: TEMP 98
[2024-07-11 16:54] VITALS: BP 118/77; O2SAT 95
--- NOTE | 2024-07-11 16:54 | RAD REPORT ---
EXAMINATION: ONE VIEW CHEST XR CLINICAL INDICATION: Male, 89 years old.,CHEST PAIN TECHNIQUE: Frontal chest projection is submitted. Examination is limited by patient positioning and t echnique. COMPARISON: 03/20/2024 FINDINGS: The lungs are grossly clear although suboptimal inspiratory effort somewhat limits evaluation. No pn eumothorax or sizable effusion. The heart is normal in size. Mediastinal contours are unremarkable. IMPRESSION: No acute intrathoracic abnormalities.
--- NOTE | 2024-07-13 14:46 | EKG ---
Test Date: 2024-07-11 Test Time: 14:38:28 Emergency Response Technician: ARABELLA MEASUREMENT RESULTS: Intervals: Rate: 80 OR: 212 QRSD: 88 QT: 344 QTc: 396 [place]: P: 39 OR: 212 QRS: -40 T: 41 INTERPRETIVE STATEMENTS: Sinus rhythm with 1st degree AV block Left axis deviation Abnormal ECG Compared to ECG 03/20/2024 17:18:50 Left-axis deviation now present Sinus bradycardia no longer present Electronically Signed On 07-13-24 14:41:51 CDT by Wilber Cole
== END 2024-07-11 16:40 | disposition left against medical advice (07) ==
LOC: ER 14:23
DX: R07.9 Chest pain, unspecified (principal); R06.02 Shortness of breath; Z95.818 Presence of other cardiac implants and grafts
CPT/HCPCS: 36415; 71045; 80048; 83880; 84484; 85025; 93005; 99284

== ENCOUNTER 2025-01-17 10:38 | Inpatient (IN) | payer OTHER ==
--- OUTSIDE RECORDS SUMMARY | 2025-01-17 10:45 | XMS REPORT | Continuity of Care Document ---
Author Name Unknown Address [address] [facility] [address] [place] [address] [facility] Address [address] [facility] [address] [place] [address] Care Team Providers Care Credit Interviewer Name Role Phone PRUDENCIO DILLON Primary Care Physician UnavailPrudencio Samuel Attending Clinician Unavailable FROILAN SALCEDO Attending Clinician Unavailable Denis RAMÍREZ, Sendil K.H. Attending Clinician + [phone] Froilan Salcedo MD Attending Clinician [phone] Garett Maynard Attending Clinician Abdulkadir Beltran Attending Clinician Unavailable Michel Steve Attending Clinician Unavailable FROILAN SALCEDO Admitting Clinician Unavailable Garett Maynard Admitting Clinician Abdulkadir Beltran Admitting Clinician Unavailable Miguel Brown APN Admitting Clinician Kane llanos Payers Payer Name Policy Type Policy Number Effective Date Expirati on Date Source [facility] Dual Complete (HMO-POS D-SNP) [id number] 2023 00:00:00 [facility] DUAL COMP HMO-POS D SNP [id number] 2024 00:00:00 Problems Condition Name Condition Details Condition Category Status Onset Date Resolution Date Last Treatment Date Treating Clinician Comments Source Precordial pain Precordial pain Disease Active 08-10 00:00: 00 [facility] 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 Disease Active 08-10 00:00: 00 [facility] S/P coronary artery stent placement S/P coronary artery stent placement Disease Active 08-10 00:00: 00 [facility] Mixed hyperlipid emia Mixed hyperlipid emia Disease Active 08-10 00:00: 00 [facility] Primary hypertensi on Primary hypertensi on Disease Active 08-10 00:00: 00 [facility] [id number] Chronic GERD Problem [facility] 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, unspecifie d pathologic al fracture presence Problem [facility] [id number] Other chronic pain Problem [facility] Allergies, Adverse Reactions, Alerts Allergy Name Allergy Type Status Severity Reaction(s) Onset Date Inactive Date Treating Clinician Comments Source PENICILL IN DRUG INGREDI Active High Hives 08-10 00:00: 00 [facility] Penicill in Propensi ty to adverse reaction s Active Hives 08-10 00:00: 00 [facility] penicill in DA Active SV RASH 2021-05 00:00: 00 [facility] penicill in DA Active SV 10-25 00:00: 00 [facility] penicill in DA Active SV RASH 10-25 00:00: 00 [facility] [id number] Drug allergy Active Unknown [facility] NO KNOWN ALLERGIE S Drug Class Active [facility] Social History Social Habit Start Date Stop Date Quantity Comments Source History of tobacco use 1947-04-27 00:00:00 Cigarette Smoker [facility] Sexual orientation U [facility] Cigarettes smoked current (pack per day) - Reported 2024-08-10 00:00:00 2024-08-10 00:00:00 [facility] Cigarette pack-years 2024-08-10 00:00:00 2024-08-10 00:00:00 [facility] Tobacco use and exposure 2024-08-10 00:00:00 2024-08-10 00:00:00 Smokeless tobacco non-user [facility] History of Social function 2024-08-10 00:00:00 2024-08-10 00:00:00 [facility] Sex assigned at 1935 00:00:00 1935 00:00:00 [facility] Smoking Status Start Date Stop Date Source Unknown if ever smoked Commo n [facility] Never Smoker [facility] Ex-smoker 2024-08-10 00:00:00 2024-08-10 00:00:00 [facility] Medications Ordered Medication Name Filled Medication Name Start Date Stop Date Current Medication? Ordering Clinician Indication Dosage Frequency Signature (SIG) Comments Components Source perflutren protein-A microsphr (OPTISON) injection 3 mL 08-29 17:00: 00 08-29 16:48 :00 No [id number] 3mL 3 mL, IV Push, ONCE, 1 dose, On Tue08/29/24 at 1200, Routine [facility] aspirin 81 mg Cap 08-29 02:04: 55 Yes 81mg Take 81 mg by mouth daily before a meal. [facility] multivit-mi nerals/FA/l ycopene (MEN'S DAILY ORAL) 08-29 02:04: 55 Yes 2000mg Take 2,000 mg by mouth daily before a meal. 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 [facility] multivit-mi nerals/FA/l ycopene (MEN'S DAILY ORAL) 4-11 09:22: 13 Yes 2000mg Take 2,000 mg by mouth daily before a meal. [facility] atorvastati n 80 mg tablet 4-08 00:00: 00 Yes 80mg Take 1 tablet by mouth every morning. [facility] traZODone 150 mg tablet 3- 00:00: 00 Yes 150mg Take 1 tablet by mouth at bedtime. [facility] dapaglifloz in propanediol 10 mg tablet - 00:00: 00 Yes 10mg Take 1 tablet by mouth every morning. [facility] Blood Glucose Test - Blood Glucose Test - 3-20 00:00: 00 No QD Blood Glucose Test - DULoxetine 30 mg capsule 3-18 00:00: 00 Yes 30mg Take 1 capsule by mouth daily. [facility] losartan 25 mg tablet 3-17 00:00: 00 Yes 25mg Take 1 tablet by mouth every morning. [facility] famotidine 20 mg tablet 3-09 00:00: 00 Yes 20mg Take 1 tablet by mouth daily. [facility] tamsulosin 0.4 mg 24 hr capsule 1- 00:00: 00 Yes .4mg Take 1 capsule by mouth daily. [facility] Ketoconazol e 2 % Ketoconazol e 2 % 2023-05 00:00: 00 No 1{appli cation} QD Ketoconazo le 2 % Ciprofloxac in HCl 500 MG Ciprofloxac in HCl 500 MG 2023-05-14 00:00: 00 No 1{table t} QD Ciprofloxa jillian HCl 500 MG DULoxetine HCl 30 MG DULoxetine HCl 30 MG 2023-05 1-05 00:00: 00 No 1{capsu le} QD DULoxetine HCl 30 MG traZODone HCl 150 MG traZODone HCl 150 MG 9-17 00:00: 00 No 1{table t_at_be dtime} QD [...] s_neede d} QD Famotidine 20 MG Farxiga 10 MG Farxiga 10 MG No 1{table t} QD Farxiga 10 MG Atorvastati n Calcium 80 MG Atorvastati n Calcium 80 MG No 1{table t} QD Atorvastat in Calcium 80 MG Vital Signs Vital Name Observation Time Observation Value Comments S ource height 2024-11-15 10:30:00 61 [in_i] Commo n [facility] weight 2024-11-15 10:30:00 165.2 [lb_av] Co mmon [facility] temperature 2024-11-15 10:30:00 97.2 [degF] Com mon [facility] bmi 2024-11-15 10:30:00 31.21 kg/m2 Comm on [facility] oximetry 2024-11-15 10:30:00 98 % Commo n [facility] blood pressure systolic 2024-11-15 10:30:00 119 mm[Hg] Common [facility] blood pressure diastolic 2024-11-15 10:30:00 70 mm[Hg] [facility] Systolic blood pressure 2024-08-10 14:23:00 118 mm[Hg] [facility] Diastolic blood pressure 2024-08-10 14:23:00 81 mm[Hg] [facility] Heart rate 2024-08-10 14:23:00 89 /min [facility] Respiratory rate 2024-08-10 14:23:00 16 /min [facility] Body height 2024-08-10 14:23:00 152.4 cm [facility] Body weight 2024-08-10 14:23:00 72.984 kg [facility] BMI 2024-08-10 14:23:00 31.42 kg/m2 [facility] Oxygen saturation in Arterial blood by Pulse oximetry 2024-08-10 14:23:00 95 /min [facility] height 2024-07-19 15:00:00 61 [in_i] Commo n [facility] weight 2024-07-19 15:00:00 159.4 [facility]_av[facility] 2024-07-19 15:00:00 98.1 [degF] Com [facility] bmi 2024-07-19 15:00:00 30.12 kg/m2 Comm on [facility] oximetry 2024-07-19 15:00:00 96 % Commo n [facility] blood pressure systolic 2024-07-19 15:00:00 117 mm[Hg] Common [facility] blood pressure diastolic 2024-07-19 15:00:00 70 mm[Hg] [facility] height 2024-06-26 15:15:00 61 [in_i] Commo n [facility] weight 2024-06-26 15:15:00 157.0 [lb_av] Co mmon [facility] temperature 2024-06-26 15:15:00 98.6 [degF] Com [facility] bmi 2024-06-26 15:15:00 29.66 kg/m2 Comm on [facility] oximetry 2024-06-26 15:15:00 95 % Commo n [facility] respiratory rate 2024-06-26 15:15:00 16 /min [facility] blood pressure systolic 2024-06-26 15:15:00 113 mm[Hg] Common [facility] blood pressure diastolic 2024-06-26 15:15:00 75 mm[Hg] [facility] height 2024-04-10 14:40:00 61 [in_i] Commo n [facility] weight 2024-04-10 14:40:00 155.2 [lb_av] Co mmon [facility] temperature 2024-04-10 14:40:00 97.3 [degF] Com mon [facility] bmi 2024-04-10 14:40:00 29.32 kg/m2 Comm on [facility] oximetry 2024-04-10 14:40:00 95 % Commo n [facility] respiratory rate 2024-04-10 14:40:00 16 /min [facility] blood pressure systolic 2024-04-10 14:40:00 118 mm[Hg] [facility] blood pressure diastolic 2024-04-10 14:40:00 75 mm[Hg] [facility] height 2024-03-15 16:00:00 61 [in_i] Commo n [facility] weight 2024-03-15 16:00:00 158.6 [lb_av] Co mmon [facility] temperature 2024-03-15 16:00:00 98.1 [degF] Com mon [facility] bmi 2024-03-15 16:00:00 29.96 kg/m2 Comm on [facility] oximetry 2024-03-15 16:00:00 97 % Commo n [facility] respiratory rate 2024-03-15 16:00:00 16 /min [facility] blood pressure systolic 2024-03-15 16:00:00 116 mm[Hg] [facility] blood pressure diastolic 2024-03-15 16:00:00 62 mm[Hg] [facility] height 2024-03-06 13:00:00 61 [in_i] Commo n [facility] weight 2024-03-06 13:00:00 159.2 [lb_av] Co on [facility] temperature 2024-03-06 13:00:00 97.7 [degF] Com [facility] bmi 2024-03-06 13:00:00 30.08 kg/m2 Comm on [facility] oximetry 2024-03-06 13:00:00 97 % Commo n [facility] respiratory rate 2024-03-06 13:00:00 16 /min [facility] blood pressure systolic 2024-03-06 13:00:00 136 mm[Hg] [facility] blood pressure diastolic 2024-03-06 13:00:00 80 mm[Hg] [facility] height 2024-02-20 08:40:00 61 [in_i] Commo n [facility] weight 2024-02-20 08:40:00 154.8 [lb_av] Co [facility] temperature 2024-02-20 08:40:00 97.2 [degF] Com [facility] bmi 2024-02-20 08:40:00 29.25 kg/m2 Comm on [facility] oximetry 2024-02-20 08:40:00 94 % Commo n [facility] respiratory rate 2024-02-20 08:40:00 16 /min [facility] blood pressure systolic 2024-02-20 08:40:00 137 mm[Hg] [facility] blood pressure diastolic 2024-02-20 08:40:00 85 mm[Hg] [facility] height 2024-02-02 14:40:00 61 [in_i] Commo n [facility] weight 2024-02-02 14:40:00 154.0 [lb_av] Co mmon [facility] temperature 2024-02-02 14:40:00 98.2 [degF] Com [facility] bmi 2024-02-02 14:40:00 29.09 kg/m2 Comm on [facility] oximetry 2024-02-02 14:40:00 96 % Commo n [facility] respiratory rate 2024-02-02 14:40:00 16 /min [facility] blood pressure systolic 2024-02-02 14:40:00 87 mm[Hg] [facility] blood pressure diastolic 2024-02-02 14:40:00 64 mm[Hg] Common [facility] height 2024-01-17 08:20:00 61 [in_i] Commo n [facility] weight 2024-01-17 08:20:00 156.6 [lb_av] Co [facility] temperature 2024-01-17 08:20:00 98.0 [degF] Com [facility] bmi 2024-01-17 08:20:00 29.59 kg/m2 Comm on [facility] oximetry 2024-01-17 08:20:00 96 % Commo n [facility] respiratory rate 2024-01-17 08:20:00 16 /min [facility] blood pressure systolic 2024-01-17 08:20:00 132 mm[Hg] [facility] blood pressure diastolic 2024-01-17 08:20:00 70 mm[Hg] [facility] height 2023-12-26 15:40:00 61 [in_i] Commo n [facility] weight 2023-12-26 15:40:00 153.4 [facility]lb_av] [facility] 2023-12-26 15:40:00 98.2 [degF] Com [facility] bmi 2023-12-26 15:40:00 28.98 kg/m2 Comm on [facility] oximetry 2023-12-26 15:40:00 96 % Commo n [facility] respiratory rate 2023-12-26 15:40:00 16 /min [facility] blood pressure systolic 2023-12-26 15:40:00 114 mm[Hg] [facility] blood pressure diastolic 2023-12-26 15:40:00 75 mm[Hg] [facility] height 2023-12-01 15:00:00 61 [in_i] Commo n [facility] weight 2023-12-01 15:00:00 185.4 [lb_av] Co mmon [facility] temperature 2023-12-01 15:00:00 97.7 [degF] Com mon [facility] bmi 2023-12-01 15:00:00 35.03 kg/m2 Comm on [facility] oximetry 2023-12-01 15:00:00 98 % Commo n [facility] respiratory rate 2023-12-01 15:00:00 16 /min [facility] blood pressure systolic 2023-12-01 15:00:00 118 mm[Hg] [facility] blood pressure diastolic 2023-12-01 15:00:00 64 mm[Hg] [facility] Procedures Procedure Date / Time Performed Performing Clinician Source TRANSTHORACIC ECHO (TTE) COMPLETE W/ CONTRAST 2024-08-29 17:00:00 Salcedo [facility] MYOCARDIUM PERFUSION STRESS AND REST 2024-08-28 19:30[facility] 2024-08-28 19:30[facility]00 [facility] PERFUSION STRESS AND REST 2024-08-28 19:30:00 [facility] PERFUSION STRESS AND REST 2024-08-28 19:30:00 Froilan Salcedo [facility] [id number] 2022-04-20 00:00:00 [facility] [id number] 2022-04-20 00:00:00 [facility] Encounters Start Date/Time End Date/Time Encounter Type Admission Type Attending [facility] Care Facility Care Department Encounter ID Source 2024-06-26 15:10:01 Outpatient Prudencio Dillon STLMLC STL[facility] [id number] [facility] 2024-06-22 11:46:01 Outpatient Prudencio Dillon STLML[facility] ST[facility] [id number] [facility] 2024-04-10 15:11:00 Outpatient Prudencio Dillon STLML[facility] STL[facility] [id number] [facility] 2024-02-01 07:18:00 Outpatient Prudencio Dillon STLML[facility] ST[facility] [id number] [facility] 2024-01-30 09:14:01 Outpatient Prudencio Dillon STLMLC STLMLC [id number] [facility] 2023-12-22 09:18:01 Outpatient Prudencio Dillon STLMLC STLMLC [id number] [facility] 2023-12-01 14:18:01 Outpatient Prudencio Dillon STLMLC STLMLC [id number] [facility] 2024-12-20 00:00:00 2024-12-20 00:00:00 (TEL) STLMLC STLMLC [id number] [facility] 2024-12-19 00:00:00 2024-12-19 00:00:00 (TEL) STLMLC STLMLC [id number] [facility] 2024-11-16 00:00:00 2024-11-16 00:00:00 (TEL) STLMLC STLMLC [id number] [facility] 2024-11-15 00:00:00 2024-11-15 00:00:00 OFFICE VISIT ESTAB PT LEVEL 3 STLMLC STLMLC [id number] [facility] 2024-10-18 00:00:00 2024-10-18 00:00:00 (TEL) STLMLC STLMLC [id number] [facility] 2024-10-12 00:00:00 2024-10-12 00:00:00 OFFICE VISIT ESTAB PT LEVEL 4 STLMLC STLMLC [id number] [facility] 2024-10-08 00:00:00 2024-10-08 00:00:00 (TEL) STLMLC STLMLC [id number] [facility] 2024-10-04 00:00:00 2024-10-04 00:00:00 (TEL) STLMLC STLMLC [id number] [facility] 2024-09-07 00:00:00 2024-09-07 00:00:00 (TEL) STLMLC STLMLC [id number] [facility] 2024-08-30 00:00:00 2024-08-30 16:14:40 Telephone Kamala Barrios [place] [id number] [id number] [facility] 2024-08-29 10:45:27 2024-08-29 23:59:[address] [facility] [id number] [facility] 2024-08-29 10:45:27 2024-08-29 23:59:00 Hospital Encounter Brenda SALCEDO FROILAN [address]840[address]114 350.1.13.10 4.2.7.2.686 [id number] [facility] 2024-08-29 11:00:00 2024-08-29 11:00:00 Outpatient R FROILAN SALC[facility]O [facility] [id number] [facility] 2024-08-28 09:04:55 2024-08-28 23:59:00 Hospital Encounter Froilan Salcedo AT [facility] [id number] 350.1.13.10 4.2.7.2.686 [id number] [facility] 2024-08-28 09:04:46 2024-08-28 23:59:00 Hospital Encounter Froilan Salcedo AT [facility] [id number] 350.1.13.10 4.2.7.2.686 [id number] [facility] 2024-08-28 09:04:38 2024-08-28 23:59:00 Hospital Encounter Froilan Salcedo [facility] [id number] 350.1.13.10 4.2.7.2.686 [id number] [facility] 2024-08-28 09:04:25 2024-08-28 23:59:00 Hospital Encounter Froilan Salcedo AT [facility] [id number] 350.1.13.10 4.2.7.2.686 [id number] [facility] 2024-08-28 09:04:25 2024-08-28 23:59:00 Outpatient R FROILAN SAL[facility] [id number] [facility] 2024-08-28 09:04:25 2024-08-28 09:04:25 Outpatient R FROILAN [facility] [facility] [id number] [facility] 2024-08-23 00:00:00 2024-08-23 00:00:00 (TEL) STLMLC STLMLC [id number] [facility] 2024-08-15 00:00:00 2024-08-15 11:28:23 Telephone Froilan Salcedo [facility] [id number] 350.1.13.10 4.2.7.2.686 [id number] [facility] 2024-08-10 09:30:00 2024-08-10 10:09:12 [facility] [id number] 350.1.13.10 4.2.7.2.686 [id number] [facility] 2024-08-10 09:30:00 2024-08-10 10:09:[address] [facility] [id number] [facility] 2024-08-07 00:00:00 2024-08-07 00:00:00 (TEL) STLMLC STLMLC [id number] [facility] 2024-07-19 00:00:00 2024-07-19 00:00:00 OFFICE VISIT ESTAB PT LEVEL 4 STLMLC STLMLC [id number] [facility] 2024-07-17 00:00:00 2024-07-17 00:00:00 (TEL) STLMLC STLMLC [id number] [facility] 2024-06-26 00:00:00 2024-06-26 00:00:00 OFFICE VISIT ESTAB PT LEVEL 4 STLMLC STLMLC [id number] [facility] 2024-06-18 00:00:00 2024-06-18 00:00:00 (TEL) STLMLC STLMLC [id number] [facility] 2024-06-01 00:00:00 2024-06-01 00:00:00 (TEL) STLMLC STLMLC [id number] [facility] 2024-04-24 00:00:00 2024-04-24 00:00:00 (TEL) STLMLC STLMLC [id number] [facility] 2024-04-17 00:00:00 2024-04-17 00:00:00 (TEL) STLMLC STLMLC [id number] [facility] 2024-04-17 00:00:00 2024-04-17 00:00:00 (TEL) STLMLC STLMLC [id number] [facility] 2024-04-10 00:00:00 2024-04-10 00:00:00 OFFICE VISIT ESTAB PT LEVEL 4 STLMLC STLMLC [id number] [facility] 2024-03-15 00:00:00 2024-03-15 00:00:00 OFFICE VISIT ESTAB PT LEVEL 3 STLMLC STLMLC [id number] [facility] 2024-03-13 00:00:00 2024-03-13 00:00:00 (TEL) STLMLC STLMLC [id number] [facility] 2024-03-13 00:00:00 2024-03-13 00:00:00 (TEL) STLMLC STLMLC [id number] [facility] 2024-03-13 00:00:00 2024-03-13 00:00:00 (TEL) STLMLC STLMLC [id number] [facility] 2024-03-06 00:00:00 2024-03-06 00:00:00 OFFICE VISIT ESTAB PT LEVEL 4 STLMLC STLMLC [id number] [facility] 2024-03-06 00:00:00 2024-03-06 00:00:00 (TEL) STLMLC STLMLC [id number] [facility] 2024-02-29 00:00:00 2024-02-29 00:00:00 (TEL) STLMLC STLMLC [id number] [facility] 2024-02-20 00:00:00 2024-02-20 00:00:00 OFFICE VISIT ESTAB PT LEVEL 3 STLMLC STLMLC [id number] [facility] 2024-02-17 00:00:00 2024-02-17 00:00:00 (TEL) STLMLC STLMLC [id number] [facility] 2024-02-02 00:00:00 2024-02-02 00:00:00 OFFICE VISIT ESTAB PT LEVEL 4 STLMLC STLMLC [id number] [facility] 2024-01-30 00:00:00 2024-01-30 00:00:00 (TEL) STLMLC STLMLC [id number] [facility] 2024-01-17 00:00:00 2024-01-17 00:00:00 OFFICE VISIT ESTAB PT LEVEL 3 STLMLC STLMLC [id number] [facility] 2024-01-04 00:00:00 2024-01-04 00:00:00 (TEL) STLMLC STLMLC [id number] [facility] 2023-12-26 00:00:00 2023-12-26 00:00:00 OFFICE VISIT ESTAB PT LEVEL 4 STLMLC STLMLC [id number] [facility] 2023-12-26 00:00:00 2023-12-26 00:00:00 (TEL) STLMLC STLMLC [id number] [facility] 2023-12-12 00:00:00 2023-12-12 00:00:00 (TEL) STLMLC STLMLC [id number] [facility] 2023-12-01 00:00:00 2023-12-01 00:00:00 OFFICE VISIT NEW PT LEVEL 4 STLMLC STLMLC [id number] [facility] 2022-04-19 20:31:00 2022-04-30 13:00:00 Inpatient Garett Calderón [facility] REHA [id number] [facility] 2022-04-18 01:52:00 2022-04-19 18:27:00 Inpatient Abdulkadir Fallon HCARG INTM.01 [id number] [facility] 2022-03-28 21:39:00 2022-03-29 00:29:00 Emergency EM Michel Steve [facility] [id number] [facility] Results Test Description Test Time Test Comments Results Result Co [facility] [id number] 00:00:00* Test Item Value Reference Range Interpretation Comme nts HEMOGLOBIN A1c (test code = 4548-4) 6.1 % See_Comment H [Automated messa ge] The system which generated this result transmitted reference range: 4.2-5.6 %. The reference range was not used to interpret this result as normal/abnormal. CALC LDL CHOL (test code = 32899-1) 65 MG/DL See_Comment [Automated messa ge] The system which generated this result transmitted reference range: <100 MG/DL. The reference range was not used to interpret this result as normal/abnormal. CHOLESTEROL (test code = 2093-3) 172 MG/DL See_Comment [Automated messa ge] The system which generated this result transmitted reference range: <200 MG/DL. The reference range was not used to interpret this result as normal/abnormal. HDL CHOLESTEROL (test code = 2085-9) 95 MG/DL See_Comment [Automated messa ge] The system which generated this result transmitted reference range: >39 MG/DL. The reference range was not used to interpret this result as normal/abnormal. RISK RATIO LDL/HDL (test code = 74033-6) 0.68 RATIO See_Comment [Automated message] The system which generated this result transmitted reference range: <3.55 RATIO. The reference range was not used to interpret this result as normal/abnormal. TRIGLYCERIDES (test code = 2571-8) 41 MG/DL See_Comment [Automated messa ge] The system which generated this result transmitted reference range: <150 MG/DL. The reference range was not used to interpret this result as normal/abnormal. ALBUMIN (test code = 1751-7) 4.3 G/DL See_Comment [Automated messa ge] The system which generated this result transmitted reference range: 3.5-5.2 G/DL. The reference range was not used to interpret this result as normal/abnormal. ALKALINE PHOSPHATASE (test code = 6768-6) 72 U/L See_Comment [Automated message] The system which generated this result transmitted reference range: 40-125 U/L. The reference range was not used to interpret this result as normal/abnormal. BILIRUBIN, TOTAL (test code = 1975-2) 1.6 MG/DL See_Comment H [Automated messa ge] The system which generated this result transmitted reference range: <=1.2 MG/DL. The reference range was not used to interpret this result as normal/abnormal. BUN (test code = 3094-0) 30 MG/DL See_Comment H [Automated messa ge] The system which generated this result transmitted reference range: 8-23 MG/DL. The reference range was not used to interpret this result as normal/abnormal. CALCIUM (test code = 01898-5) 9.5 MG/DL See_Comment [Automated messa ge] The system which generated this result transmitted reference range: 8.5-10.5 MG/DL. The reference range was not used to interpret this result as normal/abnormal. CALC A/G RATIO (test code = 1759-0) 1.4 RATIO See_Comment [Automated messa ge] The system which generated this result transmitted reference range: 1.0-2.6 RATIO. The reference range was not used to interpret this result as normal/abnormal. CALC BUN/CREAT (test code = 3097-3) 27 RATIO See_Comment [Automated messa ge] The system which generated this result transmitted reference range: 6-28 RATIO. The reference range was not used to interpret this result as normal/abnormal. CALC GLOBULIN (test code = 35142-7) 3.0 G/DL See_Comment [Automated messa ge] The system which generated this result transmitted reference range: 1.9-3.7 G/DL. The reference range was not used to interpret this result as normal/abnormal. CARBON DIOXIDE (test code = 1963-8) 25 MEQ/L See_Comment [Automated messa ge] The system which generated this result transmitted reference range: 19-31 MEQ/L. The reference range was not used to interpret this result as normal/abnormal. CHLORIDE (test code = 2075-0) 98 MEQ/L See_Comment [Automated messa ge] The system which generated this result transmitted reference range: 95-107 MEQ/L. The reference range was not used to interpret this result as normal/abnormal. CREATININE (test code = 2160-0) 1.12 MG/DL See_Comment [Automated Romotivea ge] The system which generated this result transmitted reference range: 0.80-1.40 MG/DL. The reference range was not used to interpret this result as normal/abnormal. eGFR (2020 CKD-EPI) (test code = 73934-9) 63 ML/MIN/1.73 See_Comment [Automated message] The system which generated this result transmitted reference range: >60 ML/MIN/1.73. The reference range was not used to interpret this result as normal/abnormal. GLUCOSE (test code = 1558-6) 130 MG/DL See_Comment H [Automated [employer] Ryzing] The system which generated this result transmitted reference range: 70-99 MG/DL. The reference range was not used to interpret this result as normal/abnormal. POTASSIUM (test code = 2823-3) 4.9 MEQ/L See_Comment [Automated Romotivea ge] The system which generated this result transmitted reference range: 3.5-5.4 MEQ/L. The reference range was not used to interpret this result as normal/abnormal. PROTEIN, TOTAL (test code = 2885-2) 7.3 G/DL See_Comment [Automated Romotivea ge] The system which generated this result transmitted reference range: 6.1-8.3 G/DL. The reference range was not used to interpret this result as normal/abnormal. AST (test code = 1920-8) 18 U/L See_Comment [Automated Romotivea ge] The system which generated this result transmitted reference range: 9-50 U/L. The reference range was not used to interpret this result as normal/abnormal. ALT (test code = 1742-6) 13 U/L See_Comment [Automated Romotivea ge] The system which generated this result transmitted reference range: 5-50 U/L. The reference range was not used to interpret this result as normal/abnormal. SODIUM (test code = 2951-2) 135 MEQ/L See_Comment [Automated Romotivea ge] The system which generated this result transmitted reference range: 133-146 MEQ/L. The reference range was not used to interpret this result as normal/abnormal. VITAMIN D, 25 OH (test code = 1988-) 40 NG/ML SEE BELOW NG/ML URINALYSIS AUTO W/O SCOPE (48765)2024-03-15 00:00:00* Test Item Value Reference Range Interpretation Comme nts CULTURE, URINE (test code = 630-4) SPECIMEN NUMBER: [id number] - US ABDOMEN [id number] 09:51:00 [facility] MC[facility]ILLIAMSOPOLDO : 1935 Sex: MFAX: Miguel Brown [phone] [place]: [facility] St: [facility] FAX: Quincy Davey DO FAX: Garett Maynard Name: [facility] : 1935 Age/S: 87/M [address] [place] [address] Unit #: [id number] Loc: [address] [address] Phys: Garett Maynard DO Acct: [id number] Dis Date: Status: ADM IN PHONE #: [phone] Exam Date: 04/30/2022815 FAX #: [phone] Reason: RIGHT UPPER QUADRANT PAIN EXAMS: CPT CODE: [id number] US ABDOMEN COMPLETE 47798 Location H 31 ABDOMINAL ULTRASOUND COMPLETE : [...] is nonspecific. CBD is nondilated at 4 mm.Correlate for normal PAGE 1 Signed Report (CONTINUED) FAX: Miguel Brown [phone] [place]:[facility] St: [facility] FAX: Quincy Davey DO FAX: Garett Maynard Name: ADRYAN MCWILLIAMS [facility] : 1935 Age/S: 87/M [address] [facility] Unit #: [id number] Loc: [place] [address] Phys: Garett Maynard DO Acct: [id number] Dis Date: Status: ADM IN PHONE #: [phone] Exam Date: 0816 FAX #: [phone] Reason: RIGHT UPPER QUADRANT PAIN EXAMS: CPT CODE: [id number] US ABDOMEN COMPLETE 79646 (Continued) bilirubin levels. at 0951 Reported and signed by: Ling Paz M.D. CC: Miguel Brown; Quincy Davey DO; Garett Saini Technologist: Cristy Rivas RDMS Trnscrd Date/Time/By: 04/30/2022 (950) : By: [email or web address] Orig Print D/T: S: 04/30/2022 (0970) PAGE 2 Signed [id number] 06:53:00* Test Item Value Reference Range Interpretation Comme nts GLUBED (test code = GLUBED) 97 mg/dL 70-105 N Performed by cer tified whiting machine operator at [facility]2022-12-29 21:05:00* Test Item Value Reference Range Interpretation Comme nts GLUBED (test code = GLUBED) 114 mg/dL 70-105 H Performed by cer tified whiting machine operator at [facility]2022-12-29 15:50:00* Test Item Value Reference Range Interpretation Comme nts GLUBED (test code = GLUBED) 115 mg/dL 70-105 H Performed by cer tified whiting machine operator at [facility]2022-12-29 11:13:00* Test Item Value Reference Range Interpretation Comme nts GLUBED (test code = GLUBED) 109 mg/dL 70-105 H Performed by cer tified whiting machine operator at [facility]2022-12-29 06:08:00* Test Item Value Reference Range Interpretation Comme nts GLUBED (test code = GLUBED) 94 mg/dL 70-105 N Performed by cer tified whiting machine operator at [facility]2022-12-28 21:35:00* Test Item Value Reference Range Interpretation Comme nts GLUBED (test code = GLUBED) 100 mg/dL 70-105 N Performed by cer tified whiting machine operator at [facility]2022-12-28 17:00:00* Test Item Value Reference Range Interpretation Comme nts GLUBED (test code = GLUBED) 133 mg/dL 70-105 H Performed by cer tified whiting machine operator at [facility]2022-12-28 11:00:00* Test Item Value Reference Range Interpretation Comme nts GLUBED (test code = GLUBED) 124 mg/dL 70-105 H Performed by cer tified whiting machine operator at [facility]2022-12-28 07:31:00* Test Item Value Reference Range Interpretation Comme nts GLUBED (test code = GLUBED) 112 mg/dL 70-105 H Performed by cer tified whiting machine operator at [facility]2022-12-27 21:28:00* Test Item Value Reference Range Interpretation Comme nts GLUBED (test code = GLUBED) 108 mg/dL 70-105 H Performed by cer tified whiting machine operator at [facility]2022-12-27 16:47:00* Test Item Value Reference Range Interpretation Comme nts GLUBED (test code = GLUBED) 136 mg/dL 70-105 H Performed by cer tified whiting machine operator at [facility]2022-12-27 11:00:00* Test Item Value Reference Range Interpretation Comme nts GLUBED (test code = GLUBED) 135 mg/dL 70-105 H Performed by cer tified whiting machine operator at [facility]2022-12-27 06:06:00* Test Item Value Reference Range Interpretation Comme nts GLUBED (test code = GLUBED) 112 mg/dL 70-105 H Performed by cer tified whiting machine operator at [facility]2022-12-26 21:12:00* Test Item Value Reference Range Interpretation Comme nts GLUBED (test code = GLUBED) 174 mg/dL 70-105 H Performed by cer tified whiting machine operator at [facility]2022-12-26 16:55:00* Test Item Value Reference Range Interpretation Comme nts GLUBED (test code = GLUBED) 149 mg/dL 70-105 H Performed by cer tified whiting machine operator at [facility]2022-12-26 12:31:00* Test Item Value Reference Range Interpretation Comme nts GLUBED (test code = GLUBED) 170 mg/dL 70-105 H Performed by cer tified whiting machine operator at [facility] CBC W/AUTO [id number] 08:03:00* Test Item Value Reference Range Interpretation [...] NRBC#) 0.00 K/mm3 0.0-0.1 N BASIC METABOLIC [id number] 07:40:00* Test Item Value Reference Range Interpretation [...] > or = 60 ml/min/1.73M2IF PATIENT IS -PORTUGUESE, MULTIPLY REPORTED RESULT BY1.21.The Glomerular Filtration Rate [...] code = CA) 8.9 mg/dL 8.5-10.1 N [id number] 06:44:00* Test Item Value Reference Range Interpretation Comme nts GLUBED (test code = GLUBED) 102 mg/dL 70-105 N Performed by cer tified whiting machine operator at [facility] [id number] 20:59:00* Test Item Value Reference Range Interpretation Comme nts GLUBED (test code = GLUBED) 108 mg/dL 70-105 H Performed by cer tified whiting machine operator at [facility] [id number] 16:56:00* Test Item Value Reference Range Interpretation Comme nts GLUBED (test code = GLUBED) 101 mg/dL 70-105 N Performed by cer tified whiting machine operator at [facility]2022-12-25 11:13:00* Test Item Value Reference Range Interpretation Comme nts GLUBED (test code = GLUBED) 134 mg/dL 70-105 H Performed by cer tified whiting machine operator at [facility] COVID 19 Asymptomatic IH [id number] 11:06:00* Test Item Value Reference Range Interpretation Comments COVID 19 Asymptomatic IH AG (test code = COVNONPUIAG) Presumed Negative NEGATIVE NINA COVID-19 Results are for the identification of WFWN-LtC-2rnoodoboontb protein antigen. Antigen is generallydetectable in upper [...] the Foodand Drug Administration's Emergency Use Authorization. [id number] 06:17:00* Test Item Value Reference Range Interpretation Comme nts GLUBED (test code = GLUBED) 119 mg/dL 70-105 H Performed by cer tified whiting machine operator at [facility]2022-12-24 20:23:00* Test Item Value Reference Range Interpretation Comme nts GLUBED (test code = GLUBED) 143 mg/dL 70-105 H Performed by cer tified whiting machine operator at [facility]2022-12-24 16:40:00* Test Item Value Reference Range Interpretation Comme nts GLUBED (test code = GLUBED) 84 mg/dL 70-105 N Performed by cer tified whiting machine operator at [facility]2022-12-24 11:15:00* Test Item Value Reference Range Interpretation Comme nts GLUBED (test code = GLUBED) 162 mg/dL 70-105 H Performed by cer tified whiting machine operator at [facility]2022-12-24 06:19:00* Test Item Value Reference Range Interpretation Comme nts GLUBED (test code = GLUBED) 104 mg/dL 70-105 N Performed by cer tified whiting machine operator at [facility]2022-12-23 20:42:00* Test Item Value Reference Range Interpretation Comme nts GLUBED (test code = GLUBED) 128 mg/dL 70-105 H Performed by cer tified whiting machine operator at [facility]2022-12-23 16:43:00* Test Item Value Reference Range Interpretation Comme nts GLUBED (test code = GLUBED) 137 mg/dL 70-105 H Performed by cer tified whiting machine operator at [facility]2022-12-23 12:02:00* Test Item Value Reference Range Interpretation Comme nts GLUBED (test code = GLUBED) 99 mg/dL 70-105 N Performed by cer tified whiting machine operator at [facility] BASIC METABOLIC [id number] 06:18:00* Test Item Value Reference Range Interpretation [...] > or = 60 ml/min/1.73M2IF PATIENT IS -PORTUGUESE, MULTIPLY REPORTED RESULT BY1.21.The Glomerular Filtration Rate [...] CA) 8.6 mg/dL 8.5-10.1 N COMPREHENSIVE METABOLIC [id number] 06:59:00* Test Item Value Reference Range Interpretation [...] > or = 60 ml/min/1.73M2IF PATIENT IS -PORTUGUESE, MULTIPLY REPORTED RESULT BY1.21.The Glomerular Filtration Rate [...] ALKP) 51 U/L 50-136 N CBC W/AUTO [id number] 06:19:00* Test Item Value Reference Range Interpretation [...] code = NRBC#) 0.00 K/mm3 0.0-0.1 N [id number] 16:36:00* Test Item Value Reference Range Interpretation Comme nts GLUBED (test code = GLUBED) 122 mg/dL 70-105 H Performed by cer tified whiting machine operator at [facility] BASIC METABOLIC [id number] 13:34:00* Test Item Value Reference Range Interpretation [...] > or = 60 ml/min/1.73M2IF PATIENT IS -PORTUGUESE, MULTIPLY REPORTED RESULT BY1.21.The Glomerular Filtration Rate [...] code = CA) 7.9 mg/dL 8.5-10.1 L [id number] 13:34:00* Test Item Value Reference Range Interpretation Comme nts MAGNESIUM (test code = MAG) 1.3 mg/dL 1.8-2.4 L CBC W/AUTO [id number] 13:15:00* Test Item Value Reference Range Interpretation [...] code = NRBC#) 0.00 K/mm3 0.0-0.1 N [id number] 12:16:00* Test Item Value Reference Range Interpretation Comme nts GLUBED (test code = GLUBED) 123 mg/dL 70-105 H Performed by cer tified whiting machine operator at [facility] [id number] 06:20:00* Test Item Value Reference Range Interpretation Comme nts GLUBED (test code = GLUBED) 83 mg/dL 70-105 N Performed by cer tified whiting machine operator at [facility] UR SODIUM [id number] 21:03:00* Test Item Value Reference Range Interpretation Comme nts UR SODIUM RANDOM (test code = JULIANA) 73 meq/L UR OSMOLALITY [id number] 21:03:00* Test Item Value Reference Range Interpretation Comme nts UR OSMOLALITY RANDOM (test c ode = OSMOU) 362 MOS/KG 500-800 L [id number] 20:12:00* Test Item Value Reference Range Interpretation Comme nts GLUBED (test code = GLUBED) 93 mg/dL 70-105 N Performed by cer tified whiting machine operator at [facility] [id number] 19:07:00* Test Item Value Reference Range Interpretation Comme nts SODIUM (test code = NA) 126 mmol/L 136-145 L [id number] 16:09:00* Test Item Value Reference Range Interpretation Comme nts GLUBED (test code = GLUBED) 127 mg/dL 70-105 H Performed by cer Fresvii whiting machine operator at [facility] [id number] 15:14:00* Test Item Value Reference Range Interpretation Comme nts SODIUM (test code = NA) 124 mmol/L 136-145 L [id number] 12:18:00* Test Item Value Reference Range Interpretation Comme nts SODIUM (test code = NA) 125 mmol/L 136-145 L [id number] 11:32:00* Test Item Value Reference Range Interpretation Comme nts GLUBED (test code = GLUBED) 116 mg/dL 70-105 H Performed by cer tified whiting machine operator at [facility] OSMOLALITY [id number] 09:53:00* Test Item Value Reference Range Interpretation Comme nts OSMOLALITY SERUM (test code = OSMO) 259 MOS/KG 275-295 L [id number] 06:21:00* Test Item Value Reference Range Interpretation Comme nts GLUBED (test code = GLUBED) 125 mg/dL 70-105 H Performed by cer Skiin Fundementalsied whiting machine operator at [facility] BASIC METABOLIC [id number] 05:48:00* Test Item Value Reference Range Interpretation [...] > or = 60 ml/min/1.73M2IF PATIENT IS -PORTUGUESE, MULTIPLY REPORTED RESULT BY1.21.The Glomerular Filtration Rate [...] CA) 8.9 mg/dL 8.5-10.1 N COMPREHENSIVE METABOLIC [id number] 05:48:00* Test Item Value Reference Range Interpretation [...] 55 U/L 50-136 N URINALYSIS W REFLEX [id number] 02:38:00* Test Item Value Reference Range Interpretation [...] = RBCU) 3-5 #/hpf 0-5 BASIC METABOLIC [id number] 01:23:00* Test Item Value Reference Range Interpretation [...] > or = 60 ml/min/1.73M2IF PATIENT IS -PORTUGUESE, MULTIPLY REPORTED RESULT BY1.21.The Glomerular Filtration Rate [...] mg/dL 8.5-10.1 L - CT HEAD/BRAIN W/O [id number] 01:16:00 [facility] A[facility] : 1935 Sex: [facility] : 1935 Age/S: 87 / M [address] [facility] Unit #: [id number] Loc: [place], [place] [address] Phys: Nabeel Rickde DO Acct: [id number] Dis Date: Status: REG ER PHONE #: [phone] Exam Date: 04/18/20228 FAX #: [phone] Reason:headache, hypertension EXAMS: CPT CODE: [id number] CT HEAD/BRAIN W/O CONT 43125 Exam: CT head without contrast. Location: H 12 History: headache, hypertension Technique: Unenhanced spiral slices weretaken from the base of the skull, through [...] matter changes are present along with scattered microinfarctsin the periventricular and subcortical deep white matter. The brain parenchyma and the CSF spaces are otherwise unremarkable. No mass, midline shift, hemorrhage, edema or hydrocephalus is seen. The visualized paranasal sinuses are clear. The mastoid air cells are well pneumatized. The bony calvarium is intact. Impression: 1. No acute intracranial abnormality. 2. Atrophy. 3. Atherosclerotic microvascular disease. 4. Otherwise unremarkable exam. at 0116 Reported and signed by: TOMMY DAUGHERTY M.D. CC: Bertrand Brown Technologist:Senthil Martin, RT(R) CT CTDI: 36.96 DLP: 715.42 Trnscb Date/Time: 04/18/2022 (011) t.EVER.FC Orig Print D/T: S: 04/18/2022 (0119) PAGE 1 Signed ReportCBC W/AUTO [id number] 00:54:00* Test Item Value Reference Range Interpretation [...] NRBC#) 0.00 K/mm3 0.0-0.1 N COMPREHENSIVE METABOLIC [id number] 22:44:00* Test Item Value Reference Range Interpretation [...] > or = 60 ml/min/1.73M2IF PATIENT IS -PORTUGUESE, MULTIPLY REPORTED RESULT BY1.21.The Glomerular Filtration Rate [...] ALKP) 68 U/L 50-136 N CBC W/AUTO [id number] 22:22:00* Test Item Value Reference Range Interpretation [...] 0.00 K/mm3 0.0-0.1 N - CT CHEST W/[id number] 18:55:00Name: ADRYAN MCWILLIAMS [facility] : 1935 Age/S: 83 / M [address] Unit #: [id number] Loc: [place] [address] Phys: Patrice Suh MD Acct: [id number] Dis Date: Status: REG ER PHONE #: [phone] Exam Date: 03/02/2019 183 FAX #: [phone] Reason: FALL EXAMS: CPT CODE: [id number] CT CHEST W/CONTRAST 22233 Site ID: [id number] EXAMINATION: - CT ABD PELVIS W/CONT, - CT CHEST W/CONTRAST. Technique: Axial images with coronal and sagittal reconstructions areperformed of the chest, abdomen and pelvis with intravenous contrast. 100 ml of Isovue-300 was administered intravenously. One or more of the following radiation dose reduction techniques was used: automated exposure control, adjustment of mA and/or KV according to patient size, and/or utilizationof iterative reconstruction technique. HISTORY: FALL. COMPARISON: None. [...] no significant consolidation or contusion. No pneumothorax. Minimalgroundglass opacities in the dependent areas, probably represents [...] PAGE 1 Signed Report (CONTINUED) [facility] 1935 Age/S: 83 / M [address] [facility] Unit #: [id number] Loc: [place] [address] Phys: Patrice Suh MD Acct: [id number] Dis Date: Status: REG ER PHONE #: [phone] Exam Date: 03/02/2019 183 FAX #: [phone] Reason: FALL EXAMS: CPT CODE: [id number] CT CHEST W/CONTRAST 18167 (Continued) to be present at that time. There is an exop hytic cyst from the lower pole of the [...] and signed by: Adan Chen MD CC: Patrice Suh MD; Miguel Brown Technologist:Saul Acuna RT (R) CT (R) CTDI: 9.33 DLP: 671.16 Trnscb Date/Time: 03/02/2019 (1854) tWILVERTZS Orig Print D/T: S: 03/02/2019 (1858) PAGE 2 Signed Report- CT ABD PELVIS W/[id number] 18:55:00Name: ADRYAN MCWILLIAMS [facility] [place] : 1935 Age/S: 83 / M [address] [facility] Unit #: [id number] Loc: [place] [address] Phys: Patrice Suh MD Acct: [id number] DisDate: Status: REG ER PHONE #: [phone] Exam Date: 03/02/2019 183 FAX #: [phone] Reason: FALL EXAMS: CPT CODE: [id number] CT ABD PELVIS W/CONT 29088 Site ID: [id number] EXAMINATION: - CT ABD [...] cirrhosis. There is no ascites. Cholecystectomy clips areseen. The spleen is not enlarged. The pancreas and adrenal glands appear unremarkable. The kidneys demonstrate symmetric enhancement. There is no hydronephrosis. Hypodense lesion in the lower pole ofthe right kidney measuring 1.6 cm is favored to be a cyst. When compared to study from 2017, although difficult to see without contrast this lesion appears PAGE 1 Signed Report (CONTINUED) [facility] 1935 Age/S: 83 / M [address] [facility] Unit #: [id number] Loc: [place] [address] Phys: Patrice Suh MD Acct: [id number] Dis Date: Status: REG ER PHONE #: [phone] Exam Date: 03/02/2019 1831 FAX #: [phone] Reason: FALL EXAMS: CPT CODE: [id number] CT ABD PELVIS W/CONT 87887 (Continued) to be present at that time. There is an ex ophytic cyst from the lower pole of the [...] and signed by: Adan Chen MD CC: Patrice Suh MD; Moises Brown Technologist:Saul Acuna RT (R) CT (R) CTDI: 9.33 DLP: 671.16 Trnscb Date/Time: 03/02/2019 (1854) BaldoTZS Orig Print D/T: S: 03/02/2019 (0903) PAGE 2 Signed Report- CT C-SPINE W/O [id number] 18:43:00[facility] 1935 Age/S: 83 / M [address] Unit #: [id number] Loc: [place], [place] [address] Phys: Patrice Suh MD Acct: [id number] DisDate: Status: REG ER PHONE #: [phone] Exam Date: 03/02/2019 183 FAX #: [phone] Reason: FALL EXAMS: CPT CODE: [id number] CT C-SPINE W/O CONT 82131 Site ID: [id number] EXAMINATION: - CT HEAD/BRAIN W/O CONT, - CT C-SPINE W/O CONT. TECHNIQUE: Noncontrast axial images of the brain and cervical spinewith coronal and sagittal reconstructions were obtained. One [...] changes. In the scalp, there is a saylp-tc-yhtfkybz sized right parietal hematoma with maximum thickness of 1 cm.. No hydrocephalus. There [...] The alignment of the lateral masses of C1and C2 and atlantooccipital joints is satisfactory. No fracture is identified. IMPRESSION: CT HEAD: 1. No intracranial hemorrhage. PAGE 1 Signed Report (CONTINUED) Name: [facility] : 1935 Age/S: 83 / M [address] [place] [address] Road Unit #: [id number] Loc: [place] [address] Phys: Patrice Suh MD Acct: [id number] Dis Date: Status: REG ER PHONE #: [phone] Exam Date: 03/02/20191830 FAX #: [phone] Reason: FALL EXAMS: CPT CODE: [id number] CTC-SPINE W/O CONT 38068 (Continued) 2. Small to moderate right parietal scalp hematoma. 3. Opacification of the right mastoid air cells may relate to mastoiditis.. CT cervical spine: Advanced degenerative changes. No fracture seen. at 1843 Reported and signed by: Adan Chen MD CC: Patrice Suh MD; Miguel Brown Technologist:Saul Acuna RT (R) CT (R) CTDI: 8.10 DLP: 187.80 Trnscb Date/Time: 03/02/2019 (1843) [email or web address] Orig Print D/T: S: 03/02/2019 (184) PAGE 2 Signed Report- CT HEAD/BRAIN W/O [id number] 18:43:00[facility] 1935 Age/S: 83 / M [address] [place] [address] Unit #: [id number] Loc: [place] [address] Phys: Patrice Suh MD Acct: [id number] DisDate: Status: REG ER PHONE #: [phone] Exam Date: 03/02/2019 183 FAX #: [phone] Reason: headache EXAMS: CPT CODE: [id number] CT HEAD/BRAIN W/O CONT 64488 Site ID: [id number] EXAMINATION: - CT HEAD/BRAIN [...] changes. In the scalp, there is a otiyc-mu-depacddt sized right parietal hematoma with maximum thickness of 1 cm.. No hydrocephalus. There [...] facet joints. The alignment of the lateral massesof C1 and C2 and atlantooccipital joints is satisfactory. No fracture is identified. IMPRESSION: CTHEAD: 1. No intracranial hemorrhage. PAGE 1 Signed Report (CONTINUED) [facility] 1935 Age/S: 83 / M [address] [facility] Unit #: [id number] Loc: [place] [address] Phys: Patrice Suh MD Acct: [id number] Dis Date: Status: REG ER PHONE#: [phone] Exam Date: 03/02/2019 1831 FAX #: [phone] Reason: headache EXAMS: CPT CODE: [id number] CT HEAD/BRAIN W/O CONT 71207 (Continued) 2. Small to moderate right parietal scalp hematoma. 3. Opacification of the right mastoid air cells may relate to mastoiditis.. CT cervical spine: Advanced degenerative changes. No fracture seen. at 1843 Reported and signed by: Adan Chen MD CC: Patrice Suh MD; Miguel Crologist:Saul Acuna RT (R) CT (R) CTDI: 37.69 DLP: 603.09 Trnscb Date/Time: 03/02/2019 (1842) Radha Orig Print D/T: S: 03/02/2019 (1845) PAGE 2 Signed ReportBASIC METABOLIC [id number] 18:31:00* Test Item Value Reference Range Interpretation [...] > or = 60 ml/min/1.73M2IF PATIENT IS -PORTUGUESE, MULTIPLY REPORTED RESULT BY1.21. CREATININE (test code = CREAT) 1.10 mg/dL 0.67-1.17 N CALCIUM (test code = CA) 9.1 mg/dL 8.5-10.1 N LIVER [id number] 18:31:00* Test Item Value Reference Range Interpretation [...] code = ALKP) 84 U/L 50-136 N [id number] 18:31:00* Test Item Value Reference Range Interpretation Comme nts TROPONIN-I (test code = TROPI) <0.015 ng/ml 0.00-0.045 N GUIDELINES: 0.08 - 0.09 Indeterminate0.10 Risk Stratification Limit: Suggest sequential testing0.60 - 1.50 AMI cutoff: Myocardial Injury by WHO criteria BASIC METABOLIC [id number] 18:30:00* Test Item Value Reference Range Interpretation [...] > or = 60 ml/min/1.73M2IF PATIENT IS -PORTUGUESE, MULTIPLY REPORTED RESULT BY1.21. CREATININE (test code = CREAT) 1.10 mg/dL 0.67-1.17 N CALCIUM (test code = CA) 9.1 mg/dL 8.5-10.1 N LIVER [id number] 18:30:00* Test Item Value Reference Range Interpretation [...] code = ALKP) 84 U/L 50-136 N [id number] 18:30:00* Test Item Value Reference Range Interpretation Comme nts TROPONIN-I (test code = TROPI) ng/ml 0.00-0.045 BASIC METABOLIC [id number] 18:25:00* Test Item Value Reference Range Interpretation [...] = CA) 9.1 mg/dL 8.5-10.1 N LIVER [id number] 18:25:00* Test Item Value Reference Range Interpretation [...] ( test code = ALKP) U/L 50-136 [id number] 18:25:00* Test Item Value Reference Range Interpretation Comme nts TROPONIN-I (test code = TROPI) ng/ml 0.00-0.045 PROTHROMBIN [id number] 18:25:00* Test Item Value Reference Range Interpretation [...] patients with mechanicalprosthetic heart valves. THROMBOPLASTIN TIME [id number] 18:25:00* Test Item Value Reference Range Interpretation Comme nts THROMBOPLASTIN TIME PARTIAL (test code = PTT) 28.2 seconds 22.8-34.4 N CBC W/AUTO [id number] 18:14:00* Test Item Value Reference Range Interpretation [...] 0.0-0.1 N Notes Date/Time Note Provider Source 2024-08-30 16:08:54 Called to inform patient of results and recommendations as detailed below. Spoke with Patient's daughter, Laura, who verbalized understanding and requested cardiac study reports be faxed to Dr. Dillon. Echo faxed to Dr. Dillon at [phone]. Brigitte Huitron RN [facility] 2024-08-30 15:08:15 Adryan Mcwilliams is a 89 year old male Pts daughter calling back from missed call. urgent care used Please advise [facility] 2024-08-30 14:09:07 Images from the original note were not included. Attempted to call with document control coordinator to discuss results and provider recommendations. LVM with callback number. Froilan Salcedo MD P Cardiology Nurse Echo showed normal overall cardiac function. There is mild elevation in pulmonary artery pressure, no need to change any treatment as of now. Froilan Salcedo MD P Cardiology Nurse Stress test is normal. This is reassuring. Chest pain is unlikely to be due to angina. Please continue same treatment/follow up plan discussed in office visit. [facility] 2024-08-28 09:30:00 Summary: stress Adryan Mcwilliams is a 89 year old male received to Nuclear Medicine for Stress Test. Pt is AAOx4 and is in NAD. Pt identified using Name & . Pt endorses no caffeine intake for 24 hrs and being NPO at least 4 hrs. PIV placed at right arm. 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 NM Tech monitoring is larry Supervising physician donte obtained consent at 08/28/24 Time out completed 1227 Lexiscan 0.4mg/5mL injected at 1227, followed by 5mL NS flush. Pre Stress Test vitals are: BP 159/88 HR 70 Resp 20 O2 sat 100 Injection vitals are: BP 138/63 HR 79 Resp 20 O2 sat 100 Recovery vitals are: BP 130/73 HR 82 Resp 20 O2 sat 100 PIV removed, pt leaving in no obvious distress. [facility] 2024-08-15 11:28:05 Forwarded to provider for review. Brigitte Huitron RN [facility] 2024-08-15 09:32:53 Received medical record from Dr. Dillon, uploaded to chart under media for review. Latanya [facility] 2022-04-30 13:37:00 [facility]) Hospitalist Discharge Summary REPORT#:[id number] REPORT STATUS: Signed DATE:04/30/22 TIME: 1337 PATIENT: ADRYAN MCWILLIAMS UNIT #: [id number] ROOM/BED: [address] : [birth year] AGE: 87 SEX: M [...] hyperlipidemia, BPH, insomnia, depression recently admitted to [facility] for failure to thrive and [...] Resp 12 04/30 930 Temp 97.9 04/30 05 FiO2 21 04/27 0558 O2 Delivery Room air 04/27 0558 O2 Flow Rate 2 04/23 1114 24 [...] no cyanosis, no edema Musculoskeletal: normal inspection Neuro/SEC ACCOUNTANT: alert, oriented X 3, normal speech Skin: intact Psychiatry: normal affect, normal mood Results Findings/Data: Laboratory Tests: 04/30 04/29 04/29 0652 2103 1548 Chemistry POC Glucose (70 - 105 mg/dL) 97 114 H 115 H Radiology data: Recent Impressions: ULTRASOUND - US ABDOMEN COMPLETE 04/30 0816 Report Impression - Status: SIGNED Entered: 04/30/2022 0963 IMPRESSION: 1. There appears focal circumscribed mass [...] Miguel Brown APN Discharge to: Home Health [facility] of Care Additional Discharge Routines: PCP Follow-Up Diet: Diabetic Activity: As Tolerated Follow-up Appointments PCP follow-up: PCP: Miguel Brown APN PCP follow up timeframe: In 5 days Quality: Discharge Current Medications Current medication review: I attest that the foregoing medication list in the medical record is true, accurate, and complete to the best of my knowledge. at 1342 RPT #:[id number] END OF REPORT [facility] 2022-04-[facility] 13:05:00 [facility]) Hospitalist Progress Note REPORT#:[id number] REPORT STATUS: Signed DATE:04/29/22 TIME: 1305 PATIENT: ADRYAN MCWILLIAMS UNIT #: [id number] ROOM/BED: [address] : [birth year] AGE: 87 SEX: M [...] no cyanosis, no edema Musculoskeletal: normal inspection Neuro/SEC ACCOUNTANT: alert, oriented X 3, normal speech Skin: intact Psychiatry: normal affect, normal mood Results Findings/Data: Laboratory Tests 04/29 04/29 04/28 04/28 1111 0607 8893 5569 Chemistry POC Glucose (70 - 105 mg/dL) [...] abdominal ultrasound to further evaluate. at 1311 RPT #:[id number] END OF REPORT [facility] 2022-04-28 15:24:00 [facility]) Rehab Team Conference REPORT#:[id number] REPORT STATUS: Signed DATE:04/28/22 TIME: 1524 PATIENT: ADRYAN MCWILLIAMS UNIT #: [id number] [facility] [birth year] AGE: 87 SEX: M ATTEND: Garett Maynard DO ADM AUTHOR: Sveta Womack MD * ALL edits or amendments must be made on the electronic/computer document * Rehabilitation Team Conference Weekly Team Conference Team conf information: Date of conference: 04/28/22 Conference type: Interim Conference scribe: Jamie Durán PT INTERDISCIPLINARY TEAM MEETING PARTICIPANTS: TITLE NAME MD EMANUEL Dietz RN PT Jamie Durán PT OT Miguel Brown OT CM/NEELIMA Beyer NO ATTEN[facility] Margaret Leonardo OT Staff (8) Russel Brown REH Staff (9) Lela [place] RN OTHER NAME CREDENTIALS 1 2 FUNCTIONAL CHANGE: TYPE ADMISSION TOTAL INTERIM TOTAL CHANGE Self care 24 41 17 Transfer 19 37 18 Mobility 14 33 19 Wheelchair distance: 150FT Mobility description: PATIENT AMBULATING 150FT AT SV C USE OF FWW. PATIENT WITH GOOD JOSE NOTED. PATIENT IS ALSO AMBULATING SHORT DISTANCES [...] Twelve steps discharge goal: Med cond/safety concern [place] 150 feet discharge goal: Independent (6) Goal [...] of LOB to prevent fall or injury. [place] day (DATE): 04/29/22 Expected discharge destination: Home [...] good candidate for rehabilitation. at 1524 RPT #:[id number] END OF REPORT [facility] 2022-04-28 14:16:00 [facility]) Hospitalist Progress Note REPORT#:[id number] REPORT STATUS: Signed DATE:04/28/22 TIME: 1416 PATIENT: ADRYAN MCWILLIAMS UNIT #: [id number] [facility] [birth year] AGE: 87 SEX: M [...] Chloride (SODIUM CHLORIDE 0.9% 1000ml) 1,000 ML .[id number] IV (DC) Physical Exam General appearance: alert, awake, no acute distress, conversational, no respiratory distress Cardiovascular: normal capillary refill, normal heart sounds, regular rate rhythm Respiratory: decreased breath sounds, aerating well, symmetric expansion Abdomen: non-tender, normal bowel sounds Extremities: moves all, no clubbing, no cyanosis, no edema Musculoskeletal: normal inspection Neuro/SEC ACCOUNTANT: alert, oriented X 3, normal speech Skin: [...] -Monitor labs as needed at 1418 RPT #:[id number] END OF REPORT [facility] 2022-04-28 13:15:00 [facility]) Rehab Progress Note REPORT#:[id number] REPORT STATUS: Signed DATE:04/28/22 TIME: 1315 PATIENT: ADRYAN MCWILLIAMS UNIT #: [id number] ROOM/BED: [address] : [birth year] AGE: 87 SEX: M ATTEND: Garett Maynard DO ADM AUTHOR: Sveta Womack MD * ALL edits or amendments must be made on the electronic/computer document * Subjective Chief complaint: Difficulty with ambulation and decreased p.o. intake History of present illness: 87-year-old gentleman who is Romanian-speaking status post acute hospitalization for malnutrition and [...] All systems rev neg: except as marked Romanian translation used. Objective General VS: Vital Signs: [...] Chloride (SODIUM CHLORIDE 0.9% 1000ml) 1,000 ML .[id number] IV (DC) Dietitian nutrition assessment The data [...] (4/5), RLE strength (4/5), RUE strength (4/5) Neuro/SEC ACCOUNTANT: alert, normal speech, no sensory deficits Results [...] Text A P: 87-year-old gentleman who is Romanian-speaking status post acute hospitalization for malnutrition and failure to thrive and headache and hypertensive urgency with chronic hyponatremia. Now achieving blood pressure control but still has hyponatremia and receiving normal saline IV intravenously per medicine's care. Smiling today and speaking in Romanian and verbalize he is interested in continuing [...] walk or get out of bed in Romanian. 4. Generalized weakness: Resolved Needing intensive gradual [...] with interdisciplinary treatment plan. at 1524 RPT #:[id number] END OF REPORT [facility] 2022-04-27 15:18:00 [facility]) Rehab Progress Note REPORT#:[id number] REPORT STATUS: Signed DATE:04/27/22 TIME: 1518 PATIENT: ADRYAN MCWILLIAMS UNIT #: [id number] ROOM/BED: [address] : [birth year] AGE: 87 SEX: M ATTEND: Garett Maynard DO ADM AUTHOR: Sveta Womack MD * ALL edits or amendments must be made on the electronic/computer document * Subjective Chief complaint: Difficulty with ambulation and decreased p.o. intake History of present illness: 87-year-old gentleman who is Romanian-speaking status post acute hospitalization for malnutrition and [...] All systems rev neg: except as marked Romanian translation used. Objective General VS: Vital Signs: [...] Chloride (SODIUM CHLORIDE 0.9% 1000ml) 1,000 ML .[id number] IV Dietitian nutrition assessment The data set [...] (4/5), RLE strength (4/5), RUE strength (4/5) Neuro/SEC ACCOUNTANT: alert, normal speech, no sensory deficits Results [...] Text A P: 87-year-old gentleman who is Romanian-speaking status post acute hospitalization for malnutrition and failure to thrive and headache and hypertensive urgency with chronic hyponatremia. Now achieving blood pressure control but still has hyponatremia and receiving normal saline IV intravenously per medicine's care. Smiling today and speaking in Romanian and verbalize he is interested in continuing [...] walk or get out of bed in Romanian. 4. Generalized weakness: Needing intensive gradual physical [...] with interdisciplinary treatment plan. at 1526 RPT #:[id number] END OF [facility] 2022-04-[facility] 13:35:00 [facility]) Hospitalist Progress Note REPORT#:[id number] REPORT STATUS: Signed DATE:04/27/22 TIME: 1335 PATIENT: ADRYAN MCWILLIAMS UNIT #: [id number] ROOM/BED: [address] : [birth year] AGE: 87 SEX: M [...] Chloride (SODIUM CHLORIDE 0.9% 1000ml) 1,000 ML .[id number] IV Physical Exam General appearance: alert, awake, oriented Cardiovascular: normal capillary refill, normal heart sounds, regular rate rhythm Respiratory: decreased breath sounds, aerating well, symmetric expansion Abdomen: non-tender, normal bowel sounds Extremities: moves all, no clubbing, no cyanosis, no edema Musculoskeletal: normal inspection Neuro/SEC ACCOUNTANT: alert, oriented X 3, normal speech Skin: [...] -Monitor labs as needed at 1340 RPT #:[id number] END OF REPORT [facility] 2022-04-26 11:20:00 [facility]) Hospitalist Progress Note REPORT#:[id number] REPORT STATUS: Signed DATE:04/26/22 TIME: 1120 PATIENT: ADRYAN MCWILLIAMS UNIT #: [id number] ROOM/BED: [address] : [birth year] AGE: 87 SEX: M [...] Chloride (SODIUM CHLORIDE 0.9% 1000ml) 1,000 ML .[id number] IV Physical Exam General appearance: alert, awake, no acute distress Cardiovascular: normal capillary refill, normal heart sounds, regular rate rhythm Respiratory: decreased breath sounds, aerating well, symmetric expansion Abdomen: non-tender, normal bowel sounds Extremities: moves all, no clubbing, no cyanosis, no edema Musculoskeletal: normal inspection Neuro/SEC ACCOUNTANT: alert, oriented X 3, normal speech Skin: [...] (Auto) (16.0 - 50.0 %) 15.0 L Guthrie % (Auto) (0.0 - 13.0 %) 15.0 [...] labetalol IV as needed at 1122 RPT #:[id number] END OF REPORT [facility] 2022-04-26 08:36:00 [facility]) Rehab Progress Note REPORT#:[id number] REPORT STATUS: Signed DATE:04/26/22 TIME: 835 PATIENT: ADRYAN MCWILLIAMS UNIT #: [id number] ROOM/BED: [address] : [birth year] AGE: 87 SEX: M ATTEND: Raad Murray MD ADM AUTHOR: Sveta Womack MD * ALL edits or amendments must be made on the electronic/computer document * Subjective Chief complaint: Difficulty with ambulation and decreased p.o. intake History of present illness: 87-year-old gentleman who is Romanian-speaking status post acute hospitalization for malnutrition and [...] All systems rev neg: except as marked Romanian translation used. Objective General VS: Vital Signs: [...] Chloride (SODIUM CHLORIDE 0.9% 1000ml) 1,000 ML .[id number] IV Dietitian nutrition assessment The data set [...] (4/5), RLE strength (4/5), RUE strength (4/5) Neuro/SEC ACCOUNTANT: alert, normal speech, no sensory deficits Results [...] (Auto) (16.0 - 50.0 %) 15.0 L Guthrie % (Auto) (0.0 - 13.0 %) 15.0 [...] Text A P: 87-year-old gentleman who is Romanian-speaking status post acute hospitalization for malnutrition and failure to thrive and headache and hypertensive urgency with chronic hyponatremia. Now achieving blood pressure control but still has hyponatremia and receiving normal saline IV intravenously per medicine's care. Smiling today and speaking in Romanian and verbalize he is interested in continuing [...] walk or get out of bed in Romanian. 4. Generalized weakness: Needing intensive gradual physical [...] with interdisciplinary treatment plan. at 0859 RPT #:[id number] END OF REPORT [facility] 2022-04-25 08:48:00 [facility]) Hospitalist Progress Note REPORT#:[id number] REPORT STATUS: Signed DATE:04/25/22 TIME: 0848 PATIENT: ADRYAN MCWILLIAMS UNIT #: [id number] ROOM/BED: [address] : [birth year] AGE: 87 SEX: M [...] Chloride (SODIUM CHLORIDE 0.9% 1000ml) 1,000 ML .[id number] IV Physical Exam General appearance: alert, awake, oriented Cardiovascular: normal capillary refill, normal heart sounds, regular rate rhythm Respiratory: decreased breath sounds, aerating well, symmetric expansion Abdomen: non-tender, normal bowel sounds Extremities: moves all, no clubbing, no cyanosis, no edema Musculoskeletal: normal inspection Neuro/SEC ACCOUNTANT: alert, oriented X 3, normal speech Skin: intact Results Findings/Data: Laboratory Tests 04/25 04/24 04/24 04/24 0616 2021 1638 1113 Chemistry POC Glucose (70 - [...] needed, labetalol IV as needed at 0849 [facility] #:[id number] END OF REPORT [facility] 2022-04-24 08:23:00 [facility]) Hospitalist Progress Note REPORT#:[id number] REPORT STATUS: Signed DATE:04/24/22 TIME: 822 PATIENT: ADRYAN MCWILLIAMS UNIT #: [id number] ROOM/BED: [address] : [birth year] AGE: 87 SEX: M [...] Chloride (SODIUM CHLORIDE 0.9% 1000ml) 1,000 ML .[id number] IV Physical Exam Cardiovascular: normal capillary refill, normal heart sounds, regular rate rhythm Respiratory: decreased breath sounds, aerating well, symmetric expansion Abdomen: non-tender, normal bowel sounds Extremities: moves all, no clubbing, no cyanosis, no edema Musculoskeletal: normal inspection Neuro/SEC ACCOUNTANT: alert, oriented X 3, normal speech Skin: [...] labetalol IV as needed at 0823 RPT #:[id number] END OF REPORT [facility] 2022-04-23 12:50:00 [facility]) Rehab Progress Note REPORT#:[id number] REPORT STATUS: Signed DATE:04/23/22 TIME: 1250 PATIENT: ADRYAN MCWILLIAMS UNIT #: [id number] ROOM/BED: [address] : [birth year] AGE: 87 SEX: M ATTEND: Raad Murray MD ADM AUTHOR: Sveta Womack MD * ALL edits or amendments must be made on the electronic/computer document * Subjective Chief complaint: Difficulty with ambulation and decreased p.o. intake History of present illness: 87-year-old gentleman who is Romanian-speaking status post acute hospitalization for malnutrition and [...] Chloride (SODIUM CHLORIDE 0.9% 1000ml) 1,000 ML .[id number] IV Dietitian nutrition assessment The data set [...] (4/5), RLE strength (4/5), RUE strength (4/5) Neuro/SEC ACCOUNTANT: alert, normal speech, no sensory deficits Diagnosis, Assessment Plan Problem List/A P: 1. Anemia 2. Hypertensive urgency 3. Generalized weakness 4. Hyponatremia 5. Malnutrition 6. Abnormality of gait and mobility Free Text A P: 87-year-old gentleman who is Romanian-speaking status post acute hospitalization for malnutrition and failure to thrive and headache and hypertensive urgency with chronic hyponatremia. Now achieving blood pressure control but still has hyponatremia and receiving normal saline IV intravenously per medicine's care. Smiling today and speaking in Romanian and verbalize he is interested in continuing [...] walk or get out of bed in Romanian. 4. Generalized weakness: Needing intensive gradual physical [...] with interdisciplinary treatment plan. at 1253 RPT #:[id number] END OF REPORT [facility] 2022-04-23 09:02:00 [facility]) Hospitalist Progress Note REPORT#:[id number] REPORT STATUS: Signed DATE:04/23/22 TIME: 901 PATIENT: ADRYAN MCWILLIAMS UNIT #: [id number] ROOM/BED: [address] : [birth year] AGE: 87 SEX: M [...] Chloride (SODIUM CHLORIDE 0.9% 1000ml) 1,000 ML .[id number] IV Physical Exam General appearance: alert, awake, oriented Cardiovascular: normal capillary refill, normal heart sounds, regular rate rhythm Respiratory: decreased breath sounds, aerating well, symmetric expansion Abdomen: non-tender, normal bowel sounds Extremities: moves all, no clubbing, no cyanosis, no edema Musculoskeletal: normal inspection Neuro/SEC ACCOUNTANT: alert, oriented X 3, normal speech Skin: [...] labetalol IV as needed at 0905 RPT #:[id number] END OF REPORT [facility] 2022-04-22 14:27:00 [facility]) Rehab Progress Note REPORT#:[id number] REPORT STATUS: Signed DATE:04/22/22 TIME: 1427 PATIENT: ADRYAN MCWILLIAMS UNIT #: [id number] [facility] [birth year][facility][birth year] AGE: 87 SEX: M ATTEND: Raad Murray MD ADM AUTHOR: Sveta Womack MD * ALL edits or amendments must be made on the electronic/computer document * Subjective Chief complaint: Difficulty with ambulation and decreased p.o. intake History of present illness: 87-year-old gentleman who is Romanian-speaking status post acute hospitalization for malnutrition and [...] Chloride (SODIUM CHLORIDE 0.9% 1000ml) 1,000 ML .[id number] IV Dietitian nutrition assessment The data set [...] (4/5), RLE strength (4/5), RUE strength (4/5) Neuro/SEC ACCOUNTANT: alert, normal speech, no sensory deficits Diagnosis, Assessment Plan Problem List/A P: 1. Anemia 2. Hypertensive urgency 3. Generalized weakness 4. Hyponatremia 5. Malnutrition 6. Abnormality of gait and mobility Free Text A P: 87-year-old gentleman who is Romanian-speaking status post acute hospitalization for malnutrition and failure to thrive and headache and hypertensive urgency with chronic hyponatremia. Now achieving blood pressure control but still has hyponatremia and receiving normal saline IV intravenously per medicine's care. Smiling today and speaking in Romanian and verbalize he is interested in continuing [...] with interdisciplinary treatment plan. at 1434 RPT #:[id number] END OF REPORT [facility] 2022-04-22 08:54:00 [facility]) Hospitalist Progress Note REPORT#:[id number] REPORT STATUS: Signed DATE:04/22/22 TIME: 0854 PATIENT: ADRYAN MCWILLIAMS UNIT #: [id number] ROOM/BED: [address] : [birth year] AGE: 87 SEX: M [...] Chloride (SODIUM CHLORIDE 0.9% 1000ml) 1,000 ML .[id number] IV Physical Exam General appearance: sleeping comfortably Cardiovascular: normal capillary refill, normal heart sounds, regular rate rhythm Respiratory: decreased breath sounds, aerating well, symmetric expansion Abdomen: non-tender, normal bowel sounds Extremities: moves all, no clubbing, no cyanosis, no edema Musculoskeletal: normal inspection Neuro/SEC ACCOUNTANT: alert, oriented X 3, normal speech Skin: [...] labetalol IV as needed at 0855 RPT #:[id number] END OF REPORT [facility] 2022-04-21 17:42:00 [facility] ([facility]) Rehab Team Conference REPORT#:[id number] REPORT STATUS: Signed DATE:04/21/22 TIME: 1741 PATIENT: ADRYAN MCWILLIAMS UNIT #: [id number] ROOM/BED: [address] : [birth year] AGE: 87 SEX: M ATTEND: Raad Murray MD ADM AUTHOR: Sveta Womack MD * ALL edits or amendments must be made on the electronic/computer document * Rehabilitation Team Conference Weekly Team Conference Team conf information: Date of conference: 04/21/22 Conference type: Initial Conference scribe: Jamie Durán PT INTERDISCIPLINARY TEAM MEETING PARTICIPANTS: TITLE NAME MD EMANUEL Dietz, EMANUEL PT Jamie Durán PT OT Miguel Brown OT CM/SW Chayito Gutierrez, CM [facility] Margaret Leonardo OT Staff (8) Russel Brown, REHDR Staff (9) Lela Sevilla RN OTHER [...] ADL's. Barriers include decrease endurance, decrease balance, [place], and overall strength. Plans is to have [...] Twelve steps discharge goal: Med cond/safety concern [place] 150 feet discharge goal: Independent (6) Goal [...] of LOB to prevent fall or injury. [place] day (DATE): 05/06/22 Expected discharge destination: Home [...] good candidate for rehabilitation. at 1742 RPT #:[id number] END OF REPORT [facility] 2022-04-21 16:51:00 [facility] ([facility]) Rehab Indiv Overall POC REPORT#:[id number] REPORT STATUS: Signed DATE:04/21/22 TIME: 165 PATIENT: ADRYAN MCWILLIAMS UNIT #: [id number] ROOM/BED: [address] : [birth year] AGE: 87 SEX: M [...] Supervise/touch asst (4) object discharge goal: CARE [place] 50 feet Independent (6) with two turns discharge goal: CARE [place] 150 Independent (6) feet discharge goal: CARE [...] function goal: CONTINENT OF BLADDER FUNCTION _ BELOS Attestation: Based upon the review of clinical [...] Nutritional compromise, Hospitalist consult at 1652 RPT #:[id number] END OF REPORT [facility] 2022-04-21 16:44:00 [facility] ([facility]) Rehab Progress Note REPORT#:[id number] REPORT STATUS: Signed DATE:04/21/22 TIME: 1644 PATIENT: ADRYAN MCWILLIAMS UNIT #: [id number] ROOM/BED: [address] : [birth year] AGE: 87 SEX: M ATTEND: Raad Murray MD ADM AUTHOR: Sveta Womack MD * ALL edits or amendments must be made on the electronic/computer document * Subjective Chief complaint: Difficulty with ambulation and decreased p.o. intake History of present illness: 87-year-old gentleman who is Romanian-speaking status post acute hospitalization for malnutrition and [...] Chloride (SODIUM CHLORIDE 0.9% 1000ml) 1,000 ML .[id number] IV Dietitian nutrition assessment The data set [...] (4/5), RLE strength (4/5), RUE strength (4/5) Neuro/SEC ACCOUNTANT: alert, normal speech, no sensory deficits Results [...] % (Auto) (16.0 - 50.0 %) 17.8 Guthrie % (Auto) (0.0 - 13.0 %) 14.3 [...] Text A P: 87-year-old gentleman who is Romanian-speaking status post acute hospitalization for malnutrition and failure to thrive and headache and hypertensive urgency with chronic hyponatremia. Now achieving blood pressure control but still has hyponatremia and receiving normal saline IV intravenously per medicine's care. Smiling today and speaking in Romanian and verbalize he is interested in continuing [...] with interdisciplinary treatment plan. at 1651 RPT #:[id number] END OF REPORT [facility] 2022-04-21 08:22:00 [facility] ([facility]) Hospitalist Progress Note REPORT#:[id number] REPORT STATUS: Signed DATE:04/21/22 TIME: 821 PATIENT: ADRYAN MCWILLIAMS UNIT #: [id number] ROOM/BED: [address] : [birth year] AGE: 87 SEX: M [...] Chloride (SODIUM CHLORIDE 0.9% 1000ml) 1,000 ML .[id number] IV Physical Exam General appearance: alert, awake, oriented Cardiovascular: normal capillary refill, normal heart sounds, regular rate rhythm Respiratory: decreased breath sounds, aerating well, symmetric expansion Abdomen: non-tender, normal bowel sounds Extremities: moves all, no clubbing, no cyanosis, no edema Musculoskeletal: normal inspection Neuro/SEC ACCOUNTANT: alert, oriented X 3, normal speech Skin: intact Results Findings/Data: Laboratory Tests 04/21 544 Chemistry Sodium (136 - 145 mmol/L) 128 [...] 5.0 g/dl) 3.2 L Laboratory Tests 04/21 544 Hematology WBC (4.5 - 11.0 X10(3)) 6.5 [...] % (Auto) (16.0 - 50.0 %) 17.8 Guthrie % (Auto) (0.0 - 13.0 %) 14.3 [...] labetalol IV as needed at 0823 RPT #:[id number] END OF REPORT [facility] 2022-04-20 15:58:00 [facility] ([facility]) Acute Rehab Consult REPORT#:[id number] REPORT STATUS: Signed DATE:04/20/22 TIME: 1558 PATIENT: ADRYAN MCWILLIAMS UNIT #: [id number] ROOM/BED: [address]: [birth year] AGE: 87 SEX: M ATTEND: Raad [...] muscle weakness HPI: 87-year-old gentleman who is Romanian-speaking status post acute hospitalization for malnutrition and [...] OT evaluation: Pending Free Text Functional Hx (APPLE CHECKER) Functional Hx: ambulate at home with assistive devices and had home care. Precautions Weight bearing status: wt bearing as tolerated History Past medical history: Reports: Diabetes mellitus, Hypertension, Dyslipidemia. Additional medical history: CAD with stents, HTN, hyperlipidemia, BPH, insomnia, depression Additional surgical history: C with 2 stents Ibrahima inguinal hernia repair. [...] (4/5), RLE strength (4/5), RUE strength (4/5) Neuro/SEC ACCOUNTANT: alert, normal speech, no sensory deficits Results Results: vital signs reviewed Rehab Plan Rehab Plan Final decision for Inpt Rehab: Yes Diagnosis, Assessment Plan Problem List/A P: 1. Anemia 2. Hypertensive urgency 3. Generalized weakness 4. Hyponatremia 5. Malnutrition 6. Abnormality of gait and mobility Free Text A P: 87-year-old gentleman who is Romanian-speaking status post acute hospitalization for malnutrition and failure to thrive and headache and hypertensive urgency with chronic hyponatremia. Now achieving blood pressure control but still has hyponatremia and receiving normal saline IV intravenously per medicine's care. Smiling today and speaking in Romanian and verbalize he is interested in continuing [...] Rounded with nursing staff and communicated in Romanian. 80 minutes spent on plan of care and includes counseling and review of medical history and exam. at 1614 RPT #:[id number] END OF REPORT [facility] 2022-04-20 09:38:00 [facility] ([facility]) Hospitalist History Physical REPORT#:[id number] REPORT STATUS: Signed DATE:04/20/22 TIME: 937 PATIENT: ADRYAN MCWILLIAMS UNIT #: [id number] [facility] [birth year] AGE: 87 SEX: M ATTEND: Raad Murray MD ADM AUTHOR: Raad Murray MD * ALL edits or amendments must be made on the electronic/computer document * See Addendum History of Present Illness HPI Chief complaint: DEBILITY HPI: 87-year-old male patient with past medical history of CAD with stents, HTN, hyperlipidemia, BPH, insomnia, depression who was recently admitted to [facility] for failure to thrive and [...] hyperlipidemia, BPH, insomnia, depression Additional surgical history: [facility] with 2 stents Ibrahima inguinal hernia repair. [...] Temp 36.7 04/20 626 Pulse 62 04/20 06 Resp 18 04/20 626 24 hour I [...] no cyanosis, no edema Musculoskeletal: normal inspection Neuro/SEC ACCOUNTANT: alert, oriented X 3, normal speech Skin: [...] as needed at 0943 Addendum 1: 04/20/22 09 by Raad Murray MD NS IV 75 cc/h at 0944 RPT #:[id number] END OF REPORT [facility] 2022-04-19 16:24:00 [facility] ([facility]) Discharge Summary REPORT#:[id number] REPORT STATUS: Signed DATE:04/19/22 TIME: 1624 PATIENT: ADRYAN MCIWLLIAMS UNIT #: [id number] ROOM/BED: [address] : [birth year] AGE: 87 SEX: M [...] rehab eval. pt has graciela ccepted to [facility] acute rehab and will be tx today. pt in agreement. Pt. condition on discharge: improved, stable Med Rec PCP PCP: PCP: Miguel Brown APN Objective VS/I O Last Documented: Result Date Time Pulse Ox 96 04/19 1519 B/P 121/65 04/19 1519 B/P Mean 84.0 04/19 1519 O2 Delivery Room air 04/19 1519 Temp 98.8 04/19 1519 Pulse 63 04/19 [...] (Auto) (16.0 - 50.0 %) 13.5 L Guthrie % (Auto) (0.0 - 13.0 %) 8.9 [...] edema Musculoskeletal: normal inspection, no muscle spasm Neuro/SEC ACCOUNTANT: alert, oriented X 3, normal speech Skin: [...] 30 mins at 2342 at 0933 RPT #:[id number] END OF REPORT [facility] 2022-04-19 15:59:00 [facility] ([facility]) Rehab Preadmission Screen REPORT#: REPORT STATUS: DATE:04/19/22 TIME: 155 PATIENT: ADRYAN MCWILLIAMS UNIT #: ROOM: BED: : [birth year] AGE: 87 SEX: M ATTEND: Sveta Womack MD PROJECTED ADM AUTHOR: Sveta Womack MD REP SRV REP SRV TM: 1559 * ALL edits or amendments must be made on the electronic/computer document * IRF Preadmission Screen Information From CRS PAS CRS PAS documentation: The data set between the solid lines has been imported from CRS PAS documentation. PREADMISSION INFORMATION: DEMOGRAPHICS: Assessment date: 04/19/22 Assessment time: 1448 Patient has an Advanced Directive: No Content of advance directive/living will/plan of care: Copy of advance directive on chart: Referring physician: Shyanne GamboaHospitalist Primary care provider: Miguel Brown Consulting physician(s): Referral contact name: Peyton Santillan Referral contact number: Referring setting: [facility] Room number: 259 IMPAIRMENT GROUP: Impairment group: [...] stay summary: 87 y/o M presented to [facility] ER on with headaches, high blood pressure [...] with provider assisting daily. Lives in a [facility], no steps, [place] shower with shower chair and GB. Patient is willing, motivated, and able to participate in 3 hours therapy/5 days per week PREADMIT VITALS: Date/Time 04/19/22 1519 Temp F Temp C 37.1 Pulse 63 RR 18 BP 121/65 SPO2% 96 Ht ft 5 Ht in 6 Wt lbs 165.555 BMI 26.7 SUPPORTING DIAGNOSTICS/LABS/RADIOLOGY/CARDIO LOGY: Date: 04/19/22 WBC: 5.2 HGB: 11.4 HCT: [...] loss. 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 Preferred language: thai Diabetic diet FUNCTIONAL ASSESSMENT: FUNC. TASK PRIOR [...] Description of current level of locomotion: Decreased jose. Decreased endurance Description of expected level of [...] with comment: Pt lives alone in a [place], [place] shower with shower chair. Pt has a provider 4-5 hrs Tuesday-Tuesday that assist with IADLs. ANTICIPATED DC PLAN/POST IRF: Primary support contact: Roopa Mcwilliams Relationship to patient: Son Phone number 1: [phone] Phone number 2: [phone] Caregiver availability: Days only Caregiver can provide: [...] in acute inpatient rehab: Rehab nursing 22/11, manager of compliance, Occupational therapy, Physical therapy, Dietitian Acute hospital documents reviewed prior to admission decision: Acute History/ Physical, Consult notes, Progress notes, Lab/diagnostics, Therapy notes, Vital signs, Other ancillary notes CRS ELECTRONIC SIGNATURE: CRS #1 electronic signature: Zabrina Meléndez CRS credentials: OT Date: 04/19/22 Time: 154 CRS #2 electronic signature: CRS credentials: Date: Time: CRS #3 electronic signature: CRS credentials: Date: Time: Provider Pre-Admit Summary Acute IP rehab admit: criteria met MD determination Based upon my evaluation and review of the supporting assessment documentation and consultation with the preadmission director of assessment, I have determined, prior to admitting this [...] Nutritional compromise, Hospitalist consult at 1602 RPT #:[id number] END OF REPORT [facility] 2022-04-18 13:51:00 [facility] ([facility]) Hospitalist History Physical REPORT#:[id number] REPORT STATUS: Signed DATE:04/18/22 TIME: 1351 PATIENT: ADRYAN MCWILLIAMS UNIT #: [id number] ROOM[facility]BED: [facility] : [birth year] AGE: 87 SEX: M [...] BP was 165/78, highest bp 191/79. verb 10/10 pain to head, CT head was negative [...] hyperlipidemia, BPH, insomnia, depression Additional surgical history: C with 2 stents Ibrahima inguinal hernia repair. [...] on exertion). Denies: SOB, wheezing. Cardiovascular: Reports: DUMONT (dyspnea on exertion). Denies: chest pain, edema, [...] Mean Pulse Ox FiO2 04/18 97.7-98.4 59-89 -18 113-191/64-82 80.4-116 96-99 Last Documented: Result Date [...] Ibrahima LE's Musculoskeletal: decreased ROM, muscle wasting Neuro/SEC ACCOUNTANT: alert, oriented X 3 Results Findings/Data: Laboratory [...] Albumin (3.4 - 5.0 g/dl) 3.7 04/18 04/18 0222 0048 Chemistry Sodium (136 - 145 mmol/L) [...] % (Auto) (16.0 - 50.0 %) 17.1 Guthrie % (Auto) (0.0 - 13.0 %) 11.8 [...] pH (4.6 - 8.0) 7.0 Ur Specific [place] (1.001 - 1.035) 1.008 Urine Protein (NEGATIVE [...] Report Impression - Status: SIGNED Entered: 04/18/2022 011 Impression: 1. No acute intracranial abnormality. 2. [...] to return home, [facility]. continue DM meds, monitor achs and cover with ssi PT/OT to [facility] Dr. Kiser, physiatry to [facility]. further ordres per clinical course pt seen and supervised with Dr. Gamboa at 1412 at 1722 RPT #:[id number] END OF REPORT [facility] 2022-04-18 00:51:00 [facility] ([facility]) EMERGENCY PROVIDER REPORT REPORT#:[id number] REPORT STATUS: Signed DATE:04/18/22 TIME: 50 PATIENT: ADRYAN MCWILLIAMS UNIT #: [id number] ROOM/BED: AGE: 87 SEX: M PCP PHYS: [...] Worse with: none Better with: none Tried [id number]-[id number] meds: None Past history: Past medical history: [...] General Confirmed Patient Yes Initial Greet Date/Time 04/18/2222 Presentation Chief Complaint __ Past Medical History [...] Result Date Time Pulse Ox 99 04/18 24 B/P 165/78 04/18 24 B/P Mean 107 04/18 24 O2 Delivery Room air 04/18 24 Temp 36.8 04/18 24 Pulse 64 04/18 24 Resp 18 04/18 24 O2 Flow Rate 2 04/18 37 Last Documented: Result Date Time O2 Delivery Nasal cannula 04/18 37 O2 Flow Rate 2 04/18 37 Pulse Ox 99 04/18 24 B/P 165/78 04/18 24 B/P Mean 107 04/18 24 Temp 36.8 04/18 24 Pulse 64 04/18 24 Resp 18 04/18 24 Review of Vital Signs Reviewed Interpretation Diagnostics [...] % (Auto) (16.0 - 50.0 %) 17.1 Guthrie % (Auto) (0.0 - 13.0 %) 11.8 [...] axis, Adequate tracing Rate 58 Rhythm Bradycardia Conduction/Dittmer AV block 1st degree Re-Evaluation MDM Re-Evaluation/Progress [...] 5 MG X1ED STA 04/18 0052 DC 04/18 IV 04/18 0053 0123 Electrolytic, Caloric, And Mariangel Sig/Shin Start time Last Medication Dose Route Stop Time Status Admin Sodium Chloride 1,000 ML X1ED STA 04/18 0150 AC IV 04/18 1509 Patient Discharge Departure Vital Signs/Condition Vital Signs First Documented: Result Date Time Pulse Ox 99 04/18 0024 B/P 165/78 04/18 0024 B/P Mean 107 04/18 24 O2 Delivery Room air 04/18 24 Temp 36.8 04/18 24 Pulse 64 04/184 Resp 18 04/18 24 O2 Flow Rate 2 04/18 37 Last Documented: Result Date Time O2 Delivery Nasal cannula 04/18 37 O2 Flow Rate 2 04/18 37 Pulse Ox 99 04/18 24 B/P 165/78 04/18 24 B/P Mean 107 04/18 0024 Temp 36.8 04/18 002 Pulse 64 04/18 0024 Resp 18 04/18 0024 All vital signs available at the time of this entry have been reviewed. Condition Stable, Improved Clinical Impression Clinical Impression Primary Impression: Hyponatremia Secondary Impressions: Hypertensive urgency Disposition Decision Admit Admit Physician Name Ita Espinoza MD Admit Physician Hospitalist Request Time 015 Request Date 04/18/22 )( Admission Accepts Yes )( Accepted Time 015 )( Accepted Date 04/18/22 Call Information will [...] over this patient's care. at 0154 RPT #:[id number] END OF REPORT [facility] 2022-03-28 23:48:00 [facility] ([facility]) EMERGENCY PROVIDER REPORT REPORT#:[id number] REPORT STATUS: Signed DATE:03/28/22 TIME: 2347 PATIENT: ADRYAN MCWILLIAMS UNIT #: [id number] ROOM/BED: AGE: 86 SEX: M PCP PHYS: Miguel Brown ACCOUNTS EXECUTIVE SERVICE AUTHOR: Michel Steve Jr, MD * [...] Documented: Result Date Time Pulse Ox 100 03/295 B/P 121/61 03/29 15 B/P Mean 81 [...] (Auto) (16.0 - 50.0 %) 13.3 L Guthrie % (Auto) (0.0 - 13.0 %) 12.1 [...] No STEMI Rate 75 ECG Q-T-ST - [place] Non-specific ST changes Re-Evaluation MDM Free Text [...] STA 03/28 2244 DC 03/28 IV 03/28 Patient Discharge Departure Vital Signs/Condition Vital Signs First Documented: Result Date Time Pulse Ox 100 03/28 2141 B/P 122/60 03/28 2141 B/P Mean 80 03/28 2141 O2 Delivery Room air 03/28 2141 Temp 36.7 03/28 2141 Pulse 74 03/28 2141 Resp 18 03/28 2141 Last Documented: Result Date Time Pulse Ox 100 03/29 0015 B/P 121/61 03/29 0015 B/P Mean 81 03/295 O2 Delivery Room air 03/29 0015 Temp 36.9 03/29 0015 Pulse 69 03/29 0015 Resp 18 03/29 0015 All vital signs available at the time of this entry have been reviewed. Clinical Impression Clinical Impression Primary Impression: Weakness Disposition Decision Discharge )( Discharged to Home Yes )( Time 2347 )( Date 03/28/22 Discharge/Care Plan Counseled Regarding [...] or a call to 911. at 0116 [facility] #:[id number] END OF REPORT [facility] 2019-03-02 18:04:00 [id number] [place] [address] PATIENT NAME: ADRYAN MCWILLIAMS ADMIT DATE: 03/02/19 ACCOUNT NO: [id number] ROOM NO: AGE: 83 REPORT TYPE: ELECTROCARDIOGRAM SEX: M : [birth year] ADMITTING PHYSICIAN: ATTENDING PHYSICIAN:Jaskaran Pierre II, MD Order: [id number] Test Reason : FALL LOC Test Date/Time [...] was found Confirmed by MD SUH ROLANDO ([id number]) on 03/04/2019 12:43:20 PM Referred By: Self Referred Confirmed by:PATRICE SUH MD at 1243 PATIENT NAME: ADRYAN MCWILLIAMS [facility] 2019-03-02 17:59:00 [facility] ([facility]) EMERGENCY PROVIDER REPORT REPORT#:[id number] REPORT STATUS: Signed DATE:03/02/19 TIME: 1758 PATIENT: ADRYAN MCWILLIAMS UNIT #: [id number] ROOM/BED: AGE: 83 SEX: M PCP PHYS: Miguel Brown FOREST FIRE EQUIPMENT OPERATOR SERVICE AUTHOR: Patrice Suh MD * ALL edits or amendments must be made on the electronic/computer document * Patrice Suh 03/02/191758: HPI-Trauma Minor/Fall General Confirmed Patient [...] scribing for and in the presence of [Patrice Suh MD]. Signed By: Judi Plummer, 03/02/191801 Provider Scribed Statement I personally performed the services described in this documentation and reviewed the documentation that was dictated to the scribe(s) in my presence, and it accurately records my words and actions. Patrice Suh MD, 03/02/19 Portions of this section were scribed by Judi Plummer on 03/02/19 at 1857 Jaskaran Pierre 03/02/19 193: Physical Exam Vital Signs Vital Signs First [...] (Auto) (16 - 50 %) 10.5 L Guthrie % (Auto) (0.0 - 13.0 %) 9.6 [...] seen. Impression By: Radha Chen MD Re-Evaluation [facility] Re-Evaluation/Progress #1 Time of Re-Eval 1931 Re-Eval [...] on 03/02/19 at 1932 at 2017 RPT #:[id number] END OF REPORT [facility] 2019-03-02 17:59:00 [facility] ([facility]) EMERGENCY PROVIDER REPORT REPORT#:[id number] REPORT STATUS: Signed DATE:03/02/19 TIME: 1758 PATIENT: ADRYAN MCWILLIAMS UNIT #: [id number] ROOM/BED: AGE: 83 SEX: M PCP PHYS: Miguel Brown FOREST FIRE EQUIPMENT OPERATOR SERVICE AUTHOR: Patrice Suh MD * ALL edits or amendments must be made on the electronic/computer document * Patrice Suh 03/02/19 1759: HPI-Trauma Minor/Fall General Confirmed [...] 03/02/19 Time 1804 Interpreted by ED physician ERIS ECG Interpretation Normal rate, Normal sinus rhythm, [...] care and final disposition. Care Transferred to Jasakran Pierre MD Care Transferred at 1900 Discussed Complaint(s) Yes Laboratory Evaluation Done, results pending Imaging Studies Ordered, not yet done Supervising Physician Note Scribe Statement Judi Plummer, 03/02/191801, scribing for and in the presence of [Patrice Suh MD]. Signed By: Judi Plummer, 03/02/191801 Provider Scribed Statement I personally performed the services described in this documentation and reviewed the documentation that was dictated to the scribe(s) in my presence, and it accurately records my words and actions. Patrice Suh MD, 03/02/19 Portions of this section were scribed by Judi Plummer on 03/02/19 at 1857 Jaskaran Pierre 03/02/19 1932: HPI-Trauma Minor/Fall General Initial Greet Date/Time 03/02/19 175 Interpretation Diagnostics Lab Results Interpretation Results Laboratory [...] (Auto) (16 - 50 %) 10.5 L Guthrie % (Auto) (0.0 - 13.0 %) 9.6 [...] doc, Pre-existing HTN at 2017 at 2118 RPT #:[id number] END OF REPORT [facility]
[2025-01-17] MEDS ORDERED: NA CHLORIDE 0.9% 1,000 ML ONE (11:26)
[2025-01-17 12:15] LABS: Absolute Lymphocytes (CBC) 0.9 K/uL (0.7-4.9); Hematocrit 47.4 % (39.6-49.0); Hemoglobin 15.8 g/dL (13.6-17.9); MCH 29.7 pg (27.0-35.0); MCHC 33.3 g/dL (32.0-36.0); MCV 89.3 fL (80-100); MPV 7.3 fL (7.6-11.3); Nucleated RBC Absolute Count 0.0 (0-0); Nucleated Red Blood Cells % 0.0 % (0-0); RBC Red Blood Cell Count 5.31 M/uL (4.33-5.43); White Blood Count 6.70 thou/uL (4.3-10.9)
[2025-01-17 12:22] LABS: PT Prothrombin Time 11.1 SECONDS (10-13.0); PTT, Activated Partial Thromb 33.3 SECONDS (27.2-37.4); Protime INR 0.98
[2025-01-17 12:45] LABS: ALT/SGPT 44 U/L (16-61); AST/SGOT 61 U/L (15-37); Albumin 3.1 g/dL (3.4-5.0); Albumin/Globulin Ratio 0.8 (1.1-1.8); Alkaline Phosphatase 78 U/L (45-117); Anion Gap 20.2 mEq/L (5.0-15.0); BUN Blood Urea Nitrogen 18 mg/dL (7-18); Bilirubin Indirect, Calculated 0.9 mg/dL (0.2-0.8); Globulin 3.9 g/dL (2.3-3.5); Glucose Level 134 mg/dL (74-106); METHAMPHETAM NEGATIVE (NEGATIVE); NT PRO-BNP 78 pg/mL (<450); Potassium 4.2 mEq/L (3.5-5.1); THC Cannibis NEGATIVE (NEGATIVE); Troponin High Sensitivity 16.8 pg/mL (<58.9)
[2025-01-17 12:49] LABS: HCO3, Venous Blood Gas 20.2 mmol/L (21.0-29.0); PCO2, Venous Blood Gas 35 mmHg (41-51); PH, Venous Blood Gas 7.37 (7.32-7.42); PO2, Venous Blood Gas 47 mmHg (25-40)
[2025-01-17 12:50] LABS: Base Excess, VBG -5.1 mmol/L (-2.0-3.0)
[2025-01-17 12:51] LABS: O2 Saturation, VBG 81.2 % (40.0-70.0)
--- NOTE | 2025-01-17 13:11 | RAD REPORT ---
EXAMINATION: ONE VIEW CHEST XR CLINICAL INDICATION: MALAISE TECHNIQUE: Frontal chest projection is submitted. Examination is limited by patient positioning and t echnique. COMPARISON: 07/11/2024 FINDINGS: Mild/moderate bilateral pulmonary opacities may represent pulmonary edema or pneumonia. The heart is upper limit of normal in size. No displaced fractures identified.
--- NOTE | 2025-01-17 13:21 | RAD REPORT ---
EXAM: CT brain without contrast HISTORY: CONFUSED COMPARISON: None TECHNIQUE: Multiple contiguous axial images were obtained and a CT of the brain without contrast. Sag ittal and coronal reformats were performed. One or more of the following dose reduction techniques were used: Automated exposure control, adjust ment of the mA and/or kV according to patient size, and/or iterative reconstruction. FINDINGS: No evidence of hydrocephalus, intracranial hemorrhage, or extra-axial fluid collection. Moderate brain atrophy with moderate periventricular and deep white matter chronic microvascular isc hemic changes present. No evidence of midline shift or areas of brain edema. The calvarium is intact. The visualized paranasal sinuses and mastoid air cells are essentially clear . Mild vertebral atherosclerosis. IMPRESSION: No evidence of acute intracranial abnormality.
[2025-01-17] MEDS ORDERED: D5 0.45 NS 1,000 ML IV ONE (14:26)
--- NOTE | 2025-01-17 14:49 | ER ---
Nurse's Notes [facility] Name: Adryan Reis Age: 89 yrs Sex: Male : 1935 Arrival Date: 01/17/2025 Time: 10:38 Bed 15 Private MD: Diagnosis: Alcohol abuse with intoxication delirium;Hypo-osmolality and hyponatremia;Dehydration Presentation: 01/17 10:40 Chief complaint: EMS states: Per [facility], patient had a blood glucose of 54 on scene. ar8 Patient was denying care and transport initially. Oral glucose given BG 59. Patient states he no longer wants to live, but denies any plan for self harm. States that he no longer wants to be a burden on his family. Smells of ETOH. EMS stated that patient had a bottle of whiskey on scene. 10:40 Coronavirus screen: At this time, the client does not indicate any symptoms associated ar8 with coronavirus-19. Ebola Screen: No symptoms or risks identified at this time. Initial Sepsis Screen: Does the patient meet any 2 criteria? No. Patient's initial sepsis screen is negative. Does the patient have a suspected source of infection? No. Patient's initial sepsis screen is negative. Risk Assessment: Do you want to hurt yourself or someone else? Patient reports no desire to harm self or others. Onset of symptoms was January 17, 2025. 10:40 Method Of Arrival: EMS: [facility] ar8 10:40 Acuity: JUAN J 3 ar8 Triage Assessment: 10:50 General: Appears in no apparent distress. Behavior is cooperative, Smells of alcohol, ar8 urine. 10:50 Pain: Complains of pain in right elbow. Neuro: Oriented to person, place, time, ar8 situation, Drawer Waxer are equal bilaterally Moves all extremities. Full function Speech is normal, Facial symmetry appears normal. Cardiovascular: Patient's skin is warm and dry. Respiratory: Airway is patent Respiratory effort is even, unlabored, Respiratory pattern is regular, symmetrical. GI: No signs and/or symptoms were reported involving the gastrointestinal system. : No signs and/or symptoms were reported regarding the genitourinary system. Derm: Bruising that is dark purple, RUE. Historical: - Allergies: 11:05 PENICILLINS; ar8 - PMHx: 11:05 Hypertensive disorder; ar8 - PSHx: 11:05 cardiac stents; ar8 - Immunization history:: Adult Immunizations not up to date. - Infectious Disease History:: Denies. - Social history:: Smoking status: Patient denies any tobacco usage or history of. Patient uses alcohol, on a daily basis. Screenin:15 [facility] ED Fall Risk Assessment (Adult) History of falling in the last 3 months, ar8 including since admission Yes- single mechanical fall (1 pt) Confusion or Disorientation No (0 pts) Intoxicated or Sedated Yes (3 pts) Impaired Gait No (0 pts) Mobility Assist Device Used No (0 pt) Altered Elimination No (0 pt) Score/Fall Risk Level 3 or more points = High Risk Oriented to surroundings, Maintained a safe environment, Hourly rounding (assess needs \T\ fall precautionary measures) done. Abuse screen: Denies threats or abuse. Nutritional screening: No deficits noted. Tuberculosis screening: No symptoms or risk factors identified. Assessment: 12:04 Reassessment: See triage assessment. ar8 13:36 Reassessment: Patient and/or family updated on plan of care and expected duration. Pain ar8 level reassessed. Patient is alert, oriented x 3, equal unlabored respirations, skin warm/dry/pink. 14:45 Reassessment: Patient and/or family updated on plan of care and expected duration. Pain ar8 level reassessed. Patient is alert, oriented x 3, equal unlabored respirations, skin warm/dry/pink. Patient states symptoms have improved. 17:03 Reassessment: Sitter at bedside assisting patient with meal tray. ar8 18:45 Reassessment: Patient's daughter, Laura [phone], notified of patient's admission. ar8 19:32 Reassessment: Patient and/or family updated on plan of care and expected duration. Pain ha1 level reassessed. Patient is alert, oriented x 3, equal unlabored respirations, skin warm/dry/pink. Vital Signs: 10:40 BP 149 / 90; Pulse 86; Resp 20; Temp 98(O); Pulse Ox 92% ; Weight 65.77 kg; Height 5 ar8 ft. 1 in. ; Pain 5/10; 11:15 BP 125 / 75; Pulse 90; Resp 22; Pulse Ox 94% on R/A; ar8 12:49 BP 129 / 67; Pulse 69; Resp 14 S; Pain 0/10; ar8 13:30 BP 137 / 86; Pulse 77; Resp 20; Pulse Ox 96% on R/A; ar8 14:30 BP 120 / 58; Pulse 76; Resp 21; Pulse Ox 98% on R/A; Pain 0/10; ar8 15:30 BP 155 / 81; Pulse 74; Resp 19; Pulse Ox 96% on R/A; Pain 0/10; ar8 16:15 BP 124 / 63; Pulse 80; Resp 20; Pulse Ox 93% on R/A; Pain 0/10; ar8 17:15 BP 147 / 77; Pulse 88; Resp 17; Pulse Ox 98% on R/A; Pain 0/10; ar8 18:46 BP 148 / 67; Pulse 90; Resp 22; Pulse Ox 92% on R/A; ar8 19:34 BP 137 / 71; Pulse 85; Resp 18 S; Pulse Ox 98% on R/A; ha1 10:40 Body Mass Index 27.40 (65.77 kg, 154.94 cm) ar8 10:40 Pain Scale: Adult ar8 12:49 Pain Scale: Adult ar8 14:30 Pain Scale: Adult ar8 15:30 Pain Scale: Adult ar8 16:15 Pain Scale: Adult ar8 17:15 Pain Scale: Adult ar8 ED Course: 10:50 Arm band placed on right wrist. ar8 10:57 Patient arrived in ED. ar8 10:58 Viktor Brown, RN is Primary Nurse. ar8 10:58 Nereyda Campos MD is Attending Physician. gb1 11:05 Triage completed. ar8 11:15 Placed in gown. Bed in low position. Call light in reach. Side rails up X2. Provided ar8 Education on: plan of care. Client placed on continuous cardiac and pulse oximetry monitoring. NIBP monitoring applied. Warm blanket given. Cleaned of incontinence. 11:15 No provider procedures requiring assistance completed. Maintain EMS IV. Dressing ar8 intact. Good blood return noted. Site clean \T\ dry. Gauge \T\ site: 22g L FA. Flushed with 10 mL NS. 11:46 EKG done, by pharmacy technician inpatient. reviewed by Nereyda Campos MD. ts3 11:57 Initial lab(s) drawn, by me, sent to lab. Urine collected: clean catch specimen, cloudy.ar8 12:41 VBG Venous Blood Gas Sent. ar8 12:58 Assisted with urinal. ar8 13:07 CXR XRAY In Process Unspecified. EDMS 13:14 CT Head Brain wo Cont In Process Unspecified. EDMS 13:17 Patient moved back from CT. ar8 14:47 Nereyda Campos MD is Hospitalizing Provider. gb1 14:47 Hospitalizing Provider role handed off by Nereyda Campos MD gb1 14:47 Joss More MD is Hospitalizing Provider. gb1 16:43 Assisted with urinal. ar8 19:04 Report given to EMANUEL Hernandez. ar8 19:35 Patient admitted, IV remains in place. ha1 Administered Medications: 11:45 Drug: NS 0.9% IV 1000 ml IV at 1 bolus Per protocol; to be given as a bolus over 60 ar8 minutes Route: IV; Rate: 1 bolus; Site: left forearm; 13:00 Follow up: Response: No adverse reaction; IV Status: Completed infusion; IV Intake: ar8 1000ml 15:00 Drug: D5-1/2 NS IV 1000 ml IV at bolus bolus Route: IV; Rate: bolus; Site: left forearm;ar8 16:30 Follow up: Response: No adverse reaction; IV Status: Completed infusion; IV Intake: ar8 1000ml 15:53 Drug: Ondansetron IVP 4 mg IVP once; over 2 minutes Route: IVP; Site: left forearm; ar8 16:43 Follow up: Response: No adverse reaction; Nausea is decreased ar8 Medication: 11:15 VIS not applicable for this client. ar8 Point of Care Testing: Blood Glucose: 16:15 Blood Glucose: 186 mg/dL; ar8 Ranges: Intake: 13:00 IV: 1000ml; Total: 1000ml. ar8 16:30 IV: 1000ml; Total: 2000ml. ar8 Outcome: 14:48 Decision to Hospitalize by Provider. gb1 19:34 Admitted to Tele accompanied by tech, via wheelchair, room 403, with chart, ha1 19:34 Condition: stable 19:34 Instructed on the need for admit, Demonstrated understanding of instructions, 19:35 Patient left the ED. ha1 Signatures: Dispatcher [employer] EDMS Mary Varela, RN RN ha1 Nereyda Campos MD MD gb1 Amanda Patricia ts3 Viktor Brown, RN RN ar8 Corrections: (The following items were deleted from the chart) 12:07 Venous Blood Gas+RC.LAB.BRZ drawn and sent. 8 EDMS 12:07 CREATINE PHOSPHOKINASE+C.LAB.BRZ drawn and sent. 8 EDMS 12:07 Troponin High Sensitivity+C.LAB.BRZ drawn and sent. 8 EDMS 12:07 PROBNP+C.LAB.BRZ drawn and sent. tn8 EDMS 12:08 ACETAMINOPHEN+C.LAB.BRZ drawn and sent. 8 EDMS 12:08 BASIC METABOLIC PANEL+C.LAB.BRZ drawn and sent. 8 EDMS 12:08 CBC+H.LAB.BRZ drawn and sent. EDMS 12:08 ETHANOL+C.LAB.BRZ drawn and sent. 8 EDMS 12:08 HEPATIC FUNCTION+C.LAB.BRZ drawn and sent. [facility] EDMS 12:08 PROTIME (+INR)+COAG.LAB.BRZ drawn and sent. EDMS 12:08 PTT, ACTIVATED+COAG.LAB.BRZ drawn and sent. 8 EDMS 12:08 SALICYLATE+C.LAB.BRZ drawn and sent. [facility] EDMS 12:08 URINE DRUG SCREEN+UC.LAB.BRZ drawn and sent. [facility] EDNH
--- NOTE | 2025-01-17 14:49 | EDPHYS ---
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 Patient had also urinated on himself and states that he hasn't eaten anything in 2 days. BGL on the scene was less than 60. Patient endorses that he "doesn't want to be a burden to his family anymore and would just like to go peacefully". He also states that he is not trying to harm himself. Patient has history of hypertension. Patient also reports falling 4 days ago.. Historical: - Allergies: 11:05 PENICILLINS; ar8 - PMHx: 11:05 Hypertensive disorder; ar8 - PSHx: 11:05 cardiac stents; ar8 - Immunization history:: Adult Immunizations not up to date. - Infectious Disease History:: Denies. - Social history:: Smoking status: Patient denies any tobacco usage or history of. Patient uses alcohol, on a daily basis. Exam: 11:57 Constitutional: Patient is disheveled appearing and has urinated on himself. gb1 Head/Face: Normocephalic, atraumatic. Eyes: Pupils equal round and reactive to light, extra-ocular motions intact. Lids and lashes normal. Conjunctiva and sclera are non-icteric and not injected. Cornea within normal limits. Periorbital areas with no swelling, redness, or edema. ENT: Nares patent. No nasal discharge, no septal abnormalities noted. Tympanic membranes are normal and external auditory canals are clear. Oropharynx with no redness, swelling, or masses, exudates, or evidence of obstruction, uvula midline. Mucous membranes moist. Neck: Trachea midline, no thyromegaly or masses palpated, and no cervical lymphadenopathy. Supple, full range of motion without nuchal rigidity, or vertebral point tenderness. No Meningismus. Chest/axilla: Normal chest wall appearance and motion. Nontender with no deformity. No lesions are appreciated. Cardiovascular: Regular rate and rhythm with a normal S1 and S2. No gallops, murmurs, or rubs. Normal PMI, no JVD. No pulse deficits. Respiratory: Lungs have equal breath sounds bilaterally, clear to auscultation and percussion. No rales, rhonchi or wheezes noted. No increased work of breathing, no retractions or nasal flaring. Abdomen/GI: Soft, non-tender, with normal bowel sounds. No distension or tympany. No guarding or rebound. No evidence of tenderness throughout. Back: No spinal tenderness. No costovertebral tenderness. Full range of motion. Skin: Warm, dry with normal turgor. Normal color with no rashes, no lesions, and no evidence of cellulitis. MS/ Extremity: Pulses equal, no cyanosis. Neurovascular intact. Full, normal range of motion. There are multiple areas of scattered hematomas on the upper extremities and skin tears as well that appear aged. Vital Signs: 10:40 BP 149 / 90; Pulse 86; Resp 20; Temp 98(O); Pulse Ox 92% ; Weight 65.77 kg; Height 5 ar8 ft. 1 in. ; Pain 5/10; 11:15 BP 125 / 75; Pulse 90; Resp 22; Pulse Ox 94% on R/A; ar8 12:49 BP 129 / 67; Pulse 69; Resp 14 S; Pain 0/10; ar8 13:30 BP 137 / 86; Pulse 77; Resp 20; Pulse Ox 96% on R/A; ar8 14:30 BP 120 / 58; Pulse 76; Resp 21; Pulse Ox 98% on R/A; Pain 0/10; ar8 15:30 BP 155 / 81; Pulse 74; Resp 19; Pulse Ox 96% on R/A; Pain 0/10; ar8 16:15 BP 124 / 63; Pulse 80; Resp 20; Pulse Ox 93% on R/A; Pain 0/10; ar8 17:15 BP 147 / 77; Pulse 88; Resp 17; Pulse Ox 98% on R/A; Pain 0/10; ar8 18:46 BP 148 / 67; Pulse 90; Resp 22; Pulse Ox 92% on R/A; ar8 19:34 BP 137 / 71; Pulse 85; Resp 18 S; Pulse Ox 98% on R/A; ha1 10:40 Body Mass Index 27.40 (65.77 kg, 154.94 cm) ar8 10:40 Pain Scale: Adult ar8 12:49 Pain Scale: Adult ar8 14:30 Pain Scale: Adult ar8 15:30 Pain Scale: Adult ar8 16:15 Pain Scale: Adult ar8 17:15 Pain Scale: Adult ar8 Procedures: 11:57 Performed EKG that was completed at 1141 shows normal sinus rhythm with a first-degree gb1 AV block and T wave inversions in lead aVL. Patient also has a left anterior fascicular block that is present.. MDM: 11:00 Medical Screening Exam initiated gb1 11:57 Data reviewed: vital signs, nurses notes. 01/17 11:20 Order name: Glucose, Ancillary Testing; Complete Time: 11:57 EDMS 01/17 12:10 Order name: Basic Metabolic Panel; Complete Time: 13:46 EDMS 01/17 12:10 Order name: Liver (Hepatic) Function; Complete Time: 13:46 EDMS 01/17 12:10 Order name: Creatine Phosphokinase; Complete Time: 13:46 EDMS 01/17 12:10 Order name: Troponin High Sensitivity; Complete Time: 13:46 EDMS 01/17 12:10 Order name: NT PRO-BNP; Complete Time: 13:46 EDMS 01/17 12:10 Order name: Acetaminophen Level; Complete Time: 13:46 EDMS 01/17 12:10 Order name: Alcohol Serum/Plasma; Complete Time: 13:46 EDMS 01/17 12:10 Order name: Salicylates Level; Complete Time: 13:46 EDMS 01/17 12:14 Order name: CBC with Automated Diff; Complete Time: 12:22 EDMS 01/17 12:15 Order name: Protime (+INR); Complete Time: 12:37 EDMS 01/17 12:15 Order name: PTT, Activated Partial Thromb; Complete Time: 12:37 EDMS 01/17 12:15 Order name: VBG Venous Blood Gas; Complete Time: 13:46 EDMS 01/17 12:15 Order name: Urine Drug Screen; Complete Time: 13:46 EDMS 01/17 16:25 Order name: Glucose, Ancillary Testing; Complete Time: 16:30 EDNC 01/17 17:01 Order name: CBC with Automated Diff EDNC 01/17 17:01 Order name: Comprehensive Metabolic Panel EDNC 01/17 17:01 Order name: Troponin High Sensitivity EDNC 01/17 17:01 Order name: Troponin High Sensitivity EDNC 01/17 11:06 Order name: CT Head Brain wo Cont; Complete Time: 13:46 gb1 01/17 11:06 Order name: CXR XRAY; Complete Time: 13:46 gb1 01/17 11:04 Order name: EKG; Complete Time: 11:04 gb01/17 11:04 Order name: EKG - Nurse/Tech; Complete Time: 11:46 gb1 01/17 11:04 Order name: IV Saline Lock; Complete Time: 12:08 gb01/17 11:04 Order name: Labs collected and sent; Complete Time: 12:08 gb01/17 11:04 Order name: Suicide Screening ([place]); Complete Time: 12:08 01/17 12:13 Order name: Labs - recollect needed: recollect VBG fill the tube at least 2/3 full; bd Complete Time: 12:30 Administered Medications: 11:45 Drug: NS 0.9% IV 1000 ml IV at 1 bolus Per protocol; to be given as a bolus over 60 ar8 minutes Route: IV; Rate: 1 bolus; Site: left forearm; 13:00 Follow up: Response: No adverse reaction; IV Status: Completed infusion; IV Intake: ar8 1000ml 15:00 Drug: D5-1/2 NS IV 1000 ml IV at bolus bolus Route: IV; Rate: bolus; Site: left forearm;ar8 16:30 Follow up: Response: No adverse reaction; IV Status: Completed infusion; IV Intake: ar8 1000ml 15:53 Drug: Ondansetron IVP 4 mg IVP once; over 2 minutes Route: IVP; Site: left forearm; ar8 16:43 Follow up: Response: No adverse reaction; Nausea is decreased ar8 Point of Care Testing: Blood Glucose: 16:15 Blood Glucose: 186 mg/dL; ar8 Ranges: Critical Glucose Levels:Adult <50 mg/dl or >400 mg/dl <40 mg/dl or >180 mg/dl Disposition Summary: 01/17/25 14:48 Hospitalization Ordered Notes: Hospitalization Status: Inpatient Admission gb1 Provider: Joss More1 Location: Telemetry/MedSurg (Inpatient) gb1 Condition: Fair gb1 Problem: new gb1 Symptoms: are unchanged gb1 Bed/Room Type: Standard gb1 Room Assignment: 403(01/17/25 17:41) ss Diagnosis - Alcohol abuse with intoxication delirium gb1 - Hypo-osmolality and hyponatremia gb1 - Dehydration gb1 Forms: - Medication Reconciliation Form gb1 - SBAR form gb1 - Leadership Thank You Letter gb1 Signatures: Dispatcher [employer] EDMS Sheyla Garnica Shelby, RN RN ss Nereyda Campos MD MD gb1 Viktor Brown RN RN ar8 Corrections: (The following items were deleted from the chart) 12:57 11:04 ACETAMINOPHEN+C.LAB.BRZ ordered. EDMS EDMS 12:57 11:04 BASIC METABOLIC PANEL+C.LAB.BRZ ordered. EDMS EDMS 12:57 11:04 CBC+H.LAB.BRZ ordered. EDMS EDMS 12:57 11:04 ETHANOL+C.LAB.BRZ ordered. EDMS EDMS 12:57 11:04 HEPATIC FUNCTION+C.LAB.BRZ ordered. EDMS EDMS 12:57 11:04 PROTIME (+INR)+COAG.LAB.BRZ ordered. EDMS EDMS 12:57 11:04 PTT, ACTIVATED+COAG.LAB.BRZ ordered. EDMS EDMS 12:57 11:04 SALICYLATE+C.LAB.BRZ ordered. EDMS EDMS 12:57 11:04 URINE DRUG SCREEN+UC.LAB.BRZ ordered. EDMS EDMS 12:57 11:04 Troponin High Sensitivity+C.LAB.BRZ ordered. EDMS EDMS 12:57 11:04 PROBNP+C.LAB.BRZ ordered. EDMS EDMS 12:57 11:04 CREATINE PHOSPHOKINASE+C.LAB.BRZ ordered. EDMS EDMS 12:57 11:05 Venous Blood Gas+RC.LAB.BRZ ordered. EDMS EDMS 17:38 14:48 gb1 ss 17:41 17:38 408 ss ss
[2025-01-17] MEDS ORDERED: ONDANSETRON 4 MG/2 ML VIAL ONE (15:27)
[2025-01-17] MEDS ORDERED: ACETAMINOPHEN 500 MG TAB PO PRN (16:14)
[2025-01-17] MEDS ORDERED: ONDANSETRON 4 MG/2 ML VIAL IV PRN (16:14)
[2025-01-17] MEDS: ENSURE HIGH PROTEIN 237 ML CAN PO SCH (16:30)
[2025-01-17] MEDS: ENSURE CLEAR 200 ML CAN PO SCH (16:30)
[2025-01-17] MEDS: ONDANSETRON 4 MG/2 ML VIAL IV PRN (20:49)
[2025-01-17] MEDS: TRAZODONE 150 MG TAB PO SCH (20:49)
[2025-01-17] MEDS: NA CHLORIDE 0.9% 1,000 ML IV SCH (20:49)
[2025-01-17] MEDS ORDERED: FAMOTIDINE 20 MG TAB PO SCH (21:00)
[2025-01-17] MEDS: FAMOTIDINE 20 MG TAB PO SCH (21:19)
--- NOTE | 2025-01-18 05:56 | RAD REPORT ---
EXAM: CT Head Without Intravenous Contrast CLINICAL HISTORY: The patient is 89 years old and is Male; AMS TECHNIQUE: Axial computed tomography images of the head/brain without intravenous contrast. Sagittal and cor onal reformatted images were created and reviewed. This CT exam was performed using one or more of the following dose reduction techniques: automated exposure control, adjustment of the mA and/or kV according to patient size, and/or use of iterative reconstruction technique. COMPARISON: Correlation with report from CT head 01/17/2025. Images from that examination are not available for direct comparison. FINDINGS: ARTIFACTS: Some images are degraded by patient motion artifact. BRAIN: Cortical volume loss. Areas of diminished attenuation in the bilateral white matter are no nspecific but most consistent with chronic microvascular ischemic changes. Mild bilateral basal ganglia calcific patient. No hemorrhage. VENTRICLES: Unremarkable. No ventriculomegaly. BONES/JOINTS: Unremarkable. No acute fracture. SOFT TISSUES: Unremarkable. VASCULATURE: Scattered vascular calcifications. SINUSES: Mild mucosal thickening in the left maxillary sinus. MASTOID AIR CELLS: Mild fluid at the base of the right mastoid air cells, not described on the pr evious exam. IMPRESSION: 1. Chronic appearing findings. Consider MRI if symptoms persist. 2. Mild fluid at the base of the right mastoid air cells, not described on the previous exam. This is possibly infectious/inflammatory. At the time of this dictation, I have asked the radiology communication center to place me in contact with the provider caring for patient. Electronically signed by: Osiel Ríos MD 01/18/2025 05:52 AM CDT RP Due to temporary technical issues with the PACS/Integrated biometrics reporting system, reports are being sang d by the in-house radiologist without review as a courtesy to ensure prompt reporting the interpreting radiologist is fully responsible for the content of the report. Transcribed Date/Time: 01/18/2025 5:56 AM
[2025-01-18 06:11] LABS: Absolute Lymphocytes (CBC) 0.6 K/uL (0.7-4.9); Hematocrit 41.8 % (39.6-49.0); Hemoglobin 14.3 g/dL (13.6-17.9); MCH 30.2 pg (27.0-35.0); MCHC 34.1 g/dL (32.0-36.0); MCV 88.6 fL (80-100); MPV 7.7 fL (7.6-11.3); Nucleated RBC Absolute Count 0.0 (0-0); Nucleated Red Blood Cells % 0.1 % (0-0); RBC Red Blood Cell Count 4.72 M/uL (4.33-5.43); White Blood Count 8.50 thou/uL (4.3-10.9)
[2025-01-18 06:28] LABS: ALT/SGPT 43.0 U/L (16-61); AST/SGOT 55.0 U/L (15-37); Albumin 3.0 g/dL (3.4-5.0); Albumin/Globulin Ratio 0.8 (1.1-1.8); Alkaline Phosphatase 77.0 U/L (45-117); Anion Gap 11.1 mEq/L (5.0-15.0); BUN Blood Urea Nitrogen 12.0 mg/dL (7-18); Globulin 3.6 g/dL (2.3-3.5); Glucose Level 124.0 mg/dL (74-106); Potassium 4.1 mEq/L (3.5-5.1)
[2025-01-18] MEDS: ATORVASTATIN 80 MG TAB PO SCH (09:31)
[2025-01-18] MEDS: LOSARTAN POTASSIUM 50 MG TABLET PO SCH (09:32)
[2025-01-18] MEDS: DULOXETINE 20 MG CAP PO SCH (09:32)
[2025-01-18] MEDS: TAMSULOSIN 0.4 MG SR CAP PO SCH (09:33)
[2025-01-18] MEDS: ASPIRIN EC 81 MG TAB PO SCH (09:33)
[2025-01-18 22:01] VITALS: BMI 31.7
[2025-01-19] MEDS: GUAIFENESIN/DM 5 ML UCUP PO PRN (05:01)
[2025-01-19] MEDS: FARXIGA 10 MG PO SCH (08:47)
[2025-01-19] MEDS ORDERED: FARXIGA 10 MG PO SCH (09:00)
[2025-01-20 05:04] LABS: Absolute Lymphocytes (CBC) 0.9 K/uL (0.7-4.9); Hematocrit 39.6 % (39.6-49.0); Hemoglobin 13.2 g/dL (13.6-17.9); MCH 29.9 pg (27.0-35.0); MCHC 33.3 g/dL (32.0-36.0); MCV 89.8 fL (80-100); MPV 8.2 fL (7.6-11.3); Nucleated RBC Absolute Count 0.0 (0-0); Nucleated Red Blood Cells % 0.1 % (0-0); RBC Red Blood Cell Count 4.41 M/uL (4.33-5.43); White Blood Count 5.10 thou/uL (4.3-10.9)
[2025-01-20 05:13] LABS: PT Prothrombin Time 11.6 SECONDS (10-13.0); PTT, Activated Partial Thromb 35.0 SECONDS (27.2-37.4); Protime INR 1.03
[2025-01-20 05:25] LABS: ALT/SGPT 53.0 U/L (16-61); AST/SGOT 61.0 U/L (15-37); Albumin 2.5 g/dL (3.4-5.0); Albumin/Globulin Ratio 0.7 (1.1-1.8); Alkaline Phosphatase 118.0 U/L (45-117); Anion Gap 7.8 mEq/L (5.0-15.0); BUN Blood Urea Nitrogen 24.0 mg/dL (7-18); Globulin 3.4 g/dL (2.3-3.5); Glucose Level 167.0 mg/dL (74-106); Magnesium 1.6 mg/dL (1.6-2.4); NT PRO-BNP 96.0 pg/mL (<450); Potassium 3.8 mEq/L (3.5-5.1)
[2025-01-20 13:30] LABS: Hepatitis B surface AG Interp. Nonreactive (Nonreactive)
[2025-01-20 13:31] LABS: HBsAG Nonreactive Report Report
[2025-01-20] MEDS ORDERED: D10W 125 ML IV PRN (20:41)
[2025-01-20] MEDS ORDERED: GLUCAGON 1 MG/VIAL IM PRN (20:41)
[2025-01-20] MEDS: INSULIN REGULAR (HUMAN) 100 UNIT/ML SQ SCH (22:20)
--- NOTE | 2025-01-21 00:15 | P.HP ---
Certification for Inpatient Patient admitted to: Inpatient With expected LOS: >2 Midnights Patient will require the following post-hospital care: Home Health Services Practitioner: I am a practitioner with admitting privileges, knowledge of patient current condition, hospital course, and medical plan of care. Services: Services provided to patient in accordance with Admission requirements found in Title 42 Section 412.3 of the Code of Federal Regulations Patient History Date of Service: 01/17/25 Reason for admission: Alcohol abuse and dehydration with starvation ketosis History of Present Illness: Patient is an 89-year-old gentleman who comes into the hospital with severe dehydration and starvation ketosis. Patient has been drinking heavily according to the family. I spoke to patient's daughter Laura and Rosina and they both informed me that patient has chosen to drink alcohol rather than eating. Patient has generalized weakness along with anorexia. Will go ahead and monitor patient for alcohol withdrawals. Patient will be admitted to the hospital for IV hydration and will encourage oral intake. Will also get physical therapy/o ccupational therapy/speech therapy to assess the patient at this time. Patient has restoring bili given much information on his clinical symptoms. Patient will be admitted the hospital for further workup. Allergies Penicillins Allergy (Verified 01/17/25 19:47) Itching/Hives/Rash Home Medications: Aspirin 81 mg PO DAILY 01/17/25 Atorvastatin Calcium [Lipitor] 80 mg PO DAILY 01/17/25 Dapagliflozin Propanediol [Farxiga] 10 mg PO DAILY 01/17/25 Duloxetine [Cymbalta *] 20 mg PO DAILY 01/17/25 Famotidine 20 mg PO PRN 01/17/25 Losartan Potassium 25 mg PO DAILY 01/17/25 Tamsulosin [Flomax] 0.4 mg PO DAILY 01/17/25 Trazodone [Desyrel] 150 mg PO BEDTIME 01/17/25 - Past Medical/Surgical History Has patient received pneumonia vaccine in the past: No Diabetic: Yes -: Hypertension -: Diabetes -: Alcohol abuse Past Surgical History: Patient denies surgical history - Family History Father Family History: Reviewed- Non-Contributory - Social History Smoking Status: Never smoker Alcohol use: Yes CD- Drugs: No Caffeine use: Yes Place of Residence: Home Review of Systems 10-point ROS is otherwise unremarkable Physical Examination - Vital Signs Temperature: 98.0 F Blood Pressure: 115/70 Pulse: 86 Respirations: 16 Pulse Ox (%): 95 - Physical Exam General: Alert, In no apparent distress, Oriented x2, Confused HEENT: Atraumatic, PERRLA, Mucous membr. moist/pink, EOMI, Sclerae nonicteric Neck: Supple, 2+ carotid pulse no bruit, No LAD, Without JVD or thyroid abnormality Respiratory: Clear to auscultation bilaterally, Normal air movement Cardiovascular: Regular rate/rhythm, Normal S1 S2, No murmurs Gastrointestinal: Normal bowel sounds, Soft and benign, Non-distended, No tenderness Musculoskeletal: No clubbing, No swelling, No tenderness Integumentary: No rashes Neurological: Normal speech, Normal tone, Sensation intact, Cranial nerves 3-12 intact, Normal affect, Abnormal gait, Abnormal strength Lymphatics: No axilla or inguinal lymphadenopathy Assessment & Plan - Problems (Diagnosis) (1) AMS (altered mental status) Current Visit: Yes Status: Acute (2) Alcohol abuse Current Visit: Yes Status: Acute (3) Anorexia nervosa Current Visit: Yes Status: Acute (4) Generalized weakness Current Visit: Yes Status: Acute (5) Ataxia Current Visit: Yes Status: Acute - Plan PLAN: 1. AMS secondary to alcohol abuse-counseled regarding alcohol cessation. Patient with altered mentation most likely related to the EtOH intoxication. Monitor liver function testing. OOB and ambulate-PT/OT with speech. CT of the head was unremarkable. Patient had generalized weakness related to alcohol intoxication. Check B12 and folic acid level. resume thiamine. 2. Alcoholic liver disease; bilirubin is elevated. Coagulation profile is stable. Will continue monitoring liver function testing. Bilirubin is elevated and is low. Continue monitoring labs closely. 3. HTN/DM-2; strict blood pressure pressure and blood sugar control. 4. GI/DVT prophylaxis Discharge Plan: Home Plan to discharge in: Greater than 2 days - Advance Directives Does patient have a Living Will: No Does patient have a Durable POA for Healthcare: No - Code Status/Comfort Care Code Status Assessed: Yes Code Status: Full Code Critical Care: No Time Spent Managing PTS Care (In Minutes): 45
--- NOTE | 2025-01-21 01:03 | P.PN ---
Subjective Date of Service: 01/18/25 Subjective: No new changes, Improving Neurologic status is stable; Clinical symptoms are improved. Review of Systems 10-point ROS is otherwise unremarkable Physical Examination - Vital Signs Temperature: 98.0 F Blood Pressure: 115/70 Pulse: 86 Respirations: 16 Pulse Ox (%): 95 - Physical Exam General: Alert, In no apparent distress, Oriented x2 HEENT: Atraumatic, PERRLA, EOMI Neck: Supple, JVD not distended Respiratory: Clear to auscultation bilaterally, Normal air movement Cardiovascular: Regular rate/rhythm, Normal S1 S2 Gastrointestinal: Normal bowel sounds, Soft and benign, Non-distended, No tenderness Musculoskeletal: No clubbing, No swelling, No tenderness Integumentary: No rashes Neurological: Sensation intact, Cranial nerves 3-12 intact, Normal affect, Abnormal gait, Abnormal strength - Studies Medications List Reviewed: Yes Assessment & Plan - Problems (Diagnosis) (1) AMS (altered mental status) Current Visit: Yes Status: Acute (2) Alcohol abuse Current Visit: Yes Status: Acute (3) Anorexia nervosa Current Visit: Yes Status: Acute (4) Generalized weakness Current Visit: Yes Status: Acute (5) Ataxia Current Visit: Yes Status: Acute - Plan PLAN: Continue current plan of care at this time: 1. AMS secondary to alcohol abuse-counseled regarding alcohol cessation. Patient with altered mentation most likely related to the EtOH intoxication. Monitor liver function testing. OOB and ambulate-PT/OT with speech. CT of the head was unremarkable. Patient had generalized weakness related to alcohol intoxication. Check B12 and folic acid level. resume thiamine.Patient neurologic status somewhat improved. Will continue with current plan of care and strengthening patient with physical and occupational therapy 2. Alcoholic liver disease; bilirubin is elevated. Coagulation profile is stable. Will continue monitoring liver function testing. Bilirubin is elevated and is low. Continue monitoring labs closely. 3. HTN/DM-2; strict blood pressure pressure and blood sugar control. 4. GI/DVT prophylaxis Discharge Plan: Home Plan to discharge in: Greater than 2 days - Advance Directives Does patient have a Living Will: No Does patient have a Durable POA for Healthcare: No - Code Status/Comfort Care Code Status: Full Code Critical Care: No Time Spent Managing PTS Care (In Minutes): 35
--- NOTE | 2025-01-21 01:06 | P.PN ---
Date of Service: 01/19/25 Subjective Patient is improving. Clinical are much better. Patient is interacting more appropriately. Plan on trying to work on discharge planning. Daughter requested group home facility placement. Will work with physical therapy and see how patient does. If he does really well he does with home health if you really weak and we may need group home facility placement. Physical Examination - Vital Signs Reviewed - Physical Exam General: Alert, In no apparent distress, Oriented x2 Respiratory: Clear to auscultation bilaterally, Normal air movement Cardiovascular: Regular rate/rhythm, Normal S1 S2 Gastrointestinal: Normal bowel sounds, Soft and benign, Non-distended, No tenderness Musculoskeletal: No clubbing, No swelling, No tenderness Integumentary: No rashes Neurological: Abnormal gait, Abnormal strength Assessment & Plan - Problems (Diagnosis) (1) AMS (altered mental status) Current Visit: Yes Status: Acute (2) Alcohol abuse Current Visit: Yes Status: Acute (3) Anorexia nervosa Current Visit: Yes Status: Acute (4) Generalized weakness Current Visit: Yes Status: Acute (5) Ataxia Current Visit: Yes Status: Acute - Plan Continue with current plan of care as mentioned below: Continue current plan of care at this time: 1. AMS secondary to alcohol abuse-counseled regarding alcohol cessation. Patient with altered mentation most likely related to the EtOH intoxication. Monitor liver function testing. OOB and ambulate-PT/OT with speech. CT of the head was unremarkable. Patient had generalized weakness related to alcohol intoxication. Check B12 and folic acid level. resume thiamine.Patient neurologic status somewhat improved. Will continue with current plan of care and strengthening patient with physical and occupational therapy 2. Alcoholic liver disease; bilirubin is elevated. Coagulation profile is stable. Will continue monitoring liver function testing. Bilirubin is elevated and is low. Continue monitoring labs closely. 3. HTN/DM-2; strict blood pressure pressure and blood sugar control. 4. GI/DVT prophylaxis Discharge Plan: Home Plan to discharge in: Greater than 2 days - Advance Directives Does patient have a Living Will: No Does patient have a Durable POA for Healthcare: No - Code Status/Comfort Care Code Status: Full Code Critical Care: No Time Spent Managing PTS Care (In Minutes): 30
--- NOTE | 2025-01-21 01:17 | P.PN ---
Date of Service: 01/20/25 Subjective Patient doing well. Slowly improving. Will wait for Physical therapy evaluation in the morning. The patient does really well that he go home with home health but if he is weak and he may benefit [facility] facility placement. Physical Examination - Vital Signs Reviewed - Physical Exam General: Alert, In no apparent distress, Oriented x2 Respiratory: Clear to auscultation bilaterally, Normal air movement Cardiovascular: Regular rate/rhythm, Normal S1 S2 Gastrointestinal: Normal bowel sounds, Soft and benign, Non-distended, No tenderness Musculoskeletal: No clubbing, No swelling, No tenderness Neurological: Abnormal gait, Abnormal strength Assessment & Plan - Problems (Diagnosis) (1) AMS (altered mental status) Current Visit: Yes Status: Acute (2) Alcohol abuse Current Visit: Yes Status: Acute (3) Anorexia nervosa Current Visit: Yes Status: Acute (4) Generalized weakness Current Visit: Yes Status: Acute (5) Ataxia Current Visit: Yes Status: Acute - Plan Continue with current plan of care as mentioned below: 1. AMS secondary to alcohol abuse-counseled regarding alcohol cessation. Patient is much better-most likely related to alcohol intoxication. Monitor liver function testing-improved. OOB and ambulate-PT/OT with speech. CT of the head was unremarkable. Patient had generalized weakness related to alcohol intoxication. Labs are stable. Resume thiamine along with nutritional supplementation. Patient neurologic status improved. Will continue with current plan of care and strengthening patient with physical and occupational therapy. plan of care depend on PT and OT evaluation. 2. Alcoholic liver disease; bilirubin is better. Coagulation profile is stable. Will continue monitoring liver function testing. Bilirubin has improved. Continue monitoring labs closely. 3. HTN/DM-2; strict blood pressure pressure and blood sugar control. 4. GI/DVT prophylaxis Discharge Plan: Home Plan to discharge in: Greater than 2 days - Advance Directives Does patient have a Living Will: No Does patient have a Durable POA for Healthcare: No - Code Status/Comfort Care Code Status: Full Code Critical Care: No Time Spent Managing PTS Care (In Minutes): 30
--- NOTE | 2025-01-21 16:27 | P.PN ---
Date of Service: 01/21/25 Subjective: Doing better. States he feels very weak. He does not want to go to rehab for physical therapy. He states he may go for a week or 2. We discussed his frequent falls and likely need for more advanced rehabilitation. He denies fevers and chills Physical Examination - Vital Signs Reviewed - Physical Exam General: Alert, In no apparent distress, Oriented x2 Respiratory: Clear to auscultation bilaterally, Normal air movement Cardiovascular: Regular rate/rhythm, Normal S1 S2 Gastrointestinal: Normal bowel sounds, Soft and benign, Non-distended, No tenderness Musculoskeletal: No clubbing, No swelling, No tenderness Neurological: Abnormal gait, Abnormal strength Assessment & Plan - Problems (Diagnosis) (1) AMS (altered mental status) Current Visit: Yes Status: Acute (2) Alcohol abuse Current Visit: Yes Status: Acute (3) Anorexia nervosa Current Visit: Yes Status: Acute (4) Generalized weakness Current Visit: Yes Status: Acute (5) Ataxia Current Visit: Yes Status: Acute - Plan 01/21 - Mentation improved - Await PT OT - Bilirubin improving - Hyponatremia resolved - Resume home blood pressure medication - Continue CIWA - Uncontrolled type 2 diabetes mellitus with hyperglycemia improving, continue sliding scale insulin - Continue aspirin and statin Continue with current plan of care as mentioned below: 1. AMS secondary to alcohol abuse-counseled regarding alcohol cessation. Patient is much better-most likely related to alcohol intoxication. Monitor liver function testing-improved. OOB and ambulate-PT/OT with speech. CT of the head was unremarkable. Patient had generalized weakness related to alcohol intoxication. Labs are stable. Resume thiamine along with nutritional supplementation. Patient neurologic status improved. Will continue with current plan of care and strengthening patient with physical and occupational therapy. plan of care depend on PT and OT evaluation. 2. Alcoholic liver disease; bilirubin is better. Coagulation profile is stable. Will continue monitoring liver function testing. Bilirubin has improved. Continue monitoring labs closely. 3. HTN/DM-2; strict blood pressure pressure and blood sugar control. 4. GI/DVT prophylaxis Discharge Plan: Home Plan to discharge in: Greater than 2 days - Advance Directives Does patient have a Living Will: No Does patient have a Durable POA for Healthcare: No - Code Status/Comfort Care Code Status: Full Code Critical Care: No
[2025-01-22 07:55] LABS: Absolute Lymphocytes (CBC) 1.2 K/uL (0.7-4.9); Hematocrit 40.8 % (39.6-49.0); Hemoglobin 13.7 g/dL (13.6-17.9); MCH 30.1 pg (27.0-35.0); MCHC 33.5 g/dL (32.0-36.0); MCV 89.6 fL (80-100); MPV 8.1 fL (7.6-11.3); Nucleated RBC Absolute Count 0.0 (0-0); Nucleated Red Blood Cells % 0.0 % (0-0); RBC Red Blood Cell Count 4.55 M/uL (4.33-5.43); White Blood Count 7.20 thou/uL (4.3-10.9)
[2025-01-22 08:14] LABS: ALT/SGPT 53.0 U/L (16-61); AST/SGOT 49.0 U/L (15-37); Albumin 2.6 g/dL (3.4-5.0); Albumin/Globulin Ratio 0.7 (1.1-1.8); Alkaline Phosphatase 112.0 U/L (45-117); Anion Gap 7.9 mEq/L (5.0-15.0); BUN Blood Urea Nitrogen 29.0 mg/dL (7-18); Globulin 3.7 g/dL (2.3-3.5); Glucose Level 187.0 mg/dL (74-106); Potassium 3.9 mEq/L (3.5-5.1)
--- NOTE | 2025-01-22 15:33 | P.PN ---
Date of Service: 01/22/25 Subjective: No new complaints. States he is feeling a little bit better. Denies fevers and chills. Soft blood pressures this morning Physical Examination - Vital Signs Reviewed - Physical Exam General: Alert, In no apparent distress, Oriented x2 Respiratory: Clear to auscultation bilaterally, Normal air movement Cardiovascular: Regular rate/rhythm, Normal S1 S2 Gastrointestinal: Normal bowel sounds, Soft and benign, Non-distended, No tenderness Musculoskeletal: No clubbing, No swelling, No tenderness Neurological: Abnormal gait, Abnormal strength Assessment & Plan - Problems (Diagnosis) (1) AMS (altered mental status) Current Visit: Yes Status: Acute (2) Alcohol abuse Current Visit: Yes Status: Acute (3) Anorexia nervosa Current Visit: Yes Status: Acute (4) Generalized weakness Current Visit: Yes Status: Acute (5) Ataxia Current Visit: Yes Status: Acute - Plan 01/22 -Await PT OT recommendation - Discharge to nursing home facility once approved - Elevated troponin likely secondary to leak - Continue IV Lasix - Resume peritoneal dialysis per nephrology 01/21 - Mentation improved - Await PT OT - Bilirubin improving - Hyponatremia resolved - Resume home blood pressure medication - Continue CIWA - Uncontrolled type 2 diabetes mellitus with hyperglycemia improving, continue sliding scale insulin - Continue aspirin and statin Continue with current plan of care as mentioned below: 1. AMS secondary to alcohol abuse-counseled regarding alcohol cessation. Patient is much better-most likely related to alcohol intoxication. Monitor liver function testing-improved. OOB and ambulate-PT/OT with speech. CT of the head was unremarkable. Patient had generalized weakness related to alcohol intoxication. Labs are stable. Resume thiamine along with nutritional supplementation. Patient neurologic status improved. Will continue with current plan of care and strengthening patient with physical and occupational therapy. plan of care depend on PT and OT evaluation. 2. Alcoholic liver disease; bilirubin is better. Coagulation profile is stable. Will continue monitoring liver function testing. Bilirubin has improved. Continue monitoring labs closely. 3. HTN/DM-2; strict blood pressure pressure and blood sugar control. 4. GI/DVT prophylaxis Discharge Plan: Home Plan to discharge in: Greater than 2 days - Advance Directives Does patient have a Living Will: No Does patient have a Durable POA for Healthcare: No - Code Status/Comfort Care Code Status: Full Code Critical Care: No
[2025-01-22] MEDS: MORPHINE 2 MG/ML SYR IV PRN (21:31)
[2025-01-23 06:08] LABS: Anion Gap 8.1 mEq/L (5.0-15.0); BUN Blood Urea Nitrogen 31.0 mg/dL (7-18); Glucose Level 148.0 mg/dL (74-106); Magnesium 1.6 mg/dL (1.6-2.4); Potassium 4.1 mEq/L (3.5-5.1)
--- NOTE | 2025-01-23 15:17 | P.PN ---
Date of Service: 01/23/25 Subjective: No acute overnight events. He remains in good spirits. Tolerating a diet. Voiding and having regular bowel movements. he is seen shaving this morning Physical Examination - Vital Signs Reviewed - Physical Exam General: Alert, In no apparent distress, Oriented x2 Respiratory: Clear to auscultation bilaterally, Normal air movement Cardiovascular: Regular rate/rhythm, Normal S1 S2 Gastrointestinal: Normal bowel sounds, Soft and benign, Non-distended, No tenderness Musculoskeletal: No clubbing, No swelling, No tenderness Neurological: Abnormal gait, Abnormal strength Assessment & Plan - Problems (Diagnosis) (1) AMS (altered mental status) Current Visit: Yes Status: Acute (2) Alcohol abuse Current Visit: Yes Status: Acute (3) Anorexia nervosa Current Visit: Yes Status: Acute (4) Generalized weakness Current Visit: Yes Status: Acute (5) Ataxia Current Visit: Yes Status: Acute - Plan 01/23 - Pending authorization for [facility] - Blood sugars improved, continue sliding scale insulin - Continue Librium Pepcid as needed - Continue aspirin and statin - 01/22 -Await PT OT recommendation - Discharge to alf facility once approved - Elevated troponin likely secondary to leak - Resume peritoneal dialysis per nephrology 01/21 - Mentation improved - Await PT OT - Bilirubin improving - Hyponatremia resolved - Resume home blood pressure medication - Continue CIWA - Uncontrolled type 2 diabetes mellitus with hyperglycemia improving, continue sliding scale insulin - Continue aspirin and statin Continue with current plan of care as mentioned below: 1. AMS secondary to alcohol abuse-counseled regarding alcohol cessation. Patient is much better-most likely related to alcohol intoxication. Monitor liver function testing-improved. OOB and ambulate-PT/OT with speech. CT of the head was unremarkable. Patient had generalized weakness related to alcohol intoxication. Labs are stable. Resume thiamine along with nutritional supplementation. Patient neurologic status improved. Will continue with current plan of care and strengthening patient with physical and occupational therapy. plan of care depend on PT and OT evaluation. 2. Alcoholic liver disease; bilirubin is better. Coagulation profile is stable. Will continue monitoring liver function testing. Bilirubin has improved. Continue monitoring labs closely. 3. HTN/DM-2; strict blood pressure pressure and blood sugar control. DVT prophylaxis with SCDs Discharge Plan: Home Plan to discharge in: Greater than 2 days - Advance Directives Does patient have a Living Will: No Does patient have a Durable POA for Healthcare: No - Code Status/Comfort Care Code Status: Full Code Critical Care: No
[2025-01-24 08:31] LABS: Absolute Lymphocytes (CBC) 1.0 K/uL (0.7-4.9); Hematocrit 37.7 % (39.6-49.0); Hemoglobin 12.8 g/dL (13.6-17.9); MCH 30.3 pg (27.0-35.0); MCHC 33.9 g/dL (32.0-36.0); MCV 89.5 fL (80-100); MPV 7.9 fL (7.6-11.3); Nucleated RBC Absolute Count 0.0 (0-0); Nucleated Red Blood Cells % 0.1 % (0-0); RBC Red Blood Cell Count 4.21 M/uL (4.33-5.43); White Blood Count 7.10 thou/uL (4.3-10.9)
--- NOTE | 2025-01-24 17:02 | P.PN ---
Date of Service: 01/25/20 Subjective: His daughter is at bedside today. history was obtained via research associate on the phone. She feels as if he is doing much better. She agrees with sending him to rehab. She has no concerns. He is eating breakfast very well Physical Examination - Vital Signs Reviewed - Physical Exam General: Alert, In no apparent distress, Oriented x2 Respiratory: Clear to auscultation bilaterally, Normal air movement Cardiovascular: Regular rate/rhythm, Normal S1 S2 Gastrointestinal: Normal bowel sounds, Soft and benign, Non-distended, No tenderness Musculoskeletal: No clubbing, No swelling, No tenderness Neurological: Abnormal gait, Abnormal strength Assessment & Plan - Problems (Diagnosis) (1) AMS (altered mental status) Current Visit: Yes Status: Acute (2) Alcohol abuse Current Visit: Yes Status: Acute (3) Anorexia nervosa Current Visit: Yes Status: Acute (4) Generalized weakness Current Visit: Yes Status: Acute (5) Ataxia Current Visit: Yes Status: Acute - Plan 01/24 - Uncontrolled type 2 diabetes mellitus with hyperglycemia: monitor diet. Avoid excess carb - Continue aspirin and statin - CBC and CMP reviewed without gross abnormalities - Continue Flomax - Resume losartan - Trazodone nightly 01/23 - Pending authorization for [facility] - Blood sugars improved, continue sliding scale insulin - Continue Librium Pepcid as needed - Continue aspirin and statin 01/22 -Await PT OT recommendation - [facility]charge to [facility] facility once approved - Elevated troponin likely secondary to leak 01/21 - Mentation improved - Await PT OT - Bilirubin improving - Hyponatremia resolved - Resume home blood pressure medication - Continue CIWA - Uncontrolled type 2 diabetes mellitus with hyperglycemia improving, continue sliding scale insulin - Continue aspirin and statin Continue with current plan of care as mentioned below: 1. AMS secondary to alcohol abuse-counseled regarding alcohol cessation. Patient is much better-most likely related to alcohol intoxication. Monitor liver function testing-improved. OOB and ambulate-PT/OT with speech. CT of the head was unremarkable. Patient had generalized weakness related to alcohol intoxication. Labs are stable. Resume thiamine along with nutritional supplementation. Patient neurologic status improved. Will continue with current plan of care and strengthening patient with physical and occupational therapy. plan of care depend on PT and OT evaluation. 2. Alcoholic liver disease; bilirubin is better. Coagulation profile is stable. Will continue monitoring liver function testing. Bilirubin has improved. Continue monitoring labs closely. 3. HTN/DM-2; strict blood pressure pressure and blood sugar control. DVT prophylaxis with SCDs Discharge Plan: Home Plan to discharge in: Greater than 2 days - Advance Directives Does patient have a Living Will: No Does patient have a Durable POA for Healthcare: No - Code Status/Comfort Care Code Status: Full Code Critical Care: No
--- NOTE | 2025-01-25 11:28 | RAD REPORT ---
EXAMINATION: XR RIGHT KNEE CLINICAL INDICATION: Male, 89 years old. s/p fall TECHNIQUE: Multiple views of the right knee were obtained. COMPARISON: No prior exam. FINDINGS: Significant medial compartment space narrowing is present with osteoarthritis. No fracture , dislocation or joint effusion. Vascular atherosclerosis.
--- NOTE | 2025-01-25 11:29 | RAD REPORT ---
EXAMINATION: XR RIGHT ANKLE CLINICAL INDICATION: . s/p fall TECHNIQUE:Two view radiograph of the right ankle were obtained. COMPARISON: No prior exam. FINDINGS: Mild soft tissue swelling about the ankle. No acute fracture or dislocation seen. Heavy va scular atherosclerosis. Small calcaneal spurs.
[2025-01-25] MEDS: TRAMADOL HCL 50 MG TAB PO PRN (12:22)
--- NOTE | 2025-01-25 16:07 | P.PN ---
Date of Service: 01/25/25 Subjective: Some wheezing at bedside. No acute events overnight. Vitals are stable. He is resting comfortably in bed Physical Examination - Vital Signs Reviewed - Physical Exam General: Alert, In no apparent distress, Oriented x2 Respiratory: Clear to auscultation bilaterally, Normal air movement Cardiovascular: Regular rate/rhythm, Normal S1 S2 Gastrointestinal: Normal bowel sounds, Soft and benign, Non-distended, No tenderness Musculoskeletal: No clubbing, No swelling, No tenderness Neurological: Abnormal gait, Abnormal strength Assessment & Plan - Problems (Diagnosis) (1) AMS (altered mental status) Current Visit: Yes Status: Acute (2) Alcohol abuse Current Visit: Yes Status: Acute (3) Anorexia nervosa Current Visit: Yes Status: Acute (4) Generalized weakness Current Visit: Yes Status: Acute (5) Ataxia Current Visit: Yes Status: Acute - Plan 01/25 - Blood sugars improved - Resume home blood pressure medication - Start albuterol - Knee x-ray reviewed without abnormality. Ankle x-ray with some mild soft tissue swelling. Continue tramadol for pain control 01/24 - Uncontrolled type 2 diabetes mellitus with hyperglycemia: monitor diet. Avoid excess carb - Continue aspirin and statin - CBC and CMP reviewed without gross abnormalities - Continue Flomax - Resume losartan - Trazodone nightly 01/23 - Pending authorization for [facility] - Blood sugars improved, continue sliding scale insulin - Continue Librium Pepcid as needed - Continue aspirin and statin 01/22 -Await PT OT recommendation - [facility] - Elevated troponin likely secondary to leak 01/21 - Mentation improved - Await PT OT - Bilirubin improving - Hyponatremia resolved - Resume home blood pressure medication - Continue CIWA - Uncontrolled type 2 diabetes mellitus with hyperglycemia improving, continue sliding scale insulin - Continue aspirin and statin Continue with current plan of care as mentioned below: 1. AMS secondary to alcohol abuse-counseled regarding alcohol cessation. Patient is much better-most likely related to alcohol intoxication. Monitor liver function testing-improved. OOB and ambulate-PT/OT with speech. CT of the head was unremarkable. Patient had generalized weakness related to alcohol intoxication. Labs are stable. Resume thiamine along with nutritional supplementation. Patient neurologic status improved. Will continue with current plan of care and strengthening patient with physical and occupational therapy. plan of care depend on PT and OT evaluation. 2. Alcoholic liver disease; bilirubin is better. Coagulation profile is stable. Will continue monitoring liver function testing. Bilirubin has improved. Continue monitoring labs closely. 3. HTN/DM-2; strict blood pressure pressure and blood sugar control. DVT prophylaxis with SCDs Discharge Plan: Home Plan to discharge in: Greater than 2 days - Advance Directives Does patient have a Living Will: No Does patient have a Durable POA for Healthcare: No - Code Status/Comfort Care Code Status: Full Code Critical Care: No
[2025-01-25] MEDS: ALBUTEROL 2.5 MG/3 ML NEB SOL NEB SCH (19:37)
[2025-01-26 15:15] LABS: Absolute Lymphocytes (CBC) 1.1 K/uL (0.7-4.9); Hematocrit 38.4 % (39.6-49.0); Hemoglobin 13.0 g/dL (13.6-17.9); MCH 30.2 pg (27.0-35.0); MCHC 33.8 g/dL (32.0-36.0); MCV 89.2 fL (80-100); MPV 7.8 fL (7.6-11.3); Nucleated RBC Absolute Count 0.0 (0-0); Nucleated Red Blood Cells % 0.0 % (0-0); RBC Red Blood Cell Count 4.31 M/uL (4.33-5.43); White Blood Count 5.70 thou/uL (4.3-10.9)
[2025-01-26 15:36] LABS: ALT/SGPT 53.0 U/L (16-61); AST/SGOT 33.0 U/L (15-37); Albumin 2.7 g/dL (3.4-5.0); Albumin/Globulin Ratio 0.7 (1.1-1.8); Alkaline Phosphatase 126.0 U/L (45-117); Anion Gap 8.8 mEq/L (5.0-15.0); BUN Blood Urea Nitrogen 22.0 mg/dL (7-18); Globulin 3.8 g/dL (2.3-3.5); Glucose Level 151.0 mg/dL (74-106); Potassium 3.8 mEq/L (3.5-5.1)
--- NOTE | 2025-01-26 16:31 | P.PN ---
Date of Service: 01/27/20 Subjective: Spoken via rescue boat operator today on my phone. Complains of hip pain otherwise he does not have any acute complaints. He is resting comfortably in bed. He ate his breakfast this Physical Examination - Vital Signs Reviewed - Physical Exam General: Alert, In no apparent distress, Oriented x2 Respiratory: Clear to auscultation bilaterally, Normal air movement Cardiovascular: Regular rate/rhythm, Normal S1 S2 Gastrointestinal: Normal bowel sounds, Soft and benign, Non-distended, No tenderness Musculoskeletal: No clubbing, No swelling, No tenderness Neurological: Abnormal gait, Abnormal strength Assessment & Plan - Problems (Diagnosis) (1) AMS (altered mental status) Current Visit: Yes Status: Acute (2) Alcohol abuse Current Visit: Yes Status: Acute (3) Anorexia nervosa Current Visit: Yes Status: Acute (4) Generalized weakness Current Visit: Yes Status: Acute (5) Ataxia Current Visit: Yes Status: Acute - Plan 01/26 - Obtain hip x-rays - Continue Cymbalta - Continue Librium as needed - Continue aspirin and statin - Continue Flomax - Discharge once accepted by rehab 01/25 - Blood sugars improved - Resume home blood pressure medication - Start albuterol - Knee x-ray reviewed without abnormality. Ankle x-ray with some mild soft tissue swelling. Continue tramadol for pain control 01/24 - Uncontrolled type 2 diabetes mellitus with hyperglycemia: monitor diet. Avoid excess carb - Continue aspirin and statin - CBC and CMP reviewed without gross abnormalities - Continue Flomax - Resume losartan - Trazodone nightly 01/23 - Pending authorization for [facility] - Blood sugars improved, continue sliding scale insulin - Continue Librium Pepcid as needed - Continue aspirin and statin 01/22 -Await PT OT recommendation - [facility]charge to [facility] facility once approved - Elevated troponin likely secondary to leak 01/21 - Mentation improved - Await PT OT - Bilirubin improving - Hyponatremia resolved - Resume home blood pressure medication - Continue CIWA - Uncontrolled type 2 diabetes mellitus with hyperglycemia improving, continue sliding scale insulin - Continue aspirin and statin Continue with current plan of care as mentioned below: 1. AMS secondary to alcohol abuse-counseled regarding alcohol cessation. Patient is much better-most likely related to alcohol intoxication. Monitor liver function testing-improved. OOB and ambulate-PT/OT with speech. CT of the head was unremarkable. Patient had generalized weakness related to alcohol into xication. Labs are stable. Resume thiamine along with nutritional supplementation. Patient neurologic status improved. Will continue with current plan of care and strengthening patient with physical and occupational therapy. plan of care depend on PT and OT evaluation. 2. Alcoholic liver disease; bilirubin is better. Coagulation profile is stable. Will continue monitoring liver function testing. Bilirubin has improved. Continue monitoring labs closely. 3. HTN/DM-2; strict blood pressure pressure and blood sugar control. DVT prophylaxis with SCDs Discharge Plan: Home Plan to discharge in: Greater than 2 days - Advance Directives Does patient have a Living Will: No Does patient have a Durable POA for Healthcare: No - Code Status/Comfort Care Code Status: Full Code Critical Care: No
--- NOTE | 2025-01-26 17:10 | RAD REPORT ---
Exam:Hip Left 2 View HISTORY: Left hip pain FINDINGS: No fracture or dislocation seen. Bones are osteoporotic If the patient continues to have symptoms to suggest an occult fracture then MRI would be recommended
--- NOTE | 2025-01-26 17:10 | RAD REPORT ---
Exam:Hip Right 2 View HISTORY: Right hip pain FINDINGS: No fracture or dislocation seen. Bones are osteoporotic If the patient continues to have symptoms to suggest an occult fracture then MRI would be recommended
--- NOTE | 2025-01-27 15:20 | P.PN ---
Date of Service: 01/27/25 Subjective: Spoken via rn quality today on my phone. His daughter is at bedside. We discussed his negative hip x-rays. No acute issues overnight. Physical Examination - Vital Signs Reviewed - Physical Exam General: Alert, In no apparent distress, Oriented x2 Respiratory: Clear to auscultation bilaterally, Normal air movement Cardiovascular: Regular rate/rhythm, Normal S1 S2 Gastrointestinal: Normal bowel sounds, Soft and benign, Non-distended, No tenderness Musculoskeletal: No clubbing, No swelling, No tenderness Neurological: Abnormal gait, Abnormal strength Assessment & Plan - Problems (Diagnosis) (1) AMS (altered mental status) Current Visit: Yes Status: Acute (2) Alcohol abuse Current Visit: Yes Status: Acute (3) Anorexia nervosa Current Visit: Yes Status: Acute (4) Generalized weakness Current Visit: Yes Status: Acute (5) Ataxia Current Visit: Yes Status: Acute - Plan 01/27 - Hip x-rays reviewed without any acute finding - Continue home meds - Awaiting rehab except 01/26 - Obtain hip x-rays - Continue Cymbalta - Continue Librium as needed - Continue aspirin and statin - Continue Flomax - Discharge once accepted by rehab 01/25 - Blood sugars improved - Resume home blood pressure medication - Start albuterol - Knee x-ray reviewed without abnormality. Ankle x-ray with some mild soft tissue swelling. Continue tramadol for pain control 01/24 - Uncontrolled type 2 diabetes mellitus with hyperglycemia: monitor diet. Avoid excess carb - Continue aspirin and statin - CBC and CMP reviewed without gross abnormalities - Continue Flomax - Resume losartan - Trazodone nightly 01/23 - Pending authorization for [facility] - Blood sugars improved, continue sliding scale insulin - Continue Librium Pepcid as needed - Continue aspirin and statin 01/22 -Await PT OT recommendation - Discharge to [facility] facility once approved - Elevated troponin likely secondary to leak 01/21 - Mentation improved - Await PT OT - Bilirubin improving - Hyponatremia resolved - Resume home blood pressure medication - Continue CIWA - Uncontrolled type 2 diabetes mellitus with hyperglycemia improving, continue sliding scale insulin - Continue aspirin and statin Continue with current plan of care as mentioned below: 1. AMS secondary to alcohol abuse-counseled regarding alcohol cessation. Patient is much better-most likely related to alcohol intoxication. Monitor liver function testing-improved. OOB and ambulate-PT/OT with speech. CT of the head was unremarkable. Patient had generalized weakness related to alcohol intoxication. Labs are stable. Resume thiamine along with nutritional supplementation. Patient neurologic status improved. Will continue with current plan of care and strengthening patient with physical and occupational therapy. plan of care depend on PT and OT evaluation. 2. Alcoholic liver disease; bilirubin is better. Coagulation profile is stable. Will continue monitoring liver function testing. Bilirubin has improved. Continue monitoring labs closely. 3. HTN/DM-2; strict blood pressure pressure and blood sugar control. DVT prophylaxis with SCDs Discharge Plan: Home Plan to discharge in: Greater than 2 days - Advance Directives Does patient have a Living Will: No Does patient have a Durable POA for Healthcare: No - Code Status/Comfort Care Code Status: Full Code Critical Care: No
[2025-01-29 12:20] VITALS: BP 128/63; TEMP 98.1
[2025-01-29 13:41] VITALS: O2SAT 96
== END 2025-01-29 14:59 | DRG 897 ==
LOC: ER 10:38 → ERHOLD 16:14 → 4TH 19:20 → OBSVTOIN 01-19 15:38
PROVIDERS: ADMIT Hospitalist; ATTEND Hospitalist
DX: F10.121 Alcohol abuse with intoxication delirium (principal); E87.1 Hypo-osmolality and hyponatremia; F50.00 Anorexia nervosa, unspecified; K70.9 Alcoholic liver disease, unspecified; E86.0 Dehydration; I10 Essential (primary) hypertension; I44.0 Atrioventricular block, first degree; I44.4 Left anterior fascicular block; E11.65 Type 2 diabetes mellitus with hyperglycemia; R27.0 Ataxia, unspecified; Z88.0 Allergy status to penicillin; Z95.5 Presence of coronary angioplasty implant and graft; Z79.82 Long term (current) use of aspirin; Z68.31 Body mass index [BMI] 31.0-31.9, adult; Z71.41 Alcohol abuse counseling and surveillance of alcoholic; Z79.899 Other long term (current) drug therapy; Y90.8 Blood alcohol level of 240 mg/100 ml or more
CPT/HCPCS: 36415; 70450; 71045; 80048; 80053; 80074; 80076; 80143; 80179; 80307; 82077; 82140; 82550; 82803; 82947; 83735; 83880; 84100; 84484; 85025; 85610; 85730; 93005; 94010; 94640; 96361; 96365; 96375; 97110; 97116; 97161; 97165; 97530; 99285; G0378; J1815; J2270; J2405; J7030; J7613; J7799